=== PATIENT | male | born 1940 | race African-American/Black ===

== ENCOUNTER 2017-12-10 16:49 | Emergency (ER) | payer OTHER ==
--- NOTE | 2017-12-10 17:03 | RAD REPORT ---
EXAM DESCRIPTION: CT - Ct Stroke Brain Wo Cont - 12/10/2017 4:57 pm CLINICAL HISTORY: Left-sided weakness CLINICAL HISTORY: None. TECHNIQUE: Axial 5 millimeter thick images of the head were obtained without IV contrast. All CT scans are performed using dose optimization technique as appropriate and may include automated exposure control or mA/KV adjustment according to patient size. FINDINGS: No intracranial hemorrhage, mass, or cerebral edema. No acute infarction identifiable. No cortical edema or sulcal effacement. Mild to moderate atrophy and chronic ischemic changes are presen t. Ventricles are in proportion. Physiologic and arterial calcifications are present. Head matter-whi te matter differentiation is preserved. Visualized portions of the mastoid air cells, paranasal sinuses, and orbits are unremarkable. Patient has some minimal patchy opacification in the ethmoid air cells. Findings telephoned to doctor Krause 4:59 p.m.. IMPRESSION: No CT evidence of acute intracranial process. Mild to moderate atrophy and chronic ischemic changes are present. Chronic ischemic changes can mask nonhemorrhagic acute infarction. MR brain followup can be obtained if there is ongoing concern for acute ischemia.
--- NOTE | 2017-12-10 17:15 | RAD REPORT ---
EXAM DESCRIPTION: RAD - Chest Single View - 12/10/2017 5:07 pm CLINICAL HISTORY: Left-sided weakness, dizziness COMPARISON: Chest exam March 2017 TECHNIQUE: AP portable chest image was obtained 1703 hours . FINDINGS: Lung volumes are normal. No peripheral consolidation. No significant failure or volume ove rload. There is a vague 8 millimeter density in the lower left chest near the heart border not clearl y evident on the prior study. This is very likely a summation artifact. Development of a small nodule cannot be excluded. A repeat two-view chest examination could be utilized to further evaluate this f inding. Heart and vasculature are normal. No measurable pleural effusion and no pneumothorax. No gross bony abnormality seen. No acute aortic findings suspected. IMPRESSION: No failure, infiltrate or acute cardiopulmonary finding. Approximately 8 mm nodular density lower left lung field warranting repeat examination with PA and la teral projections when tolerable by the patient.
[2017-12-10 17:16] LABS: Absolute Lymphocytes (CBC) 1.8 K/uL (0.7-4.9); Absolute Monocytes 0.9 K/uL (0.1-1.3); Basophils % 0.5 % (0-1.3); Eosinophils % 5.2 % (0-4.4); Hematocrit 41.1 % (39.6-49.0); Lymphocytes % 19.7 % (15.3-44.8); MCV 83.2 fL (80-100); MPV 7.1 fL (7.6-11.3); Monocytes % 10.1 % (3.3-12.3); RBC Red Blood Cell Count 4.94 M/uL (4.33-5.43)
[2017-12-10] MEDS ORDERED: NA CHLORIDE 0.9% 1,000 ML ONE (17:19)
[2017-12-10] MEDS ORDERED: PANTOPRAZOLE 40 MG INJ ONE (17:19)
[2017-12-10] MEDS ORDERED: THIAMINE 200 MG/2 ML INJ ONE (17:19)
[2017-12-10] MEDS ORDERED: NA CHLORIDE 0.9% 250 ML ONE (17:19)
[2017-12-10] MEDS ORDERED: ALTEPLASE 100 ML IV ONE (17:20)
[2017-12-10] MEDS ORDERED: FOLIC ACID 5 MG/ML VIAL ONE (17:20)
[2017-12-10 17:30] LABS: Potassium 3.6 mmol/L (3.5-5.1)
--- NOTE | 2017-12-10 18:06 | EDPHYS ---
Physician Documentation [facility] Name: Regino Galindo Jr Age: 77 yrs Sex: Male : 1940 Arrival Date: 12/10/2017 Time: 16:51 Bed 7 Private MD: ED Physician Mikie Krause HPI: 12/10 17:16 This 77 yrs old Black Male presents to ER via EMS with complaints of S/S of Possible shelly Stroke. 17:16 The patient's problem is reported as weakness, in the left upper extremity, in the left shelly lower extremity. Onset: The symptoms/episode began/occurred just prior to arrival, 2pm. Duration: The episode is continuous. Context: the episode(s) was witnessed, by no one, symptoms became apparent at 14:00. occurred at home, occurred while the patient was sitting. The symptoms are alleviated by nothing. The symptoms are aggravated by nothing. Associated signs and symptoms: The patient has no apparent associated signs or symptoms. Severity of symptoms: At their worst the symptoms were mild in the emergency department the symptoms are unchanged. Patient's baseline: Neuro: alert and fully oriented. The patient has not experienced similar symptoms in the past, hx cvx. Historical: - Allergies: 17:09 No Known Allergies; hb - Home Meds: 17:09 amlodipine 5 mg tab 1 tab once daily [Active]; aspirin 81 mg Oral chew 1 tab once daily hb [Active]; atorvastatin 20 mg Oral tab 1 tab once daily [Active]; clopidogrel 75 mg Oral tab 1 tab once daily [Active]; Fish Oil 1,000 mg Oral cap [Active]; gluconate, once daily [Active]; Multiple Vitamins Oral tab [Active]; metoprolol tartrate 50 mg Oral tab 1 tab 2 times per day [Active]; pentoxifylline 400 mg Oral TbER 1 tab 2 times per day [Active]; pravastatin 40 mg Oral tab 1 tab once daily [Active]; ramipril 10 mg Oral cap 1 cap once daily [Active]; - PMHx: 17:09 Hypertension; CVA; hb - PSHx: 17:09 cyst removed of leg; hb - Immunization history:: Adult Immunizations up to date. - Social history:: Smoking status: Patient/guardian denies using tobacco. - Ebola Screening: : No symptoms or risks identified at this time. - Family history:: not pertinent. ROS: 17:16 Constitutional: Negative for fever, chills, and weight loss, Eyes: Negative for injury, shelly pain, redness, and discharge, ENT: Negative for injury, pain, and discharge, Neck: Negative for injury, pain, and swelling, Cardiovascular: Negative for chest pain, palpitations, and edema, Respiratory: Negative for shortness of breath, cough, wheezing, and pleuritic chest pain, Abdomen/GI: Negative for abdominal pain, nausea, vomiting, diarrhea, and constipation, Back: Negative for injury and pain, : Negative for injury, bleeding, discharge, and swelling, MS/Extremity: Negative for injury and deformity, Skin: Negative for injury, rash, and discoloration, Psych: Negative for depression, anxiety, suicide ideation, homicidal ideation, and hallucinations, Allergy/Immunology: Negative for hives, rash, and allergies, Endocrine: Negative for neck swelling, polydipsia, polyuria, polyphagia, and marked weight changes, Hematologic/Lymphatic: Negative for swollen nodes, abnormal bleeding, and unusual bruising. 17:16 Neuro: Positive for gait disturbance, weakness, of the left arm and left leg. Exam: 17:16 Radiologist reports: nad, old changes shelly 17:16 Constitutional: This is a well developed, well nourished patient who is awake, alert, and in no acute distress. Head/Face: Normocephalic, atraumatic. Eyes: Pupils equal round and reactive to light, extra-ocular motions intact. Lids and lashes normal. Conjunctiva and sclera are non-icteric and not injected. Cornea within normal limits. Periorbital areas with no swelling, redness, or edema. ENT: Nares patent. No nasal discharge, no septal abnormalities noted. Tympanic membranes are normal and external auditory canals are clear. Oropharynx with no redness, swelling, or masses, exudates, or evidence of obstruction, uvula midline. Mucous membranes moist. Neck: Trachea midline, no thyromegaly or masses palpated, and no cervical lymphadenopathy. Supple, full range of motion without nuchal rigidity, or vertebral point tenderness. No Meningismus. Chest/axilla: Normal chest wall appearance and motion. Nontender with no deformity. No lesions are appreciated. Cardiovascular: Regular rate and rhythm with a normal S1 and S2. No gallops, murmurs, or rubs. Normal PMI, no JVD. No pulse deficits. Respiratory: Lungs have equal breath sounds bilaterally, clear to auscultation and percussion. No rales, rhonchi or wheezes noted. No increased work of breathing, no retractions or nasal flaring. Abdomen/GI: Soft, non-tender, with normal bowel sounds. No distension or tympany. No guarding or rebound. No evidence of tenderness throughout. Back: No spinal tenderness. No costovertebral tenderness. Full range of motion. Skin: Warm, dry with normal turgor. Normal color with no rashes, no lesions, and no evidence of cellulitis. MS/ Extremity: Pulses equal, no cyanosis. Neurovascular intact. Full, normal range of motion. Psych: Awake, alert, with orientation to person, place and time. Behavior, mood, and affect are within normal limits. 17:16 Neuro: Orientation: is normal, appropriate for stated age, no acute changes, Mentation: is normal, appropriate for stated age, no acute changes, Memory: is normal, appropriate for stated age, no acute changes, Cranial nerves: grossly normal, is grossly normal based on the patient's age, no acute changes, Cerebellar function: dysmetria is noted on the left, the patient is unable to track right heel to left valles, Motor: moves all fours, strength is 4/5 in the left arm and left leg, Sensation: is normal, no obvious gross deficits, appropriate Gait: not tested. Deep tendon reflexes are 2+ (normal) in the bilateral brachioradialis, bicep, tricep and patellar and Achilles tendons, seizure activity, is not displayed by the patient. 17:30 Neuro: dw with dr moya, yes tpa candidate, within 4.5 hour window. shelly Vital Signs: 17:01 BP 180 / 76; Pulse 82; Resp 16; Temp 98; Pulse Ox 100% on R/A; Pain 0/10; hb 17:05 Weight 78.93 kg; hb 17:20 BP 157 / 88; Pulse 77; Resp 16; Pulse Ox 100% on R/A; Pain 0/10; hb 18:16 BP 173 / 88; Pulse 79; Resp 18; Pulse Ox 100% on R/A; tw2 NIH Stroke Scale Scores: 17:16 NIHSS Score: 5 shelly MDM: 16:58 Patient medically screened. shelly 17:31 Data reviewed: vital signs, nurses notes, lab test result(s), EKG, radiologic studies, [facility] scan, plain films. 12/10 16:53 Order name: Basic Metabolic Panel 12/10 16:53 Order name: CBC with Diff; Complete Time: 17:31 12/10 16:53 Order name: Protime (+inr); Complete Time: 17:31 12/10 16:53 Order name: Ptt, Activated; Complete Time: 17:31 12/10 16:59 Order name: Sed Rate [facility] 12/10 16:59 Order name: CRP [facility] 12/10 16:53 Order name: CT Stroke Brain w/o Contrast; Complete Time: 17:31 12/10 16:53 Order name: Stroke CXR 1 View; Complete Time: 17:31 12/10 16:59 Order name: Urine Culture [facility] 12/10 17:05 Order name: Glucose, Ancillary Testing; Complete Time: 17:31 EDMS 12/10 16:53 Order name: EKG; Complete Time: 16:54 12/10 16:53 Order name: Accucheck; Complete Time: 17:10 12/10 16:53 Order name: Cardiac monitoring; Complete Time: 17:10 12/10 16:53 Order name: EKG - Nurse/Tech; Complete Time: 17:10 12/10 16:53 Order name: IV Saline Lock; Complete Time: 17:10 12/10 16:53 Order name: Labs collected and sent; Complete Time: 17:11 12/10 16:53 Order name: NPO; Complete Time: 17:11 12/10 16:53 Order name: O2 Per Protocol; Complete Time: 17:11 12/10 16:53 Order name: O2 Sat Monitoring; Complete Time: 17:11 12/10 16:53 Order name: Stroke Swallow Screen; Complete Time: 17:38 12/10 16:59 Order name: Urine Dipstick-Ancillary (obtain specimen); Complete Time: 18:16 [facility] Administered Medications: 17:20 Drug: NS 0.9% 1000 ml Route: IV; Rate: 1 bolus; Site: right antecubital; hb 18:15 Follow up: Response: No adverse reaction; IV Status: Completed infusion 17:20 Drug: foLIC Acid 1 mg Route: IVPB; Site: right antecubital; hb 18:00 Follow up: Response: No adverse reaction hb 17:20 Drug: ProTONIX 40 mg Route: IVP; Site: right antecubital; hb 18:16 Follow up: Response: No adverse reaction tw2 17:20 Drug: Thiamine 100 mg Route: IV; Rate: bolus; Site: right antecubital; hb 18:00 Follow up: Response: No adverse reaction hb 17:20 Drug: ACTIvase 78 mg {Co-Signature: tw2 (Gloria Duffy RN).} Route: IV; Rate: calculated hb rate; Infused Over: 60 mins; Site: right antecubital; 18:15 Follow up: Response: No adverse reaction; IV Status: Infusion continued upon transfer hb Disposition: 12/10/17 18:06 Transfer ordered to [facility]. Diagnosis are Weakness, Cerebral infarction - left arm and left leg weakness. - Reason for transfer: Higher level of care. - Accepting physician is to stroke team, [facility], via [facility]. - Condition is Fair. - Problem is new. - Symptoms are unchanged. NIH Stroke Scale - NIH Stroke Score Date: 12/10/2017 Time: 17:16 Total Score = 5 1a. Level of Consciousness (LOC) - 0(Alert) 1b. Level of Consciousness (LOC) (Year \T\ Age) - 0(Both) 1c. LOC Commands (Open \T\ Closes Eyes/Senior Billing Consultant) - 0(Both) 2. Best Gaze (Lateral Gaze Paresis) - 0(Normal) 3. Visual Field Loss - 0(No visual loss) 4. Facial Palsy - 0(Normal) 5a. Left Arm: Motor (10-second hold) - 1(Drift) 5b. Right Arm: Motor (10-second hold) - 0(No drift) 6a. Left Leg: Motor (5-second hold - always test supine) - 2(Drift, some effort against gravity) 6b. Right Leg: Motor (5-second hold - always test supine) - 0(No drift) 7. Limb Ataxia (finger/nose \T\ heel/valles - test with eyes open) - 2(Present in two limbs) 8. Sensory Loss (pinprick arms/legs/face) - 0(Normal) 9. Best Language: Aphasia (description/naming/reading) - 0(No aphasia) 10. Dysarthria (speech clarity - read or repeat words) - 0(Normal) 11. Extinction and Inattention (visual/tactile/auditory/spatial/personal) - 0(No abnormality) Initials: shelly Signatures: Dispatcher [employer] Mikie Campos MD MD cha Baxter, Heather, RN RN Gloria Duffy RN RN tw2 Gloria Duffy RN tw2 Corrections: (The following items were deleted from the chart) 18:24 18:06 12/10/2017 18:06 Transfer ordered to [facility]. tw2 Diagnosis is Weakness; Cerebral infarction - left arm and left leg weakness. Reason for transfer: Higher level of care. Accepting physician is to stroke team, [facility], via [facility]. Condition is Fair. Problem is new. Symptoms are unchanged. shelly
--- NOTE | 2017-12-10 18:06 | ER ---
Nurse's Notes [facility] Name: Regino Galindo Jr Age: 77 yrs Sex: Male : 1940 Arrival Date: 12/10/2017 Time: 16:51 Bed 7 Private MD: Diagnosis: Weakness;Cerebral infarction-left arm and left leg weakness Presentation: 12/10 16:52 Presenting complaint: EMS states: Left sided weakness and dizziness that started at 2pm hb today. Hx CVA, HTN. Transition of care: patient was not received from another setting of care. Onset of symptoms was December 10, 2017 at 14:00. 16:52 Method Of Arrival: EMS: [facility] hb 16:52 Acuity: DEANGELO 2 hb 17:00 Risk Assessment: Do you want to hurt yourself or someone else? Patient reports no hb desire to harm self or others. Initial Sepsis Screen: Does the patient meet any 2 criteria? No. Patient's initial sepsis screen is negative. Does the patient have a suspected source of infection? No. Patient's initial sepsis screen is negative. Care prior to arrival: IV initiated. 18 GA, in the right antecubital area. Historical: - Allergies: 17:09 No Known Allergies; hb - Home Meds: 17:09 amlodipine 5 mg tab 1 tab once daily [Active]; aspirin 81 mg Oral chew 1 tab once daily hb [Active]; atorvastatin 20 mg Oral tab 1 tab once daily [Active]; clopidogrel 75 mg Oral tab 1 tab once daily [Active]; Fish Oil 1,000 mg Oral cap [Active]; gluconate, once daily [Active]; Multiple Vitamins Oral tab [Active]; metoprolol tartrate 50 mg Oral tab 1 tab 2 times per day [Active]; pentoxifylline 400 mg Oral TbER 1 tab 2 times per day [Active]; pravastatin 40 mg Oral tab 1 tab once daily [Active]; ramipril 10 mg Oral cap 1 cap once daily [Active]; - PMHx: 17:09 Hypertension; CVA; hb - PSHx: 17:09 cyst removed of leg; hb - Immunization history:: Adult Immunizations up to date. - Social history:: Smoking status: Patient/guardian denies using tobacco. - Ebola Screening: : No symptoms or risks identified at this time. - Family history:: not pertinent. Screenin:07 Abuse screen: Denies threats or abuse. Denies injuries from another. Nutritional hb screening: No deficits noted. Tuberculosis screening: No symptoms or risk factors identified. Fall Risk Total Paez Fall Scale indicates High Risk Score (45 or more points). Fall prevention measures have been instituted. Side Rails Up X 2 Frequent Obs/Assessments Occuring Family Present and informed to notify staff if the need to leave the bedside As available patient and family educated on Fall Prevention Program and Strategies. 17:45 Patient has been NPO before screening. The patient is alert, able to follow commands. hb The patient does not exhibit slurred or garbled speech The patient is not exhibiting difficulty speaking. The patient does not exhibit difficulty understanding words. The patient is able to swallow own secretions with no drooling or need for suction. Patient tolerated one teaspoon of water. No drooling, immediate coughing, gurgling, or clearing of the throat was noted. The patient tolerated 90mL of water. No drooling, immediate coughing, gurgling, or clearing of the throat was noted. The patient passed the bedside swallow screening. Oral medications may be given as ordered. Contact Physician for further diet orders. Assessment: 16:52 Reassessment: Code Stroke called, pt to CT. hb 17:00 Reassessment: Pt returned from CT. hb 17:01 Reassessment: BGL 91. hb 17:02 Reassessment: blood sent to lab with purple sticker, outside lab called by Denise. hb 17:03 Reassessment: PCXR done. hb 17:04 Reassessment: Dr. Krause at bedside. hb 17:05 Reassessment: EKG at bedside. hb 17:10 General: Appears in no apparent distress. Behavior is calm, cooperative. Pain: Denies hb pain. Neuro: Level of Consciousness is awake, alert, obeys commands, Oriented to person, place, time, situation, Infection Control Coordinator are equal bilaterally Weakness in left Gait is unsteady, Speech is normal, Facial symmetry appears normal, Pupils are PERRLA, Intact. Cardiovascular: Heart tones S1 S2 present Capillary refill < 3 seconds Patient's skin is warm and dry. Respiratory: Airway is patent Trachea midline Respiratory effort is even, unlabored, Respiratory pattern is regular, symmetrical. GI: No signs and/or symptoms were reported involving the gastrointestinal system. : No signs and/or symptoms were reported regarding the genitourinary system. EENT: No signs and/or symptoms were reported regarding the EENT system. Derm: No signs and/or symptoms reported regarding the dermatologic system. Skin is pink, warm \T\ dry. Musculoskeletal: Reports weakness in left arm and left leg. 17:20 Reassessment: TPA started. hb 17:36 Reassessment: Report give to [facility], ETA=30 min. iw Vital Signs: 17:01 BP 180 / 76; Pulse 82; Resp 16; Temp 98; Pulse Ox 100% on R/A; Pain 0/10; hb 17:05 Weight 78.93 kg; hb 17:20 BP 157 / 88; Pulse 77; Resp 16; Pulse Ox 100% on R/A; Pain 0/10; hb 18:16 BP 173 / 88; Pulse 79; Resp 18; Pulse Ox 100% on R/A; tw2 NIH Stroke Scale Scores: 17:16 NIHSS Score: 5 shelly ED Course: 16:51 Patient arrived in ED. hb 16:51 Bed in low position. Side rails up X2. freezer person on. Pulse ox on. NIBP on. tw2 16:58 CT Stroke Brain w/o Contrast In Process Unspecified. EDMS 16:58 Mikie Krause MD is Attending Physician. [facility] 16:58 Loren Wilkerson, RN is Primary Nurse. hb 16:59 Triage completed. hb 17:03 Arm band placed on right wrist. hb 17:05 X-ray completed. Portable x-ray completed in exam room. Patient tolerated procedure ml well. 17:06 Stroke CXR 1 View In Process Unspecified. EDMS 17:25 Missed attempt(s): 22 gauge in right antecubital area. Bleeding controlled, band aid tw2 applied, catheter tip intact. Missed attempt(s): 22 gauge in right forearm. Bleeding controlled, band aid applied, catheter tip intact. 17:26 EKG done, by distribution tech. reviewed by Mikie Krause MD. 3 18:17 No provider procedures requiring assistance completed. Patient transferred, IV remains tw2 in place. Administered Medications: 17:20 Drug: NS 0.9% 1000 ml Route: IV; Rate: 1 bolus; Site: right antecubital; hb 18:15 Follow up: Response: No adverse reaction; IV Status: Completed infusion hb 17:20 Drug: foLIC Acid 1 mg Route: IVPB; Site: right antecubital; hb 18:00 Follow up: Response: No adverse reaction hb 17:20 Drug: ProTONIX 40 mg Route: IVP; Site: right antecubital; hb 18:16 Follow up: Response: No adverse reaction tw2 17:20 Drug: Thiamine 100 mg Route: IV; Rate: bolus; Site: right antecubital; hb 18:00 Follow up: Response: No adverse reaction hb 17:20 Drug: ACTIvase 78 mg {Co-Signature: tw2 (Gloria Duffy RN).} Route: IV; Rate: calculated hb rate; Infused Over: 60 mins; Site: right antecubital; 18:15 Follow up: Response: No adverse reaction; IV Status: Infusion continued upon transfer hb Outcome: 18:06 ER care complete, transfer ordered by . shelly 18:24 Patient left the ED. tw2 18:25 Transferred by helicopter to [facility]. hb 18:25 Condition: stable 18:25 Instructed on the need for transfer, Demonstrated understanding of instructions. NIH Stroke Scale - NIH Stroke Score Date: 12/10/2017 Time: 17:16 Total Score = 5 1a. Level of Consciousness (LOC) - 0(Alert) 1b. Level of Consciousness (LOC) (Year \T\ Age) - 0(Both) 1c. LOC Commands (Open \T\ Closes Eyes/Natural Gas Plant Supervisor) - 0(Both) 2. Best Gaze (Lateral Gaze Paresis) - 0(Normal) 3. Visual Field Loss - 0(No visual loss) 4. Facial Palsy - 0(Normal) 5a. Left Arm: Motor (10-second hold) - 1(Drift) 5b. Right Arm: Motor (10-second hold) - 0(No drift) 6a. Left Leg: Motor (5-second hold - always test supine) - 2(Drift, some effort against gravity) 6b. Right Leg: Motor (5-second hold - always test supine) - 0(No drift) 7. Limb Ataxia (finger/nose \T\ heel/valles - test with eyes open) - 2(Present in two limbs) 8. Sensory Loss (pinprick arms/legs/face) - 0(Normal) 9. Best Language: Aphasia (description/naming/reading) - 0(No aphasia) 10. Dysarthria (speech clarity - read or repeat words) - 0(Normal) 11. Extinction and Inattention (visual/tactile/auditory/spatial/personal) - 0(No abnormality) Initials: shelly Signatures: Dispatcher [employer] Mikie Campos MD MD cha Williams, Irene, RN RN iw Arnel, Loren Hemphill RN RN Gloria Duffy RN RN tw2 Gail Mariscal [facility] Gloria Duffy RN tw2
[2017-12-10 19:14] VITALS: TEMP 98; O2SAT 100
[2017-12-10 19:16] VITALS: BP 173/88
--- NOTE | 2017-12-11 09:26 | EKG ---
Test Date: 2017-12-10 Test Time: 17:07:23 [employer] Technology: [employer] MEASUREMENT RESULTS: Intervals: Rate: 75 CT: 168 QRSD: 84 QT: 366 QTc: 408 [place]: P: 70 CT: 168 QRS: 27 T: 45 INTERPRETIVE STATEMENTS: Normal sinus rhythm Septal infarct, age undetermined Abnormal ECG Compared to ECG 08/02/2016 10:15:19 Myocardial infarct finding now present Electronically Signed On 12-11-17 09:24:15 CDT by Teo Crawley
== END 2017-12-10 18:24 | disposition short-term general hospital (02) ==
LOC: ER 16:49
DX: I63.9 Cerebral infarction, unspecified (principal); I10 Essential (primary) hypertension; R29.705 NIHSS score 5; Z79.82 Long term (current) use of aspirin
CPT/HCPCS: 36415; 70450; 71045; 80048; 82962; 85025; 85610; 85652; 85730; 86140; 87086; 87088; 92977; 93005; 96365; 96374; 96375; 99291; C9113; J2997; J3411; J7030

== ENCOUNTER 2019-02-21 19:11 | Observation (INO) | payer OTHER ==
--- OUTSIDE RECORDS SUMMARY | 2019-02-21 19:13 | XMS REPORT ---
:1940 [facility] [address] [place] [address] Dr. Littlejohn. [address] [place] [id number] Care Team Providers Name Role Phone FLACO LUNA Unavailable Unavailable Problems This patient has no known problems. Allergies, Adverse Reactions, Alerts This patient has no known allergies or adverse reactions. Medications This patient has no known medications. Results Test Description Test Time Test Comments Text Results Atomic Results Result Comments MR, MRA, BRAIN, 2017-12-14 Reason for FINAL REPORT PATIENT ID: WITHOUT CONTRAST 13:15:00 exam:->Ischemic Stroke [id number] MRA brain and EvaluationReason for neck without contrast exam:->discharge 12/14/2017 1:14 PM CLINICAL pending HISTORY: Ischemic Stroke Evaluationdischarge pendingstroke COMPARISON: None available TECHNIQUE: Two- and three-dimensional [id number] MRA images of the intra- and extracranial arterial vasculature was performed, from which maximal intensity projection 3-D reconstructions were created. FINDINGS: MRA neck: There is no vessel occlusion or flow-limiting stenosis. There is no NASCET-quantifiable cervical internal carotid artery stenosis. Flow is antegrade in both vertebral arteries. MRA [place]: There is no vessel occlusion, flow-limiting stenosis, or aneurysm. IMPRESSION: Unremarkable intra- and extracranial MRAs. Signed: Shayne Petty Verified Date/Time: 12/14/2017 13:15:40 Reading Location: [facility] Radiology Reading Room , MRA, NECK, 2017-12-14 Reason for FINAL REPORT PATIENT ID: WITHOUT IV 13:15:00 exam:->Ischemic Stroke [id number] MRA brain and CONTRAST EvaluationReason for neck without contrast exam:->discharge 12/14/2017 1:14 PM CLINICAL pending HISTORY: Ischemic Stroke Evaluationdischarge pendingstroke COMPARISON: None available TECHNIQUE: Two- and three-dimensional [id number] MRA images of the intra- and extracranial arterial vasculature was performed, from which maximal intensity projection 3-D reconstructions were created. FINDINGS: MRA neck: There is no vessel occlusion or flow-limiting stenosis. There is no NASCET-quantifiable cervical internal carotid artery stenosis. Flow is antegrade in both vertebral arteries. MRA [place]: There is no vessel occlusion, flow-limiting stenosis, or aneurysm. IMPRESSION: Unremarkable intra- and extracranial MRAs. Signed: Shayne Petty Verified Date/Time: 12/14/2017 13:15:40 Reading Location: [facility] Reading Room , BRAIN, 2017-12-14 Discharge pendingReason FINAL REPORT PATIENT ID: WITHOUT CONTRAST 13:13:00 for exam:->Ischemic [id number] MRI brain without Stroke Evaluation contrast 12/14/2017 1:11 PM CLINICAL INDICATION: Ischemic Stroke Evaluationstroke TECHNIQUE: Multiplanar, multisequence MR imaging of the brain was performed utilizing the following imaging sequences: Axial T1, T2, FLAIR, GRE, and DWI; sagittal and coronal T1-weighted images. COMPARISON: None available FINDINGS: There is no acute infarct, hematoma, mass, extra-axial collection, or hydrocephalus. There is a small chronic infarct in the posterior right middle frontal and adjacent precentral gyri. There is a small chronic infarct in the inferior left cerebellum. There are rare chronic microvascular changes in the supratentorial white matter and vivian. There is generalized parenchymal volume loss. Normal appearing flow-voids are present in the major intracranial vascular structures. The sellar and pineal regions are normal. The craniovertebral junction is intact. There is multifocal sinusitis. There are bilateral phacoemulsifications. The skull base is unremarkable. IMPRESSION: Chronic ischemic changes. No acute intracranial abnormality. Sinusitis. Signed: Shayne Petty Verified Date/Time: 12/14/2017 13:13:48 Reading Location: [facility] Rad[facility] Reading Room [facility] 2017-12-12 07:42:00 Test Item Value Reference Range Comments MAGNESIUM (BEAKER) (test svxo=920) 2.2 mg/dL 1.6-2.6 Add-onCOMPREHENSIVE METABOLIC [id number] 04:37:00 Test Item Value Reference Range Comments TOTAL PROTEIN (BEAKER) 6.1 gm/dL 6.0-8.3 (test kymy=624) ALBUMIN (BEAKER) (test 3.4 g/dL 3.5-5.0 gkvu=7674) ALKALINE PHOSPHATASE 29 U/L 40-150 (BEAKER) (test hknr=084) BILIRUBIN TOTAL (BEAKER) 0.5 mg/dL 0.2-1.2 (test jrhy=630) SODIUM (BEAKER) (test 140 meq/L 136-145 aweg=922) POTASSIUM (BEAKER) (test 4.0 meq/L 3.5-5.1 mjju=282) CHLORIDE (BEAKER) (test 108 meq/L 98-107 hwqn=042) CO2 (BEAKER) (test 25 meq/L 22-29 wpze=765) BLOOD UREA NITROGEN 10 mg/dL 7-21 (BEAKER) (test zsms=495) CREATININE (BEAKER) (test 0.93 mg/dL 0.57-1.25 xhls=954) GLUCOSE RANDOM (BEAKER) 100 mg/dL 70-105 (test zdkx=368) CALCIUM (BEAKER) (test 8.6 mg/dL 8.4-10.2 rsab=284) AST (SGOT) (BEAKER) (test 21 U/L 5-34 tfqj=760) ALT (SGPT) (BEAKER) (test 21 U/L 6-55 dxob=798) EGFR (BEAKER) (test 95 mL/min/1.73 sq m ESTIMATED GFR IS NOT jkob=5432) ACCURATE CREATININE CLEARANCE IN PREDICTING GLOMERULAR FILTRATION RATE. ESTIMATED GFR IS NOT APPLICABLE FOR DIALYSIS PATIENTS. CBC (HEMOGRAM ONLY)2017-12-12 04:20:00 Test Item Value Reference Range Comments WHITE BLOOD CELL COUNT (BEAKER) (test qsho=199) 6.6 K/ L 3.5-10.5 RED BLOOD CELL COUNT (BEAKER) (test qrcp=492) 4.66 M/ L 4.63-6.08 HEMOGLOBIN (BEAKER) (test ondi=474) 12.8 GM/DL 13.7-17.5 HEMATOCRIT (BEAKER) (test echr=360) 39.6 % 40.1-51.0 MEAN CORPUSCULAR VOLUME (BEAKER) (test cxej=275) 85.0 fL 79.0-92.2 MEAN CORPUSCULAR HEMOGLOBIN (BEAKER) (test 27.5 pg 25.7-32.2 merr=551) MEAN CORPUSCULAR HEMOGLOBIN CONC (BEAKER) (test 32.3 GM/DL 32.3-36.5 zkkq=782) RED CELL DISTRIBUTION WIDTH (BEAKER) (test 15.3 % 11.6-14.4 erbq=060) PLATELET COUNT (BEAKER) (test tnuw=950) 220 K/CU MM 150-450 MEAN PLATELET VOLUME (BEAKER) (test ehwy=120) 9.1 fL 9.4-12.4 NUCLEATED RED BLOOD CELLS (BEAKER) (test 0 /100 WBC 0-0 nbgv=201) [id number] 06:03:00 Test Item Value Reference Range Comments PHOSPHORUS (BEAKER) (test yvca=161) 3.9 mg/dL 2.3-4.7 [id number] 06:03:00 Test Item Value Reference Range Comments MAGNESIUM (BEAKER) (test geot=189) 2.1 mg/dL 1.6-2.6 FastingBASIC METABOLIC [id number] 06:03:00 Test Item Value Reference Range Comments SODIUM (BEAKER) (test 143 meq/L 136-145 fyfu=695) POTASSIUM (BEAKER) (test 3.8 meq/L 3.5-5.1 wnwt=197) CHLORIDE (BEAKER) (test 109 meq/L 98-107 jhxf=625) CO2 (BEAKER) (test 26 meq/L 22-29 ivjx=566) BLOOD UREA NITROGEN 12 mg/dL 7-21 (BEAKER) (test zygo=006) CREATININE (BEAKER) (test 0.89 mg/dL 0.57-1.25 lllb=872) GLUCOSE RANDOM (BEAKER) 88 mg/dL 70-105 (test zxra=632) CALCIUM (BEAKER) (test 8.9 mg/dL 8.4-10.2 brjf=018) EGFR (BEAKER) (test 100 mL/min/1.73 sq m ESTIMATED GFR IS NOT dbzc=5203) ACCURATE CREATININE CLEARANCE IN PREDICTING GLOMERULAR FILTRATION RATE. ESTIMATED GFR IS NOT APPLICABLE FOR DIALYSIS PATIENTS. FastingLIPID [id number] 06:03:00 Test Item Value Reference Range Comments TRIGLYCERIDES (BEAKER) (test lkam=863) 68 mg/dL CHOLESTEROL (BEAKER) (test qkwp=032) 198 mg/dL HDL CHOLESTEROL (BEAKER) (test bgve=759) 83 mg/dL LDL CHOLESTEROL CALCULATED (BEAKER) (test 101 mg/dL adsr=218) Triglyceride Reference Range: Low Risk <150 Borderline 150- 199 High Risk 200-499 Very High Risk >=500Cholesterol Reference Range: Low Risk <200 Borderline 200-239 High Risk > 240HDL Cholesterol Reference Range: Low Risk >=60 High Risk <40LDL Cholesterol Reference Range: Optimal <100 Near Optimal 100-129 Borderline 130-159 High 160-189 Very High >=190 FastingCT BRAIN WITHOUT IV CONTRAST - [id number] 05:38: 00Reason for exam:->post-tPAFINAL REPORT CT BRAIN WITHOUT IV CONTRAST - PORTABLE INDICATION: post-tPA TECHNIQUE: Noncontrast portable axial CT imaging was obtained from the vertex to the skull base. Axial images were reconstructed using a bone algorithm. DOSE REDUCTION: Dose modulation, iterative reconstruction, and/or weight-based adjustment of the mA/ kV was utilized to reduce the radiation dose to as low as reasonably achievable. COMPARISON: None. FINDINGS: Advanced volume loss is present with frontal predominance. No abnormal extra-axial fluid. No discernible infarct or parenchymal hemorrhage. Midline is normally positioned. There is no hydrocephalus. Calvarium is intact. Trace paranasal sinus disease is present. Globes are proptotic. IMPRESSION: Advanced involutional changes without acute intracranial abnormality. If there is persistent clinical concern for intracranial pathology, MR examinationis recommended for further characterization. Signed: JR Figueroa Robert MDReport Verified Date/Time: 12/11/2017 05:38:21 Reading Location: [address] Reading Room VITAMIN [id number] 05:27:00 Test Item Value Reference Range Comments VITAMIN B12 (BEAKER) (test kjcq=966) 843 pg/mL 213-816 TSH/FREE T4 IF [id number] 05:27:00 Test Item Value Reference Range Comments THYROID STIMULATING HORMONE (BEAKER) (test 1.84 uIU/mL 0.35-4.94 xgmv=738) CBC W/PLT COUNT & AUTO [id number] 04:48:00 Test Item Value Reference Range Comments WHITE BLOOD CELL COUNT (BEAKER) (test wcvm=653) 7.0 K/ L 3.5-10.5 RED BLOOD CELL COUNT (BEAKER) (test iqsj=941) 4.89 M/ L 4.63-6.08 HEMOGLOBIN (BEAKER) (test qsym=160) 13.2 GM/DL 13.7-17.5 HEMATOCRIT (BEAKER) (test nbgb=921) 41.0 % 40.1-51.0 MEAN CORPUSCULAR VOLUME (BEAKER) (test dnyt=570) 83.8 fL 79.0-92.2 MEAN CORPUSCULAR HEMOGLOBIN (BEAKER) (test 27.0 pg 25.7-32.2 pipg=267) MEAN CORPUSCULAR HEMOGLOBIN CONC (BEAKER) (test 32.2 GM/DL 32.3-36.5 orqi=853) RED CELL DISTRIBUTION WIDTH (BEAKER) (test 15.5 % 11.6-14.4 nwjq=548) PLATELET COUNT (BEAKER) (test drcp=608) 251 K/CU MM 150-450 MEAN PLATELET VOLUME (BEAKER) (test gbei=296) 9.1 fL 9.4-12.4 NUCLEATED RED BLOOD CELLS (BEAKER) (test 0 /100 WBC 0-0 vrqn=508) NEUTROPHILS RELATIVE PERCENT (BEAKER) (test 48 % qqqz=759) LYMPHOCYTES RELATIVE PERCENT (BEAKER) (test 32 % tasi=951) MONOCYTES RELATIVE PERCENT (BEAKER) (test 10 % pzth=914) EOSINOPHILS RELATIVE PERCENT (BEAKER) (test 9 % mave=005) BASOPHILS RELATIVE PERCENT (BEAKER) (test 1 % fqgt=231) NEUTROPHILS ABSOLUTE COUNT (BEAKER) (test 3.40 K/ L 1.78-5.38 rmos=018) LYMPHOCYTES ABSOLUTE COUNT (BEAKER) (test 2.23 K/ L 1.32-3.57 myno=327) MONOCYTES ABSOLUTE COUNT (BEAKER) (test 0.72 K/ L 0.30-0.82 tkzf=200) EOSINOPHILS ABSOLUTE COUNT (BEAKER) (test 0.64 K/ L 0.04-0.54 fnbd=915) BASOPHILS ABSOLUTE COUNT (BEAKER) (test 0.04 K/ L 0.01-0.08 ikmj=198) IMMATURE GRANULOCYTES-RELATIVE PERCENT (BEAKER) 0 % 0-1 (test ufod=7787) [id number] 02:11:00 Test Item Value Reference Range Comments RPR SCREEN (BEAKER) (test racd=586) Nonreactive Nonreactive HEPATIC FUNCTION [id number] 20:49:00 Test Item Value Reference Range Comments TOTAL PROTEIN (BEAKER) (test lmox=198) 6.9 gm/dL 6.0-8.3 ALBUMIN (BEAKER) (test xmjn=2565) 3.8 g/dL 3.5-5.0 BILIRUBIN TOTAL (BEAKER) (test pcyh=573) 0.5 mg/dL 0.2-1.2 BILIRUBIN DIRECT (BEAKER) (test runb=394) 0.2 mg/dL 0.1-0.5 ALKALINE PHOSPHATASE (BEAKER) (test ewle=838) 30 U/L 40-150 AST (SGOT) (BEAKER) (test vzye=819) 21 U/L 5-34 ALT (SGPT) (BEAKER) (test azba=781) 22 U/L 6-55 BASIC METABOLIC [id number] 20:49:00 Test Item Value Reference Range Comments SODIUM (BEAKER) (test 138 meq/L 136-145 arzp=405) POTASSIUM (BEAKER) (test 3.8 meq/L 3.5-5.1 rhcd=817) CHLORIDE (BEAKER) (test 106 meq/L 98-107 kmws=188) CO2 (BEAKER) (test 22 meq/L 22-29 viml=565) BLOOD UREA NITROGEN 15 mg/dL 7-21 (BEAKER) (test uwnt=249) CREATININE (BEAKER) (test 1.05 mg/dL 0.57-1.25 iivh=295) GLUCOSE RANDOM (BEAKER) 94 mg/dL 70-105 (test dcvk=153) CALCIUM (BEAKER) (test 9.0 mg/dL 8.4-10.2 oxvr=384) EGFR (BEAKER) (test 83 mL/min/1.73 sq m ESTIMATED GFR IS NOT qkyv=7170) ACCURATE CREATININE CLEARANCE IN PREDICTING GLOMERULAR FILTRATION RATE. ESTIMATED GFR IS NOT APPLICABLE FOR DIALYSIS PATIENTS. CBC W/PLT COUNT & AUTO [id number] 20:48:00 Test Item Value Reference Range Comments WHITE BLOOD CELL COUNT (BEAKER) (test mxhb=775) 9.3 K/ L 3.5-10.5 RED BLOOD CELL COUNT (BEAKER) (test yito=921) 4.98 M/ L 4.63-6.08 HEMOGLOBIN (BEAKER) (test kwde=790) 13.4 GM/DL 13.7-17.5 HEMATOCRIT (BEAKER) (test ootu=821) 41.2 % 40.1-51.0 MEAN CORPUSCULAR VOLUME (BEAKER) (test eoum=971) 82.7 fL 79.0-92.2 MEAN CORPUSCULAR HEMOGLOBIN (BEAKER) (test 26.9 pg 25.7-32.2 rdyr=460) MEAN CORPUSCULAR HEMOGLOBIN CONC (BEAKER) (test 32.5 GM/DL 32.3-36.5 sbaf=026) RED CELL DISTRIBUTION WIDTH (BEAKER) (test 14.9 % 11.6-14.4 vcqj=727) PLATELET COUNT (BEAKER) (test vxka=722) 240 K/CU MM 150-450 MEAN PLATELET VOLUME (BEAKER) (test ioaw=066) 9.0 fL 9.4-12.4 NUCLEATED RED BLOOD CELLS (BEAKER) (test 0 /100 WBC 0-0 hsxp=291) NEUTROPHILS RELATIVE PERCENT (BEAKER) (test 60 % zurf=160) LYMPHOCYTES RELATIVE PERCENT (BEAKER) (test 24 % ooqe=784) MONOCYTES RELATIVE PERCENT (BEAKER) (test 9 % dajo=067) EOSINOPHILS RELATIVE PERCENT (BEAKER) (test 6 % dnvh=718) BASOPHILS RELATIVE PERCENT (BEAKER) (test 1 % rhkl=867) NEUTROPHILS ABSOLUTE COUNT (BEAKER) (test 5.55 K/ L 1.78-5.38 tboe=833) LYMPHOCYTES ABSOLUTE COUNT (BEAKER) (test 2.17 K/ L 1.32-3.57 umdz=952) MONOCYTES ABSOLUTE COUNT (BEAKER) (test 0.86 K/ L 0.30-0.82 ufzy=132) EOSINOPHILS ABSOLUTE COUNT (BEAKER) (test 0.59 K/ L 0.04-0.54 bvaq=848) BASOPHILS ABSOLUTE COUNT (BEAKER) (test 0.05 K/ L 0.01-0.08 apcb=709) IMMATURE GRANULOCYTES-RELATIVE PERCENT (BEAKER) 0 % 0-1 (test wmnj=3254) HEMOGLOBIN [id number] 20:31:00 Test Item Value Reference Range Comments HEMOGLOBIN A1C (BEAKER) (test ilmo=747) 6.2 % 4.3-6.1 PROTHROMBIN [id number] 20:23:00 Test Item Value Reference Range Comments PROTIME (BEAKER) (test wsou=079) 15.2 seconds 11.7-14.7 INR (BEAKER) (test jrxj=358) 1.2 <=5.9 RECOMMENDED COUMADIN/WARFARIN INR THERAPY RANGESSTANDARD DOSE: 2.0 - 3.0 Includes: PROPHYLAXIS forvenous thrombosis, systemic embolization; TREATMENT for venous thrombosis and/or pulmonary embolus.HIGH RISK: Target INR is 2.5-3.5 for patients with mechanical heart valves.
[2019-02-21 19:32] LABS: Absolute Lymphocytes (CBC) 1.9 K/uL (0.7-4.9); Basophils % 0.6 % (0-1.3); Hematocrit 35.8 % (39.6-49.0); Lymphocytes % 25.6 % (15.3-44.8); MPV 6.7 fL (7.6-11.3)
[2019-02-21 19:35] LABS: Protime INR 1.1
[2019-02-21 19:56] LABS: ALT/SGPT 23 U/L (12-78); AST/SGOT 20 U/L (15-37); Albumin 3.1 g/dL (3.4-5.0); Alkaline Phosphatase 29 U/L (45-117); BUN Blood Urea Nitrogen 13 mg/dL (7-18); Bicarbonate 25 mmol/L (21-32); Bilirubin Direct < 0.1 mg/dL (0-0.2); Bilirubin Total 0.2 mg/dL (0.2-1.0); Glucose Level 121 mg/dL (74-106); Magnesium 2.3 mg/dL (1.8-2.4); NT PRO-BNP 114 pg/mL (<450); Potassium 3.6 mmol/L (3.5-5.1); Protein, Total 6.8 g/dL (6.4-8.2); Sodium Level 141 mmol/L (136-145); Troponin (Emerg Dept Use Only) < 0.02 ng/mL (0.0-0.045)
[2019-02-21 20:31] LABS: Lipase 136 U/L (73-393)
--- NOTE | 2019-02-21 20:33 | EDPHYS ---
Physician Documentation [facility] Name: Regino Galindo Jr Age: 78 yrs Sex: Male : 1940 Arrival Date: 02/21/2019 Time: 19:13 Bed 16 Private MD: ED Physician Mikie Krause HPI: 02/21 20:25 This 78 yrs old Black Male presents to ER via EMS with complaints of Chest Pain. shelly 20:25 The patient or guardian reports chest pain that is located primarily in the substernal shelly area, epigastric area. Onset: just prior to arrival. The pain radiates to back. Associated signs and symptoms: The patient has no apparent associated signs or symptoms. The chest pain is described as causing indigestion, a pressure. Modifying factors: The symptoms are alleviated by nothing. the symptoms are aggravated by nothing. Severity of pain: At its worst the pain was mild in the emergency department the pain is unchanged. The patient has not experienced similar symptoms in the past. Historical: - Allergies: 20:39 Acetaminophen-Codeine; wh 20:39 Codeine; wh - PMHx: 20:40 CVA; Hypertension; wh - PSHx: 20:40 Appendectomy; wh - Immunization history:: Adult Immunizations up to date. - Family history:: not pertinent. - Social history:: Smoking status: Patient/guardian denies using tobacco. - Ebola Screening: : Patient negative for fever greater than or equal to 101.5 degrees Fahrenheit, and additional compatible Ebola Virus Disease symptoms Patient denies exposure to infectious person. ROS: 20:25 Constitutional: Negative for fever, chills, and weight loss, Eyes: Negative for injury, shelly pain, redness, and discharge, ENT: Negative for injury, pain, and discharge, Neck: Negative for injury, pain, and swelling, Respiratory: Negative for shortness of breath, cough, wheezing, and pleuritic chest pain, Abdomen/GI: Negative for abdominal pain, nausea, vomiting, diarrhea, and constipation, : Negative for injury, bleeding, discharge, and swelling, MS/Extremity: Negative for injury and deformity, Skin: Negative for injury, rash, and discoloration, Neuro: Negative for headache, weakness, numbness, tingling, and seizure, Psych: Negative for depression, anxiety, suicide ideation, homicidal ideation, and hallucinations, Allergy/Immunology: Negative for hives, rash, and allergies, Endocrine: Negative for neck swelling, polydipsia, polyuria, polyphagia, and marked weight changes, Hematologic/Lymphatic: Negative for swollen nodes, abnormal bleeding, and unusual bruising. 20:25 Cardiovascular: Positive for chest pain, of the chest. 20:25 Back: Positive for pain with movement. Exam: 20:25 Constitutional: This is a well developed, well nourished patient who is awake, alert, shelly and in no acute distress. Head/Face: Normocephalic, atraumatic. Eyes: Pupils equal round and reactive to light, extra-ocular motions intact. Lids and lashes normal. Conjunctiva and sclera are non-icteric and not injected. Cornea within normal limits. Periorbital areas with no swelling, redness, or edema. ENT: Nares patent. No nasal discharge, no septal abnormalities noted. Tympanic membranes are normal and external auditory canals are clear. Oropharynx with no redness, swelling, or masses, exudates, or evidence of obstruction, uvula midline. Mucous membranes moist. Neck: Trachea midline, no thyromegaly or masses palpated, and no cervical lymphadenopathy. Supple, full range of motion without nuchal rigidity, or vertebral point tenderness. No Meningismus. Chest/axilla: Normal chest wall appearance and motion. Nontender with no deformity. No lesions are appreciated. Cardiovascular: Regular rate and rhythm with a normal S1 and S2. No gallops, murmurs, or rubs. Normal PMI, no JVD. No pulse deficits. Respiratory: Lungs have equal breath sounds bilaterally, clear to auscultation and percussion. No rales, rhonchi or wheezes noted. No increased work of breathing, no retractions or nasal flaring. Abdomen/GI: Soft, non-tender, with normal bowel sounds. No distension or tympany. No guarding or rebound. No evidence of tenderness throughout. Back: No spinal tenderness. No costovertebral tenderness. Full range of motion. Male : Normal genitalia with no discharge or lesions. Skin: Warm, dry with normal turgor. Normal color with no rashes, no lesions, and no evidence of cellulitis. MS/ Extremity: Pulses equal, no cyanosis. Neurovascular intact. Full, normal range of motion. Neuro: Awake and alert, GCS 15, oriented to person, place, time, and situation. Cranial nerves II-XII grossly intact. Motor strength 5/5 in all extremities. Sensory grossly intact. Cerebellar exam normal. Normal gait. Psych: Awake, alert, with orientation to person, place and time. Behavior, mood, and affect are within normal limits. Vital Signs: 19:15 BP 146 / 69; Pulse 61; Resp 18; Temp 98.2; Pulse Ox 99% on R/A; Weight 75.3 kg; Height wh 5 ft. 6 in. (167.64 cm); 20:30 BP 156 / 77; Pulse 67; Resp 18; Pulse Ox 100% on R/A; wh 21:27 BP 151 / 69 RA; Pulse 63; Resp 20; Temp 98.2(O); Pulse Ox 100% ; Pain 3/10; tt1 19:15 Body Mass Index 26.79 (75.30 kg, 167.64 cm) MDM: 19:26 Patient medically screened. [facility] 20:28 Data reviewed: vital signs, nurses notes, lab test result(s), EKG, radiologic studies, [facility] CT scan, plain films. 02/21 19:13 Order name: Basic Metabolic Panel; Complete Time: 21:45 02/21 19:13 Order name: CBC with Diff; Complete Time: 20:21 02/21 19:13 Order name: LFT's; Complete Time: 21:45 02/21 19:13 Order name: Magnesium; Complete Time: 21:45 02/21 19:13 Order name: NT PRO-BNP; Complete Time: 21:45 02/21 19:13 Order name: PT-INR; Complete Time: 20:21 02/21 19:13 Order name: Troponin (emerg Dept Use Only); Complete Time: 21:45 02/21 19:13 Order name: XRAY Chest (1 view); Complete Time: 21:45 02/21 20:24 Order name: CT Aorta for Dissection [facility] 02/21 20:27 Order name: Lipase; Complete Time: 21:45 EDMS 02/21 19:13 Order name: EKG; Complete Time: 19:15 02/21 19:13 Order name: Cardiac monitoring; Complete Time: 19:40 02/21 19:13 Order name: EKG - Nurse/Tech; Complete Time: 19:40 02/21 19:13 Order name: IV Saline Lock; Complete Time: 19:41 02/21 19:13 Order name: Labs collected and sent; Complete Time: 19:41 02/21 19:13 Order name: O2 Per Protocol; Complete Time: 19:41 02/21 19:13 Order name: O2 Sat Monitoring; Complete Time: 19:41 02/21 20:36 Order name: CONS Physician Consult EDMS Administered Medications: 21:16 Drug: morphine 2 mg Route: IVP; Site: right forearm; sr6 21:28 Follow up: Response: No adverse reaction; Pain is decreased; RASS: Alert and Calm (0) 21:16 Drug: Zofran 4 mg Route: IVP; Site: right forearm; sr6 21:28 Follow up: Response: No adverse reaction; Nausea is decreased 21:16 Drug: Pepcid 20 mg Route: IVP; Site: right forearm; sr6 21:29 Follow up: Response: No adverse reaction 21:16 Drug: Brilinta - Ticagrelor 90 mg Route: PO; sr6 21:29 Follow up: Response: No adverse reaction 21:18 Not Given (ems gave aspirin 324mg tab): Aspirin 81 mg PO once sr6 21:56 Not Given (Pt transported to 4th floor, Rosalinda DUPREE notified of pending order): Lovenox 1 mg/kg Sub-Q once Disposition: 02/21/19 20:32 Hospitalization ordered by Keyon Matthew for Observation. Preliminary diagnosis are Other chest pain, Strain of muscle and tendon of back wall of thorax, Fall due to bumping against object. - Bed requested for Telemetry/MedSurg (observation). - Status is Observation. - Condition is Stable. - Problem is new. - Symptoms have improved. UTI on Admission? No Signatures: Dispatcher [employer] EDMS Mikie Krause MD MD cha Ballard, Brenda, RN RN Bella Coronado Jonna Pino sr6 Corrections: (The following items were deleted from the chart) 20:26 20:24 LIPASE+C.LAB.BRZ ordered. EDMS EDMS 20:42 20:32 Hospitalization Ordered by Keyon Matthew MD for Observation. Preliminary diagnosis shelly is Other chest pain; Strain of muscle and tendon of back wall of thorax. Bed requested for Telemetry/MedSurg (observation). Status is Observation. Condition is Stable. Problem is new. Symptoms have improved. UTI on Admission? No. shelly 21:08 20:42 02/21/2019 20:32 Hospitalization Ordered by Keyon Matthew MD for Observation. bb Preliminary diagnosis is Other chest pain; Strain of muscle and tendon of back wall of thorax; Fall due to bumping against object. Bed requested for Telemetry/MedSurg (observation). Status is Observation. Condition is Stable. Problem is new. Symptoms have improved. UTI on Admission? No. shelly 21:58 21:08 02/21/2019 20:32 Hospitalization Ordered by Keyon Matthew MD for Observation. wh Preliminary diagnosis is Other chest pain; Strain of muscle and tendon of back wall of thorax; Fall due to bumping against object. Bed requested for Telemetry/MedSurg (observation). Status is Observation. Condition is Stable. Problem is new. Symptoms have improved. UTI on Admission? No. bb
--- NOTE | 2019-02-21 20:33 | ER ---
Nurse's Notes [facility] Name: Regino Galindo Jr Age: 78 yrs Sex: Male : 1940 Arrival Date: 02/21/2019 Time: 19:13 Bed 16 Private MD: Diagnosis: Other chest pain;Strain of muscle and tendon of back wall of thorax;Fall due to bumping against object Presentation: 02/21 19:05 Presenting complaint:. Presenting complaint: EMS states: PT started having chest pain wh at 16:30 this afternoon, toned EMS as pain is not going away. PT was given aspirin [address] to ER. Pt states pain lessened from 5 to 3 OTW to ER. Transition of care: patient was not received from another setting of care. Onset of symptoms was February 21, 2019. Risk Assessment: Do you want to hurt yourself or someone else? Patient reports no desire to harm self or others. Initial Sepsis Screen: Does the patient meet any 2 criteria? No. Patient's initial sepsis screen is negative. Does the patient have a suspected source of infection? No. Patient's initial sepsis screen is negative. Care prior to arrival: Medication(s) given: ASA, 325 mg, Nitroglycerin, 0.4 mg SL x 1. 19:05 Acuity: DEANGELO 3 19:05 Method Of Arrival: EMS: [facility] Historical: - Allergies: 20:39 Acetaminophen-Codeine; 20:39 Codeine; - PMHx: 20:40 CVA; Hypertension; - PSHx: 20:40 Appendectomy; wh - Immunization history:: Adult Immunizations up to date. - Family history:: not pertinent. - Social history:: Smoking status: Patient/guardian denies using tobacco. - Ebola Screening: : Patient negative for fever greater than or equal to 101.5 degrees Fahrenheit, and additional compatible Ebola Virus Disease symptoms Patient denies exposure to infectious person. Screenin:05 Abuse screen: Denies threats or abuse. Denies injuries from another. Nutritional wh screening: No deficits noted. Tuberculosis screening: No symptoms or risk factors identified. Fall Risk None identified. Assessment: 19:05 General: Appears in no apparent distress. Behavior is calm, cooperative, appropriate wh for age. Pain: Complains of pain in chest Pain radiates to back Pain currently is 3 out of 10 on a pain scale. Quality of pain is described as aching, Pain began 4 hours ago. Neuro: Level of Consciousness is awake, alert, obeys commands, Oriented to person, place, time, situation, Appropriate for age. Cardiovascular: Heart tones S1 S2 Rhythm is regular. Respiratory: Airway is patent Respiratory effort is even, unlabored, Respiratory pattern is regular, symmetrical, Breath sounds are clear bilaterally. GI: Abdomen is flat, non-distended. : No signs and/or symptoms were reported regarding the genitourinary system. EENT: No signs and/or symptoms were reported regarding the EENT system. Derm: Skin is intact, is healthy with good turgor, Skin is pink, warm \T\ dry. normal. Musculoskeletal: Circulation, motion, and sensation intact. 20:35 Reassessment: Patient appears in no apparent distress at this time. No changes from previously documented assessment. Patient and/or family updated on plan of care and expected duration. Pain level reassessed. Patient is alert, oriented x 3, equal unlabored respirations, skin warm/dry/pink. 21:30 Reassessment: Patient appears in no apparent distress at this time. No changes from previously documented assessment. Patient and/or family updated on plan of care and expected duration. Pain level reassessed. Patient is alert, oriented x 3, equal unlabored respirations, skin warm/dry/pink. Patient denies pain at this time. Patient states feeling better. Vital Signs: 19:15 BP 146 / 69; Pulse 61; Resp 18; Temp 98.2; Pulse Ox 99% on R/A; Weight 75.3 kg; Height wh 5 ft. 6 in. (167.64 cm); 20:30 BP 156 / 77; Pulse 67; Resp 18; Pulse Ox 100% on R/A; wh 21:27 BP 151 / 69 RA; Pulse 63; Resp 20; Temp 98.2(O); Pulse Ox 100% ; Pain 3/10; tt1 19:15 Body Mass Index 26.79 (75.30 kg, 167.64 cm) ED Course: 19:05 Patient has correct armband on for positive identification. Placed in gown. Bed in low wh position. Call light in reach. Side rails up X 1. school lunch monitor on. Pulse ox on. NIBP on. 19:05 Arm band placed on. 19:05 Patient maintains SpO2 saturation greater than 95% on room air. 19:05 Maintain EMS IV. Dressing intact. Good blood return noted. Site clean \T\ dry. Gauge \T\ site: 20g RFA. 19:13 Patient arrived in ED. 19:25 Blela Hernandez is Primary Nurse. 19:26 Mikie Krause MD is Attending Physician. [facility] 19:59 XRAY Chest (1 view) In Process Unspecified. EDMS 20:18 Triage completed. 20:31 Keyon Matthew MD is Hospitalizing Provider. [facility] 21:56 No provider procedures requiring assistance completed. Patient admitted, IV remains in place. Administered Medications: 21:16 Drug: morphine 2 mg Route: IVP; Site: right forearm; sr6 21:28 Follow up: Response: No adverse reaction; Pain is decreased; RASS: Alert and Calm (0) 21:16 Drug: Zofran 4 mg Route: IVP; Site: right forearm; sr6 21:28 Follow up: Response: No adverse reaction; Nausea is decreased 21:16 Drug: Pepcid 20 mg Route: IVP; Site: right forearm; sr6 21:29 Follow up: Response: No adverse reaction 21:16 Drug: Brilinta - Ticagrelor 90 mg Route: PO; sr6 21:29 Follow up: Response: No adverse reaction 21:18 Not Given (ems gave aspirin 324mg tab): Aspirin 81 mg PO once sr6 21:56 Not Given (Pt transported to 4th floor, Rosalinda DUPREE notified of pending order): Lovenox 1 mg/kg Sub-Q once Outcome: 20:32 Decision to Hospitalize by Provider. [facility] 21:56 Admitted to Tele accompanied by tech, family with patient, via wheelchair, room 407, with chart, Report called to Rosalinda Benitez RN 21:56 Condition: stable 21:56 Condition: stable 21:56 Instructed on 21:56 Instructed on the need for admit. 21:58 Patient left the ED. Signatures: Dispatcher [employer] EDMS Mikie Krause MD MD cha Thymes, Tracy tt1 Bella Hernandez Jonna Pino sr6 Corrections: (The following items were deleted from the chart) 20:15 Presenting complaint: EMS states: PT started having chest pain at 16:30 this afternoon, toned EMS as pain is not going away. PT was given aspirin [address] to ER. Pt states pain lessened from 5 to 3 OTW to ER 20:15 Transition of care: patient was not received from another setting of care. [facility] 20:15 Onset of symptoms was February 21, 2019 [facility] 20:15 Risk Assessment: Do you want to hurt yourself or someone else? Patient reports no desire to harm self or others. 20:15 Initial Sepsis Screen: Does the patient meet any 2 criteria? No. Patient's initial sepsis screen is negative. Does the patient have a suspected source of infection? No. Patient's initial sepsis screen is negative. 20:15 Care prior to arrival: Medication(s) given: ASA, 325 mg, Nitroglycerin, 0.4 mg SL x 1, 20:15 Presenting complaint: [facility] 20:15 Method Of Arrival: EMS: [facility] 20:15 Acuity: DEANGELO 3 [facility]
[2019-02-21] MEDS ORDERED: ONDANSETRON 4 MG/2 ML VIAL ONE (21:06)
[2019-02-21] MEDS ORDERED: TICAGRELOR 90 MG TABLET PO ONE (21:06)
[2019-02-21] MEDS ORDERED: MORPHINE 2 MG/ML SYR ONE (21:06)
[2019-02-21] MEDS ORDERED: FAMOTIDINE 20 MG/2 ML VIAL IV ONE (21:06)
--- NOTE | 2019-02-21 21:11 | RAD REPORT ---
EXAM DESCRIPTION: RAD - Chest Single View - 02/21/2019 7:57 pm CLINICAL HISTORY: Chest pain, shortness of breath COMPARISON: November 2017 TECHNIQUE: AP portable chest image was obtained 1928 hours . FINDINGS: No focal lung parenchymal process. No new or progressive parenchymal finding. Heart and va sculature are normal. No measurable pleural effusion and no pneumothorax. No acute bony abnormality s een. No acute aortic findings suspected. IMPRESSION: No acute cardiopulmonary process.
[2019-02-21 22:06] VITALS: BMI 26.0
[2019-02-21] MEDS: TICAGRELOR 90 MG TABLET PO SCH (22:08)
[2019-02-21] MEDS ORDERED: MORPHINE 2 MG/ML SYR IV PRN (22:08)
[2019-02-21] MEDS ORDERED: ONDANSETRON 4 MG/2 ML VIAL IV PRN (22:08)
[2019-02-21] MEDS: FAMOTIDINE 20 MG/2 ML VIAL IV SCH (22:08)
[2019-02-21] MEDS ORDERED: ACETAMINOPHEN 325 MG TABLET PO PRN (22:08)
[2019-02-21 23:09] LABS: Urine Appearance CLEAR; Urine Bilirubin NEGATIVE (NEG); Urine Blood NEGATIVE (NEG); Urine Color YELLOW; Urine Glucose NEGATIVE (NEG); Urine Protein NEGATIVE (NEG); Urine Specific Gravity 1.025 (1.005-1.030); Urine Urobilinogen 0.2 mg/dL (0.2-1.0); Urine pH 6.5 (5.0-7.0)
[2019-02-21] MEDS ORDERED: ENOXAPARIN 40 MG/0.4 ML SQ ONE (23:22)
[2019-02-21 23:32] LABS: Urine Bacteria <20 /HPF (NONE SEEN); Urine Culture Reflex Order REFLEXED; Urine RBC <5 /HPF (NONE SEEN)
[2019-02-22 04:31] VITALS: TEMP 97.8
[2019-02-22] MEDS ORDERED: METOPROLOL XL 50 MG TAB PO SCH (06:00)
[2019-02-22 06:06] LABS: Absolute Lymphocytes (CBC) 1.5 K/uL (0.7-4.9); Basophils % 0.5 % (0-1.3); Hematocrit 35.7 % (39.6-49.0); Lymphocytes % 21.9 % (15.3-44.8); MPV 6.8 fL (7.6-11.3); RBC Red Blood Cell Count 4.36 M/uL (4.33-5.43)
[2019-02-22 06:21] LABS: Potassium 3.9 mmol/L (3.5-5.1)
[2019-02-22] MEDS: FAMOTIDINE 20 MG/2 ML VIAL IV SCH (07:41)
[2019-02-22 07:42] VITALS: BP 120/74
[2019-02-22] MEDS ORDERED: AMLODIPINE 10 MG TAB PO SCH (09:00)
[2019-02-22] MEDS ORDERED: ASPIRIN EC 81 MG TAB PO SCH (09:00)
[2019-02-22 09:01] VITALS: O2SAT 95
[2019-02-22] MEDS: TICAGRELOR 90 MG TABLET PO SCH (09:19)
--- NOTE | 2019-02-22 09:38 | P.SSS ---
Patient History Date of Service: 02/22/19 Reason for admission: BLUNT INJURY History of Present Illness: MR. ESPINAL IS 78 YEARS OLD GM WITH DJD, CAD, PVD, HTN. HE WAS TRYING TO FIDDLE IN HIS YARD AND A BARREL OF FEED TRIED TO FALL ON HIM. HE DODGED IT AND IT DID NOT DIRECTLY FELL ON HIM BUT HE FELL ON HIS BACK. HE COMES TO ER. DR. CHEUNG DOES CT DISSECTION PROTOCOL FOR SOME REASON. THAT WAS NEGATIVE FOR ANY ACUTE INJURY. USUAL THEY FIND SOMETHING IF YOU DO CT SCAN ON EVERYONE. HE HAS A SMALL 1 CM THYROID NODULE AND ARTHRITIS IN THE JOINTS EXPECTED. HE IS TOTALLY PAINFREE NOW. HE HAS NO CHEST PAIN. HE IS MEDICALLY STABLE. HE DOES NOT NEED TO SEE A MANAGER ACCESS PER ER ORDER CURRENTLY HE DOES NOT HAVE ANY ACUTE CARDIAC SYMPTOM. SO I WILL CANCEL DR. BLACKWELL CONSULT. I TALKED TO HIM AND HIS DAUGHTER ALSO. Allergies acetaminophen [From Tylenol-Codeine #3] Allergy (Verified 02/21/19 22:12) Anaphylaxis codeine Allergy (Verified 02/21/19 22:12) Anaphylaxis Home Medications: Aspirin Chewable [Aspirin Chewable*] 81 mg PO DAILY 09/03/14 Atorvastatin Calcium 20 mg PO DAILY 09/03/14 Fish Oil/Dha/Epa [Fish Oil 1,200 mg Fish Oil] 1 each PO DAILY 09/03/14 Metoprolol Succinate [Toprol Xl*] 50 mg PO DAILY 09/03/14 Multivitamin [Daily Ary] 1 tab PO DAILY 09/03/14 Potassium Gluconate [Potassium] 99 mg PO DAILY 09/03/14 Amlodipine Besylate [Norvasc] 1 tab PO DAILY 02/21/19 Ascorbic Acid 1 tab PO DAILY 02/21/19 Cyanocobalamin 100 Mcg 1 tab PO Q48H 02/21/19 Pantoprazole [Protonix Tab*] 1 tab PO DAILY 02/21/19 Ticagrelor [Brilinta*] 1 tab PO BID 02/21/19 Ubidecarenone/Vit E Acet [Co Q-10 100 mg Softgel] 1 tab PO DAILY 02/21/19 - Past Medical/Surgical History Has patient received pneumonia vaccine in the past: Yes Diabetic: No -: CVA -: HTN -: PVD -: stents in kaveh legs -: hyperlipidemia -: appendectomy -: cyst removed from R calf - Family History Mother -: Hypertension, Diabetes Brother -: Diabetes - Social History Smoking Status: Former smoker Alcohol use: Yes CD- Drugs: No Caffeine use: Yes Place of Residence: Home Review of Systems 10-point ROS is otherwise unremarkable Physical Examination - Vital Signs Temperature: 97.8 F Blood Pressure: 120/74 Pulse: 59 Respirations: 16 Pulse Ox (%): 92 - Physical Exam General: Alert, In no apparent distress HEENT: Atraumatic, PERRLA, Mucous membr. moist/pink, EOMI, Sclerae nonicteric Neck: Supple, 2+ carotid pulse no bruit, No LAD, Without JVD or thyroid abnormality Respiratory: Clear to auscultation bilaterally, Normal air movement Cardiovascular: Regular rate/rhythm, Normal S1 S2 Gastrointestinal: Normal bowel sounds, No tenderness Musculoskeletal: No tenderness Integumentary: No rashes Neurological: Normal gait, Normal speech, Normal strength at 5/5 x4 extr, Normal tone, Normal affect Lymphatics: No axilla or inguinal lymphadenopathy - Studies Laboratory Data (last 24 hrs) 02/21/19 20:24: Lipase Cancelled 02/21/19 19:20: PT 12.9 H, INR 1.10 02/21/19 19:20: WBC 7.4, Hgb 11.9 L, Hct 35.8 L, Plt Count 458 H 02/21/19 19:20: Sodium 141, Potassium 3.6, BUN 13, Creatinine 1.14, Glucose 121 H, Magnesium 2.3, Total Bilirubin 0.2, AST 20, ALT 23, Alkaline Phosphatase 29 L , Lipase 136 - Diagnosis (Problem(s)) (1) Back injury Current Visit: Yes Status: Acute Plan: HE IS STABLE. HE WILL TAKE TYLENOL PRN AND PUT HEATING PAD IF NEED. HE IS PAINFREE AND WILL GO HOME. Qualifiers: Encounter type: initial encounter Qualified Code(s): S39.92XA - Unspecified injury of lower back, initial encounter - Disposition Disposition: ROUTINE DISCHARGE Condition: FAIR Patient Discharge Instructions: MR. ESPINAL YOU HAD NO CARDIAC SYMPTOMS THIS TIME. YOUR CT SCAN SHOWS NO DAMAGE FROM FALL OF EQUIPMENT ON YOU. YOU ARE PAINFREE AND SO YOU CAN GO HOME.
--- NOTE | 2019-02-22 17:15 | EKG ---
Test Date: 2019-02-22 Test Time: 10:29:24 Medical Record Administrator: RY MEASUREMENT RESULTS: Intervals: Rate: 61 AK: 180 QRSD: 80 QT: 408 QTc: 410 [place]: P: 17 AK: 180 QRS: 65 T: 11 INTERPRETIVE STATEMENTS: Normal sinus rhythm cannot rule out Septal infarct, age undetermined Abnormal ECG Compared to ECG 02/21/2019 19:18:36 Questionable Myocardial infarct finding now present Electronically Signed On 02-22-19 17:15:15 [employer] H[employer]SE FARM MANAGER by Preet Saini
--- NOTE | 2019-02-22 17:18 | EKG ---
Test Date: 2019-02-21 Test Time: 19:18:36 Template Inspector: MEASUREMENT RESULTS: Intervals: Rate: 65 NC: 176 QRSD: 78 QT: 406 QTc: 422 [place]: P: 62 NC: 176 QRS: 35 T: 13 INTERPRETIVE STATEMENTS: Normal sinus rhythm Normal ECG Compared to ECG 02/21/2019 19:17:40 T-wave abnormality no longer present Electronically Signed On 02-22-19 17:18:11 SPRAY MACHINE LOADER by Preet Saini
--- NOTE | 2019-02-22 17:19 | EKG ---
Test Date: 2019-02-21 Test Time: 19:17:40 Plastic And Reconstructive Surgeon: MEASUREMENT RESULTS: Intervals: Rate: 63 [place]: 172 QRSD: 82 QT: 412 QTc: 421 [place]: P: 55 [place]: 172 QRS: 31 T: 11 INTERPRETIVE STATEMENTS: Normal sinus rhythm Nonspecific T wave abnormality Abnormal ECG Compared to ECG 12/10/2017 17:07:23 T-wave abnormality now present Myocardial infarct finding no longer present Electronically Signed On 02-22-19 17:18:15 IRONING WORKER by Preet Saini
--- NOTE | 2019-02-25 14:47 | RAD REPORT ---
EXAM DESCRIPTION: CT - Angio Aorta For Dissection - 02/22/2019 6:18 am CLINICAL HISTORY: Chest pain. Evaluate for dissection. COMPARISON: 08/02/2016 TECHNIQUE: CT angiogram of the chest, abdomen, and pelvis with IV contrast. This exam was performed according to our departmental dose-optimization program, which includes automated exposure control, a djustment of the mA and/or kV according to patient size and/or use of iterative reconstruction techni que. FINDINGS: There is no aortic aneurysm or dissection. There is atherosclerotic disease throughout the aorta and its major branches. No filling defects are seen in the main pulmonary arteries or the segm ental branches. The thyroid gland is unremarkable. No mediastinal or hilar adenopathy. The heart size is normal witho ut pericardial effusion. No consolidation, pleural effusion, or pneumothorax. The liver, spleen, pancreas, gallbladder, adrenal glands, and kidneys are unremarkable. The pelvic or eduardo are unremarkable. No small bowel obstruction. No evidence of appendicitis. No intraperitoneal fr ee fluid or free air. Mild degenerative changes of the spine. No acute fractures seen. IMPRESSION: No aortic aneurysm or dissection. Electronically signed by: Jostin Delaney MD 02/21/2019 9:21 PM NIGHT MONITOR Due to temporary technical issues with the PACS/Fluency reporting system, reports are being signed by the in house radiologist as a courtesy to ensure prompt reporting. The interpreting radiologist is f ully responsible for the content of the report.
== END 2019-02-22 12:05 | disposition home or self-care (01) ==
LOC: ER 19:11 → ERHOLD 20:38 → 4TH 21:45
PROVIDERS: ADMIT Internal Medicine; ATTEND Internal Medicine
DX: S39.92XA Unspecified injury of lower back, initial encounter (principal); W18.00XA Striking against unspecified object with subsequent fall, initial encounter; Y92.007 Garden or yard of unspecified non-institutional (private) residence as the place of occurrence of the external cause; I10 Essential (primary) hypertension; Z86.73 Personal history of transient ischemic attack (TIA), and cerebral infarction without residual deficits; I73.9 Peripheral vascular disease, unspecified
CPT/HCPCS: 93005 ×3; 87088; 85025 ×2; 81001; 87086; 80048 ×2; 36415; 83735; 85610; 80076; 84484 ×3; 83690; 83880; 71275; 74175; 71045; 96375; 96374; 99285; Q9967; J1650; J2270; J2405; G0378 ×3

== ENCOUNTER 2019-08-06 23:15 | Emergency (ER) | payer OTHER ==
--- OUTSIDE RECORDS SUMMARY | 2019-08-06 23:19 | XMS REPORT | Clinical Summary ---
:1940 Author Organization [facility] Address [address] [place] [address] Care Team Providers Name Role Phone Keyon Matthew MD Primary Care Provider Allergies Active Allergy Reactions Severity Noted Date Comments Acetaminophen-Codeine Hallucinations High 01/01/2019 Codeine Anaphylaxis High 10/01/2018 Medications Medication Sig Dispensed Refills Start Date End Date Status atorvastatin Take 20 mg 1 09/10/2018 Activ e (LIPITOR) 20 MG by mouth tablet daily. pantoprazole Take 40 mg 0 12/14/2017 Activ e (PROTONIX) 40 MG EC by mouth tablet daily. ascorbic acid, Take 500 mg 0 Act vel vitamin C, (VITAMIN by mouth C) 500 MG tablet daily. omega Take 1 0 Active 4-dfd-aet-fish oil tablet by (FISH OIL) 1,000 mg mouth daily. (120 mg-180 mg) capsule cyanocobalamin 100 Take 100 mcg 0 Active MCG tablet by mouth every other day. coenzyme Q10 (CO Take 10 mg 0 Ac tive Q-10) 100 mg by mouth capsule daily. multivitamin Take 1 0 Active (THERAGRAN) tablet tablet by mouth daily. amLODIPine Take 10 mg 0 Active (NORVASC) 10 mg by mouth tablet daily. aspirin (ECOTRIN) Take 1 90 tablet 3 02/07/2019 A ctive 81 MG enteric tablet (81 0 coated tablet mg total) by mouth daily for 360 days. ticagrelor Take 1 180 tablet 3 02/06/2019 Active (BRILINTA) 90 mg tablet (90 0 tablet mg total) by mouth 2 (two) times a day for 360 days. gabapentin Take 300 mg 0 05/07/2019 Active (NEURONTIN) 300 mg by mouth 3 capsule (three) times a day. lisinopriL Take 1 30 tablet 0 07/30/2019 Active (PRINIVIL) 5 mg tablet (5 mg 0 tablet total) by mouth daily for 30 days. metoprolol Take 3 90 tablet 0 07/30/2019 Active succinate XL tablets (75 0 (TOPROL-XL) 25 mg mg total) by 24 hr tablet mouth daily for 30 days. metoprolol Take 50 mg 1 09/10/2018 Discont inued succinate XL by mouth 0 (Stop T aking at (TOPROL-XL) 50 mg daily. Aster shrestha) 24 hr tablet clopidogrel Take 75 mg 1 07/16/2018 Discon tinued (PLAVIX) 75 mg by mouth 9 (Reor leslie) tablet daily. amLODIPine Take 10 mg 0 12/15/2017 (NORVASC) 10 mg by mouth. 9 tablet traMADol (ULTRAM) Take 50 mg 0 08/13/2018 Discontinued 50 mg tablet by mouth 9 every 6 (six) hours as needed. for pain POTASSIUM CHLORIDE Take 99 mEq 0 Discontinued ORAL by mouth 9 once. potassium 99 mg Take 1 0 Disc ontinued tablet tablet by 0 (Stop Taki ng at mouth daily. Dischar ge) clopidogrel Take 1 30 tablet 11 01/04/2019 (PLAVIX) 75 mg tablet (75 9 tablet mg total) by mouth daily for 30 days. aspirin (ECOTRIN) Take 1 30 tablet 11 01/04/2019 E xpired 81 MG enteric tablet (81 9 coated tablet mg total) by mouth daily for 30 days. clopidogrel Take 75 mg 0 Discont inued (PLAVIX) 75 mg by mouth 9 (Stop Taking at tablet daily. Discharge) Active Problems Problem Noted Date PVD (peripheral vascular disease) 01/24/2019 Overview: Added automatically from request for deb cruz [id number] PAD (peripheral artery disease) 12/10/2018 Establishing care with new doctor, encounter for 10/01 Stroke 12/10/2017 Resolved Problems Problem Noted Date Resolved Date Claudication 06/10/2019 07/29/2019 Overview: Added automatically from request for deb cruz [id number] Claudication 01/24/2019 02/06/2019 Overview: Added automatically from request for deb cruz [id number] Encounters Date Type Specialty Care Team Description 07/31/2019 Patient Outreach Quality Reema Cortes MA 07/31/2019 Patient Outreach Quality Reema Cortes MA 07/30/2019 Patient Outreach Quality Reema Cortes MA 07/30/2019 Travel 07/28/2019 Surgery Procedural Winter Farah Arteriogram rig ht Cardiology MD Zahida femoral with ru noff [05773 (CPT)] 07/24/2019 Surgery Procedural Winter Farah Aortagram abdom en w Cardiology MD Zahida run off [81216 (CPT)] 07/24/2019 - Hospital Encounter General Internal Winter Farah PAD ( peripheral artery disease) ([facility]); 07/29/2019 Medicine MD Zahida Claudication ([facility]) Aj Beckham MD 07/24/2019 Travel 06/24/2019 Telephone Cardiology Lalo Johnson MA Appointment (r /s) 06/12/2019 Travel 06/10/2019 Orders Only Cardiology Lalo Johnson MA 06/10/2019 Orders Only Cardiology Lalo Johnson MA PAD (periphera l artery disease) ([facility]) (Primary Dx); Claudication (H CC); Pre-operative l aboratory examination 06/10/2019 Telephone Cardiology Lalo Johnson MA Results (Carot id doppler) 06/10/2019 Travel 06/03/2019 Travel 05/20/2019 Office Visit Cardiology Winter Farah PAD (peripheral MD Zahida artery disease) ([facility]) (Primary Dx) 02/07/2019 Telephone Cardiology Danny Holt Pain IV 02/05/2019 Surgery Procedural Winter Farah Arteriograms Cardiology MD Zahida peripheral [757 36 (CPT)] 02/05/2019 - Hospital Encounter Cardiology Winter Farah Claudnancyt ion ([facility]); 02/06/2019 MD Zahida PVD (peripheral vascular disease) ([facility]) 01/24/2019 Office Visit Cardiology Winter Farah PAD (peripheral artery disease) ([facility]) (Primary Dx); MD Zahida Claudication (H CC); PVD (peripheral vascular disease) ([facility]); Pre-operative l aboratory examination 01/03/2019 Surgery Procedural Winter Farah Aortagram abdom en w Cardiology MD Zahida run off [31245 (CPT)] 01/02/2019 - Hospital Encounter General Internal Winter Farah PAD ( peripheral 01/04/2019 Medicine MD Zahida artery disease) ([facility]) 12/31/2018 Hospital Encounter Radiology Cathleen Winter PAD (kendal pheral MD Zahida artery disease) ([facility]) 12/31/2018 Hospital Encounter Procedural Winter Farah PAD (kendal pheral Cardiology MD Zahida artery disease) ([facility]) 12/31/2018 Hospital Encounter Procedural Cathleen Winter PAD (kendal pheral Cardiology RMD Loren artery disease) ([facility]) 12/24/2018 Orders Only Cardiology Lalo Johnson MA PAD (periphera l artery disease) ([facility]) (Primary Dx) 12/24/2018 Orders Only Cardiology Elizabeth LaloNERIS PAD (periphera l artery disease) ([facility]) (Primary Dx); Pre-operative l aboratory examination 12/10/2018 Office Visit Cardiology Winter Farah PAD (peripheral MD Zahida artery disease) ([facility]) (Primary Dx) 10/01/2018 Office Visit Cardiology Winter Farah PAD (peripheral MD Zahida artery disease) ([facility]) (Primary Dx) after 08/05/2018 Family History Relation Name Status Comments Father Mother Social History Tobacco Use Types Packs/Day Years Used Date Former Smoker Cigarettes, Cigars 21 Quit: 19 96 Smokeless Tobacco: Never Used Alcohol Use Drinks/Week oz/Week Comments Yes 42 Cans of beer 42.0 every other day Beer Sex Assigned at Date Recorded Not on file Job Start Date Occupation Industry Not on file Not on file Not on file Travel History Travel Start Travel End No recent travel history available. COVID-19 Exposure Response Date Recorded In the last month, have you been in contact with No / Unsure 07/30/2019 3:03 PM CDT someone who was confirmed or suspected to have Coronavirus / COVID-19? Last Filed Vital Signs Vital Sign Reading Time Taken Comments Blood Pressure 126/70 07/29/2019 4:39 PM CDT Pulse 72 07/29/2019 4:39 PM CDT Temperature 36.6 C (97.8 F) 07/29/2019 4:39 PM CDT Respiratory Rate 20 07/29/2019 4:39 PM CDT Oxygen Saturation 99% 07/29/2019 4:39 PM CDT Inhaled Oxygen Concentration - - Weight 74.7 kg (164 lb 9.6 oz) 07/26/2019 5:18 AM CDT Height 172.7 cm (5' 8") 07/24/2019 10:46 AM CDT Body Mass Index 25.03 07/24/2019 10:46 AM CDT Plan of Treatment Date Type Specialty Care Team Description 09/09/2019 Office Visit Cardiology Winter Farah MD [address] [place], [place] [address] [phone] 11/25/2019 Office Visit Cardiology Winter Farah MD [address] [place], [place] [address] [phone] Health Maintenance Due Date Last Done Comments SHINGLES VACCINES (#1) 1988 65+ PNEUMOCOCCAL VACCINE (1 of 2 - PCV13) 08/05/2003 INFLUENZA VACCINE 10/18/2019 Implants Implanted Type Area Environmental Services Associate Device Shelf Model / Identifier Expiration Serial / Date Lot Stent Bili Protege Everflex Slf-Xpndbl 120cm [id number] - [id number] Coronary N/A: [employer] [facility] - 10/03/2021 [id number] 06 150 120 / Implanted: 02/05/2019 at [facility] (Quantity not on file) Eron nts N/A VASCULAR / [id number] Stent Bili Protege Everflex Slf-Xpndbl 120cm 6x40mm - [id number] Coronary N/A: [employer] [facility] - 09/22/2021 [id number] 06 040 120 / Implanted: 02/05/2019 at [facility] (Quantity not on file) Eron nts N/A VASCULAR / [id number] Stent [facility] Everflex Slf-Xpndbl [id number] W/ Cath 120cm - [id number] Peripheral or N/A: [employer] 2021 [id number] 06 120 12 0 / Implanted: 02/05/2019 at [facility] (Quantity not on file) Biliary N/A / Stents [id number] Stent Bili Protege Everflex Slf-Xpndbl [id number] W/ Cath 120cm - [id number] Peripheral or N/A: 08/17/2019 [id number] 05 100 1 20 / Implanted: 02/05/2019 at [facility] (Quantity not on file) Biliary N/A / Stents [id number] Stent [place]ika 6mm X 120mm X 130cm [employer]El[employer] Vascular - Log [id number] Surgical N/A: [facility][NOTE 3] [id number] / Implanted: 01/03/2019 at [facility] (Quantity not on file) Eron nts N/A INTERVENTION / VASCULAR DEB Stent Malika 6mm X 120mm X 130cm [employer] - Log [id number] Surgical N/A: [facility][NOTE 3] [id number] / Implanted: 01/03/2019 at [facility] (Quantity not on file) Eron nts N/A INTERVENTION / VASCULAR DEB Stent Bili Prtge Everflex Slf-Xpndbl [id number] W/ Cath 1 20cm - [id number] Surgical N/A: [employer] [facility] - 07/03/2021 [id number] 05 120 120 / Implanted: 02/05/2019 at [facility] (Quantity not on file) Eron nts N/A VASCULAR / [id number] Stent Malika 6mm X 120mm X 130cm [employer] - Log [id number] Surgical N/A: [facility][NOTE 3] 02/09/2020 [id number] / Implanted: 07/24/2019 at [facility] (Quantity not on file) Eron nts N/A INTERVENTION / VASCULAR DEB [id number] Procedures Procedure Name Priority Date/Time Associated Comments Diagnosis FREE AND TOTAL PROTEIN S Routine 07/29/2019 3:37 Results for this PM CDT procedure are i n the results section. HEXAGONAL PHOSPHOLIPID Routine 07/29/2019 3:37 R esults for this PM CDT procedure are i n the results section. FACTOR VIII ASSAY Routine 07/29/2019 3:37 Result s for this PM CDT procedure are i n the results section. ANTITHROMBIN III LEVEL Routine 07/29/2019 3:37 R esults for this PM CDT procedure are i n the results section. FUNCTIONAL PROTEIN C Routine 07/29/2019 3:37 Res ults for this PM CDT procedure are i n the results section. FUNCTIONAL PROTEIN S Routine 07/29/2019 3:37 Res ults for this PM CDT procedure are i n the results section. LUPUS ANTICOAGULANT PANEL Routine 07/29/2019 3:37 Results for this PM CDT procedure are i n the results section. HC COMPLETE BLD COUNT Routine 07/29/2019 4:40 Re sults for this W/AUTO DIFF AM CDT procedure are i n the results section. ESTIMATED GFR Routine 07/29/2019 4:00 Results fo r this AM CDT procedure are i n the results section. MAGNESIUM LEVEL Routine 07/29/2019 4:00 Results for this AM CDT procedure are i n the results section. BASIC METABOLIC PANEL Routine 07/29/2019 4:00 Re sults for this AM CDT procedure are i n the results section. LIPID PANEL Routine 07/29/2019 4:00 Results for this AM CDT procedure are i n the results section. TTE COMPLETE, WO Routine 07/28/2019 6:00 Results for this CONTRAST, W DOPPLER PM CDT procedur e are in ([id number]) the results section. POC GLUCOSE Routine 07/28/2019 12:55 Results for this PM CDT procedure are i n the results section. CV ARTERIOGRAM FEMORAL Routine 07/28/2019 12:05 R esults for this SINGLE PM CDT procedure are i n the results section. ESTIMATED GFR Routine 07/28/2019 4:00 Results fo r this AM CDT procedure are i n the results section. MAGNESIUM LEVEL Routine 07/28/2019 4:00 Results for this AM CDT procedure are i n the results section. BASIC METABOLIC PANEL Routine 07/28/2019 4:00 Re sults for this AM CDT procedure are i n the results section. ANTI XA, UNFRACTIONATED Routine 07/28/2019 3:40 Results for this AM CDT procedure are i n the results section. HC COMPLETE BLD COUNT Routine 07/28/2019 3:40 Re sults for this W/AUTO DIFF AM CDT procedure are i n the results section. US DUPLEX ARTERIAL LOWER Routine 07/27/2019 10:30 Results for this EXTREMITY RIGHT AM CDT procedure ar e in the results section. ANTI XA, UNFRACTIONATED Timed 07/27/2019 10:30 Results for this AM CDT procedure are i n the results section. ANTI XA, UNFRACTIONATED Timed 07/27/2019 4:15 Results for this AM CDT procedure are i n the results section. HC COMPLETE BLD COUNT Routine 07/27/2019 4:15 Re sults for this W/AUTO DIFF AM CDT procedure are i n the results section. ESTIMATED GFR Routine 07/27/2019 4:00 Results fo r this AM CDT procedure are i n the results section. MAGNESIUM LEVEL Routine 07/27/2019 4:00 Results for this AM CDT procedure are i n the results section. BASIC METABOLIC PANEL Routine 07/27/2019 4:00 Re sults for this AM CDT procedure are i n the results section. ANTI XA, UNFRACTIONATED Routine 07/26/2019 9:15 Results for this PM CDT procedure are i n the results section. ANTI XA, UNFRACTIONATED Routine 07/26/2019 11:30 Results for this AM CDT procedure are i n the results section. ANTI XA, UNFRACTIONATED STAT 07/26/2019 4:10 Results for this AM CDT procedure are i n the results section. ESTIMATED GFR Routine 07/26/2019 4:10 Results fo r this AM CDT procedure are i n the results section. MAGNESIUM LEVEL Routine 07/26/2019 4:10 Results for this AM CDT procedure are i n the results section. BASIC METABOLIC PANEL Routine 07/26/2019 4:10 Re sults for this AM CDT procedure are i n the results section. HC COMPLETE BLD COUNT Routine 07/26/2019 4:10 Re sults for this W/AUTO DIFF AM CDT procedure are i n the results section. ANTI XA, UNFRACTIONATED Timed 07/25/2019 10:30 Results for this PM CDT procedure are i n the results section. ANTI XA, UNFRACTIONATED Timed 07/25/2019 2:26 Results for this PM CDT procedure are i n the results section. DRVVC, DRVVT/DRVVC Routine 07/25/2019 9:17 Resul ts for this AM CDT procedure are i n the results section. HEMOGLOBIN A1C Routine 07/25/2019 9:17 Results f or this AM CDT procedure are i n the results section. THYROID STIMULATING Routine 07/25/2019 9:17 Resu lts for this HORMONE AM CDT procedure are i n the results section. TOTAL IRON BINDING Routine 07/25/2019 9:17 Resul ts for this CAPACITY AM CDT procedure are i n the results section. BETA-2 GLYCOPROTEIN 1 Routine 07/25/2019 9:17 Re sults for this ANTIBODY, IGG AND IGM AM CDT proced ure are in the results section. CARDIOLIPIN ANTIBODIES Routine 07/25/2019 9:17 R esults for this AM CDT procedure are i n the results section. LUPUS ANTICOAGULANT PANEL Routine 07/25/2019 9:17 Results for this AM CDT procedure are i n the results section. FUNCTIONAL PROTEIN S Routine 07/25/2019 9:17 Res ults for this AM CDT procedure are i n the results section. FUNCTIONAL PROTEIN C Routine 07/25/2019 9:17 Res ults for this AM CDT procedure are i n the results section. ANTITHROMBIN III LEVEL Routine 07/25/2019 9:17 R esults for this AM CDT procedure are i n the results section. C-REACTIVE PROTEIN Routine 07/25/2019 9:17 Resul ts for this AM CDT procedure are i n the results section. FACTOR VIII ASSAY Routine 07/25/2019 9:17 Result s for this AM CDT procedure are i n the results section. ANTI XA, UNFRACTIONATED Routine 07/25/2019 9:17 Results for this AM CDT procedure are i n the results section. ECG PRE/POST OP Routine 07/25/2019 8:50 Results for this AM CDT procedure are i n the results section. MANUAL DIFFERENTIAL Routine 07/25/2019 5:07 Resu lts for this AM CDT procedure are i n the results section. ESTIMATED GFR Routine 07/25/2019 5:07 Results fo r this AM CDT procedure are i n the results section. PARTIAL THROMBOPLASTIN Routine 07/25/2019 5:07 R esults for this TIME (PTT) AM CDT procedure are i n the results section. BASIC METABOLIC PANEL Routine 07/25/2019 5:07 Re sults for this AM CDT procedure are i n the results section. CBC WITH PLATELET AND Routine 07/25/2019 5:07 Re sults for this DIFFERENTIAL AM CDT procedure are i n the results section. ANTI XA, UNFRACTIONATED Routine 07/25/2019 12:15 Results for this AM CDT procedure are i n the results section. ANTI XA, UNFRACTIONATED STAT 07/24/2019 3:50 Results for this PM CDT procedure are i n the results section. PROTHROMBIN TIME WITH INR Routine 07/24/2019 3:50 Results for this PM CDT procedure are i n the results section. CBC HEMOGRAM Routine 07/24/2019 3:50 Results for this PM CDT procedure are i n the results section. CV ARTERIOGRAM FEMORAL Routine 07/24/2019 2:00 PAD (periphera l Results for this SINGLE PM CDT artery disease) procedure ar e in ([facility]) the results Claudication ([facility]) section. CV AORTAGRAM ABDOMEN W Routine 07/24/2019 2:00 PAD (periphera l Results for this RUNOFF PM CDT artery disease) procedure ar e in ([facility]) the results Claudication ([facility]) section. CV PCI PERCUTANEOUS Routine 07/24/2019 2:00 PAD (peripheral R esults for this CARDIAC ANGIOPLASTY PM CDT artery disease) proce dure are in ([facility]) the results Claudication ([facility]) section. CV UNLISTED TRAFFIC PERSONNEL SUPERVISOR Routine 07/24/2019 2:00 PAD (peripheral Results for this PROCEDURE PM CDT artery disease) procedure ar e in ([facility]) the results Claudication ([facility]) section. ACTIVATED CLOTTING TIME Routine 07/24/2019 1:41 Results for this PM CDT procedure are i n the results section. ACTIVATED CLOTTING TIME Routine 07/24/2019 12:17 Results for this PM CDT procedure are i n the results section. PROTHROMBIN TIME WITH INR Routine 07/23/2019 1:46 PAD (periph eral Results for this PM CDT artery disease) procedure ar e in ([facility]) the results Claudication ([facility]) section. Pre-operative laboratory examination COMPREHENSIVE METABOLIC Routine 07/23/2019 1:46 PAD (peripher al Results for this PANEL PM CDT artery disease) procedure ar e in ([facility]) the results Claudication ([facility]) section. Pre-operative laboratory examination CBC WITH PLATELET AND Routine 07/23/2019 1:46 PAD (peripheral Results for this DIFFERENTIAL PM CDT artery disease) procedure ar e in ([facility]) the results Claudication ([facility]) section. Pre-operative laboratory examination US DUPLEX ARTERIAL LOWER Routine 06/03/2019 3:21 PAD (periphe ral Results for this EXTREMITY BILATERAL PM CDT artery disease) proce dure are in ([facility]) the results section. ESTIMATED GFR Routine 02/06/2019 12:49 Results fo r this AM ADVERTISEMENT DISTRIBUTOR procedure are i n the results section. CREATINE KINASE, TOTAL Routine 02/06/2019 12:49 R esults for this (CPK) AM ADVERTISEMENT DISTRIBUTOR procedure are i n the results section. HC COMPLETE BLD COUNT Routine 02/06/2019 12:49 Re sults for this W/AUTO DIFF AM ADVERTISEMENT DISTRIBUTOR procedure are i n the results section. BASIC METABOLIC PANEL Routine 02/06/2019 12:49 Re sults for this AM ADVERTISEMENT DISTRIBUTOR procedure are i n the results section. CV ARTERIOGRAMS Routine 02/05/2019 3:12 Claudication ([facility]) Results for this PERIPHERAL PM ADVERTISEMENT DISTRIBUTOR PVD (peripheral procedure ar e in vascular disease) the result s (HCC) section. ACTIVATED CLOTTING TIME Routine 02/05/2019 1:07 Results for this PM ADVERTISEMENT DISTRIBUTOR procedure are i n the results section. ECG 12-LEAD STAT 02/05/2019 10:29 Results for this AM ADVERTISEMENT DISTRIBUTOR procedure are i n the results section. PT AND PTT Routine 01/31/2019 9:47 PAD (peripheral Results for this AM ADVERTISEMENT DISTRIBUTOR artery disease) procedure ar e in ([facility]) the results Claudication ([facility]) section. PVD (peripheral vascular disease) ([facility]) Pre-operative laboratory examination COMPREHENSIVE METABOLIC Routine 01/31/2019 9:47 PAD (peripher al Results for this PANEL AM ADVERTISEMENT DISTRIBUTOR artery disease) procedure ar e in ([facility]) the results Claudication ([facility]) section. PVD (peripheral vascular disease) ([facility]) Pre-operative laboratory examination CBC WITH PLATELET AND Routine 01/31/2019 9:47 PAD (peripheral Results for this DIFFERENTIAL AM ADVERTISEMENT DISTRIBUTOR artery disease) procedure ar e in ([facility]) the results Claudication ([facility] C) section. PVD (peripheral vascular disease) ([facility]) Pre-operative laboratory examination HC COMPLETE BLD COUNT Routine 01/04/2019 5:15 Re sults for this W/AUTO DIFF AM CDT procedure are i n the results section. ESTIMATED GFR Routine 01/04/2019 4:00 Results fo r this AM CDT procedure are i n the results section. BASIC METABOLIC PANEL Routine 01/04/2019 4:00 Re sults for this AM CDT procedure are i n the results section. CV REVASCULARIZATION Routine 01/03/2019 2:35 Res ults for this FEMORAL POPLITEAL W PM CDT procedur e are in ATHERECTOMY UNILATERAL the r esults section. CV AORTAGRAM ABDOMEN W Routine 01/03/2019 2:35 R esults for this RUNOFF PM CDT procedure are i n the results section. ACTIVATED CLOTTING TIME Routine 01/03/2019 1:49 Results for this PM CDT procedure are i n the results section. ESTIMATED GFR Routine 01/03/2019 6:51 Results fo r this AM CDT procedure are i n the results section. BASIC METABOLIC PANEL Routine 01/03/2019 6:51 Re sults for this AM CDT procedure are i n the results section. HC COMPLETE BLD COUNT Routine 01/03/2019 5:40 Re sults for this W/AUTO DIFF AM CDT procedure are i n the results section. POC PANEL Routine 01/02/2019 10:15 Results for this AM CDT procedure are i n the results section. ESTIMATED GFR Routine 01/02/2019 10:15 Results fo r this AM CDT procedure are i n the results section. PROTHROMBIN TIME WITH INR STAT 01/02/2019 10:12 Results for this AM CDT procedure are i n the results section. HC COMPLETE BLD COUNT STAT 01/02/2019 10:12 Re sults for this W/AUTO DIFF AM CDT procedure are i n the results section. US ANKLE BRACHIAL INDEX Routine 12/31/2018 3:50 PAD (peripher al Results for this PM CDT artery disease) procedure ar e in ([facility]) the results section. CT ANGIOGRAM ABDOMINAL Routine 12/31/2018 12:51 PAD (periphera l Results for this AORTA AND BILATERAL PM CDT artery disease) proce dure are in ILIOFEMORAL RUNOFF W WO ([facility]) the results CONTRAST section. ESTIMATED GFR Routine 12/31/2018 11:21 Results fo r this AM CDT procedure are i n the results section. POC CREATININE Routine 12/31/2018 11:21 Results f or this AM CDT procedure are i n the results section. US DUPLEX ARTERIAL LOWER Routine 12/31/2018 10:30 PAD (periphe ral Results for this EXTREMITY BILATERAL AM CDT artery disease) proce dure are in ([facility]) the results section. ECG 12-LEAD Routine 10/01/2018 10:03 PAD (peripheral Results for this AM CDT artery disease) procedure ar e in ([facility]) the results section. after 08/05/2018 Results Hexagonal phospholipid (07/29/2019 3:37 PM CDT) Hexagonal phospholipid SEE COMMENT sec EXETER tube #1 Comment: [facility] Footnote--------- HOSPITAL Unable to perform testing, specimen is F ROZEN SAMPLE CLOTTED. Credit issued. Hexagonal phospholipid SEE sec EXETER tube #2 COMMENTComment: [facility] Footnote-------- HOSPITAL - Tube 1 - 2 SEE 0.0 - 11.0 EXETER COMMENTComment: sec CAODAISM Footnote-------- HOSPITAL - [place] interpretation SEE EXETER COMMENTComment: CAODAISM Footnote-------- HOSPITAL - Specimen Blood Performing Organization Address City/[facility] Facility[facility] Phone Number [facility] DEPARTMENT OF PATHOLOGY AND [address] [place] [address] [phone] [address] Free and total protein S (07/29/2019 3:37 PM CDT) Pathologist Sig nature Protein S Ag, free 95 62 - 160 % [facility] Protein S Ag, total 168 (H) 71 - 150 % [facility] Specimen Blood Performing Organization Address [facility] Phone Number [facility] DEPARTMENT OF PATHOLOGY AND [address] [place] [address] [address] Functional protein S (07/29/2019 3:37 PM CDT)Only the most recent of2 results within the time period is included. Functional protein 59 (L) 74 - 160 % [facility] Comment: HOSPITAL Functional Protein S performed. If result is decreas ed Total and Free Protein S Antigen will be performed. Functional protein S was low at 59% with normal free a nd normal total protein S of 95% and 168%, respectively. When factor 8 is high, functional protein S level is d ecreased. This patient was found to have a high factor 8 of 326% . Since factor 8 is an acute phase reactant, suggest rep eating protein S assay when the patient is stable and off war farin for 2 weeks, if clinically indicated. Specimen Blood Performing Organization Address [facility] Facilitycoar Phone Number [facility] DEPARTMENT OF PATHOLOGY AND [address] [place] [address] [phone] [address] Functional protein C (07/29/2019 3:37 PM CDT)Only the most recent of2 results within the time period is included. Pathologist Sig nature Functional protein C 99 70 - 165 % [facility] Specimen Blood Performing Organization Address [facility] Phone Number [facility] DEPARTMENT OF PATHOLOGY AND [address] [place] [address] 0 [facility] [address] [place] [address] Lupus anticoagulant panel (07/29/2019 3:37 PM CDT)Only the most recent of2 resultswithin the time period is included. Prothrombin time 13.9 11.5 - 14.5 [facility] INR 1.1 EXETER Comment: CAODAISM The International Normalized Ratio (INR) is a therapeu tic HOSPITAL monitoring tool for patients who are stable on oral anticoagulant therapy. An INR of 2.0-3.0 is suggested for deep vein thrombosis/pulmonary embolism. PTT 35.7 23.0 - 36.0 EXETER Comment: [facility] PTT therapeutic range for unfractionated heparin is HOSPITAL 61.0-112.0 seconds which corresponds to Anti-Xa 0.3-0.7 U/ml. PTT lupus 38.8 (H) 27.0 - 38.0 EXETER anticoagulant Comment: [facility] Lupus anticoagulant (LA) panel consists of PT, PTT, PT T-LA, HOSPITAL and DRVVT. If the PTT-LA is above the normal range, th e hexagonal phospholipid will be performed. If the DRVVT is above the normal range, the DRVVC confirmatory test will be performed. A normal result for both the DRVVT and the PTT-LA mean s the patient is negative for lupus anticoagulant. The patie nt is considered positive for lupus anticoagulant if either the Ratio SCR/CONF or the hexagonal phospholipid is high (positi ve) on two occassions at least six weeks apart. Clinical confirmation is also required for diagnosis. DRVVT 36.5 29.0 - 46.0 EXETER Comment: [facility] This test has been modified from the [facility] HOSPITAL instructions. The performance characteristics were determined by [facility] in a manner consistent with CLIA requirements. This test has not been cleared or approved by the U.S. Food and Drug Administration. Specimen Blood Performing Organization Address City/State/Zipcode Phone Number [facility] DEPARTMENT OF PATHOLOGY AND [address] [place], [place] [address] [facility] [address] [place] [address] Antithrombin III level (07/29/2019 3:37 PM CDT)Only the most recent of2 results within the time period is included. Pathologist Sig nature Antithrombin III 105 80 - 130 % [facility] Specimen Blood Performing Organization Address City/[facility]/Zipcode Phone Number [facility] DEPARTMENT OF PATHOLOGY AND [address] [place], [place] [address] [address] Factor VIII assay (07/29/2019 3:37 PM CDT)Only the most recent of2 results within the time period is included. Pathologist [facility] Factor VIII 326 (H) 60 - 150 % EXETER activity Comment: CAODAISM This test has been modified from the [facility] HOSPITAL instructions. The performance characteristics were determined by [facility] in a manner consistent with CLIA requirements. This test has not been cleared or approved by the U.S. Food and Drug Administration. Specimen Blood Performing Organization Address City/[facility] Facility[facility] Phone Number [facility] DEPARTMENT OF PATHOLOGY AND [address] [place] [address] [phone] [address] CBC with platelet and differential (07/29/2019 4:40 AM CDT)Only the most recent of11 resultswithin the time period is included. [facility] WBC 11.52 (H) 4.50 - 11.00 [facility] k/uL [facility] RBC 3.77 (L) 4.40 - 6.00 [facility] m/[facility] HGB 9.8 (L) 14.0 - 18.0 [facility]/dL [facility] HCT 31.0 (L) 41.0 - 51.0 % [facility] MCV 82.2 82.0 - 100.0 [facility] MCH 26.0 (L) 27.0 - 34.0 pg [facility] MCHC 31.6 31.0 - 37.0 [facility] RDW - SD 48.0 37.0 - 55.0 fL [facility] MPV 9.4 8.8 - 13.2 fL [facility] Platelet count 277 150 - 400 k/uL [facility] Nucleated RBC 0.00 /100 WBC [facility] Neutrophils 59.6 39.0 - 69.0 % [facility] Lymphocytes 20.2 (L) 25.0 - 45.0 % [facility] Monocytes 12.2 (H) 0.0 - 10.0 % [facility] Eosinophils 5.1 (H) 0.0 - 5.0 % [facility] Basophils 0.4 0.0 - 1.0 % [facility] Immature granulocytes 2.5 0.0 - 1.0 % [facility] (H)Comment: HOSPITAL "Immature granulocytes" (promyelocytes , myelocytes, metamyelocytes ) Specimen Blood Performing Organization Address City/[facility]/Zipcode Phone Number [facility] DEPARTMENT OF PATHOLOGY AND [address] [place] [address] [place] [address] Estimated GFR (07/29/2019 4:00 AM CDT)Only the most recent of10 resultswithin the time period is included. Pathologist [facility] Estimated GFR 77 mL/min/1.73 [facility] Comment: HOSPITAL Catergory Units Interpretation G1 >=90 Normal or high G2 60-89 Mildly decreased G3a 45-59 Mildly to moderately decreas ed G3b 30-44 Moderately to severely decre ased G4 15-29 Severely decreased G5 <15 Kidney failure The eGFR was calculated using the Chronic Kidney Disea se Epidemiology Collaboration (CKD-EPI) equation. Interpretation is based on recommendations of the National Kidney Foundation-Kidney Disease Outcomes [place] lity Initiative (NKF-KDOQI) published in 2014. Specimen Performing Organization Address [facility] Facility[facility] Phone Number [facility] DEPARTMENT OF PATHOLOGY AND [address] [place] [phone] [place] [phone] Magnesium level (07/29/2019 4:00 AM CDT)Only the most recent of4 resultswithin the time period is included. Pathologist [facility] [place] nature Magnesium 2.3 1.6 - 2.4 mg/dL [facility] Specimen Blood Performing Organization Address City/[facility]/Zipcode Phone Number [facility] DEPARTMENT OF PATHOLOGY AND [address] [place] [address] [place] [address] Lipid panel (07/29/2019 4:00 AM CDT) Cholesterol 151 <200 mg/dL [facility] Triglycerides 97 <150 mg/dL [facility] HDL cholesterol 61 >40 mg/dL [facility] LDL cholesterol 70Comment: Result <100 mg/dL EXETER obtained by direct CAODAISM LDL measurement [facility] Lipid panel [facility] interpretation Comment: CAODAISM Total Cholesterol (mg/dL) HOSPIT AL <200 Desirable 200-239 Borderline-high >=240 High Triglycerides (mg/dL) <150 Normal 150-199 Borderline-high 200-499 High >=500 Very high HDL Cholesterol (mg/dL) <40 Low (male) <40 Low (female) LDL Cholesterol (mg/dL) <100 Optimal 100-129 Near or above optimal 130-159 Borderline-high 160-189 High >=190 Very high Risk Catergories that modify LDL goals. Risk Catergories LDL goal (mg/d L) CHD and CHD risk equivalent <100 (10-year risk >20%) Multiple (2+) risk factors <130 (10-year risk =<20%) 0-1 risk factors <160 (<10-year risk) Defining levels of lipids in metabolic syndrome Triglycerides >=150 mg/dL HDL Cholesterol Men <40 mg /dL Women <40 mg/ dL Non-HDL cholesterol is a second target for therapy in persons with high triglycerides (>=200 mg/dL) Specimen Blood Performing Organization Address City/State/Zipcode Phone Number [facility] DEPARTMENT OF PATHOLOGY AND [address] [place] [phone] GENOMIC MEDICINE [address] [address] Basic metabolic panel (07/29/2019 4:00 AM CDT)Only the most recent of8 results within the time period is included. Pathologist Sig nature Sodium 140 135 - 148 mEq/L [facility] L Potassium 4.5 3.5 - 5.0 mEq/L [facility] Chloride 104 98 - 112 mEq/L [facility] CO2 25 24 - 31 mEq/L [facility] Anion gap 11@ANIO 7 - 15 mEq/L [facility] BUN 14 8 - 23 mg/dL [facility] Creatinine 1.05 0.70 - 1.20 mg/dL [facility] Glucose 97 65 - 99 mg/dL [facility] Calcium 9.0 8.8 - 10.2 mg/dL [facility] AL Specimen Blood Performing Organization Address City/State/Zipcode Phone Number [facility] DEPARTMENT OF PATHOLOGY AND [address] [place] [address] 0 GENOMIC MEDICINE [facility] [address] [place] [address] Transthoracic Echocardiogram Complete, (w Contrast, Strain and 3D if needed) (07/28/2019 6:00 PM CDT) Specimen Narrative Performed At [facility] Echo cardiography Report [address] [facility] [address], [place] [address] Pat.Name: ROGER ESPINAL Pat.ID: [id number] .Date: 07/28/2019 Refer.MD: AJ BECKHAM MD Exam Time: 5:31:00 PM Study Type:R outine Echo Height: 68in Weight: 164lb BSA: 1.88 m2 Ag e: 1940,78Y Sex: MALE BP: 131/68 HR: 72 bpm Sonogr phr: BRIAN Cisneros Pat. Stat.:Inpatient Room: [address] Study Status:Final Echo Event ID:[id number] Order ID: [id number] Reason for Study:CAD Procedures: 2D Echo, Colorflow Doppler, Portable Race: -Mexican SUMMARY: Normal LV and RV size and function. No hemodynamically significant valvular abnormalities. Normal filling pressure. FINDINGS: LV: LV size is normal. LV EF is hyperdynamic. Overall wall motion is hyperdynamic. Estimated EF is >70%. RV: RV size is normal. RV systo lic function is normal. LA: LA size is normal. RA: RA size is normal. AO: Aortic root diameter is nor mal. KENDAL: No pericardial effusion. AV: Mild thickening and calcifi cation of AV leaflets. MV: Mild thickening and calcifi cation of mitral leaflets. PV: No structural PV abnormalit ies noted. TV: No structural TV abnormalit ies noted. Fernandez: Hepatic vein pressure is nor mal, RA pressure < 5mmHg. Normal diastolic function adju sted for age; normal LV filling pressures. Other: Insufficient TR jet to estim ate PA systolic pressure. MEASUREMENTS: 2D Parasternal Long Wingate Ao An 2.3 cm LVPWd 0.94 cm Ao Rtd 3.3 cm Index 1.8 cm/m2 LA Ds 3 cm IVSd 0.85 cm RWT 0.42 LVIDd 4.5 cm Index 2.4 cm/m2 LV Mass 132 g (122-1 74) LVIDs 2.2 cm LVM In dex 70 g/m LV%fs 51 % LVOT 2 cm LA Sng Plane LA Area 17 cm (8.8-23.4) LA Vol 37 ml Index 20 ml/m2 LA LngAx 6.6 cm LVOT LVOT Area 3.3 cm DOPPLER LVOT Stroke Vol LVOT TVI 23 cm HR 67 bpm LVOT LVOT SV 75 ml LVOT CO 5 l/min SVi 40 ml/m LVOT C I 2.7 l/m/m Signed 07/29/2019 11:05 AM Matilda Felipe MD Procedure Note Interface, Radiology Results In - 2019 11:05 AM CDT Echocardiography Report [address] [place] [address] Pat.Name: ROGER ESPINAL Pat.I D: [id number] .Date: 07/28/2019 Refer .MD: AJ BECKHAM MD Exam Time: 5:31:00 PM Study Type:Routine Echo Height: 68in Weigh t: 164lb BSA: 1.88 m2 Age: 3 1940,78Y Sex: MALE BP: 131/68 HR: 72 bpm Sonog rphr: BRIAN Cisneros Pat. Stat.:Inpatient Room: AV2901-I Study Status:Final Echo Event ID:[id number] Order ID: [id number] Reason for Study:CAD Procedures: 2D Echo, Colorflow Doppler, Portable Race: -Mexican SUMMARY: Normal LV and RV size and function. No hemodynamically significant valvular abnormalities. Normal filling pressure. FINDINGS: LV: LV size is normal. LV EF is hy perdynamic. Overall wall motion is hyperdynamic. Estim ated EF is >70%. RV: RV size is normal. RV systolic function is normal. LA: LA size is normal. RA: RA size is normal. AO: Aortic root diameter is normal . KENDAL: No pericardial effusion. AV: Mild thickening and calcificat ion of AV leaflets. MV: Mild thickening and calcificat ion of mitral leaflets. PV: No structural PV abnormalities noted. TV: No structural TV abnormalities noted. Fernandez: Hepatic vein pressure is sy l, RA pressure < 5mmHg. Normal diastolic function adjusted f or age; normal LV filling pressures. Other: Insufficient TR jet to estimat e PA systolic pressure. MEASUREMENTS: 2D Parasternal Long [place] Ao An 2.3 cm LVPW d 0.94 cm Ao Rtd 3.3 cm Inde x 1.8 cm/m2 LA Ds 3 cm IVSd 0.85 cm RWT 0.42 LVIDd 4.5 cm Inde x 2.4 cm/m2 LV Mass 132 g (122-174) LVIDs 2.2 cm LVM Index 70 g/m LV%fs 51 % LVOT 2 cm LA Sng Plane LA Area 17 cm (8.8-23.4) L A Vol 37 ml Index 20 ml/m2 LA LngAx 6.6 cm LVOT LVOT Area 3.3 cm DOPPLER LVOT Stroke Vol LVOT TVI 23 cm HR 67 bpm LVOT LVOT SV 75 ml LVOT CO 5 l/min SVi 40 ml/m LVO T CI 2.7 l/m/m Signed 07/29/2019 11:05 AM Matilda Felipe MD Performing Organization Address City/[facility]/Zipcode Phone Number [facility] [address] [place] [address] POC glucose (07/28/2019 12:55 PM CDT) Pathologist Sig nature POC glucose 100 (H) 65 - 99 mg/dL [facility] Comment: HOSPITAL Sommelier Name: Esperanza Romero Device ID: [id number] Chartable: CRITICAL ACCESS HOSPITAL Notified RN Specimen Blood Performing Organization Address [facility] Phone Number [facility] DEPARTMENT OF PATHOLOGY AND [address] [place], [place] [address] GENOMIC MEDICINE [facility] [address] [place] [address] Cv invasive peripheral vascular procedure (07/28/2019 12:05 PM CDT)Only the most recent of4 resultswithin the time period is included. Specimen Narrative Performed At This result has an attachment that is no t available. Peripheral CATHETERIZATION PROCEDURE NOTE SYNGO PREOPERATIVE DIAGNOSIS 1. Critical Limb Ischemia 2. Peripheral Arterial Disease POSTOPERATIVE DIAGNOSIS 1. Peripheral Arterial Disease PROCEDURES PERFORMED 1. Contralateral R Iliac Angiography 2. Contralateral R Femoral Angiography HAND CELL TUBER Dr. Winter Farah, Traffic Administrator ASSISTANT SCIENTIST Manuel Holcomb ANESTHESIA USED Local 2% lidocaine, Conscious Sedation DESCRIPTION OF PROCEDURE The procedure was described to the patient including b enefits, risks, and alternatives to the procedure. The patient confirmed understanding and signed the informed consent. The patient was brought to public works laborer, room [facility] of [facility]. Patient was prepped a nd draped in sterile fashion. Conscious sedation provided to patient throug hout procedure with appropriate monitoring. The left common femoral artery (HELIOTHERAPIST) was palpated and the region above the artery was anesthetized with 2% local lidocaine. Usi ng Micropuncture needle and fluoroscopic guidance, arterial access was obtained in the left HELIOTHERAPIST and a 4F sheath was placed without difficulty. A 4F diagnostic Contra catheter was advanced over a Wh oley wire to the infrarenal aorta. The wire was removed, the catheter aspirated to ensure no air was in the system and flushed in the usual [facility] ion. The Wholey wire was then advanced using Contra catheter to the contralateral right iliac artery. We then performed a diagnostic contralat eral right iliac artery angiogram with runoffs. We noticed brisk flow in the SFA all the way to the co mmon tibio-peroneal artery. The proximal portion of the SFA where a second layer of stent was recently deployed did not demonstrate any significant stenosis. The mid and distal SFA continue to have 30-40% layered thrombu s which has significantly resolved since the previous study and de monstrate brisk flow to the distal vasculature. 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 The arterial sheath was aspirated and flushed. The she ath will be pulled manually. The patient was sent to the holding area in stable condition. The patient was hemodynamically stable throughout the entirety of the procedure. DISPOSITION: Return patient to nursing unit and monito r for groin complications. EBL: <30 mL CONDITION: Stable COMPLICATIONS: None Manuel Holcomb 07/28/2019 12:17 PM Performing Organization Address City/[facility]/Zipcode Phone Number [facility] [address] [place] [address], Anti Xa, unfractionated (07/28/2019 3:40 AM CDT)Only the most recent of11 resultswithin the time period is included. Anti Xa, 0.19 (L)Comment: 0.30 - 0.70 EXETER unfractionated Therapeutic Range: U/mL CAODAISM 0.30 - 0.70 U/mL HOSPITAL Specimen Blood Performing Organization Address City/[facility]/Zipcode Phone Number [facility] DEPARTMENT OF PATHOLOGY AND [address] [place], [place] [address] GENOMIC MEDICINE [address] [address] duplex arterial lower extremity (07/27/2019 10:30 AM CDT)Only the most recent of3 resultswithin the time period is included. Specimen Narrative Performed At [facility] U ltrasound Laboratory Lower Extremity Arterial Duplex Report [address] [facility], [place] [address], [place] [address] Pat.Name: ROGER ESPINAL.ID: [id number]Date: 07/27/2019 Refer.MD: AJ BECKHAM MD Exam Time: 9:57:00 AM Study Type:L E Arterial Height: 68in Weight: 164lb BSA: 1.88 m2 Ag e: 1940,78Y Sex: MALE Sonogr phr: Suzette William, RVT Pat. Stat.:Inpatient Room: [id number] Tape Vol: , CPT - 4: 37553 Echo Event ID:[id number] Order ID: [id number] Reason for Study:Post cath-possible pseu doaneurysm. Procedures: Colorflow, Grayscale/2D, Pul sed wave Doppler Race: B SUMMARY: DUPLEX SCAN OBSERVATIONS: RIGHT: Common femoral, profunda and prox imal superficial femoral arteries are patent with biphasic Dopple r signals. There is patent stent noted inside of common femoral and superficial femoral artery. Elevated velocities noted in the proxima l profunda femoris artery with ratio: 3.4. Common femoral, profunda fem raymon, and femoral veins are compressible with phasic Doppler signals . There is no suspected vascularized structure noted in the groi n area. DOPPLER FINDINGS: ARTERY/VEIN LOCATION PSV (cm/sec) RIGHT Common Femoral Proximal-third 63 cm/sec Profunda Femoris Distal-third 212 cm/sec ( ratio:3.4) Superficial Femoral Proximal-third 69 cm/sec Common femoral Vein Porixmal-third No rmal Profunda femoris Vein Proximal-third Normal Femoral Vein Proximal-third Normal PRELIMINARY FINDINGS: 1. No evidence of pseudoaneurysm, hemato ma and traumatic fistula in the right groin. 2. Patency of the stent of the right com mon femoral and superficial femoral arery. 3. 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 PHYSICIAN INTERPRETATION: 1. No evidence of pseudoaneurysm, hemato ma and traumatic fistula in the right groin. 2. Patency of the stent of the right com mon femoral and superficial femoral arery. 3. 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 FINDINGS: Signed 07/27/2019 05:25 PM Margarito De Luna MD, RPVI Procedure Note Interface, Radiology Results In - 2019 5:25 PM CDT Vascular Ultrasound Laboratory Lower Extremity Arterial Duplex Report [address] [place] [address] Pat.Name: ROGER ESPINAL Pat.I D: [id number] St.Date: 07/27/2019 Refer .MD: AJ BECKHAM MD Exam Time: 9:57:00 AM Study Type:LE Arterial Height: 68in Weigh t: 164lb BSA: 1.88 m2 Age: 3 1940,78Y Sex: MALE Sonog rphr: Suzette Thomas RVT Pat. Stat.:Inpatient Room: [id number] Tape Vol: YM, CPT - 4: 31320 Echo Event ID:[id number] Order ID: [id number] Reason for Study:Post cath-possible pseu doaneurysm. Procedures: Colorflow, Grayscale/2D, Pul sed wave Doppler Race: B SUMMARY: DUPLEX SCAN OBSERVATIONS: RIGHT: Common femoral, profunda and prox imal superficial femoral arteries are patent with biphasic Dopple r signals. There is patent stent noted inside of common femoral and superficial femoral artery. Elevated velocities noted in the proxima l profunda femoris artery with ratio: 3.4. Common femoral, profunda fem raymon, and femoral veins are compressible with phasic Doppler signals . There is no suspected vascularized structure noted in the groi n area. DOPPLER FINDINGS: ARTERY/VEIN LOCATION PSV (cm/sec) RIGHT Common Femoral Proximal-third 63 cm/sec Profunda Femoris Distal-third 212 cm /sec ( ratio:3.4) Superficial Femoral Proximal-third 6 9 cm/sec Common femoral Vein Porixmal-third Nor mal Profunda femoris Vein Proximal-third N ormal Femoral Vein Proximal-third Normal PRELIMINARY FINDINGS: 1. No evidence of pseudoaneurysm, hemato ma and traumatic fistula in the right groin. 2. Patency of the stent of the right com mon femoral and superficial femoral arery. 3. 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 PHYSICIAN INTERPRETATION: 1. No evidence of pseudoaneurysm, hemato ma and traumatic fistula in the right groin. 2. Patency of the stent of the right com mon femoral and superficial femoral arery. 3. 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 FINDINGS: Signed 07/27/2019 05:25 PM Margarito De Luna MD, RPVI Performing Organization Address City/State/Zipcode Phone Number [facility] [address] [place] [address] Total iron binding capacity (07/25/2019 9:17 AM CDT) [facility] Iron level 19 (L) 59 - 158 ug/dL [facility] Iron binding capacity 221 200 - 400 ug/dL [facility] % Saturation 8.6 (L) 20.0 - 40.0 % [facility] Specimen Blood Performing Organization Address City/State/Zipcode Phone Number [facility] DEPARTMENT OF PATHOLOGY AND [address] [place], [place] [address] [address] DRVVC, DRVVT/DRVVC (07/25/2019 9:17 AM CDT) DRVVT SEE COMMENT 29.0 - 46.0 EXETER Comment: sec CAODAISM This test has been modified from the [facility] instructions. The performance characteristics were determined by [facility] in a manner consistent with CLIA requirements. This test has not been cleared or approved by the U.S. Food and Drug Administration. Footnote--------- Unable to perform testing, specimen is QUESTIONABLE IN TEGRITY. Recollect requested for FAC8, AT3, FUNPC, FUNPS, LUPUS (tests). LEDA TATAINA/[id number] (name/location) notified by BP (tech ID) at 07/29/2019 13:30 (date/time). Credit issued. Corrected result; previously reported as 60.8 on 07/28 at 09:31 by BP1 DRVVC SEE COMMENT sec EXETER Comment: CAODAISM This test has been modified from the [facility] instructions. The performance characteristics were determined by [facility] in a manner consistent with CLIA requirements. This test has not been cleared or approved by the U.S. Food and Drug Administration. Footnote--------- Corrected result; previously reported as 68.3 on 07/28 at 09:31 by BP1 DRVVT/DRVVC ratio SEE COMMENT 0.00 - 1.22 EXETER Comment: augusto MAIER Footnote--------- HOSPITAL Corrected result; previously reported as 0.89 on 07/28 at 09:31 by [email or web address] Specimen Blood Performing Organization Address City/State/Zipcode Phone Number [facility] DEPARTMENT OF PATHOLOGY AND [address] [place], [place] [address] [place] [id number] [place] [address] Beta-2 glycoprotein 1 antibody, IgG and IgM (07/25/2019 9:17 AM CDT) Beta-2 glycoprotein 1 <9.4 0.0 - 20.0 [facility] antibody, IgG Comment: HOSPITAL Negative =<20.0 [facility] Positive >20.0 [facility] Beta-2 glycoprotein 1 <9.4 0.0 - 20.0 [facility] antibody, IgM Comment: HOSPITAL Negative =<20.0 [facility] Positive >20.0 [facility] Specimen Blood Performing Organization Address [facility] Phone Number [facility] DEPARTMENT OF PATHOLOGY AND [address] [place] [phone] Cardiolipin antibodies (07/25/2019 9:17 AM CDT) Cardiolipin IgG 6 0 - 14 GPL [facility] Comment: HOSPITAL Negative <15 GPL Indeterminate 15-20 GPL Positive >20 GPL Cardiolipin IgM 3 0 - 12 MPL [facility] Comment: HOSPITAL Negative <13 MPL Indeterminate 13-20 MPL Positive >20 MPL Specimen Blood Performing Organization Address [facility] Phone Number [facility] DEPARTMENT OF PATHOLOGY AND [address] [place] [phone] C-reactive protein (07/25/2019 9:17 AM CDT) Pathologist Sig nature CRP 5.95 (H) 0.00 - 0.50 mg/dL [facility] NANDINI Specimen Blood Performing Organization Address [facility] Phone Number [facility] DEPARTMENT OF PATHOLOGY AND [address] [place] [phone] Thyroid stimulating hormone (07/25/2019 9:17 AM CDT) Pathologist Sig nature TSH 1.77 0.27 - 4.20 uIU/mL [facility] Specimen Blood Performing Organization Address [facility] Phone Number [facility] DEPARTMENT OF PATHOLOGY AND [address] [place] [phone] Hemoglobin A1c (07/25/2019 9:17 AM CDT) Hemoglobin A1C 6.2 (H) 4.0 - 5.6 % [facility] Comment: HOSPITAL HbA1c cutoffs for diagnosing diabetes: 4.0% - 5.6% = normal 5.7% - 6.4% = increased risk for diabetes (prediabetes )9 >=6.5% = diabetes9 Goals for glycemic control (ADA 2016) < 7.0% Target for non adults with diabetes. More or less stringent targets may be appropriate for individual patients. <7.5% Target for Children and adolescents with type 1 diabetes. Specimen Blood Performing Organization Address [facility] Phone Number [facility] DEPARTMENT OF PATHOLOGY AND [address] [place] [phone] GENOMIC MEDICINE [place] [phone] [place] [address] ECG Pre/Post Op (in AM) (07/25/2019 8:50 AM CDT) Pathologist Sig nature Ventricular rate 68 [facility]USE Atrial rate 68 [facility] M[facility] UT interval 180 [facility] QRSD interval 82 [facility] QT interval 398 [facility] QTC interval 423 [facility] P axis 1 -6 [facility] QRS axis 1 16 [facility] M[facility] T wave axis 34 [facility] EKG impression Normal sinus [facility] MUSE rhythm-Septal 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 Performing Organization Address [facility] Phone Number [facility] MUSE [address] [place] [address] Manual differential (07/25/2019 5:07 AM CDT) Manual differential PERFORMED [facility] Neutrophils 58.0 39.0 - 69.0 % [facility] Lymphocytes 33.0 25.0 - 45.0 % [facility] Monocytes 9.0 0.0 - 10.0 % [facility] Eosinophils 0.0 0.0 - 5.0 % [facility] Basophils 0.0 0.0 - 1.0 % [facility] Metamyelocytes 0 % [facility] Promyelocytes 0 % [facility] Platelet slide review Gee adequate [facility] Enlarged platelets Moderate (A) [facility] Specimen Performing Organization Address City/State/Zipcode Phone Number [facility] DEPARTMENT OF PATHOLOGY AND [address] [place] [address] [phone] [address] Partial thromboplastin time, activated (07/25/2019 5:07 AM CDT) [facility] PTT 69.3 (H) 23.0 - 36.0 [facility] Comment: [facility] PTT therapeutic range for unfractionated heparin is 61.0-112.0 seconds which corresponds to Anti-Xa 0.3-0.7 U/ml. Specimen Blood Performing Organization Address City/[facility]/Zipcode Phone Number [facility] DEPARTMENT OF PATHOLOGY AND [address] [place] [address] [phone] [address] Prothrombin time with INR (07/24/2019 3:50 PM CDT)Only the most recent of3 resultswithin the time period is included. [facility] Prothrombin time 17.4 (H) 11.5 - 14.5 [facility] INR 1.4 EXETER Comment: CAODAISM [facility] International Normalized Ratio (INR) is a therapeu [facility] monitoring tool for patients who are stable on oral anticoagulant therapy. An INR of 2.0-3.0 is suggested for deep vein thrombosis/pulmonary embolism. Specimen Blood Performing Organization Address City/[facility]/Zipcode Phone Number [facility] DEPARTMENT OF PATHOLOGY AND [address] [place] [address] [phone] [address] CBC hemogram (07/24/2019 3:50 PM CDT) Pathologist Sig nature WBC 5.29 4.50 - 11.00 k/uL [facility] RBC 4.89 4.40 - 6.00 m/uL [facility] HGB 12.7 (L) 14.0 - 18.0 g/dL [facility] HCT 39.0 (L) 41.0 - 51.0 % [facility] MCV 79.8 (L) 82.0 - 100.0 fL [facility] MCH 26.0 (L) 27.0 - 34.0 pg [facility] MCHC 32.6 31.0 - 37.0 g/dL [facility] RDW - SD 45.9 37.0 - 55.0 fL [facility] MPV 8.6 (L) 8.8 - 13.2 fL [facility] Platelet count 232 150 - 400 k/uL [facility] Nucleated RBC 0.00 /100 WBC [facility] Specimen Blood Performing Organization Address City/State/Zipcode Phone Number [facility] DEPARTMENT OF PATHOLOGY AND [address] [place], [place] [phone] GENOMIC MEDICINE [facility] [address] [place] [address] high density press laborer procedure (07/24/2019 2:00 PM CDT) Specimen Narrative Performed At This result has an attachment that is no t available. Peripheral CATHETERIZATION PROCEDURE NOTE SYNGO PREOPERATIVE DIAGNOSIS 1. Critical Limb Ischemia 2. Peripheral Arterial Disease POSTOPERATIVE DIAGNOSIS 1. Critical Limb Ischemia 2. Peripheral Arterial Disease PROCEDURES PERFORMED 1. Contralateral R Femoral Angiography 2. Percutaneous Angioplasty of R SFA 3. R SFA Stenting with Malika KAVITA 4. Ipsilateral L Femoral Angiography 5. Contralateral R Lower extremity Angiography HAND CELL TUBER Dr. Winter Farah, Traffic Administrator ASSISTANT SCIENTIST Manuel Holcomb ANESTHESIA USED Local 2% lidocaine, Conscious Sedation DESCRIPTION OF PROCEDURE The procedure was described to the patient including b enefits, risks, and alternatives to the procedure. The patient confirmed understanding and signed the informed consent. The patient was brought to public works laborer, room 5 of [facility]. Patient was prepped a nd draped in sterile fashion. Conscious sedation provided to patient throug hout procedure with appropriate monitoring. The left common femoral artery (HELIOTHERAPIST) was palpated and the region above the artery was anesthetized with 2% local lidocaine. Usi ng Micropuncture needle and fluoroscopic guidance, arterial access was obtained in the left HELIOTHERAPIST and a 4F sheath was placed without difficulty. A 4F diagnostic Contra catheter was advanced over a Wh oley wire to the infrarenal aorta. The Wholey wire was then advanced using Contra catheter to the contralateral right iliac artery. We t hen performed a diagnostic contralateral right iliac artery angiogram with runoffs. Complete occlusion was noted in the R SFA which has be en completely previously stented.. The short sheath was then switche d to a 6F 45 cm [place] destination sheath over the Wholey wire. We then advanced an angled Glidewire through a quickcr oss catheter into the distal SFA. The angles glidewire could not pass ac ross the stent in the popliteal artery and was swapped for a stiff strai ght-tipped Glidewire which was able to be advanced into the distal TP trunk . We then exchanged the Glidewire for a Wholey wire and attempted to pass a 4.0 Callaway balloon into the distal SFA but were unable to deliver the bal loon distally. The Wholey wire was exchanged for a 0.14 Hi-Torque Floppy XS wire and we then dilated the entire length of the previously stented SF A with multiple inflations of a 4.0 x 150mm Nanocross balloon. Angiogr aphic image at this point demonstrated jain of flow in the SFA up t o the TP trunk which was also severely diseased. We swapped the 0.14 wire f or a Wholey wire which was parked in the TP trunk and then decided to t reat the length of the R SFA with drug-coated balloons 6.0 x 150mm, 6.0 x 250mm and 5.0 x 120mm from proximal to distal each inflated at 10 emily for 3 mins. At this point our angiographic images demonstrated no reflow in the R SFA. We performed short inflations through the length of th e vessel with a 6.0 x 250mm balloon inflated to 4 emily. Some flow at this p oint was observed in the very proximal stented portion of the R SFA and we decided to deploy a 6.0 x 120mm Malika KAVITA within the previously stented p roximal R SFA. The stent was post-dilated with a 6.0 x 150mm balloon at 1 2 emily for 30 sec. Further angiographic images continued to demonstrate n oreflow phenomenon most likely from heavy thrombus burden after prolonged inflations of the drug-coated balloons. At this point we decided to star t the patient on Integrelin and Heparin infusions to continue overnight and to bring him back to the public works laborer the subsequent day. The arterial sheath was aspirated and flushed. Angio graphy of the HELIOTHERAPIST was performed without evidence of dissection, thrombus or perforation. However the L HELIOTHERAPIST was severely diseased and the access site wa s not appropriate for a closure device. The patient was sent [facility] area in stable condition. The patient was hemodynamically stable th roughout the entirety of the procedure. DISPOSITION: Return patient to nursing unit and monito r for groin complications. EBL: <30 mL CONDITION: Stable COMPLICATIONS: No reflow in the R SFA. Plan to adminis ter anti-thrombotic and anticoagulant therapy overnight and bring the clarence ent back to the lab the next day Manuel Holcomb 07/24/2019 2:24 PM Performing Organization Address City/State/Zipcode Phone Number [facility] [address] [place] [address], Activated clotting time (07/24/2019 1:41 PM CDT)Only the most recent of4 resultswithin the time period is included. [facility] Activated clotting 294 (H) 96 - 152 sec [facility] Comment: HOSPITAL Sommelier Name: Nikhil Bautista Device ID: [id number] Specimen Performing Organization Address City/[facility]/Zipcode Phone Number [facility] DEPARTMENT OF PATHOLOGY AND [address] [place], [place] [address] [address] [address] Comprehensive metabolic panel (07/23/2019 1:46 PM CDT)Only the most recent of2 resultswithin the time period is included. [facility] Glucose 107 (H) 65 - 99 [facility] Comment: mg/dL EXETER Fasting reference interval For someone without known diabetes, a glucose value between 100 and 125 mg/dL is consistent with prediabetes and should be confirmed with a follow-up test. BUN 18 7 - 25 mg/dL [facility] EXETER Creatinine 1.23 (H) 0.70 - 1.11 [facility] Comment: mg/dL EXETER For patients >49 years of age, the reference limit for Creatinine is approximately 13% higher for people identified as -Mexican. EGFR Non-Afr. 55 (L) > OR = 60 [facility] Mexican mL/min/1.73m EXETER 2 EGFR 64 > OR = 60 [facility] Mexican mL/min/1.73m EXETER 2 BUN/creatinine 15 6 - 22 [facility] ratio (calc) EXETER Sodium 138 135 - 146 [facility] mmol/L EXETER Potassium 4.0 3.5 - 5.3 [facility] mmol/L EXETER Chloride 103 98 - 110 [facility] mmol/L EXETER CO2 26 20 - 32 [facility] mmol/L EXETER Calcium 9.2 8.6 - 10.3 [facility] mg/dL EXETER Protein 6.7 6.1 - 8.1 [facility] g/dL EXETER Albumin, S 3.9 3.6 - 5.1 [facility] g/dL EXETER Globulin, total 2.8 1.9 - 3.7 [facility] g/dL (calc) EXETER Albumin/globulin 1.4 1.0 - 2.5 [facility] ratio (calc) EXETER Total bilirubin 0.3 0.2 - 1.2 [facility] mg/dL EXETER Alkaline 26 (L) 35 - 144 U/L [facility] phosphatase EXETER AST 22 10 - 35 U/L [facility] EXETER ALT 23 9 - 46 U/L [facility] EXETER Specimen Blood Resulting Agency Comment Performing Organization Information: Site ID: [id number] Name: [facility] Silvia farah Address: [address] [place] [id number] Director: Isaiah Garcia Performing Organization Address City/[facility] Phone Number [facility] [address] [address] Creatine kinase, total (CPK) (02/06/2019 12:49 AM ADVERTISEMENT DISTRIBUTOR) Pathologist [facility] Creatine kinase 88 39 - 308 U/L [facility] L Specimen Plasma specimen Performing Organization Address City/[facility] Phone Number [facility] DEPARTMENT OF PATHOLOGY AND [address] [place], [place] [address] GENOMIC MEDICINE [facility] [address] [place] [address] ECG 12 lead (02/05/2019 10:29 AM ADVERTISEMENT DISTRIBUTOR)Only the most recent of2 resultswithin the time period is included. Pathologist Sig nature Ventricular rate 64 [facility]USE Atrial rate 64 [facility] M[facility] UT interval 178 [facility] QRSD interval 94 [facility] QT interval 408 [facility] QTC interval 420 [facility] P axis 1 0 [facility] M[facility] QRS axis 1 18 [facility] M[facility] T wave axis 26 [facility] EKG impression Normal sinus rhythm-Septal i nfarct , age undetermined-Abnormal ECG-In automated comparison with ECG of 01-OCT-2018 10:03,-Septal infarct is now present-Nonspecific T wave abnormality no longer evident i H MH MUSE n Anterolateral leads- Specimen Narrative Performed At This result has an attachment that is no t available. Performing Organization Address [facility] Phone Number [facility] [address] [place] [address] PT and PTT (01/31/2019 9:47 AM ADVERTISEMENT DISTRIBUTOR) [facility] PTT 32 22 - 34 sec [facility] Comment: EXETER This test has not been validated for monitoring unfractionated heparin therapy. For testing that is validated for this type of therapy, please refer to the Heparin Anti-Xa assay (test code 11345). For additional information, please refer to http://education.Nelbee/faq/KJP740 (This link is being provided for informational/educational purposes only.) INR 1.0 [facility] Comment: EXETER Reference Range 0.9-1.1 Moderate-intensity Warfarin Therapy 2.0-3.0 Higher-intensity Warfarin Therapy 3.0-4.0 Prothrombin time 10.3 9.0 - 11.5 [facility] sec EXETER Specimen Blood Narrative Performed At FASTING:NO [facility] FASTING: NO Resulting Agency Comment Performing Organization Information: Site ID: [id number] Name: [facility] Address: [address] [place] [id number] Director: Isaiah Garcia Performing Organization Address City/State/Zipcode Phone Number [facility] [place] [phone] POC panel (01/02/2019 10:15 AM CDT) [facility] POC sodium 140 135 - 148 [facility] mmol/L [facility] POC potassium 3.9 3.5 - 5.0 [facility] mmol/L [facility] POC chloride 102 99 - 109 mmol/L [facility] POC CO2 28 24 - 31 mmol/L [facility] POC glucose 92 65 - 99 mg/dL [facility] POC BUN 10 8 - 24 mg/dL [facility] POC creatinine 1.0 0.7 - 1.2 mg/dl [facility] POC hematocrit 51 41 - 51 % [facility] POC anion gap 15 8 - 20 mmol/L [facility] Comment: HOSPITAL Meter ID: [id number] Sommelier: Dwight Pederson Specimen Performing Organization Address City/State/Zipcode Phone Number [facility] DEPARTMENT OF PATHOLOGY AND [address] [place] [phone] GEN[address] [address] Us ankle brachial index (12/31/2018 3:50 PM CDT) Specimen Narrative Performed At [facility] Physiologi c Arterial Leg Report [id number] [facility], [place] [address], [place] [address] Pat.Name: ROGER ESPINAL.ID: [id number] .Date: 12/31/2018 Refer.MD: WINTER FARAH MD Exam Time: 9:32:00 AM Study Type:P hysiologic Leg Age: 5 1940,78Y Sex: MALE Sonogrphr: Natalia Pruitt RVT Pat. Stat.:Outpati ent Room: [facility] 16 Tape Vol: RF, CPT - 4: 15909 Echo Cher nt ID:[id number] Order ID: [id number] Reason for Study:Absent bilateral pedal pulses from physician exam. History of PAD s/p right SFA stent. Procedures: Ankle/brachial pressures, Di git pressures Race: B SUMMARY: ANKLE/BRACHIAL INDEX: RIGHT LEFT Brachial Artery Pressure 124 mmHg 1 27 mmHg DP >255 mmHg 0 mmHg PT 0 mmHg 0 mmHg CECELIA DP Non-compressible 0 CECELIA PT 0 0 TOE/BRACHIAL INDEX: Great Toe 28 mmHg 20 mmHg TBI 0.22 0.16 PRELIMINARY FINDINGS: 1. Unable to calculate the right posteri or tibial ankle/brachial index due to absent Doppler signals. Unable t o calculate the right dorsalis pedis ankle/brachial index due to non-co mpressible arteries. 2. Unable to calculate the left ankle/br achial index due to absent Doppler signals. 3. The right toe/brachial index falls in to the moderate-severe category and the left falls into the sev ere category. PHYSICIAN INTERPRETATION: 1. Unable to calculate the right posteri or tibial ankle/brachial index due to absent Doppler signals. Unable t o calculate the right dorsalis pedis ankle/brachial index due to non-co mpressible arteries. 2. Unable to calculate the left ankle/br achial index due to absent Doppler signals. 3. The right toe/brachial index falls in to the moderate-severe category and the left falls into the sev ere category. FINDINGS: Signed 01/01/2019 12:03 AM Margarito De Luna MD, RPVI Procedure Note Interface, Radiology Results In - 2018 12:03 AM CDT [facility] Physiologic Arterial Leg Report [id number] [place] [address] Pat.Name: ROGER ESPINAL Pat.I D: [id number] .Date: 12/31/2018 Refer .MD: WINTER FARAH MD Exam Time: 9:32:00 AM Study Type:Physiologic Leg Age: 5 1940,78Y Sex: MALE Sonogrphr: Natalia Pruitt RVT Pat. Stat.:Outpatient Room: [facility] 16 Tape Vol: RF, CPT - 4: 81426 Echo Event ID:[id number] Order ID: [id number] Reason for Study:Absent bilateral pedal pulses from physician exam. History of PAD s/p right SFA stent. Procedures: Ankle/brachial pressures, Di git pressures Race: B SUMMARY: ANKLE/BRACHIAL INDEX: RIGHT LEFT Brachial Artery Pressure 124 mmHg 127 mmHg DP >255 mmHg 0 mmHg PT 0 mmHg 0 mmHg CECELIA DP Non-compressible 0 CECELIA PT 0 0 TOE/BRACHIAL INDEX: Great Toe 28 mmHg 20 mmHg TBI 0.22 0.16 PRELIMINARY FINDINGS: 1. Unable to calculate the right posteri or tibial ankle/brachial index due to absent Doppler signals. Unable t o calculate the right dorsalis pedis ankle/brachial index due to non-co mpressible arteries. 2. Unable to calculate the left ankle/br achial index due to absent Doppler signals. 3. The right toe/brachial index falls in to the moderate-severe category and the left falls into the sev ere category. PHYSICIAN INTERPRETATION: 1. Unable to calculate the right posteri or tibial ankle/brachial index due to absent Doppler signals. Unable t o calculate the right dorsalis pedis ankle/brachial index due to non-co mpressible arteries. 2. Unable to calculate the left ankle/br achial index due to absent Doppler signals. 3. The right toe/brachial index falls in to the moderate-severe category and the left falls into the sev ere category. FINDINGS: Signed 01/01/2019 12:03 AM Margarito De Luna MD, RPVI Performing Organization Address City/State/Zipcode Phone Number [facility] [address] [place] [address] CTA Abdominal Aorta And Bilateral Iliofemoral Runoff W Wo Contrast (12/31/2018 12:51 PM CDT) Specimen Narrative Performed At EXAM: RADIANT CT ANGIOGRAM ABDOMINAL AORTA AND BILATERAL ILIOFEMORAL RUNOFF W WO CONTRAST INDICATION: I73.9 Peripheral vascular disease unsp ecified, PAD COMPARISON: None. TECHNIQUE: After administration of iodinated contrast intravenous ly, axial CT images of the abdomen, pelvis, bilateral lower extremi ties with runoff were obtained. Coronal and sagittal maximal intensity projection images were obtained. 3-D volume metric [facility] portal system was obtained. Iterative reconstruction and/or automated exposure control techniques were employe d to reduce radiation dose. FINDINGS: Limited chest: Distal esophagus is patulous and fluid-filled, suggest ing gastroesophageal reflux. Heart size is normal. Minimal calcination aortic valve. Visualized pericardium is normal. No jaiden nopathy visualized portions of the chest. Moderate subpleural linear reticular opacities and joseluis undglass opacities bilateral lower lobes, likely a mixture dependent atel ectasis nonspecific scar/fibrosis. 5 mm diameter calcified gra nuloma posterior aspect left lower lobe (series 3 and 1, slice 14). 1.6 cm diameter bulla lateral aspect left lower l obe (series 3 and 1, slice 14). Abdomen: Subcentimeter hypodensity upper left lobe liver, segme nt 2 (series 3 and 1, slice 24), too small to definitively characterize a nd incompletely evaluated on this single early arterial phase examinat ion but statistically likely simple cyst or freya ngioma. Otherwise, liver is normal. Gallbladder is normal. No intrahepatic biliary dilatation. Comm on bile duct is unremarkable. Pancreas is normal. Spleen is normal. Bilateral adrenals are normal. Moderate nonspecific perinephric fat str anding bilaterally. Stomach is normal. Duodenum is normal. Appendix not de finitely identified and may be surgically absent. Diverticulosi s of the descending colon without evidence of acu te diverticulitis. Pelvis: Bladder is minimally distended with urin e. Bladder wall is normal. Prostate is normal size. Coarse dystrophic calcificati ons centrally, fluid was pelvis. Rectum is normal. Bilateral inguinal canals are patulous and fat filled. Bilateral ischial rectal fossa are normal. Axial musculoskeletal: Deformity lateral aspects multiple inferior right-side d ribs, compatible with healed old fractures. Moderate degenerative changes thoracal l umbar spine. Moderate arthrosis bilateral sacral iliac joints. Part ial atelectasis left sacral iliac joint. Moderate arthrosis pubic symphysis. Prominent enthesophytes bilateral iliac wings, ischial tuberosities, greater trochanters, likely degenerative . Right lower extremity musculoskeletal: Moderate arthrosis right hip. Small bone island lateral femoral condyl e. Otherwise, femurs normal. Moderate tricompartmental arthrosis right knee. Promin ent enthesophytes superior and inferior patella. Injury. Additional roun ded ossicle along the lateral margin of the patella, possibly sequela of old trauma. This ossicle has a pseudoarthrosis with the patella where there is at least moderate arthrosis wi th subchondral degeneration. Linear ossific radiodensity along the fe moral medial gutter, possibly periarticular osseous body. No effusi on. No Dupont's cyst. Tibia and fibula are normal. Moderate arthrosis of the ankle. Prominent enthesophytes posterior and inferior calcane us. Moderate arthrosis tarsotarsal joints. Minimal arthrosis hallux metatarsophalangeal joint. Remainder of osseous struct ures of the foot are normal. Soft tissue structures., Catheter, and t high are normal. Left lower extremity musculoskeletal: Moderate arthrosis left hip. Os acetabul um, an anatomic variant. Femur is normal. Marked tricompartmental arthrosis left knee. Prominent enthesophytes superior and inferior patella. Additional rounded ossi rikki along the superior lateral margin of the patella with pseudoarth rosis. This may be sequela of old trauma. Large suprapatell ar effusion. Periarticular osseous material within the po sterior aspect of the lateral gutter. No Dupont's cyst. Tibia and fibula are normal. Mild arthrosis of the ankle. Moderate arthrosis talonavicular joint with subchondra l degenerative cyst within the anterior aspect of talus. Prominent en thesophytes posterior and inferior calcaneus. Minimal arthrosis medel llux metatarsophalangeal joint. Remainder of osseous structures of the foot are normal. Soft tissues the calf and thigh are norm al. Vascular: Descending thoracic aorta: Minimal tortuosity. Minimal multifocal calcified plaque. Normal caliber. Abdominal aorta: Mild multifocal calcified plaque grea test within the infrarenal abdominal aorta. Normal in co urse and caliber. Celiac axis: Conventional anatomy. Mild multifocal daljit cified plaque within the splenic artery. Normal calibe r. Superior mesenteric artery: Mild ostial calcified plaq ue. Mild additional calcified plaque within its midportion. Nor mal course and caliber. Right renal artery: Solitary. Moderate ostial calcifie d plaque with mild luminal narrowing. Moderate multifocal calcified plaqu e at its hilum with adjacent commensurate luminal narro wing. Left renal artery: Solitary. Mild ostial calcified madhu que with mild associated luminal narrowing. Inferior mesenteric artery: Mild wall calcification pr oximally with mild associated luminal narrowing. Right: Common iliac: Moderate calcified plaque proximally. Ad ditional mild multifocal calcified plaque. Mild multif ocal luminal narrowing. Internal iliac: Marked calcified plaque midportion wit h marked associated luminal narrowing. Additional marked multif ocal calcified plaque within the peripheral aspect of t he posterior division. External iliac: Moderate mixed plaque distally with mo derate luminal narrowing. Common femoral: Anatomic variant high bifurcation. Ove rlying metallic clip, likely from prior access. Mild mixed plaque with mild luminal narrowing. Profunda femoris: Moderate wall calcification proximal ly with mild luminal narrowing. Predominant supply to the lower ext remity intramuscular collaterals which reperfuses the occlude d superficial femoral noted below. Superficial femoral: Occluded from its origin through its midportion. Reperfused just proximal to its distal portion of benigno th series 3 and 1, slice 24 7). Prominent anterior intramuscular collater als. Stent extending from its distal aspect into th e popliteal artery, which is widely patent . Popliteal: Moderate multifocal mixed plaque throughout its entirety with moderate multifocal luminal narrowing. Probable additi onal marked luminal narrowing just above its divisio n. Tibialis anterior: Moderate calcified plaque proximall y with moderate luminal narrowing. Occlusion by its midportion) series 3 and 1, slice 3058). Tibioperoneal trunk: Mixed plaque with m arked luminal narrowing. Posterior tibial: Occluded throughout it s course. Peroneal: Moderate concentric calcified plaque proxima lly with at least moderate associated luminal narrowing. Additional mild multifocal calcified plaque throughout its course but patent to t he level the ankle where it provides local hazmat driver supply to the foot via hypertrophic superior calcaneal branches. Left: Common iliac: Mild multifocal mixed plaque with modera te narrowing proximally and mild narrowing scattered throughout. Internal iliac: Near occlusive thrombosis takeoff exte nding to its bifurcation with reperfusion distally possibly via crop and soil scientist ss mesenteric and ipsilateral deep femoral collaterals. External iliac: Mild multifocal calcified plaque with moderate multifocal luminal narrowing. Moderate soft plaque dis tally with moderate luminal narrowing. Common femoral: Mild mixed plaque with m ild luminal narrowing. Profundus femoris: Mild mixed plaque proximally with m ild luminal narrowing. Mild multifocal calcified plaque within its mid aspect. Probable occlusion of the main branch by the level the mid femur (series 3 and 1, slice 29). Superficial femoral: Marked soft plaque proximally wit h marked (proximal to 70%) luminal narrowing. Marked mixed plaque proxima lly with marked luminal narrowing (series 3 and 1, slice 189). Marked soft plaque within its midportion with near occlusion of breath series 3 and 1, slice 212). Marked mixed plaque distally with marked associated luminal narrowing with resultant keri r complete occlusion at the transition to the popli teal. Popliteal: Marked mixed plaque proximally with marked luminal narrowing. Additional moderate multifocal mixed plaque with moder ate multifocal luminal narrowing. Marked mixed plaque distally with s ubsequent occlusion. All 3 calf vessels and tibioperoneal trunk are occlude d proximally. Reperfusion of the peroneal artery bypass midportion v ia a prominent intramuscular collateral. Additional perfusion of the distal tibialis anterior through the dorsalis pedis. Pos terior tibial is occluded throughout its course . Full evaluation of systemic and portal venous structur es limited by contrast bolus timing. Splenic vein, superior mesenter ic vein, portal vein, and intrahepatic portal venous bra nches are normal. No abdominal, pelvic, or inguinal adenop athy. IMPRESSION: 1. Severe peripheral arterial disease bilaterally grea test, with findings of note as follows: Complete occlusion of the proximal through mid right s uperficial femoral artery perfused distally via intramuscular collateral. Stent within its distal aspect extending into the popliteal artery, whi ch is patent. Marked narrowing of the right popliteal artery and complete occlusion of the rig ht posterior tibial artery. Near complete to complete occlusion of the proximal an d mid left internal iliac artery. Multifocal near complete to complete occlusion of the left superficial femoral artery and popliteal artery with occlusion of the popliteal artery just above its bifurcation extending to the tib ioperoneal trunk. The peroneal artery is reperfused at its midportion via prominent intramuscular collateral. The distal tibialis anterior is reperfused as well. 2. Diverticulosis of the descending colon without evid ence of acute diverticular less. [id number] Procedure Note Hm Interface, Radiology Results Incoming - 12/31/2018 3:28 PM CDT EXAM: CT ANGIOGRAM ABDOMINAL AORTA AND BILATER AL ILIOFEMORAL RUNOFF W WO CONTRAST INDICATION: I73.9 Peripheral vascular disease unspe cified, PAD COMPARISON: None. TECHNIQUE: After administration of iodinated contra st intravenously, axial CT images of the abdomen, pelvis, bilateral lower extremities with runoff were obtained. Coronal and sagittal maximal intensity projection images were obtained. 3-D volume metric obstruction portal system was obtained. Iterative r econstruction and/or automated exposure control techniques were employed to reduce radiation dose. FINDINGS: Limited chest: Distal esophagus is patulous and fluid-f illed, suggesting gastroesophageal reflux. Heart size is normal. Minimal calcination aortic valve. Visualized pericardium is normal. No adenopathy visualized portions of the chest. Moderate subpleural linear reticular opa cities and groundglass opacities bilateral lower lobes, likely a mixture dependent atelectasis nonspecific scar/fibrosis. 5 mm diameter calcified granuloma posterior aspect left lower lobe (series 3 and 1, slice 14). 1.6 cm diameter bulla lateral aspec t left lower lobe (series 3 and 1, slice 14). Abdomen: Subcentimeter hypodensity upper left lob e liver, segment 2 (series 3 and 1, slice 24), too small to definitively characterize and incompletely evaluated on this single early arterial phase examination but statistically likely simple cyst or freya ngioma. Otherwise, liver is normal. Gallbladder is normal. No intrahepatic biliary dilatation. Comm on bile duct is unremarkable. Pancreas is normal. Spleen is normal. Bilateral adrenals are normal. Moderate nonspecific perinephric fat str anding bilaterally. Stomach is normal. Duodenum is normal. A ppendix not definitely identified and may be surgically absent. Diverticulosis of the descending colon without evidence of acute diverticulitis. Pelvis: Bladder is minimally distended with urin e. Bladder wall is normal. Prostate is normal size. Coarse dystroph ic calcifications centrally, fluid was pelvis. Rectum is normal. Bilateral inguinal canals are patulous a nd fat filled. Bilateral ischial rectal fossa are normal. Axial musculoskeletal: Deformity lateral aspects multiple infer ior right-sided ribs, compatible with healed old fractures. Moderate degenerative changes thoracal l umbar spine. Moderate arthrosis bilateral sacral christopher c joints. Partial atelectasis left sacral iliac joint. Moderate arthrosis pubic symphysis. Prominent enthesophytes bilateral iliac wings, ischial tuberosities, greater trochanters, likely degenerative. Right lower extremity musculoskeletal: Moderate arthrosis right hip. Small bone island lateral femoral condyl e. Otherwise, femurs normal. Moderate tricompartmental arthrosis righ t knee. Prominent enthesophytes superior and inferior patella. Injury. Additional rounded ossicle along the lateral margin of the patella, possibly sequela of old trauma. This ossicle has a pseudoarthrosis with the patella where there is at least moderat e arthrosis with subchondral degeneration. Linear ossific radiodensity along the femoral medial gutter, possibly periarticular osseous body. No effusion. No Dupont's cyst. Tibia and fibula are normal. Moderate arthrosis of the ankle. Prominent enthesophytes posterior and in ferior calcaneus. Moderate arthrosis tarsotarsal joints. Minimal arthrosis hallux metatarsophalangeal joint. Remainder of osseous structures of the foot are normal. Soft tissue structures., Catheter, and t high are normal. Left lower extremity musculoskeletal: Moderate arthrosis left hip. Os acetabul um, an anatomic variant. Femur is normal. Marked tricompartmental arthrosis left k nee. Prominent enthesophytes superior and inferior patella. Additional rounded ossicle along the superior lateral margin of the patella with pseudoarthrosis. This may be sequela of old trauma. Large suprapatell ar effusion. Periarticular osseous material within the posterior aspect of the lateral gutter. No Dupont's cyst. Tibia and fibula are normal. Mild arthrosis of the ankle. Moderate arthrosis talonavicular joint w ith subchondral degenerative cyst within the anterior aspect of talus. Prominent enthesophytes posterior and inferior calcaneus. Minimal arthrosis hallux metatarsophalangeal joint. Remainder of osseous structures of the foot are normal. Soft tissues the calf and thigh are norm al. Vascular: Descending thoracic aorta: Minimal tortu osity. Minimal multifocal calcified plaque. Normal caliber. Abdominal aorta: Mild multifocal calcifi ed plaque greatest within the infrarenal abdominal aorta. Normal in course and caliber. Celiac axis: Conventional anatomy. Mild multifocal calcified plaque within the splenic artery. Normal caliber. Superior mesenteric artery: Mild ostial calcified plaque. Mild additional calcified plaque within its midportion. Normal course and caliber. Right renal artery: Solitary. Moderate o stial calcified plaque with mild luminal narrowing. Moderate multifocal calcified plaque at its hilum with adjacent commensurate luminal narrowing. Left renal artery: Solitary. Mild ostial calcified plaque with mild associated luminal narrowing. Inferior mesenteric artery: Mild wall ca lcification proximally with mild associated luminal narrowing. Right: Common iliac: Moderate calcified plaque proximally. Additional mild multifocal calcified plaque. Mild multifocal luminal narrowing. Internal iliac: Marked calcified plaque midportion with marked associated luminal narrowing. Additional marked multifocal calcified plaque within the peripheral aspect of the posterior division. External iliac: Moderate mixed plaque di stally with moderate luminal narrowing. Common femoral: Anatomic variant high bi furcation. Overlying metallic clip, likely from prior access. Mild mixed plaque with mild luminal narrowing. Profunda femoris: Moderate wall calcific ation proximally with mild luminal narrowing. Predominant supply to the lower extremity intramuscular collaterals which reperfuses the occluded superficial femoral noted below. Superficial femoral: Occluded from its o rigin through its midportion. Reperfused just proximal to its distal portion of breath series 3 and 1, slice 24 7). Prominent anterior intramuscular collaterals. Stent extending from its distal aspect into the popliteal artery, which is widely patent . Popliteal: Moderate multifocal mixed madhu que throughout its entirety with moderate multifocal luminal narrowing. Probable additional marked luminal narrowing just above its division. Tibialis anterior: Moderate calcified pl aque proximally with moderate luminal narrowing. Occlusion by its midportion) series 3 and 1, slice 3058). Tibioperoneal trunk: Mixed plaque with m arked luminal narrowing. Posterior tibial: Occluded throughout it s course. Peroneal: Moderate concentric calcified plaque proximally with at least moderate associated luminal narrowing. 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 Left: Common iliac: Mild multifocal mixed plaq ue with moderate narrowing proximally and mild narrowing scattered throughout. Internal iliac: Near occlusive thrombosi s takeoff extending to its bifurcation with reperfusion distally possibly via cross mesenteric and ipsilateral deep femoral collaterals. External iliac: Mild multifocal calcifie d plaque with moderate multifocal luminal narrowing. Moderate soft plaque distally with moderate luminal narrowing. Common femoral: Mild mixed plaque with m ild luminal narrowing. Profundus femoris: Mild mixed plaque pro ximally with mild luminal narrowing. Mild multifocal calcified plaque within its mid aspect. Probable occlusion of the main branch by the level the mid femur (series 3 and 1, slice 29). Superficial femoral: Marked soft plaque proximally with marked (proximal to 70%) luminal narrowing. Marked mixed plaque proximally with marked luminal narrowing (series 3 and 1, slice 189). Marked soft plaque within its midportion with near occlusion of breath series 3 and 1, slice 212). Marke d mixed plaque distally with marked associated luminal narrowing with resultant near complete occlusion at the transition to the popliteal. Popliteal: Marked mixed plaque proximall y with marked luminal narrowing. Additional moderate multifocal mixed plaque with moderate multifocal luminal narrowing. Marked mixed plaque distally with subsequent occlusion. All 3 calf vessels and tibioperoneal dianne nk are occluded proximally. Reperfusion of the peroneal artery bypass midportion via a prominent intramuscular collateral. Additional perfusion of the distal tibialis anterior through the dorsalis pedis. Pos terior tibial is occluded throughout its course . Full evaluation of systemic and portal v enous structures limited by contrast bolus timing. Splenic vein, superior mesenteric vein, portal vein, and intrahepatic portal venous branches are normal. No abdominal, pelvic, or inguinal adenop athy. IMPRESSION: 1. Severe peripheral arterial disease bi laterally greatest, with findings of note as follows: Complete occlusion of the proximal throu gh mid right superficial femoral artery perfused distally via intramuscular collateral. Stent within its distal aspect extending into the popliteal artery, which is patent. Marked narrowing of the right popliteal artery and complete occlusion of the rig ht posterior tibial artery. Near complete to complete occlusion of t he proximal and mid left internal iliac artery. Multifocal near complete to complete occ lusion of the left superficial femoral artery and popliteal artery with occlusion of the popliteal artery just above its bifurcation extending to the tibioperoneal trunk. The peroneal artery is reperfused at its midportion via prominent intramuscular c ollateral. The distal tibialis anterior is reperfused as well. 2. Diverticulosis of the descending colo n without evidence of acute diverticular less. [id number] Performing Organization Address City/[facility] Phone Number [facility] [address] [place] [address] POC creatinine (12/31/2018 11:21 AM CDT) POC creatinine 1.1 0.7 - 1.2 mg/dl [facility] Comment: HOSPITAL Meter ID: [id number] Sommelier: Gilles Robertson Specimen Blood Performing Organization Address City/State/Zipcode Phone Number [facility] DEPARTMENT OF PATHOLOGY AND [address] [place] [address] [phone] GENOMIC MEDICINE [address] [address] after 08/05/2018 . 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
--- OUTSIDE RECORDS SUMMARY | 2019-08-06 23:19 | XMS REPORT | Clinical Summary ---
:1940 Author Organization [facility] Address [address] [place] [address] Care Team Providers Name Role Phone Unavailable Primary Care Provider Unavailable Allergies No Known Allergies Medications Medication Sig Dispensed Refills Start Date End Date Status pantoprazole (PROTONIX) Take 1 tablet 30 tablet 0 12/14/2017 Active 40 MG tablet (40 mg total) by mouth daily. pentoxifylline Take 1 tablet 30 tablet 0 12/14/2017 12/14/2018 (TRENTAL) 400 mg CR (400 mg total) tablet by mouth daily. amLODIPine (NORVASC) 10 Take 1 tablet 30 tablet 0 12/15/2017 0 12/15/2018 MG tablet (10 mg total) by mouth daily. aspirin 81 MG EC tablet Take 1 tablet 30 tablet 0 12/15/2017 0 12/15/2018 (81 mg total) by mouth daily. atorvastatin (LIPITOR) Take 1 tablet 30 tablet 0 12/14/2017 80 MG tablet (80 mg total) by mouth nightly. clopidogrel (PLAVIX) 75 Take 1 tablet 30 tablet 0 12/14/2017 0 12/14/2018 mg tablet (75 mg total) by mouth daily. metoprolol (LOPRESSOR) Take 1 tablet 60 tablet 0 12/14/2017 50 MG tablet (50 mg total) by mouth 2 (two) times daily. thiamine (VITAMIN B-1) Take 1 tablet 30 tablet 0 12/15/2017 50 MG tablet (50 mg total) by mouth daily. Active Problems Problem Noted Date Stroke 12/10/2017 Social History Tobacco Use Types Packs/Day Years Used Date Former Smoker Sex Assigned at Date Recorded Not on file Job Start Date Occupation Industry Not on file Not on file Not on file Travel History Travel Start Travel End No recent travel history available. Last Filed Vital Signs Not on file Plan of Treatment Not on file Results Not on fileafter 08/05/2018 Insurance Payer Benefit Plan / Group Subscriber ID Type Phone A ddress CARE IMPROVEMENT MEDICARE MGD CARE IMPROVEMENT PLUS xxxxxxxxx CARE
--- OUTSIDE RECORDS SUMMARY | 2019-08-06 23:21 | XMS REPORT ---
:1940 Author Organization [facility] t Address [address] [place]. [address] [place] [address] Care Team Providers Name Role Phone Keyon Matthew MD Primary Care Physician Reema Cortes MA Attending Clinician Unavailable Alexis Farah MD Attending Clinician George Beckham MD Attending Clinician Elizabeth CORDON Attending Clinician Unavailable Waits Attending Clinician RAHUL LUNA Attending Clinician Unavailable GAGAN Admitting Clinician Unavailable RAHUL LUNA Admitting Clinician Unavailable Payers Payer Name Policy Type Policy Number Effective Date Expiration Date Bartolo byrd AETNA xxxxxxxxxxxx 2019 [place] MEDICAREAETNA 00:00:00 [place] MEDICARE HMO/PPO [facility] BILOXIxxxxxxxxxxxx04/19-PresentHMO Problems Condition Condition Condition Status Onset Resolution Last Treating Co mments Source Name Details Category Date Date Treatment Clinician Date PVD PVD Disease Active 2018-03 Overview: Naseem n (periphera (periphera 1-08 Added Me [facility] l vascular l vascular 00:00: automatic st disease) disease) 00 ally from request for surgery [id number] PAD PAD Disease Active [place] (periphera (periphera 9- Me thodi l artery l artery 00:00: st disease) disease) 00 Establishi Establishi Disease Active H [facility] 7-16 Methodi with new with new 00:00: st doctor, doctor, 00 encounter encounter for for Stroke Stroke Disease Active [place] 12-10 Methodi 00:00: st 00 Claudicati Claudicati Disease Resolve 2019-07-29 2019-07-29 [place] on on d 24 00:00:00 16:51:41 Method i 00:00: st 00 Allergies, Adverse Reactions, Alerts Allergy Allergy Status Severity Reaction(s) Onset Inactive Treating Comm ents Source Name Type Date Date Clinician Acetamin Propensi Active Hallucinatio 2018-03 [place] ophen-Co ty to ns 0-16 Methodi deine adverse 00:00: st reaction 00 s to drug Codeine Propensi Active Anaphylaxis [place] ty to 7-16 Methodi adverse 00:00: st reaction 00 s to drug Social History Social Habit Start Date Stop Date Quantity Comments Source History of Current smoker [facility] thodist tobacco use Sex Assigned At [facility] ethodist Exposure to Not sure [place] Metho dist SARS-CoV-2 (event) Alcohol intake 2019-07-29 2019-07-29 Current drinker [place] [facility] 00:00:00 00:00:00 of alcohol (finding) Alcohol Comment 2019-07-24 2019-07-24 every other day [place] [facility] 00:00:00 00:00:00 Beer Smoking Status Start Date Stop Date Source Former smoker 2019-07-29 00:00:00 2019-07-29 00:00:00 [place] [facility] Medications Ordered Filled Start Stop Current Ordering Indication Dosage Frequency Signature Comments Components Source Medication Medication Date Date Medication? Clinician (SIG) Name Name lisinopriL 2020- Yes 5mg QD Take 1 [place] (PRINIVIL) 07-29 tablet (5 Met hodi 5 mg tablet 00:00: 23:59 mg total) st 00 :00 by mouth daily for 30 days. metoprolol 2019- Yes 75mg QD Take 3 [place] succinate 07-29- tablets Method i XL 00:00: 23:59 ([address] (TOPROL-XL) 00 :00 total) by 25 mg 24 hr mouth tablet daily for 30 days. potassium 2019- 2020- No 1{tbl} QD Take 1 [place] ston 99 mg 07-28 tablet by Methodi tablet 17:55: 00:[address] 40 :00 daily. ascorbic 2019- Yes 500mg QD Take 500 [place] acid, 5-12 mg by Methodi vitamin C, 17:55: mouth st (VITAMIN C) 36 daily. 500 MG tablet omega 2020-0 Yes 1{tbl} QD Take 1 [facility] 3-dha-epa-f 5-12 tablet by Met hodi maria guadalupe oil 17:55: mouth st (FISH OIL) 36 daily. 1,000 mg (120 mg-180 mg) capsule cyanocobala 2020-0 Yes 100ug Q2D Take 100 [place] min 100 MCG 5-12 mcg by Method i tablet 17:55: mouth st 36 every other day. coenzyme 2020-0 Yes 10mg QD Take 10 mg [place] ston Q10 (CO 5-12 by mouth Methodi Q-10) 100 17:55: daily. st mg capsule 36 multivitami 2020-0 Yes 1{tbl} QD Take 1 [place] n 5-12 tablet by Methodi (THERAGRAN) 17:55: mouth st tablet 36 daily. amLODIPine 2020-0 Yes 10mg QD Take 10 mg [place] (NORVASC) 5-12 by mouth Method i 10 mg 17:55: daily. st tablet 36 gabapentin 2020-0 Yes 300mg Q.[id number] Take 300 [facility] (NEURONTIN) 2-19 [id number] mg by M ethodi 300 mg 00:00: 3D mouth 3 st capsule 00 (three) times a day. aspirin 2018-03- No 81mg QD Take 1 [facility] (ECOTRIN) 04-09-16 tablet (81 Met hodi 81 MG 00:00: 23:59 mg total) st enteric 00 :00 by mouth coated daily for tablet 360 days. clopidogrel 2018-03- No 75mg QD Take 75 mg [place] (PLAVIX) 75 -06 02-21 by mouth Met hodi mg tablet 10:15: 00:[address] 26 :00 ticagrelor 2018-03- No 90mg Q.5D Take 1 [place] (BRILINTA) 04-08-15 tablet (90 Me thodi 90 mg 00:00: 23:59 mg total) st tablet 00 :00 by mouth 2 (two) times a day for 360 days. clopidogrel 2018-03- No 75mg QD Take 1 [place] st[place] (PLAVIX) 75 0-19 11-18 tablet (75 M ethodi mg tablet 00:00: 23:59 mg total) st 00 :00 by mouth daily for 30 days. aspirin 2018-03 No 81mg QD Take 1 [facility] (ECOTRIN) 0-19 11-18 tablet (81 Met hodi 81 MG 00:00: 23:59 mg total) st enteric 00 :00 by mouth coated daily for tablet 30 days. POTASSIUM 2018-03 99meq Take 99 [place] ston CHLORIDE 0-16 10-16 mEq by Methodi ORAL 10:33: 00:[address] 19 :00 once. atorvastati Yes 20mg QD Take 20 mg [facility] n (LIPITOR) 6-25 by mouth Meth shanita 20 MG 00:00: daily. st tablet 00 metoprolol No 50mg QD Take 50 mg [facility] succinate 6- 05-12 by mouth Metho di XL 00:00: 00:[address] (TOPROL-XL) 00 :00 50 mg 24 hr tablet traMADol 50mg Q6H Take 50 mg [place] (ULTRAM) 50 5-28 10-16 by mouth Met hodi mg tablet 00:00: 00:[address] 00 :00 (six) hours as needed. for pain clopidogrel 75mg QD Take 75 mg [place] (PLAVIX) 75 4-30 10-19 by mouth Met hodi mg tablet 00:00: 00:[address] 00 :00 amLODIPine No 10mg Take 10 mg [facility] (NORVASC) - 09-29 by mouth. Meth shanita 10 mg 00:00: 23:59 st tablet 00 :00 pantoprazol Yes 40mg QD Take 40 mg [facility] e 9-28 by mouth Methodi (PROTONIX) 00:00: daily. st 40 MG EC 00 tablet Vital Signs Vital Name Observation Time Observation Value Comments Source Systolic blood 2019-07-29 16:39:26 126 mm[Hg] Naseem n Mandaeism pressure Diastolic blood 2019-07-29 16:39:26 70 mm[Hg] [place] on Mandaeism pressure Heart rate 2019-07-29 16:39:26 72 /min Foster [facility] Body temperature 2019-07-29 16:39:26 36.56 [place] [facility] Respiratory rate 2019-07-29 16:39:26 20 /min [place] Oxygen saturation in 2019-07-29 16:39:26 99 /min Foster Castillo Arterial blood by Pulse oximetry Body weight 2019-07-26 05:18:53 74.662 kg Foster Castillo BMI 2019-07-26 05:18:53 25.03 kg/m2 [place] [facility] Body height 2019-07-24 10:46:00 172.7 cm Foster Castillo Procedures Procedure Date / Time Performing Clinician Source Performed LUPUS ANTICOAGULANT PANEL 2019-07-29 15:37:00 Aj Beckham FUNCTIONAL PROTEIN C 2019-07-29 15:37:00 Aj Beckham n Mandaeism ANTITHROMBIN III LEVEL 2019-07-29 15:37:00 Aj Beckham FACTOR VIII ASSAY 2019-07-29 15:37:00 Aj Beckham M ethodist HEXAGONAL PHOSPHOLIPID 2019-07-29 15:37:00 Aj Beckham FREE AND TOTAL PROTEIN S 2019-07-29 15:37:00 Aj Beckham usosvaldo Mandaeism HC COMPLETE BLD COUNT W/AUTO 2019-07-29 04:40:00 Aj Beckham DIFF LIPID PANEL 2019-07-29 04:00:00 Alex Ware Meth odist BASIC METABOLIC PANEL 2019-07-29 04:00:00 Aj Beckham on Mandaeism MAGNESIUM LEVEL 2019-07-29 04:00:00 Aj Beckham Met hodist ESTIMATED GFR 2019-07-29 04:00:00 Aj Beckham Met hodist TTE COMPLETE, WO CONTRAST, W 2019-07-28 18:00:00 Alex Ware Mandaeism DOPPLER ([id number]) POC GLUCOSE 2019-07-28 12:55:00 Aj Beckham Met hodist CV ARTERIOGRAM FEMORAL 2019-07-28 12:05:36 Alexis Farah on Mandaeism SINGLE BASIC METABOLIC PANEL 2019-07-28 04:00:00 Aj Beckham on Mandaeism MAGNESIUM LEVEL 2019-07-28 04:00:00 Aj Beckham Met hodist ESTIMATED GFR 2019-07-28 04:00:00 Aj Beckham Met hodist HC COMPLETE BLD COUNT W/AUTO 2019-07-28 03:40:00 Aj Beckham Mandaeism DIFF ANTI XA, UNFRACTIONATED 2019-07-28 03:40:00 Aj Beckham Mandaeism ANTI XA, UNFRACTIONATED 2019-07-27 10:30:00 Aj Beckham Mandaeism US DUPLEX ARTERIAL LOWER 2019-07-27 10:30:00 Conchis Etienne Mandaeism EXTREMITY RIGHT HC COMPLETE BLD COUNT W/AUTO 2019-07-27 04:15:00 Aj Beckhamist DIFF ANTI XA, UNFRACTIONATED 2019-07-27 04:15:00 Aj Beckham Mandaeism BASIC METABOLIC PANEL 2019-07-27 04:00:00 Aj Beckham on Mandaeism MAGNESIUM LEVEL 2019-07-27 04:00:00 Aj Beckham Met hodist ESTIMATED GFR 2019-07-27 04:00:00 Aj Beckham Met hodist ANTI XA, UNFRACTIONATED 2019-07-26 21:15:00 Aj Beckham Mandaeism ANTI XA, UNFRACTIONATED 2019-07-26 11:30:00 Aj Beckham Mandaeism HC COMPLETE BLD COUNT W/AUTO 2019-07-26 04:10:00 Aj Beckham Mandaeism DIFF BASIC METABOLIC PANEL 2019-07-26 04:10:00 Aj Beckham on Mandaeism MAGNESIUM LEVEL 2019-07-26 04:10:00 Aj Beckham Met hodist ESTIMATED GFR 2019-07-26 04:10:00 Aj Beckham Met hodist ANTI XA, UNFRACTIONATED 2019-07-26 04:10:00 Alexis Farah Mandaeism ANTI XA, UNFRACTIONATED 2019-07-25 22:30:00 Alexis Farah Mandaeism ANTI XA, UNFRACTIONATED 2019-07-25 14:26:00 Aj Beckham Mandaeism ANTI XA, UNFRACTIONATED 2019-07-25 09:17:00 Aj Beckham Mandaeism FACTOR VIII ASSAY 2019-07-25 09:17:00 Aj Beckham ethodist C-REACTIVE PROTEIN 2019-07-25 09:17:00 Aj Beckham ANTITHROMBIN III LEVEL 2019-07-25 09:17:00 Aj Beckham Mandaeism FUNCTIONAL PROTEIN C 2019-07-25 09:17:00 Aj Beckham FUNCTIONAL PROTEIN S 2019-07-25 09:17:00 Aj Beckham LUPUS ANTICOAGULANT PANEL 2019-07-25 09:17:00 Aj Beckhamston Mandaeism CARDIOLIPIN ANTIBODIES 2019-07-25 09:17:00 Aj Beckham BETA-2 GLYCOPROTEIN 1 2019-07-25 09:17:00 Aj Beckham Mandaeism ANTIBODY, IGG AND IGM TOTAL IRON BINDING CAPACITY 2019-07-25 09:17:00 Aj Beckham THYROID STIMULATING HORMONE 2019-07-25 09:17:00 Aj Beckham HEMOGLOBIN A1C 2019-07-25 09:17:00 Aj Beckham Met hodist DRVVC, DRVVT/DRVVC 2019-07-25 09:17:00 Aj Beckham ECG PRE/POST OP 2019-07-25 08:50:43 Manuel Holcomb odmaite CBC WITH PLATELET AND 2019-07-25 05:07:00 Manuel Holcomb Mandaeism DIFFERENTIAL BASIC METABOLIC PANEL 2019-07-25 05:07:00 Manuel Holcomb Mandaeism PARTIAL THROMBOPLASTIN TIME 2019-07-25 05:07:00 Alexis Farah (PTT) ESTIMATED GFR 2019-07-25 05:07:00 Alexis Farah Meth odist MANUAL DIFFERENTIAL 2019-07-25 05:07:00 Alexis Farah ANTI XA, UNFRACTIONATED 2019-07-25 00:15:00 Aj Beckham ston Mandaeism CBC HEMOGRAM 2019-07-24 15:50:00 Alexis Farah Meth odmaite PROTHROMBIN TIME WITH INR 2019-07-24 15:50:00 Alexis Farah ANTI XA, UNFRACTIONATED 2019-07-24 15:50:00 Alexis Farah Mandaeism CV PCI PERCUTANEOUS CARDIAC 2019-07-24 14:00:11 Alexis Farah ANGIOPLASTY CV ARTERIOGRAM FEMORAL 2019-07-24 14:00:11 Alexis Farah on Mandaeism SINGLE ACTIVATED CLOTTING TIME 2019-07-24 13:41:00 Alexis Farah Mandaeism ACTIVATED CLOTTING TIME 2019-07-24 12:17:00 Alexis Farah Mandaeism CBC WITH PLATELET AND 2019-07-23 13:46:00 Alexis Farah Mandaeism DIFFERENTIAL COMPREHENSIVE METABOLIC 2019-07-23 13:46:00 Alexis Farah Mandaeism PANEL PROTHROMBIN TIME WITH INR 2019-07-23 13:46:00 Alexis Farah Mandaeism US DUPLEX ARTERIAL LOWER 2019-06-03 15:21:23 Alexis Farah ston Mandaeism EXTREMITY BILATERAL BASIC METABOLIC PANEL 2019-02-06 00:49:00 Manuel Holcomb Mandaeism HC COMPLETE BLD COUNT W/AUTO 2019-02-06 00:49:00 Manuel Holcomb DIFF CREATINE KINASE, TOTAL (CPK) 2019-02-06 00:49:00 Fawad Garcia ESTIMATED GFR 2019-02-06 00:49:00 Alexis Farah odmaite CV ARTERIOGRAMS PERIPHERAL 2019-02-05 15:12:24 Manuel Holcomb ACTIVATED CLOTTING TIME 2019-02-05 13:07:00 Alexis Farah Mandaeism ECG 12-LEAD 2019-02-05 10:29:07 Alexis Farah odmaite CBC WITH PLATELET AND 2019-01-31 09:47:00 Alexis Farah Mandaeism DIFFERENTIAL COMPREHENSIVE METABOLIC 2019-01-31 09:47:00 Alexis Farah Mandaeism PANEL PT AND PTT 2019-01-31 09:47:00 Alexis Farah Meth odmaite HC COMPLETE BLD COUNT W/AUTO 2019-01-04 05:15:00 [place] DIFF BASIC METABOLIC PANEL 2019-01-04 04:00:00 [place] ESTIMATED GFR 2019-01-04 04:00:00 Alexis Farah CV REVASCULARIZATION FEMORAL 2019-01-03 14:35:08 Alexis Farah POPLITEAL W ATHERECTOMY UNILATERAL ACTIVATED CLOTTING TIME 2019-01-03 13:49:00 Alexis Farah BASIC METABOLIC PANEL 2019-01-03 06:51:00 Alexis Farah ESTIMATED GFR 2019-01-03 06:51:00 Alexis Farah HC COMPLETE BLD COUNT W/AUTO 2019-01-03 05:40:00 Alexis Farah DIFF ESTIMATED GFR 2019-01-02 10:15:00 Alexis Farah POC PANEL 2019-01-02 10:15:00 Alexis Farah HC COMPLETE BLD COUNT W/AUTO 2019-01-02 10:12:00 Alexis Farah DIFF PROTHROMBIN TIME WITH INR 2019-01-02 10:12:00 Alexis Farah US ANKLE BRACHIAL INDEX 2018-12-31 15:50:[address] ANGIOGRAM ABDOMINAL AORTA 2018-12-31 12:51:30 Alexis Farah AND BILATERAL ILIOFEMORAL RUNOFF W WO CONTRAST POC CREATININE 2018-12-31 11:21:00 Alexis Farah ESTIMATED GFR 2018-12-31 11:21:00 Alexis Farah US DUPLEX ARTERIAL LOWER 2018-12-31 10:30:00 Alexis Farah EXTREMITY BILATERAL ECG 12-LEAD 2018-10-01 10:03:05 Alexis Farah Plan of Care Planned Activity Planned Date Details Comments Source Future Scheduled 2019-10-18 INFLUENZA VACCINE Naseem Castillo Test 00:00:00 [code = INFLUENZA VACCINE] Future Scheduled 2003-08-05 65+ PNEUMOCOCCAL Foster Castillo Test 00:00:00 VACCINE (1 of 2 - PCV13) [code = 65+ PNEUMOCOCCAL VACCINE (1 of 2 - PCV13)] Future Scheduled 1988 SHINGLES VACCINES (#1) H arthur Mandaeism Test 00:00:00 [code = SHINGLES VACCINES (#1)] Encounters Start End Encounter Admission Attending Care Care Encounter Source Date/Time Date/Time Type Type Clinicians Facility Department ID 2019-07-24 2019-07-29 Inpatient [facility], [facility] [id number] 49 [place] 00:00:00 00:00:00 AJ [address] 2019-06-03 2019-06-03 Outpatient [facility] [id number] [place] 00:00:00 00:00:[address] 2019-05-20 2019-05-20 [id number] 575 [place] 00:00:00 00:00:00 ALEXIS [address] 2019-02-05 2019-02-06 [facility] [id number] 213 [place] 00:00:00 00:00:00 ALEXIS [address] 2019-01-02 2019-01-04 [facility] [id number] [place] 00:00:00 00:00:00 ALEXIS [address] 2018-12-31 2018-12-31 [facility] [id number] [place] 00:00:00 00:00:00 ALEXIS [address] 2018-12-31 2018-12-31 [facility] [id number] 595 [place] 00:00:00 00:00:00 ALEXIS [address] 2018-12-31 2018-12-31 [facility] [id number] 595 [place] 00:00:00 00:00:00 ALEXIS [address] Results Test Description Test Time Test Comments Results Result Comments Source Hexagonal phospholipid 2019-08-05 15:30:50 Test Item Value Reference Range Interpretation Comme nts Tube 1 - 2 (test code = 43295-2) SEE COMMENT 0.0- 11.0 sec Footnote--------- LA interpretation (test code = 64286-2) SEE COMMENT Footnote--------- Foster CastilloFactor VIII [id number] 13:32:06 Test Item Value Reference Range Interpretation Comments Factor VIII activity 326 % 60-[address] has been (test code = 3208-6) modifie d from the manufacturers instructions. The performance characteristics were determined by Frank Ames joe in a manner consiste nt with JUWAN samayoa. This test has n ot been cleared or appr vj by the U.S. Food a nd Drug Administration. Lab Interpretation Abnormal (test code = 23818-6) Foster MethodistFunctional protein [id number] 13:32:06 Test Item Value Reference Range Interpretation Comments Functional protein S 59 % 74-160 L Functio nal Protein S (test code = 63113-4) perfor med. If result is decre ased Total and Free Protein S Antig en will be performed.Funct ional protein S was l ow at 59% with normal free and normal tota l protein S of 95 % and 168%, respectiv josehp. When factor 8 i s high, functiona l protein S level is decreased. This patient was fou nd to have a high fac tor 8 of 326%. Since factor 8 is an acute phase reactant, suggest repeati ng protein S assay when the patient is stable and off warfarin for 2 weeks, if clini alexander indicated. Lab Interpretation (test Abnormal code = 59832-8) Foster MarinistFree and total protein [id number] 13:32:06 Test Item Value Reference Range Interpretation Comments Protein S Ag, free (test code = 95 % 62-160 32061-9) Protein S Ag, total (test code = 168 % 71-150 H 57465-1) Lab Interpretation (test code = Abnormal 91874-4) Foster MarinistAntithrombin III [id number] 12:32:25 Test Item Value Reference Range Interpretation Comments Antithrombin III (test code = 3174-0) 105 % 80-130 Foster CastilloLupus anticoagulant [id number] 12:32:25 Test Item Value Reference Range Interpretation Comments Prothrombin time (test 13.9 11.5- 14.5 sec code = 5902-2) INR (test code = 1.1 The Interna tional 15560-4) Normalized Rati o (INR) is a therapeuti c monitoring tool for patients who ar e stable on oral anticoa gulant therapy. An INR of 2.0-3.0 is sugg ested for deep vein thrombosis/pulm onary embolism. PTT (test code = 35.7 23.0- 36.0 sec PTT thera peutic range 50647-0) for unfractiona ada heparin is61.0- 112.0 seconds which corresponds to Anti-Xa0.3-0.7 U/ml. PTT lupus 38.8 27.0- 38.0 sec H Lupus anticoa gulant anticoagulant (test (LA) feli ley consists of code = 38543-1) PT, PTT, PTT -LA, and DRVVT. If the P TT-LA is above the sy l range, the hexagonal phospholipid wi ll be performed. If t he DRVVT is abovethe nor mal range, the DRVV C confirmatory te st will be performed.A normal result for both the DRVVT and the P TT-LA means the patie nt is negative for abisai pus anticoagulant. The patient is cons idered positive for abisai pus anticoagulant i f either the RatioSCR/CO NF or the hexagonal phospholipid is high (positive) on t wo occassions at [facility] six weeks apart. Cl inical confirmation is also required for di agnosis. DRVVT (test code = 36.5 29.0- 46.[address] has been 6303-2) modified from [employer] manufacturers instructions. The performance characteristics were determined by Frank diaz in a manner consiste nt with CLIA requiremen ts. This test has n ot been cleared or appr vj by the U.S. Food a nd Drug Administration. Lab Interpretation Abnormal (test code = 32817-9) Foster CastilloFunctional protein [id number] 12:32:25 Test Item Value Reference Range Interpretation Comments Functional protein C (test code = 99 % 70-165 12237-0) Foster CastilloDRVVC, DRVVT/[id number] 13:32:22 Test Item Value Reference Range Interpretation Comments DRVVT (test code SEE COMMENT 29.0- 46.0 sec This test has been = 6303-2) modified from [employer] manufacturers instructions. The performance characteristics were determined by Frank diaz in a manner consiste nt with CLIA requiremen ts. This test has not be en cleared or approved by the U.S. Food and Drug Administration. Footnote--- ------Unable to perform testing, specim en is QUESTIONABLE IN TEGRITY. Recollect reque sted for FAC8, AT3, FUNP C, FUNPS, LUPUS (tests). LEDA SIMPSON/[id number] (name/location) notified by BP (tech ID) at 07/29/2019 13: 30 (date/time). C redit issued.Correcte d result; previously repo rted as 60.8 on 020 at 09:31 by [facility] DRVVC (test code SEE COMMENT sec This test h as been = 19267-5) modified from [employer] manufacturers instructions. The performance characteristics were determined by Frank diaz in a manner consiste nt with JUWAN samayoa. This test has not be en cleared or approved by the U.S. Food and Drug Administration. Footnote--- ------Corrected result; previously repo rted as 68.3 on 020 at 09:31 by [facility] DRVVT/DRVVC SEE COMMENT 0.00- 1.22 sec Footnote----- ----Corrected ratio (test code result; pre viously = 57928-0) reported as 0.8 9 on 07/29/2019 at 0 9:[address] [facility] Complete, (w Contrast, Strain and 3D if needed)2019-07-29 11:05:00Interface, Radiology Results In - 07/29/2019 11:05 AM CDT Echocardiography Report [address] [place] [address] Pat.Name: ROGER ESPINAL Pat.ID: [id number].Date: 07/28/2019 Refer.MD: AJ BECKHAM MD Exam Time: 5:31:00 PM Study Type:Routine Echo Height: 68in Weight: 164lb BSA: 1.88 m2 Age: 5 1940,78Y Sex: MALE BP: 131/68 HR: 72 bpm Sonogrphr: BRIAN Cisneros Pat. Stat.:Inpatient Room: [address] Study Status:Final Echo Event ID:[id number] Order ID: [id number] Reason forStudy:CAD Procedures: 2D Echo, Colorflow Doppler, PortableRace: -Nigerian SUMMARY: Normal LV and RV size and function.No hemodynamically significant valvular abnormalities.Normal filling pressure.--- FINDINGS: LV : LV size is normal. LV EF is hyperdynamic. Overall wall motion is hyperdynamic. Estimated EF is >70%.RV: RV size is normal. RV systolic function is normal.LA: LA size is normal.RA: RA size is normal.AO: Aortic root diameter is normal.MARTY: No pericardial effusion.AV: Mild thickening and calcification of AV leaflets.MV: Mild thickening and calcification of mitralleaflets.PV: No structural PV abnormalities noted.TV: No structural TV abnormalities noted.Fernandez: Hepatic vein pressure is normal, RA pressure < 5mmHg. Normal diastolic function adjusted for age; normal LV filling pressures. Other: Insufficient TR jet to estimate PA systolic pressure. MEASUREMENTS: 2DParasternal Long [employer] Ao An 2.3 cm LVPWd 0.94 cm Ao Rtd 3.3 cm Index 1.8 cm/m2 LA Ds 3 cm IVSd 0.85 cm RWT 0.42 LVIDd 4.5cm Index 2.4 cm/m2 LV Mass 132 g (122-174) LVIDs 2.2 cm LVM Index 70 g/m2 LV%fs 51 % LVOT 2cm LA Sng Plane LA Area 17 cm2 (8.8-23.4) LA Vol 37 ml Index 20 ml/m2 LA LngAx 6.6 cm LVOT LVOT Area 3.3 cm2 DOPPLERLVOT Stroke Vol LVOT TVI 23 cm HR 67 bpm LVOT LVOT SV 75 ml LVOT CO 5 l/min SVi 40 ml/m2 LVOT CI 2.7 l/m/m2 Signed 07/29/2019 11:05 Ely Nieto MethodistBasic metabolic [id number] 06:23:48 Test Item Value Reference Range Interpretation Comments Sodium (test code = 2951-2) 140 135- 148 mEq/L Potassium (test code = 2823-3) 4.5 3.5- 5.0 mEq/L Chloride (test code = 2075-0) 104 98- 112 mEq/L CO2 (test code = 2027-9) 25 24- 31 mEq/L Anion gap (test code = 14474-4) 11@ANIO 7- 15 mEq/L BUN (test code = 3094-0) 14 mg/dL 8-23 Creatinine (test code = 2160-0) 1.05 mg/dL 0.7-1.2 Glucose (test code = 2345-7) 97 mg/dL 65-99 Calcium (test code = 32689-6) 9.0 mg/dL 8.8-10.2 [place] MethodistLipid [id number] 06:23:48 Test Item Value Reference Interpretation Comments Range Cholesterol (test 151 mg/dL <200 code = 2093-3) Triglycerides (test 97 mg/dL <150 code = 2571-8) HDL cholesterol 61 mg/dL >40 (test code = 2085-9) LDL cholesterol 70 mg/dL <100 Result obtai ryan by direct (test code = 2089-1) LDL derick surement Lipid panel SeeBelow Total Cholester ol (mg/dL) interpretation (test < 200 code = 38564-3) Desirable 200-239 Borderline -high >=240 Hi gh Triglyceri gabi (mg/dL) <150 No rmal 150-199 Borderline-high 200-499 High >=500 Very high HDL Choles terol (mg/dL) <40 Low (male) < 40 Low (female) L DL Cholesterol (mg /dL) <100 Optimal 1 00-129 Near or above o ptimal 130-159 Borderline-high 160-189 High >=190 Very high Risk Cat ergories that modify LDL goals.Risk Catergories LDL goal (mg/dL )CHD and CHD risk equiva lent <100 (10-year risk >20%)Multiple ( 2+) risk factors < 130 (10-year risk = <20%)0-1 risk factors <160 (<10-ye ar risk) Defining levels of lipids in metabolic syndromeTriglyc erides > =150 mg/dLHDL Choles terol Men <40 mg/dL Women <40 mg/dL Non-HDL cholest mushtaq is a second target f or therapy in personswith high triglycerides ( >=200 mg/dL) Foster MethodistMagnesium [id number] 06:23:48 Test Item Value Reference Range Interpretation Comments Magnesium (test code = 98267-5) 2.3 mg/dL 1.6-2.4 [facility] MethodistEstimated [id number] 06:23:48 Test Item Value Reference Range Interpretation Comments Estimated GFR (test 77 mL/min/1.73 m2 Caterg ory Units code = 5488) InterpretationG 1 >=90 Normal or highG2 60-89 Mildly feepoqitbR6c 45-59 Mildly to mode rately rtcbtwrcuO9u 30-44 Moderately to severely decreasedG4 15-29 Severely decre asedG5 <15 Kidn ey failureThe eGFR was calculated courtney galvez the Chronic Kidney Disease Epidemiology Co llaboration (CKD-EPI) equat ion. Interpretation is based on recommendations of the National Kidney Foundation-Kidn ey Disease Outcomes Qualit y Initiative (NKF-KDOQI) pub lished in 2014. [facility] MethodistCBC with platelet and [id number] 05:57:09 Test Item Value Reference Range Interpretation Comments WBC (test code = 89897-3) 11.52 4.50- 11.00 k/uL H RBC (test code = 06665-0) 3.77 m/uL 4.4-6 L HGB (test code = 718-7) 9.8 g/dL 14-18 L HCT (test code = 4544-3) 31.0 % 41-51 L MCV (test code = 787-2) 82.2 fL 82-100 MCH (test code = 785-6) 26.0 pg 27-34 L MCHC (test code = 786-4) 31.6 g/dL 31-37 RDW - SD (test code = 48.0 fL 37-55 50975-4) MPV (test code = 12810-6) 9.4 fL 8.8-13.2 Platelet count (test code 277 150- 400 k/uL = 38686-4) Nucleated RBC (test code 0.00 /100 WBC = 10001-1) Neutrophils (test code = 59.6 % 39-69 10706-8) Lymphocytes (test code = 20.2 % 25-45 L 15515-2) Monocytes (test code = 12.2 % 0-10 H 85145-6) Eosinophils (test code = 5.1 % 0-5 H 47541-2) Basophils (test code = 0.4 % 0-1 16569-9) Immature granulocytes 2.5 % 0-1 H "Immat ure (test code = 89834-8) granul ocytes" (promyelocytes, myelocytes, metamyelocytes) Lab Interpretation (test Abnormal code = 36384-5) Foster CastilloBeta-2 glycoprotein 1 antibody, IgG and [id number] 19:01:21 Test Item Value Reference Range Interpretation Comments Beta-2 glycoprotein 1 <9.4 0.0-20.0 Negati ve =<20.0 antibody, IgG (test code SGU Positive >20.0 SGU = 83972-7) Beta-2 glycoprotein 1 <9.4 0.0-20.0 Negati ve =<20.0 antibody, IgM (test code SMU Positive >20.0 SMU = 91738-2) Foster CastilloCardiolipin faohbuhtdx2084-20-60 19:01:20 Test Item Value Reference Range Interpretation Comments Cardiolipin IgG (test 6 0- 14 GPL Negati ve <15 GPL code = 3181-5) Indeterminate 15-20 GPL Positive >20 GP L Cardiolipin IgM (test 3 0- 12 MPL Negati ve <13 MPL code = 3182-3) Indeterminate 13-20 MPL Positive >20 MP L Foster CastilloCv invasive peripheral vascular yqxzdgqdt7517-89-07 13:16:47 Peripheral CATHETERIZATION PROCEDURE NOTE PREOPERATIVE DIAGNOSIS1. Critical Limb Ischemia2. Peripheral Arterial Disease POSTOPERATIVE DIAGNOSIS1. Peripheral Arterial Disease PROCEDURES PERFORMED 1. Contralateral R Iliac Angiography2. Contralateral R Femoral Angiography PRIMARY OPERATORDr. Alexis Farah Wheelchair Van Driver FIRST ASSISTANTManuel Holcomb ANESTHESIA USEDLocal 2% lidocaine, Conscious Sedation DESCRIPTION OF PROCEDUREThe procedure was described to the patient including benefits,risks, and alternatives to the procedure. The patient confirmed understanding and signed the informed consent. The patient was brought to asset availability leader, room 5 of [facility]. Patient was prepped and draped in sterile fashion. Conscious sedation provided to patient throughout procedure with appropriate monitoring. The left common femoral artery (HUMANITIES PROFESSOR) was palpated and the region above the artery was anesthetized with 2% local lidocaine. Using Micropuncture needle and fluoroscopic guidance, arterial access was obtained in the left HUMANITIES PROFESSOR and a 4F sheath was placed without difficulty. A 4Fdiagnostic Contra catheter was advanced over a Wholey wire to the infrarenal aorta. The wire was removed, the catheter aspirated to ensure no air was in the system and flushed in the usual fashion. The Wholey wire was then advanced using Contra catheter to the contralateral right iliac artery. We then performed a diagnostic contralateral right iliac artery angiogram with runoffs. We noticed briskflow in the SFA all the way to the common tibio-peroneal artery. The proximal portion of the SFA where a second layer of stent was recently deployed did not demonstrate any significant stenosis. The mid and distal SFA continue to have 30-40% layered thrombus which has significantly resolved since the previous study and demonstrate brisk flow to the distal vasculature. We continue to observe 100% occlusion in the anterior tibial and peroneal arteries with the posterior tibial artery providing collateral flow to the distal anterior tibial. The arterial sheath was aspirated and flushed. The sheath will be pulled manually. The patient was sent to the holding area in stable condition. The patient was h emodynamically stable throughout the entirety of the procedure. DISPOSITION: Return patient to nursing unit and monitor for groin complications. EBL: <30 mL CONDITION: Stable COMPLICATIONS: None Manuel Holcomb07/28/201912:17 [facility] lizlyrf1478-35-73 12:56:20 Test Item Value Reference Range Interpretation Comments POC glucose (test code 100 mg/dL 65-99 H Opera tor Name: = 17030-8) Esperanza Christianson I D: [id number] able: [facility] Notified pro shop attendant Interpretation Abnormal (test code = 13630-1) [place] MethodistAnti Xa, joymewwjxfnenc6295-98-06 05:02:20 Test Item Value Reference Range Interpretation Comments Anti Xa, unfractionated 0.19 U/mL 0.3-0.7 L Ther apeutic Range: (test code = 3274-8) 0.30 - 0.70 U/mL Lab Interpretation (test Abnormal code = 02460-1) [place] MethodistUs duplex arterial lower [id number] 17:25:00Interface, Radiology Results In - 07/27/2019 5:25 PM CDT Vascular Ultrasound Laboratory Lower Extremity Arterial Duplex Report [address] [place] [address] [id number].Name: ROGER ESPINAL.ID: [id number] .Date: 07/27/2019 Refer.MD: AJ BECKHAM MD Exam Time: 9:57:00 AM Study Type:LE Arterial Height: 68in Weight: 164lb BSA: 1.88 m2 Age: 5 1940,78Y Sex: MALE Sonogrphr: TRE Fuentes. Stat.:Inpatient Room: IP93-2785D Tape Vol: YM, CPT - 4: 09093 Echo Event ID:[id number] Order ID: [id number] Reason for Study:Post cath-possible pseudoaneurysm. Procedures: Colorflow, Grayscale/2D, Pulsed wave DopplerRace: B SUMMARY: DUPLEX SCAN OBSERVATIONS:RIGHT: Common femoral, profunda and proximal superficial femoralarteries are patent with biphasic Doppler signals. There is patentstent noted inside of common femoral and superficial femoral artery.Elevated velocities noted in the proximal profunda femoris artery withratio: 3.4. Common femoral, profunda femoris, and femoral veins arecompressible with phasic Doppler signals. There is no suspectedvascularized structure noted in the groin area.DOPPLER FINDINGS: ARTERY/VEIN LOCATION PSV (cm/sec)RIGHT Common Femoral Proximal-third 63 cm/sec Profunda Femoris Distal-tqiac727 cm/sec ( ratio:3.4) Superficial Femoral Proximal-third 69 cm/sec Common femoral Vein Porixmal-third Normal Profunda femoris Vein Proximal-third Normal Femoral Vein Proximal-third Normal PRELIMINARY FINDINGS:1. No evidence of pseudoaneurysm, hematoma and traumatic fistula inthe right groin.2. Patency of the stent of the right common femoral and superficialfemoral arery.3. 50-75% stenosis of the right proximal profunda femoris artery withratio: 3.4.PHYSICIAN INTERPRETATION:1. No evidence of pseudoaneurysm, hematoma and traumatic fistula inthe right groin.2. Patency of the stent of the right common femoral and superficialfemoral arery.3. 50-75% stenosis of the right proximal profundafemoris artery withratio: 3.4. FINDINGS: Signed 07/27/2019 05:25 Maura De Luna MD, [facility] lab [id number] 13:01:10Peripheral CATHETERIZATION PROCEDURE NOTE PREOPERATIVE DIAGNOSIS1. Critical Limb Ischemia2. Peripheral Arterial Disease POSTOPERATIVE DIAGNOSIS1. Critical Limb Ischemia2. Peripheral Arterial Disease PROCEDURES PERFORMED 1. Contralateral R Femoral Angiography2. Percutaneous Angioplasty of R SFA3. R SFA Stenting with Malika DES4. Ipsilateral L Femoral Angiography5. Contralateral R Lower extremity Angiography PRIMARY OPERATORDr. Alexis Farah, Wheelchair Van Driver FIRST ASSISTANTManuel Holcomb ANESTHESIA USEDLocal 2% lidocaine, Conscious Sedation DESCRIPTION OF PROCEDUREThe procedure was described to the patient including benefits, risks, and alternatives to the procedure. The patient confirmed understanding and signed the informed consent. The patient was brought to asset availability leader, room 5 of [facility]. Patient was prepped and draped in sterile fashion. Conscious sedation provided to patient throughout procedure with appropriate monitoring. The left common femoral artery(HUMANITIES PROFESSOR) was palpated and the region above the artery was anesthetized with 2% local lidocaine. Using Micropuncture needle and fluoroscopic guidance, arterial access was obtained in the left HUMANITIES PROFESSOR and a 4F sheath was placed without difficulty. A 4F diagnostic Contra catheter was advanced over a Wholey wire to the infrarenal aorta. The Wholey wire was then advanced using Contra catheter to the contralateral right iliac artery. We then performed a diagnostic contralateral right iliac artery angiogram with runoffs. Complete occlusion was noted in the R SFA which has been completely previously stented.. The short sheath was then switched to a 6F 45 cm Zumbrota destination sheath over the Wholey wire. We then advanced an angled Glidewire through a quickcross catheter into the distal SFA. The angles glidewire could not pass across the stent in the popliteal artery and was swapped for a stiff straight-t ipped Glidewire which was able to be advanced into the distal TP trunk. We then exchanged the Glidewire for a Wholey wire and attempted to pass a 4.0 Leland balloon into the distal SFA but were unable to deliver the balloon distally. The Wholey wire was exchanged for a 0.14 Hi-Torque Floppy XS wire and we then dilated the entire length of the previously stented SFA with multiple inflations of a 4.0 x150mm Nanocross balloon. Angiographic image at this point demonstrated jain of flow in the SFA up to the TP trunk which was also severely diseased. We swapped the 0.14 wire for a Wholey wire which was parked in the TP trunk and then decided to treat the length of the R SFA with drug-coated ballo ons 6.0 x 150mm, 6.0 x 250mm and 5.0 x 120mm from proximal to distal each inflated at 10 emily for 3 mins. At this point our angiographic images demonstrated no reflow in the R SFA. We performed short inflations through the length of the vessel with a 6.0 x 250mm balloon inflated to 4 emily. Some flow at this point was observed in the very proximal stented portion of the R SFA and we decided to deploy a 6.0 x 120mm Malika GABI within the previously stented proximal R SFA. The stent was post-dilated with a 6.0 x 150mm balloon at 12 emily for 30 sec. Further angiographic images continued to demonstrate noreflow phenomenon most likely from heavy thrombus burden after prolonged inflations of the drug-coated balloons. At this point we decided to start the patient on Integrelin and Heparin infusions to continue overnight and to bring him back to the asset availability leader the subsequent day. The arterial sheath was aspirated and flushed. Angiography of the HUMANITIES PROFESSOR was performed without evidence of dissection, thrombus or perforation. However the L HUMANITIES PROFESSOR was severely diseased and the access site was not appropriate for a closure device. The patient was sent to the holding area in stable condition. The patient was hemodynamically stable throughout the entirety of the procedure. DISPOSITION: Return patient to nursing unit and monitor for groin complications. EBL: <30 mL CONDITION: Stable COMPLICATIONS: No reflow in the R SFA. Plan to administer anti-thrombotic and anticoagulant therapy overnight and bring the patient [facility] to the lab the next [facility]20192[facility] PM[place] MethodistHemoglobin [id number] 10:54:34 Test Item Value Reference Range Interpretation Comments Hemoglobin A1C (test 6.2 % 4-5.6 H HbA1c c utoffs for code = 76476-4) diagnosing diabetes:4.0% - 5.6% = normal5.7% - 6.4% = increased risk for diabetes (prediabetes)9> =6.5% = eckgnjoz8Hoqc s for glycemic contro l (ADA 2016)< 7.0% Ta rget for non adults with rosa maria betes. More or less stringent targe ts may be appropriate for individual clarence ents. <7.5% Target for Children and adolescents wit h type 1 diabetes. Lab Interpretation (test Abnormal code = 22659-6) Foster MarinistThyroid stimulating [id number] 10:20:51 Test Item Value Reference Range Interpretation Comments TSH (test code = 3016-3) 1.77 0.27- 4.20 uIU/mL Foster MarinistC-reactive pxyyfmf3684-45-57 10:14:35 Test Item Value Reference Range Interpretation Comments CRP (test code = 1988-) 5.95 mg/dL 0-0.5 H Lab Interpretation (test code = Abnormal 63136-5) [place] MethodistTotal iron binding qyllgckh1652-87-01 10:14:35 Test Item Value Reference Range Interpretation Comments Iron level (test code = 2498-4) 19 ug/dL 59-158 L Iron binding capacity (test code = 221 ug/dL 274-488 7816-7) % Saturation (test code = 2502-3) 8.6 % 20-40 L Lab Interpretation (test code = Abnormal 44500-9) [facility] MethodistECG Pre/Post Op (in AM)2019-07-25 09:33:54 Test Item Value Reference Range Interpretation Comments Ventricular rate (test 68 code = 253) Atrial rate (test code 68 = 255) NH interval (test code 180 = 266) QRSD interval (test 82 code = 260) QT interval (test code 398 = 264) QTC interval (test code 423 = 265) P axis 1 (test code = -6 267) QRS axis 1 (test code = 16 268) T wave axis (test code 34 = 270) EKG impression (test Normal sinus code = 273) rhythm-Septal infarct (cited on or before 05-FEB-2019)-Abnormal ECG-In automated comparison with ECG of 05-FEB-2019 10:29,-No significant change was found- Foster MethodistManual cmwtimkjlgam1042-28-68 08:12:33 Test Item Value Reference Range Interpretation Comments Manual differential (test code = PERFORMED 42318-9) Neutrophils (test code = 58.0 % 39-69 92148-7) Lymphocytes (test code = 33.0 % 25-45 39506-7) Monocytes (test code = 34741-1) 9.0 % 0-10 Eosinophils (test code = 0.0 % 0-5 51949-3) Basophils (test code = 82610-7) 0.0 % 0-1 Metamyelocytes (test code = 0 % 740-1) Promyelocytes (test code = 0 % 783-1) Platelet slide review (test code Gee adequate = 82028-6) Enlarged platelets (test code = Moderate A 15127-0) Lab Interpretation (test code = Abnormal 31012-0) [facility] MethodistPartial thromboplastin time, gzoaaxvkk5998-13-12 06:14:00 Test Item Value Reference Range Interpretation Comments PTT (test code = 69.3 23.0- 36.0 sec H PTT thera peutic range 61123-6) for unfractiona ada heparin is61.0- 112.0 seconds which corresponds to Anti-Xa0.3-0.7 U/ml. Lab Interpretation Abnormal (test code = 90296-0) [place] MethodistProthrombin time with [id number] 16:32:43 Test Item Value Reference Range Interpretation Comments Prothrombin time (test 17.4 11.5- 14.5 sec H code = 5902-2) INR (test code = 1.4 The Interna tional 06934-5) Normalized Rati o (INR) is a therapeuti c monitoring tool for patients who ar e stable on oral anticoagulant t herapy. An INR of 2.0-3 .0 is suggested for d eep vein thrombosis/pulm onary embolism. Lab Interpretation Abnormal (test code = 66341-0) [place] MethodistCBC pkaattgh1852-83-41 16:08:44 Test Item Value Reference Range Interpretation Comments WBC (test code = 19793-2) 5.29 4.50- 11.00 k/uL RBC (test code = 19821-3) 4.89 m/uL 4.4-6 HGB (test code = 718-7) 12.7 g/dL 14-18 L HCT (test code = 4544-3) 39.0 % 41-51 L MCV (test code = 787-2) 79.8 fL 82-100 L MCH (test code = 785-6) 26.0 pg 27-34 L MCHC (test code = 786-4) 32.6 g/dL 31-37 RDW - SD (test code = 95343-6) 45.9 fL 37-55 MPV (test code = 04378-8) 8.6 fL 8.8-13.2 L Platelet count (test code = 232 150- 400 k/uL 72489-7) Nucleated RBC (test code = 0.00 /100 WBC 96500-5) Lab Interpretation (test code = Abnormal 02120-1) [place] MethodistActivated clotting [id number] 13:51:16 Test Item Value Reference Range Interpretation Comments Activated clotting time 294 96- 152 sec H Oper ator Name: Nikhil (test code = 5298) Vero ice ID: [id number] Lab Interpretation (test Abnormal code = 30493-7) [place] MethodistComprehensive metabolic upohr3084-54-02 05:01:00 Test Item Value Reference Interpretation Comments Range Glucose (test code 107 mg/dL 65-99 H Fasting = 2345-7) reference inter john For someone wit hout known diabetes, a glucose valuebe tween 100 and 125 mg/ dL is consistent withprediabetes and should be confi rmed with afollow-up test. BUN (test code = 18 mg/dL 10-10 3094-0) Creatinine (test 1.23 mg/dL 0.7-1.11 H For patient s >49 code = 2160-0) years of age, the reference limit for Creatinine is approximately 1 3% higher for peopleidentifie d as -Nidia n. EGFR Non-Afr. 55 > OR = 60 L Nigerian (test code mL/min/1.73m2 = 2775) EGFR 64 > OR = 60 Nigerian (test code mL/min/1.73m2 = 73104-8) BUN/creatinine 15 6- 22 (calc) ratio (test code = 3097-3) Sodium (test code = 138 mmol/L 823-020 3719-2) Potassium (test 4.0 mmol/L 3.5-5.3 code = 2823-3) Chloride (test code 103 mmol/L 98-110 = 2075-0) CO2 (test code = 26 mmol/L 20-32 2027-9) Calcium (test code 9.2 mg/dL 8.6-10.3 = 07259-9) Protein (test code 6.7 g/dL 6.1-8.1 = 2885-2) Albumin, S (test 3.9 g/dL 3.6-5.1 code = 1751-7) Globulin, total 2.8 1.9- 3.7 g/dL (test code = (calc) 98271-5) Albumin/globulin 1.4 1.0- 2.5 ratio (test code = (calc) 1759-0) Total bilirubin 0.3 mg/dL 0.2-1.2 (test code = 1975-2) Alkaline 26 U/L 35-144 L phosphatase (test code = 6768-6) AST (test code = 22 U/L 10-35 1920-8) ALT (test code = 23 U/L 9-46 1742-6) RAC (test code = Performing RAC) Organization Information: Site ID: [id number] Name: [facility] Address: [address] [place] [address] Director: Benjamin Garcia Lab Interpretation Abnormal (test code = 31602-1) [place] MethodistCreatine kinase, total (CPK)2019-02-06 02:16:22 Test Item Value Reference Range Interpretation Comments Creatine kinase (test code = 2157-6) 88 U/L 39-308 [place] MethodistECG 12 [id number] 19:41:49 Test Item Value Reference Range Interpretation Comments Ventricular rate (test 64 code = 253) Atrial rate (test code 64 = 255) NH interval (test code 178 = 266) QRSD interval (test 94 code = 260) QT interval (test code 408 = 264) QTC interval (test 420 code = 265) P axis 1 (test code = 0 267) QRS axis 1 (test code 18 = 268) T wave axis (test code 26 = 270) EKG impression (test Normal sinus code = 273) rhythm-Septal infarct , age undetermined-Abnormal ECG-In automated comparison with ECG of 01-OCT-2018 10:03,-Septal infarct is now present-Nonspecific T wave abnormality no longer evident in Anterolateral leads- [place] MethodistPT and [id number] 04:44:00 Test Item Value Reference Interpretation Comments Range PTT (test code 32 22- 34 sec This test medel s not been = 53400-3) validated for monitoringunfra ctionated heparin therapy . For testing thatis validated for this type o f therapy, please referto the Heparin Anti-Xa assay ( test code 62680). For add itional information, pl ease refer tohttp://educat ion.RetailTower/fa q/GUH953(Thi s link is being provided for informational/e ducational purposes only.) INR (test code 1.0 Reference Ran ge = 6301-6) 0.9-1.1Moderate -intensity Warfarin Therap y 2.0-3.0Higher-i ntensity Warfarin Therap y 3.0-4.0 Prothrombin 10.3 9.0- 11.5 time (test code sec = 5902-2) YOLETTE (test code FASTING:NOFASTIN = YOLETTE) G: NO RAC (test code Performing = RAC) Organization Information: Site ID: [id number] Name: [facility] Address: [address] [place] [id number] Director: Benjamin Garcia [place] [facility] [id number] 10:26:33 Test Item Value Reference Range Interpretation Comments POC sodium (test code = 140 mmol/L 017-194 4896-0) POC potassium (test 3.9 mmol/L 3.5-5 code = 6298-4) POC chloride (test code 102 mmol/L 99-109 = 2069-3) POC CO2 (test code = 28 mmol/L 24-31 82790-4) POC glucose (test code 92 mg/dL 65-99 = 2339-0) POC BUN (test code = 10 mg/dL 8-24 6299-2) POC creatinine (test 1.0 mg/dl 0.7-1.2 code = 11787-5) POC hematocrit (test 51 % 41-51 code = 4544-3) POC anion gap (test 15 mmol/L 8-20 Meter ID : code = [id number]) [id number] or: Dwight Krueger Dacia [facility] ankle brachial lebea9738-02-48 00:03:00Interface, Radiology Results In - 01/01/2019 12:03 AM CDT Vascular Diagnostic Laboratory Physiologic Arterial Leg Report [address] [place] [address] Pat.Name: ROGER ESPINAL Pat.ID: [id number] St.Date: 12/31/2018 Refer.MD: ALEXIS FARAH MD Exam Time: 9:32:00 AM Study Type:Physiologic Leg Age: 5 1940,78Y Sex: MALE Sonogrphr: Natalia Pruitt RVT Pat. Stat.:Outpatient Room: [facility] 16 Tape Vol: RF,CPT - 4: 35555 Echo Event ID:[id number] Order ID: [id number] Reason for Study:Absent bilateral pedal pulses from physician exam.History of PAD s/p right SFAstent. Procedures: Ankle/brachial pressures, Digit pressuresRace: B ------ SUMMARY: ANKLE/ BRACHIAL INDEX: RIGHT LEFT Brachial Artery Pressure 124 mmHg 127 mmHg DP >255 mmHg 0 mmHg PT 0 mmHg 0 mmHg CECELIA DP Non-compressible 0 CECELIA PT 0 0 TOE/BRACHIAL INDEX: Great Toe 28 mmHg 20 mmHg TBI 0.22 0.16 PRELIMINARY FINDINGS:1. Unable to calculate the right posterior tibial ankle/brachial index due to absent Doppler signals. Unable to calculate the right dorsalispedis ankle/brachialindex due to non-compressible arteries. 2. Unable to calculate the left ankle/brachial index due to absentDoppler signals. 3. The right toe/brachial index falls into the moderate-severecategory and the left falls into the severe category. PHYSICIAN INTERPRETATION:1. Unable to calculate the right posterior tibial ankle/brachial index due to absent Doppler signals. Unable to calculate the right dorsalispedis ankle/brachial index due to non-compressible arteries. 2. Unable to calculate the left ankle/brachial index due to absentDoppler signals. 3. The right toe/brachial index falls into the moderate-severecategory and the left falls into the severe category. FINDIN GS: Signed 01/01/2019 12:03 Ava De Luna MD, [facility] MethodistCTA Abdominal Aorta And Bilateral Iliofemoral Runoff W Wo Kjzxafok0867-89-28 15:25:27Hm Interface, Radiology Results 12/31/2018 3:28 PM CDTEXAM:CT ANGIOGRAM ABDOMINAL AORTA AND BILATERAL ILIOFEMORAL RUNOFF W WO CONTRASTINDICATION:I73.9 Peripheral vascular disease unspecified, PADCOMPARISON:None.TECHNIQUE:After administration of iodinated contrast intravenously, axial CT images of the abdomen, pelvis, bilateral lower extremities with runoff were obtained. Coronal and sagittal maximal intensity projection images were obtained. 3-D volume metric obstruction portal system was obtained. Iterative reconstruction and/or automated exposure control techniques were employed to reduce radiation dose.FINDINGS:Limited chest:Distal esophagus is patulous and fluid-filled, suggestinggastroesophageal reflux. Heart size is normal. Minimal calcination aortic valve. Visualized pericardium is normal. No adenopathy visualized portions of the chest.Moderate subpleural linear reticular opacities and groundglass opacities bilateral lower lobes, likely a mixture dependent atelectasis nonspecific scar/fibrosis. 5 mm diameter calcified granuloma posterior aspect left lower lobe (series 3 and 1, slice 14). 1.6 cm diameter bulla lateral aspect left lower lobe (series 3 and 1, slice 14).Abdome n:Subcentimeter hypodensity upper left lobe liver, segment 2 (series 3 and 1, slice 24), too small to definitively characterize and incompletely evaluated on this single early arterial phase examination but statistically likely simple cyst or hemangioma. Otherwise, liver is normal.Gallbladder is normal.No intrahepatic biliary dilatation. Common bile duct is unremarkable.Pancreas is normal.Spleen is normal.Bilateral adrenals are normal.Moderate nonspecific perinephric fat stranding bilaterally.Stomach is normal. Duodenum is normal. Appendix not definitely identified and may be surgically absent. Diverticulosis of the descending colon without evidence of acute diverticulitis.Pelvis: Bladder is minimally distended with urine. Bladder wall is normal.Prostate is normal size. Coarse dystrophic calcifications centrally, fluid was pelvis.Rectum is normal.Bilateral inguinal canals are patulous and fat filled. Bilateral ischial rectal fossa are normal.Axial musculoskeletal:Deformity lateral aspects multiple inferior right-sided ribs, compatible with healed old fractures.Moderate degenerative changes thoracal lumbar spine.Moderate arthrosis bilateral sacral iliac joints. Partial atelectasis left sacral iliac joint.Moderate arthrosis pubic symphysis.Prominent enthesophytes bilateral iliac wings, ischial tuberosities, greater trochanters, likely degenerative.Right lower extremity musculoskeletal:Moderate arthrosis right hip.Small bone island lateral femoral condyle. Otherwise, femurs normal.Moderate tricompartmental arthrosis right knee. Prominent enthesophytes superior and inferior patella. Injury. Additional rounded ossicle along the lateral margin of the patella, possibly sequela of old trauma. This ossicle has a pseudoarthrosis with the patella where there is at least moderate arthrosis with subchondral degeneration. Linear ossific radiodensity along the femoral medial gutter, possibly periarticular osseous body. No effusion. No Dupont's cyst.Tibia and fibula are normal.Moderate arthrosis of the ankle.Prominent enthesophytes posterior and inferior calcaneus. Moderate arthrosis tarsotarsal joints. Minimal arthrosis hallux metatarsophalangeal joint. Remainder of osseous structures of the foot are normal.Soft tissue structures., Catheter, and thigh are normal.Left lower extremity musculoskeletal:Moderate arthrosis left hip. Os acetabulum, an anatomic variant.Femur is normal.Marked tricompartmental arthrosis left knee. Prominent enthesophytes superior and inferior patella. Additional rounded os sicle along the superior lateral margin of the patella with pseudoarthrosis. This may be sequela of old trauma. Large suprapatellar effusion. Periarticular osseous material within the posterior aspect of the lateral gutter. No Dupont's cyst.Tibia and fibula are normal.Mild arthrosis of the ankle.Moderate arthrosis talonavicular joint with subchondral degenerative cyst within the anterior aspect of talus. Prominent enthesophytes posterior and inferior calcaneus. Minimal arthrosis hallux metatarsophalangeal joint. Remainder of osseous structures of the foot are normal.Soft tissues the calf and thigh are normal. Vascular:Descending thoracic aorta: Minimal tortuosity. Minimal multifocal calcified plaque. Normal caliber.Abdominal aorta: Mild multifocal calcified plaque greatest within the infrarenal abdominal aorta. Normal in course and caliber.Celiac axis: Conventional anatomy. Mild multifocal calcified plaque within the splenic artery. Normal caliber.Superior mesenteric artery: Mild ostial calcified plaque. Mild additional calcified plaque within its midportion. Normal course and caliber.Right renal artery: Solitary. Moderate ostial calcified plaque with mild luminal narrowing. Moderate multifocal calcified plaque at its hilum with adjacent commensurate luminal narrowing.Left renal artery: Solitary. Mild ostial calcified plaque with mild associated luminal narrowing.Inferior mesenteric artery: Mild wall calcification proximally with mild associated luminal narrowing.Right:Common iliac: Moderate calcified plaque proximally. Additional mild multifocal calcified plaque. Mild multifocal luminal narrowing.Internal iliac: Marked calcified plaque midportion with marked associated luminal narrowing.Additional marked multifocal calcified plaque within the peripheral aspect of the posterior division.External iliac: Moderate mixed plaque distally with moderate luminal narrowing.Common femoral: Anatomic variant high bifurcation. Overlying metallic clip, likely from prior access. Mild mixed plaque with mild luminal narrowing.Profunda femoris: Moderate wall calcification proximally with mild luminal narrowing. Predominant supply to the lower extremity intramuscular collaterals which reperfuses the occluded superficial femoral noted below.Superficial femoral: Occluded from its origin through its midportion. Reperfused just proximal to its distal portion of breath series 3 and 1, slice 24 7). Prominent anterior intramuscular collaterals. Stent extending from its distal aspect into the popliteal artery, which is widely patent.Popliteal: Moderate multifocal mixed plaque throughout its entirety with moderate multifocal luminal narrowing. Probable additional marked luminal narrowing just above its division.Tibialis anterior: Moderate calcified plaque proximally with moderate luminal narrowing. Occlusion by its midportion) series 3 and 1, slice 3058).Tibioperoneal trunk: Mixed plaque with marked luminal narrowing.Posterior tibial: Occluded throughout its course.Peroneal: Moderate concentric calcified plaque proximally with at least moderate associated luminal narrowing. Additional mild multifocal calcified plaque throughout its course but patent to the level the ankle where it provides public relations specialist supply to the foot via hypertrophic superior calcaneal branches.Left:Common iliac: Mild multifocal mixe d plaque with moderate narrowing proximally and mild narrowing scattered throughout.Internal iliac: Near occlusive thrombosis takeoff extending to its bifurcation with reperfusion distally possibly viacross mesenteric and ipsilateral deep femoral collaterals.External iliac: Mild multifocal calcified p laque with moderate multifocal luminal narrowing. Moderate soft plaque distally with moderate luminal narrowing.Common femoral: Mild mixed plaque with mild luminal narrowing.Profundus femoris: Mild mixed plaque proximally with mild luminal narrowing. Mild multifocal calcified plaque within its mid aspect. Probable occlusion of the main branch by the level the mid femur (series 3 and 1, slice 29).Superficial femoral: Marked soft plaque proximally with marked (proximal to 70%) luminal narrowing. Marked mixed plaque proximally with marked luminal narrowing (series 3 and 1, slice 189). Marked soft plaque within its midportion with near occlusion of breath series 3 and 1, slice 212). Marked mixed plaque distally with marked associated luminal narrowing with resultant near complete occlusion at the transition to the popliteal.Popliteal: Marked mixed plaque proximally with marked luminal narrowing. Additional moderate multifocal mixed plaque with moderate multifocal luminal narrowing. Marked mixed plaque distally with subsequent occlusion.All 3 calf vessels and tibioperoneal trunk are occluded proximally. Reperfusion of the peroneal artery bypass midportion via a prominent intramuscular collateral. Additional perfusion of the distal tibialis anterior through the dorsalis pedis. Posterior tibial is o ccluded throughout its course.Full evaluation of systemic and portal venous structures limited by contrast bolus timing. Splenic vein, superior mesenteric vein, portal vein, and intrahepatic portal venous branches are normal.No abdominal, pelvic, or inguinal adenopathy.IMPRESSION:1. Severe peripheral a rterial disease bilaterally greatest, with findings of note as follows:Complete occlusion of the proximal through mid right superficial femoral artery perfused distally via intramuscular collateral. Stent within its distal aspect extending into the popliteal artery, which is patent. Marked narrowing of the right popliteal artery and complete occlusion of the right posterior tibial artery.Near complete to complete occlusion of the proximal and mid left internal iliac artery.Multifocal near complete to complete occlusion of the left superficial femoral artery and popliteal artery with occlusion of the popliteal artery just above its bifurcation extending to the tibioperoneal trunk. The peroneal artery is reperfused at its midportion via prominent intramuscular collateral. The distal tibialis anterior is reperfused as well.2. Diverticulosis of the descending colon without evidence of acute diverticular less.[facility]-[id number] [facility] [id number] 11:26:32 Test Item Value Reference Range Interpretation Comments POC creatinine (test 1.1 mg/dl 0.7-1.2 Meter I D: code = 32594-9) [id number] or: Willieenrique Calderóntita [facility], MRA, BRAIN, WITHOUT [id number] 13:15:00Reason for exam:->Ischemic Stroke EvaluationReason for exam:->discharge pendingFINAL REPORT MRA brain and neck without contrast 12/14/2017 1:14 PM CLINICAL HISTORY: Ischemic Stroke Evaluationdischarge pendingstroke COMPARISON: None available TECHNIQUE: Two- and three-dimensional [id number] MRA images of the intra- and extracranial arterial vasculature was performed, from which maximal intensity projection 3-D reconstructions were created. FINDINGS: MRAneck: There is no vessel occlusion or flow-limiting stenosis. There is no NASCET-quantifiable cervical internal carotid artery stenosis. Flow is antegrade in both vertebral arteries. MRA [place]: There is no vessel occlusion, flow-limiting stenosis, or aneurysm. IMPRESSION: Unremarkable intra- and extracranial MRAs. Signed: Selam Montano Verified Date/Time: 12/14/2017 13:15:40 Reading Location: [facility] Reading Room MR, MRA, NECK, WITHOUT IV [id number] 13:15:00Reason for exam:->Ischemic Stroke EvaluationReason for exam:->discharge pendingFINAL REPORT MRA brain and neck without contrast 12/14/2017 1:14 PM CLINICAL HISTORY: Ischemic Stroke Evaluationdischarge pendingstroke COMPARISON: None available TECHNIQUE: Two- and three-dimensional [id number] MRA images of the intra- and extracranial arterial vasculature was performed, from which maximal intensity projection 3-D reconstructions were created. FINDINGS: MRAneck: There is no vessel occlusion or flow-limiting stenosis. There is no NASCET- quantifiable cervical internal carotid artery stenosis. Flow is antegrade in both vertebral arteries. MRA [place]: There is no vessel occlusion, flow-limiting stenosis, or aneurysm. IMPRESSION: Unremarkable intra- and extracranial MRAs. Signed: Selam Montano Verified Date/Time: 12/14/2017 13:15:40 Reading Location: [facility] Reading Room MR, BRAIN, WITHOUT [id number] 13:13:00Discharge pendingReason for exam:- >Ischemic Stroke EvaluationFINAL REPORT MRI brain without contrast 12/14/2017 1:11 PM CLINICAL INDICATION: Ischemic Stroke Evaluationstroke TECHNIQUE: Multiplanar, multisequence MR imaging of the brain was performed utilizing the following imaging sequences: Axial T1, T2, FLAIR, GRE, and DWI; sagittal and coronal T1-weighted images. COMPARISON: None available FINDINGS: There is no acute infarct, hematoma,mass, extra-axial collection, or hydrocephalus. There is a [...] multifocal sinusitis. There are bilateral phacoemulsifications. The skullbase is unremarkable. IMPRESSION: Chronic ischemic changes. No acute intracranial abnormality. Sinusitis. Signed: Selam Montano Verified Date/Time: 12/14/2017 13:13:48 Reading Location: [facility] Reading Room [id number] 07:42:00 Test Item Value Reference Range Interpretation Comments MAGNESIUM (BEAKER) (test code = 2.2 mg/dL 1.6-2.6 627) Add-onCOMPREHENSIVE METABOLIC [id number] 04:37:00 Test Item Value Reference Range Interpretation Comments TOTAL PROTEIN 6.1 gm/dL 6.0-8.3 (BEAKER) (test code = 770) ALBUMIN (BEAKER) 3.4 g/dL 3.5-5.0 L (test code = 1145) ALKALINE PHOSPHATASE 29 U/L 40-150 L (BEAKER) (test code = 346) BILIRUBIN TOTAL 0.5 mg/dL 0.2-1.2 (BEAKER) (test code = 377) SODIUM (BEAKER) (test 140 meq/L 136-145 code = 381) POTASSIUM (BEAKER) 4.0 meq/L 3.5-5.1 (test code = 379) CHLORIDE (BEAKER) 108 meq/L 98-107 H (test code = 382) CO2 (BEAKER) (test 25 meq/L 22-29 code = 355) BLOOD UREA NITROGEN 10 mg/dL 7-21 (BEAKER) (test code = 354) CREATININE (BEAKER) 0.93 mg/dL 0.57-1.25 (test code = 358) GLUCOSE RANDOM 100 mg/dL 70-105 (BEAKER) (test code = 652) CALCIUM (BEAKER) 8.6 mg/dL 8.4-10.2 (test code = 697) AST (SGOT) (BEAKER) 21 U/L 5-34 (test code = 353) ALT (SGPT) (BEAKER) 21 U/L 6-55 (test code = 347) EGFR (BEAKER) (test 95 mL/min/1.73 ESTIMA ADA GFR IS code = 1092) sq m NOT ACCURATE CREATININE CLEARANCE IN PREDICTING GLOMERULAR FILTRATION RATE . ESTIMATED GFR I S NOT APPLICABLE FOR DIALYSIS PATIEN TS. CBC (HEMOGRAM ONLY)2017-12-12 04:20:00 Test Item Value Reference Range Interpretation Comments WHITE BLOOD CELL COUNT (BEAKER) 6.6 K/ L 3.5-10.5 (test code = 775) RED BLOOD CELL COUNT (BEAKER) 4.66 M/ L 4.63-6.08 (test code = 761) HEMOGLOBIN (BEAKER) (test code = 12.8 GM/DL 13.7-17.5 L 410) HEMATOCRIT (BEAKER) (test code = 39.6 % 40.1-51.0 L 411) MEAN CORPUSCULAR VOLUME (BEAKER) 85.0 fL 79.0-92.2 (test code = 753) MEAN CORPUSCULAR HEMOGLOBIN 27.5 pg 25.7-32.2 (BEAKER) (test code = 751) MEAN CORPUSCULAR HEMOGLOBIN CONC 32.3 GM/DL 32.3-36.5 (BEAKER) (test code = 752) RED CELL DISTRIBUTION WIDTH 15.3 % 11.6-14.4 H (BEAKER) (test code = 412) PLATELET COUNT (BEAKER) (test 220 K/CU MM 150-450 code = 756) MEAN PLATELET VOLUME (BEAKER) 9.1 fL 9.4-12.4 L (test code = 754) NUCLEATED RED BLOOD CELLS 0 /100 WBC 0-0 (BEAKER) (test code = 413) [id number] 06:03:00 Test Item Value Reference Range Interpretation Comments PHOSPHORUS (BEAKER) (test code = 3.9 mg/dL 2.3-4.7 604) [id number] 06:03:00 Test Item Value Reference Range Interpretation Comments MAGNESIUM (BEAKER) (test code = 2.1 mg/dL 1.6-2.6 627) FastingBASIC METABOLIC [id number] 06:03:00 Test Item Value Reference Range Interpretation Comments SODIUM (BEAKER) 143 meq/L 136-145 (test code = 381) POTASSIUM (BEAKER) 3.8 meq/L 3.5-5.1 (test code = 379) CHLORIDE (BEAKER) 109 meq/L 98-107 H (test code = 382) CO2 (BEAKER) (test 26 meq/L 22-29 code = 355) BLOOD UREA NITROGEN 12 mg/dL 7-21 (BEAKER) (test code = 354) CREATININE (BEAKER) 0.89 mg/dL 0.57-1.25 (test code = 358) GLUCOSE RANDOM 88 mg/dL 70-105 (BEAKER) (test code = 652) CALCIUM (BEAKER) 8.9 mg/dL 8.4-10.2 (test code = 697) EGFR (BEAKER) (test 100 mL/min/1.73 ESTIM ATED GFR IS code = 1092) sq m NOT ACCURATE CREATININE CLEARANCE IN PREDICTING GLOMERULAR FILTRATION RATE . ESTIMATED GFR I S NOT APPLICABLE FOR DIALYSIS PATIEN TS. FastingLIPID [id number] 06:03:00 Test Item Value Reference Range Interpretation Comments TRIGLYCERIDES (BEAKER) (test code = 68 mg/dL 540) CHOLESTEROL (BEAKER) (test code = 198 mg/dL 631) HDL CHOLESTEROL (BEAKER) (test code 83 mg/dL = 976) LDL CHOLESTEROL CALCULATED (BEAKER) 101 mg/dL (test code = 633) Triglyceride Reference Range: Low Risk <150 Borderline 150-199 High Risk 200-499 Very High Risk >=500Cholesterol Reference Range: Low Risk <200 Borderline 200-239 High Risk >240HDL Cholesterol Reference Range: Low Risk >=60 High Risk <40LDL Cholesterol Reference Range: Optimal <100 Near Optimal 100-129 Borderline 130-159 High 160-189 Very High >=190 FastingCT BRAIN WITHOUT IV CONTRAST - [id number] 05:38:00 Reason for exam:->post-tPAFINAL REPORT CT BRAIN WITHOUT IV CONTRAST - PORTABLE INDICATION: post-tPA TECHNIQUE: Noncontrast portable axial CT imaging was obtained from the vertex to the skull base. Axial images were reconstructed using a bone algorithm. DOSE REDUCTION: Dose modulation, iterative reconstruction, and/or weight-based adjustment of the mA/kV was utilized to reduce the radiation dose [...] MDReport Verified Date/Time: 12/11/2017 05:38:21 Reading Location: [address] Reading Room VITAMIN [id number] 05:27:00 Test Item Value Reference Range Interpretation Comments VITAMIN B12 (BEAKER) (test code = 843 pg/mL 213-816 H 774) TSH/FREE T4 IF [id number] 05:27:00 Test Item Value Reference Range Interpretation Comments THYROID STIMULATING HORMONE 1.84 uIU/mL 0.35-4.94 (BEAKER) (test code = 772) CBC W/PLT COUNT & AUTO [id number] 04:48:00 Test Item Value Reference Range Interpretation Comments WHITE BLOOD CELL COUNT (BEAKER) 7.0 K/ L 3.5-10.5 (test code = 775) RED BLOOD CELL COUNT (BEAKER) 4.89 M/ L 4.63-6.08 (test code = 761) HEMOGLOBIN (BEAKER) (test code = 13.2 GM/DL 13.7-17.5 L 410) HEMATOCRIT (BEAKER) (test code = 41.0 % 40.1-51.0 411) MEAN CORPUSCULAR VOLUME (BEAKER) 83.8 fL 79.0-92.2 (test code = 753) MEAN CORPUSCULAR HEMOGLOBIN 27.0 pg 25.7-32.2 (BEAKER) (test code = 751) MEAN CORPUSCULAR HEMOGLOBIN CONC 32.2 GM/DL 32.3-36.5 L (BEAKER) (test code = 752) RED CELL DISTRIBUTION WIDTH 15.5 % 11.6-14.4 H (BEAKER) (test code = 412) PLATELET COUNT (BEAKER) (test 251 K/CU MM 150-450 code = 756) MEAN PLATELET VOLUME (BEAKER) 9.1 fL 9.4-12.4 L (test code = 754) NUCLEATED RED BLOOD CELLS 0 /100 WBC 0-0 (BEAKER) (test code = 413) NEUTROPHILS RELATIVE PERCENT 48 % (BEAKER) (test code = 429) LYMPHOCYTES RELATIVE PERCENT 32 % (BEAKER) (test code = 430) MONOCYTES RELATIVE PERCENT 10 % (BEAKER) (test code = 431) EOSINOPHILS RELATIVE PERCENT 9 % (BEAKER) (test code = 432) BASOPHILS RELATIVE PERCENT 1 % (BEAKER) (test code = 437) NEUTROPHILS ABSOLUTE COUNT 3.40 K/ L 1.78-5.38 (BEAKER) (test code = 670) LYMPHOCYTES ABSOLUTE COUNT 2.23 K/ L 1.32-3.57 (BEAKER) (test code = 414) MONOCYTES ABSOLUTE COUNT (BEAKER) 0.72 K/ L 0.30-0.82 (test code = 415) EOSINOPHILS ABSOLUTE COUNT 0.64 K/ L 0.04-0.54 H (BEAKER) (test code = 416) BASOPHILS ABSOLUTE COUNT (BEAKER) 0.04 K/ L 0.01-0.08 (test code = 417) IMMATURE GRANULOCYTES-RELATIVE 0 % 0-1 PERCENT (BEAKER) (test code = 2801) [id number] 02:11:00 Test Item Value Reference Range Interpretation Comments RPR SCREEN (BEAKER) (test code = Nonreactive Nonreactive 420) HEPATIC FUNCTION [id number] 20:49:00 Test Item Value Reference Range Interpretation Comments TOTAL PROTEIN (BEAKER) (test code = 6.9 gm/dL 6.0-8.3 770) ALBUMIN (BEAKER) (test code = 1145) 3.8 g/dL 3.5-5.0 BILIRUBIN TOTAL (BEAKER) (test code 0.5 mg/dL 0.2-1.2 = 377) BILIRUBIN DIRECT (BEAKER) (test 0.2 mg/dL 0.1-0.5 code = 706) ALKALINE PHOSPHATASE (BEAKER) (test 30 U/L 40-150 L code = 346) AST (SGOT) (BEAKER) (test code = 21 U/L 5-34 353) ALT (SGPT) (BEAKER) (test code = 22 U/L 6-55 347) BASIC METABOLIC [id number] 20:49:00 Test Item Value Reference Range Interpretation Comments SODIUM (BEAKER) 138 meq/L 136-145 (test code = 381) POTASSIUM (BEAKER) 3.8 meq/L 3.5-5.1 (test code = 379) CHLORIDE (BEAKER) 106 meq/L 98-107 (test code = 382) CO2 (BEAKER) (test 22 meq/L 22-29 code = 355) BLOOD UREA NITROGEN 15 mg/dL 7-21 (BEAKER) (test code = 354) CREATININE (BEAKER) 1.05 mg/dL 0.57-1.25 (test code = 358) GLUCOSE RANDOM 94 mg/dL 70-105 (BEAKER) (test code = 652) CALCIUM (BEAKER) 9.0 mg/dL 8.4-10.2 (test code = 697) EGFR (BEAKER) (test 83 mL/min/1.73 ESTIMA ADA GFR IS code = 1092) sq m NOT ACCURATE CREATININE CLEARANCE IN PREDICTING GLOMERULAR FILTRATION RATE . ESTIMATED GFR I S NOT APPLICABLE FOR DIALYSIS PATIEN TS. CBC W/PLT COUNT & AUTO [id number] 20:48:00 Test Item Value Reference Range Interpretation Comments WHITE BLOOD CELL COUNT (BEAKER) 9.3 K/ L 3.5-10.5 (test code = 775) RED BLOOD CELL COUNT (BEAKER) 4.98 M/ L 4.63-6.08 (test code = 761) HEMOGLOBIN (BEAKER) (test code = 13.4 GM/DL 13.7-17.5 L 410) HEMATOCRIT (BEAKER) (test code = 41.2 % 40.1-51.0 411) MEAN CORPUSCULAR VOLUME (BEAKER) 82.7 fL 79.0-92.2 (test code = 753) MEAN CORPUSCULAR HEMOGLOBIN 26.9 pg 25.7-32.2 (BEAKER) (test code = 751) MEAN CORPUSCULAR HEMOGLOBIN CONC 32.5 GM/DL 32.3-36.5 (BEAKER) (test code = 752) RED CELL DISTRIBUTION WIDTH 14.9 % 11.6-14.4 H (BEAKER) (test code = 412) PLATELET COUNT (BEAKER) (test 240 K/CU MM 150-450 code = 756) MEAN PLATELET VOLUME (BEAKER) 9.0 fL 9.4-12.4 L (test code = 754) NUCLEATED RED BLOOD CELLS 0 /100 WBC 0-0 (BEAKER) (test code = 413) NEUTROPHILS RELATIVE PERCENT 60 % (BEAKER) (test code = 429) LYMPHOCYTES RELATIVE PERCENT 24 % (BEAKER) (test code = 430) MONOCYTES RELATIVE PERCENT 9 % (BEAKER) (test code = 431) EOSINOPHILS RELATIVE PERCENT 6 % (BEAKER) (test code = 432) BASOPHILS RELATIVE PERCENT 1 % (BEAKER) (test code = 437) NEUTROPHILS ABSOLUTE COUNT 5.55 K/ L 1.78-5.38 H (BEAKER) (test code = 670) LYMPHOCYTES ABSOLUTE COUNT 2.17 K/ L 1.32-3.57 (BEAKER) (test code = 414) MONOCYTES ABSOLUTE COUNT (BEAKER) 0.86 K/ L 0.30-0.82 H (test code = 415) EOSINOPHILS ABSOLUTE COUNT 0.59 K/ L 0.04-0.54 H (BEAKER) (test code = 416) BASOPHILS ABSOLUTE COUNT (BEAKER) 0.05 K/ L 0.01-0.08 (test code = 417) IMMATURE GRANULOCYTES-RELATIVE 0 % 0-1 PERCENT (BEAKER) (test code = 2801) HEMOGLOBIN [id number] 20:31:00 Test Item Value Reference Range Interpretation Comments HEMOGLOBIN A1C (BEAKER) (test code = 6.2 % 4.3-6.1 H 368) PROTHROMBIN [id number] 20:23:00 Test Item Value Reference Range Interpretation Comments PROTIME (BEAKER) (test code = 15.2 seconds 11.7-14.7 H 759) INR (BEAKER) (test code = 370) 1.2 <=5.9 RECOMMENDED COUMADIN/WARFARIN INR THERAPY RANGESSTANDARD DOSE: 2.0 - 3.0 Includes: PROPHYLAXIS forvenous thrombosis, systemic embolization; TREATMENT for venous thrombosis and/or pulmonary embolus.HIGH RISK: Target INR is 2.5-3.5 for patients with mechanical heart valves.
--- NOTE | 2019-08-07 02:09 | EDPHYS ---
Physician Documentation [facility] Name: Regino Galindo Jr Age: 79 yrs Sex: Male : 1940 Arrival Date: 08/06/2019 Time: 23:19 Bed 7 Private MD: ED Physician David Lopez HPI: 08/06 04:36 This 79 yrs old Black Male presents to ER via Ambulatory with complaints of Groin Pain, tw4 Leg Pain. 04:36 The patient presents with pain, that is acute. The complaints affect the left upper tw4 thigh. Context: The problem was sustained at home. Onset: The symptoms/episode began/occurred today. Modifying factors: The symptoms are alleviated by nothing. the symptoms are aggravated by nothing. Severity of symptoms: At their worst the symptoms were moderate, in the emergency department the symptoms are unchanged. The patient has not experienced similar symptoms in the past. Historical: - Allergies: 08/05 23:37 Acetaminophen-Codeine; mg2 23:37 Codeine; mg2 - PMHx: 23:37 CVA; Hypertension; Hyperlipidemia; mg2 - Immunization history:: Flu vaccine is up to date. - Social history:: Smoking status: Patient denies any tobacco usage or history of. Patient/guardian denies using alcohol, street drugs, IV drugs. ROS: 08/06 04:36 Constitutional: Negative for fever, chills, and weight loss, Cardiovascular: Negative tw4 for chest pain, palpitations, and edema, Respiratory: Negative for shortness of breath, cough, wheezing, and pleuritic chest pain, Abdomen/GI: Negative for abdominal pain, nausea, vomiting, diarrhea, and constipation, Back: Negative for injury and pain, Neuro: Negative for headache, weakness, numbness, tingling, and seizure. MS/extremity: Positive for swelling, tenderness. Exam: 04:36 Constitutional: This is a well developed, well nourished patient who is awake, alert, tw4 and in no acute distress. Head/Face: Normocephalic, atraumatic. Chest/axilla: Normal chest wall appearance and motion. Nontender with no deformity. No lesions are appreciated. Cardiovascular: Regular rate and rhythm with a normal S1 and S2. No gallops, murmurs, or rubs. Normal PMI, no JVD. No pulse deficits. Respiratory: Lungs have equal breath sounds bilaterally, clear to auscultation and percussion. No rales, rhonchi or wheezes noted. No increased work of breathing, no retractions or nasal flaring. Abdomen/GI: Soft, non-tender, with normal bowel sounds. No distension or tympany. No guarding or rebound. No evidence of tenderness throughout. Back: No spinal tenderness. No costovertebral tenderness. Full range of motion. Neuro: Awake and alert, GCS 15, oriented to person, place, time, and situation. Cranial nerves II-XII grossly intact. Motor strength 5/5 in all extremities. Sensory grossly intact. Cerebellar exam normal. Normal gait. 04:36 Musculoskeletal/extremity: Extremities: noted in the left upper thigh: Vital Signs: 08/05 23:34 BP 159 / 75; Pulse 80; Resp 18; Temp 98.9; Pulse Ox 98% on R/A; Weight 73.94 kg; Height mg2 5 ft. 8 in. (172.72 cm); 08/06 01:41 BP 125 / 64; Pulse 77; Resp 17 S; Pulse Ox 96% on R/A; jd3 08/05 23:34 Body Mass Index 24.78 (73.94 kg, 172.72 cm) mg2 MDM: 08/05 23:32 Patient medically screened. tw4 08/06 04:38 Data reviewed: vital signs, nurses notes. Data interpreted: Pulse oximetry: tw4 Interpretation: normal. Counseling: I had a detailed discussion with the patient and/or guardian regarding: the historical points, exam findings, and any diagnostic results supporting the discharge/admit diagnosis. 08/05 23:30 Order name: Extremity Venous Uni Ltd tw4 Administered Medications: No medications were administered Disposition: 08/07/19 02:08 Discharged to Home. Impression: Pain in left leg. - Condition is Stable. - Discharge Instructions: Musculoskeletal Pain, Pain Without a Known Cause. - Medication Reconciliation Form, Thank You Letter, Antibiotic Education, Prescription Opioid Use form. - Follow up: Private Physician; When: Upon discharge from the Emergency Department; Reason: Recheck today's complaints, Continuance of care, Re-evaluation by your physician. - Problem is new. - Symptoms have improved. Signatures: Dispatcher [employer] Chloe Ayala RN RN David Stephenson MD MD tw4 Jimmy Mejía RN RN mg2 Corrections: (The following items were deleted from the chart) 02:12 02:08 08/07/2019 02:08 Discharged to Home. Impression: Pain in left leg. Condition is ea Stable. Forms are Medication Reconciliation Form, Thank You Letter, Antibiotic Education, Prescription Opioid Use. Follow up: Private Physician; When: Upon discharge from the Emergency Department; Reason: Recheck today's complaints, Continuance of care, Re-evaluation by your physician. Problem is new. Symptoms have improved. tw4
--- NOTE | 2019-08-07 02:09 | ER ---
Nurse's Notes [facility] Name: Regino Galindo Jr Age: 79 yrs Sex: Male : 1940 Arrival Date: 08/06/2019 Time: 23:19 Bed 7 Private MD: Diagnosis: Pain in left leg Presentation: 08/05 23:34 Chief complaint: Patient states: last Sunday I was at [facility] and they put a stent on mg2 my right leg thru my left groin. today my left thigh hurts and it has bruises. Coronavirus screen: Proceed with normal triage. Patient denies a cough. Patient denies shortness of breath or difficulty breathing. Patient denies measured and/or subjective temperature greater than 100.4F prior to today's visit. Patient denies travel on a cruise ship or to a country [facility] currently lists as an affected area. Patient denies contact with known and/or suspected case of COVID-19. Ebola Screen: No symptoms or risks identified at this time. Initial Sepsis Screen: Does the patient meet any 2 criteria? No. Patient's initial sepsis screen is negative. Does the patient have a suspected source of infection? No. Patient's initial sepsis screen is negative. Risk Assessment: Do you want to hurt yourself or someone else? Patient reports no desire to harm self or others. Onset of symptoms was August 06, 2019. 23:34 Method Of Arrival: Ambulatory mg2 23:34 Acuity: DEANGELO 4 mg2 Triage Assessment: 23:37 General: Appears in no apparent distress. comfortable, Behavior is calm, cooperative. mg2 Pain: Complains of pain in left leg. Historical: - Allergies: 23:37 Acetaminophen-Codeine; mg2 23:37 Codeine; mg2 - PMHx: 23:37 CVA; Hypertension; Hyperlipidemia; mg2 - Immunization history:: Flu vaccine is up to date. - Social history:: Smoking status: Patient denies any tobacco usage or history of. Patient/guardian denies using alcohol, street drugs, IV drugs. Screenin:52 Abuse screen: Denies threats or abuse. Nutritional screening: No deficits noted. ea Tuberculosis screening: No symptoms or risk factors identified. Fall Risk None identified. Assessment: 23:55 General: Appears in no apparent distress. Behavior is calm, cooperative, appropriate ea for age. Pain: Complains of pain in left leg. Neuro: Level of Consciousness is awake, alert, obeys commands, Oriented to person, place, time, situation. Respiratory: Airway is patent Respiratory effort is even, unlabored, Respiratory pattern is regular, symmetrical. Derm: Skin is pink, warm \T\ dry. 08/06 00:37 Reassessment: Patient and/or family updated on plan of care and expected duration. Pain ea level reassessed. Patient is alert, oriented x 3, equal unlabored respirations, skin warm/dry/pink. Awaiting on ultrasound. 01:20 Reassessment: hyperbaric technologist reports a negative exam, notified, no new sg orders received at this time. 01:39 Reassessment: Patient and/or family updated on plan of care and expected duration. Pain ea level reassessed. Patient is alert, oriented x 3, equal unlabored respirations, skin warm/dry/pink. 02:11 Reassessment: Patient and/or family updated on plan of care and expected duration. Pain ea level reassessed. Patient is alert, oriented x 3, equal unlabored respirations, skin warm/dry/pink. Discharge instruction given to patient, verbalized the understanding of instruction. Pt left ED ambulatory tolerating well. Vital Signs: 08/05 23:34 BP 159 / 75; Pulse 80; Resp 18; Temp 98.9; Pulse Ox 98% on R/A; Weight 73.94 kg; Height mg2 5 ft. 8 in. (172.72 cm); 08/06 01:41 BP 125 / 64; Pulse 77; Resp 17 S; Pulse Ox 96% on R/A; jd3 08/05 23:34 Body Mass Index 24.78 (73.94 kg, 172.72 cm) mg2 ED Course: 08/05 23:19 Patient arrived in ED. ds1 23:25 David Lopez MD is Attending Physician. tw4 23:36 Triage completed. mg2 23:37 Arm band placed on. mg2 23:37 Patient has correct armband on for positive identification. Placed in gown. Bed in low mg2 position. 23:51 Chloe Dawkins, JOON is Primary Nurse. ea 08/06 00:51 Extremity Venous Uni Ltd US In Process Unspecified. EDMS 02:11 No provider procedures requiring assistance completed. Patient did not have IV access ea during this emergency room visit. Administered Medications: No medications were administered Outcome: 02:08 Discharge ordered by . tw4 02:11 Discharged to home ambulatory, with family. ea 02:11 Condition: stable 02:11 Discharge instructions given to patient, Instructed on discharge instructions, follow up and referral plans. Demonstrated understanding of instructions, follow-up care. 02:12 Patient left the ED. ea Signatures: Dispatcher [employer] EDMS Edward Harding RN Corrie Manning ds1 Chloe Dawkins RN RN ea Davies, Jonathon, RN RN jd3 David Lopez MD MD tw4 Jimmy Mejía RN RN mg2 Corrections: (The following items were deleted from the chart) 02:12 02:11 Reassessment: Patient and/or family updated on plan of care and expected ea duration. Pain level reassessed. Patient is alert, oriented x 3, equal unlabored respirations, skin warm/dry/pink. Discharge instruction given to patient, verbalized the understanding of instruction ea
[2019-08-07 02:19] VITALS: TEMP 98.9
[2019-08-07 02:20] VITALS: BP 125/64; O2SAT 96
--- NOTE | 2019-08-07 07:32 | RAD REPORT ---
EXAM DESCRIPTION: US - Extremity Venous Uni Ltd - 08/07/2019 12:52 am CLINICAL HISTORY: Pain;Swellingleft leg pain Preliminary findings provided at the time of the study. COMPARISON: None. TECHNIQUE: Real-time sonographic evaluation of the left lower extremity deep venous system was perfo rmed. FINDINGS: Normal compressibility, flow augmentation, phasic flow and spontaneous flow are identified in the left lower extremity common femoral, superficial femoral, popliteal and posterior tibial vein s. No intraluminal filling defects seen. IMPRESSION: No DVT in the left lower extremity.
== END 2019-08-07 02:12 | disposition home or self-care (01) ==
LOC: ER 23:15
DX: M79.605 Pain in left leg (principal); Z88.6 Allergy status to analgesic agent
CPT/HCPCS: 93971; 99283

== ENCOUNTER 2019-08-08 12:59 | Emergency (ER) | payer OTHER ==
--- OUTSIDE RECORDS SUMMARY | 2019-08-08 13:04 | XMS REPORT | Clinical Summary ---
:1940 Author Organization [facility] Address [address] [place] [address] Care Team Providers Name Role Phone Unavailable [...] Not on file Results Not on fileafter 08/07/2018 Insurance Payer Benefit Plan / Group Subscriber ID Type Phone A ddress CARE IMPROVEMENT MEDICARE MGD CARE IMPROVEMENT PLUS xxxxxxxxx CARE
--- OUTSIDE RECORDS SUMMARY | 2019-08-08 13:04 | XMS REPORT | Clinical Summary ---
:1940 Author Organization [facility] Address [address] [place] [address] Care Team Providers Name Role Phone Keyon [...] tablet daily. omega Take 1 0 Active 6-shj-gab-fish oil tablet by (FISH OIL) 1,000 mg [...] Added automatically from request for deb cruz [id number] PAD (peripheral artery disease) 12/10/2018 Establishing care with new doctor, encounter for 10/01 Stroke 12/10/2017 Resolved Problems Problem Noted Date Resolved Date Claudication 06/10/2019 07/29/2019 Overview: Added automatically from request for deb cruz [id number] Claudication 01/24/2019 02/06/2019 Overview: Added automatically from request for deb cruz [id number] Encounters Date Type Specialty Care Team Description 07/31/2019 Patient Outreach Quality Reema Cortes MA 07/31/2019 Patient Outreach Quality Reema Cortes MA 07/30/2019 Patient Outreach Quality Reema Cortes MA 07/30/2019 Travel 07/28/2019 Surgery Procedural Winter Farah Arteriogram rig ht Cardiology MD Zahida femoral with ru noff [87461 (CPT)] 07/24/2019 Surgery Procedural Winter Farah Aortagram abdom en w Cardiology MD Zahida run off [56783 (CPT)] 07/24/2019 - Hospital Encounter General Internal Winter Farah PAD ( peripheral artery disease) ([facility]); 07/29/2019 Medicine MD Zahida Claudication ([facility]) Aj Beckham MD 07/24/2019 Travel 06/24/2019 Telephone Cardiology Lalo Johnson MA Appointment (r /s) 06/12/2019 Travel 06/10/2019 Orders Only Cardiology Lalo Johnson MA 06/10/2019 Orders Only Cardiology Lalo Johnson MA PAD (periphera l artery disease) ([facility]) (Primary Dx); Claudication (H CC); Pre-operative l aboratory examination 06/10/2019 Telephone Cardiology Lalo Johnson MA Results (Carot id doppler) 06/10/2019 Travel 06/03/2019 Travel 05/20/2019 Office Visit Cardiology Winter Farah PAD (peripheral MD Zahida artery disease) ([facility]) (Primary Dx) 02/07/2019 Telephone Cardiology Danny Holt Pain IV 02/05/2019 Surgery Procedural Winter Farah Arteriograms Cardiology MD Zahida peripheral [757 36 (CPT)] 02/05/2019 - Hospital Encounter Cardiology Winter Farah Claudnancyt ion ([facility]); 02/06/2019 MD Zahida PVD (peripheral vascular disease) ([facility]) 01/24/2019 Office Visit Cardiology Winter Farah PAD (peripheral artery disease) ([facility]) (Primary Dx); MD Zahida Claudication (H CC); PVD (peripheral vascular disease) ([facility]); Pre-operative l aboratory examination 01/03/2019 Surgery Procedural Winter Farah Aortagram abdom en w Cardiology MD Zahida run off [39202 (CPT)] 01/02/2019 - Hospital Encounter General Internal Winter Farah PAD ( peripheral 01/04/2019 Medicine MD Zahida artery disease) ([facility]) 12/31/2018 Hospital Encounter Radiology Cathleen Winter PAD (kendal pheral MD Zahida artery disease) ([facility]) 12/31/2018 Hospital Encounter Procedural Winter Farah PAD (kendal pheral Cardiology MD Zahida artery disease) ([facility]) 12/31/2018 Hospital Encounter Procedural Cathleen Winter PAD (kendal pheral Cardiology RMD Loren artery disease) ([facility]) 12/24/2018 Orders Only Cardiology Lalo Johnson MA PAD (periphera l artery disease) ([facility]) (Primary Dx) 12/24/2018 Orders Only Cardiology Elizabeth LaloNERIS PAD (periphera l artery disease) ([facility]) (Primary Dx); Pre-operative l aboratory examination 12/10/2018 Office Visit Cardiology Winter Farah PAD (peripheral MD Zahida artery disease) ([facility]) (Primary Dx) 10/01/2018 Office Visit Cardiology Winter Farah PAD (peripheral MD Zahida artery disease) ([facility]) (Primary Dx) after 08/07/2018 Family History Relation Name Status Comments Father [...] MD [address] [place], [place] [address] [phone] 11/25/2019 Office Visit Cardiology Winter Farah MD [address] [place], [place] [address] [phone] Health Maintenance Due Date Last Done Comments SHINGLES VACCINES (#1) 1988 65+ PNEUMOCOCCAL VACCINE (1 of 2 - PCV13) 08/05/2003 INFLUENZA VACCINE 10/18/2019 Implants Implanted Type Area Private Branch Exchange Operator Device Shelf Model / Identifier Expiration Serial / Date Lot Stent Bili Protege Everflex Slf-Xpndbl 120cm [id number] - [id number] Coronary N/A: [facility]03/2021 [id number] 06 150 120 / Implanted: 02/05/2019 at [facility] (Quantity not on file) Eron nts N/A VASCULAR / [id number] Stent Bili Protege Everflex Slf-Xpndbl 120cm 6x40mm - [id number] Coronary N/A: [facility] 09/22/2021 [id number] 06 040 120 / Implanted: 02/05/2019 at [facility] (Quantity not on file) Eron nts N/A VASCULAR / [id number] Stent [facility] Everflex Slf-Xpndbl [id number] W/ Cath 120cm - [id number] Peripheral or N/A: COVIDIEN 2021 [id number] 06 120 12 0 / Implanted: 02/05/2019 at [facility] (Quantity not on file) Biliary N/A / Stents [id number] Stent Bili Protege Everflex Slf-Xpndbl [id number] W/ Cath 120cm - [id number] Peripheral or N/A: 08/17/2019 [id number] 05 100 1 20 / Implanted: 02/05/2019 at [facility] (Quantity not on file) Biliary N/A / Stents [id number] Stent Malika 6mm X 120mm X 130cm Drug-Eluting Vascular - Log [id number] Surgical N/A: [facility] [id number] / Implanted: 01/03/2019 at [facility] (Quantity not on file) Eron nts N/A INTERVENTION / VASCULAR DEB Stent Malika 6mm X 120mm X 130cm Drug[employer] V[employer] - Log [id number] Surgical N/A: [facility] [id number] / Implanted: 01/03/2019 at [facility] (Quantity not on file) Eron nts N/A INTERVENTION / VASCULAR DEB Stent Bili Prtge Everflex Slf-Xpndbl [id number] W/ Cath 1 20cm - [id number] Surgical N/A: [facility] [facility] - 07/03/2021 [id number] 05 120 120 / Implanted: 02/05/2019 at [facility] (Quantity not on file) Eron nts N/A VASCULAR / [id number] Stent Malika 6mm X 120mm X 130cm Drug[employer] V[employer] - Log [id number] Surgical N/A: [facility] 02/09/2020 [id number] / Implanted: 07/24/2019 at [facility] (Quantity not on file) Eron nts N/A INTERVENTION / VASCULAR DEB [id number] Procedures Procedure Name Priority Date/Time Associated [...] DOPPLER PM CDT procedur e are in (62585) the results section. POC GLUCOSE Routine 07/28/2019 [...] CDT artery disease) procedure ar e in ([facility]) the results Claudication ([facility]) section. CV AORTAGRAM ABDOMEN W Routine 07/24/2019 2:00 PAD (periphera l Results for this RUNOFF PM CDT artery disease) procedure ar e in ([facility]) the results Claudication ([facility]) section. CV PCI PERCUTANEOUS Routine 07/24/2019 2:00 PAD (peripheral R esults for this CARDIAC ANGIOPLASTY PM CDT artery disease) proce dure are in ([facility]) the results Claudication ([facility]) section. CV UNLISTED BUGGYMAN Routine 07/24/2019 2:00 PAD (peripheral Results for this PROCEDURE PM CDT artery disease) procedure ar e in ([facility]) the results Claudication ([facility]) section. ACTIVATED CLOTTING TIME Routine 07/24/2019 1:41 Results for this PM CDT procedure are i n the results section. ACTIVATED CLOTTING TIME Routine 07/24/2019 12:17 Results for this PM CDT procedure are i n the results section. PROTHROMBIN TIME WITH INR Routine 07/23/2019 1:46 PAD (periph eral Results for this PM CDT artery disease) procedure ar e in ([facility]) the results Claudication (HC C) section. Pre-operative laboratory examination COMPREHENSIVE METABOLIC Routine 07/23/2019 1:46 PAD (peripher al Results for this PANEL PM CDT artery disease) procedure ar e in ([facility]) the results Claudication (HC C) section. Pre-operative laboratory examination CBC WITH PLATELET AND Routine 07/23/2019 1:46 PAD (peripheral Results for this DIFFERENTIAL PM CDT artery disease) procedure ar e in ([facility]) the results Claudication (HC C) section. Pre-operative laboratory examination US DUPLEX ARTERIAL LOWER Routine 06/03/2019 3:21 PAD (periphe ral Results for this EXTREMITY BILATERAL PM CDT artery disease) proce dure are in ([facility]) the results section. ESTIMATED GFR Routine 02/06/2019 12:49 Results fo r this AM CLINICAL EDUCATION MANAGER procedure are i n the results section. CREATINE KINASE, TOTAL Routine 02/06/2019 12:49 R esults for this (CPK) AM CLINICAL EDUCATION MANAGER procedure are i n the results section. HC COMPLETE BLD COUNT Routine 02/06/2019 12:49 Re sults for this W/AUTO DIFF AM CLINICAL EDUCATION MANAGER procedure are i n the results section. BASIC METABOLIC PANEL Routine 02/06/2019 12:49 Re sults for this AM CLINICAL EDUCATION MANAGER procedure are i n the results section. CV ARTERIOGRAMS Routine 02/05/2019 3:12 Claudication (H CC) Results for this PERIPHERAL PM CLINICAL EDUCATION MANAGER PVD (peripheral procedure ar e in vascular disease) the result s (HCC) section. ACTIVATED CLOTTING TIME Routine 02/05/2019 1:07 Results for this PM CLINICAL EDUCATION MANAGER procedure are i n the results section. ECG 12-LEAD STAT 02/05/2019 10:29 Results for this AM CLINICAL EDUCATION MANAGER procedure are i n the results section. PT AND PTT Routine 01/31/2019 9:47 PAD (peripheral Results for this AM CLINICAL EDUCATION MANAGER artery disease) procedure ar e in ([facility]) the results Claudication (HC C) section. PVD (peripheral vascular disease) ([facility]) Pre-operative laboratory examination COMPREHENSIVE METABOLIC Routine 01/31/2019 9:47 PAD (peripher al Results for this PANEL AM CLINICAL EDUCATION MANAGER artery disease) procedure ar e in ([facility]) the results Claudication (HC C) section. PVD (peripheral vascular disease) ([facility]) Pre-operative laboratory examination CBC WITH PLATELET AND Routine 01/31/2019 9:47 PAD (peripheral Results for this DIFFERENTIAL AM CLINICAL EDUCATION MANAGER artery disease) procedure ar e in ([facility]) the results Claudication (HC C) section. PVD (peripheral vascular disease) ([facility]) Pre-operative laboratory examination HC COMPLETE [...] CDT artery disease) procedure ar e in ([facility]) the results section. CT ANGIOGRAM ABDOMINAL Routine 12/31/2018 12:51 PAD (periphera l Results for this AORTA AND BILATERAL PM CDT artery disease) proce dure are in ILIOFEMORAL RUNOFF W WO ([facility]) the results CONTRAST section. ESTIMATED [...] CDT artery disease) proce dure are in ([facility]) the results section. ECG 12-LEAD Routine 10/01/2018 10:03 PAD (peripheral Results for this AM CDT artery disease) procedure ar e in ([facility]) the results section. after 08/07/2018 Results Hexagonal phospholipid (07/29/2019 3:37 PM CDT) Hexagonal phospholipid SEE COMMENT sec [place] tube #1 Comment: [facility] Footnote--------- HOSPITAL Unable to perform testing, specimen is F ROZEN SAMPLE CLOTTED. Credit issued. Hexagonal phospholipid SEE sec [place] tube #2 COMMENTComment: [facility] Footnote-------- HOSPITAL - Tube 1 - 2 SEE 0.0 - 11.0 [place] COMMENTComment: sec [facility] Footnote-------- HOSPITAL - [place] interpretation SEE [place] COMMENTComment: [facility] Footnote-------- HOSPITAL - Specimen Blood Performing Organization Address City/[facility] [[email or web address] Phone Number [facility] DEPARTMENT OF PATHOLOGY AND [address] [place] [address] [phone] [address] Free and total protein S (07/29/2019 3:37 PM CDT) Pathologist Sig nature Protein S Ag, free 95 62 - 160 % [facility] Protein S Ag, total 168 (H) 71 - 150 % [facility] Specimen Blood Performing Organization Address [facility] Phone Number [facility] DEPARTMENT OF PATHOLOGY AND [address] [place] [address] [address] Functional protein S (07/29/2019 3:37 PM CDT)Only the most recent of2 results within the time period is included. Functional protein 59 (L) 74 - 160 % [facility] Comment: HOSPITAL Functional Protein S performed. If [...] clinically indicated. Specimen Blood Performing Organization Address [facility] [[email or web address] Phone Number [facility] DEPARTMENT OF PATHOLOGY AND [address] [place] [address] [phone] [address] Functional protein C (07/29/2019 3:37 PM CDT)Only the most recent of2 results within the time period is included. Pathologist Sig nature Functional protein C 99 70 - 165 % [facility] Specimen Blood Performing Organization Address [facility] Phone Number [facility] DEPARTMENT OF PATHOLOGY AND [address] [place] [address] 0 [facility] [address] [place] [address] Lupus anticoagulant panel (07/29/2019 3:37 PM CDT)Only the most recent of2 resultswithin the time period is included. Prothrombin time 13.9 11.5 - 14.5 [facility] INR 1.1 [place] Comment: [facility] The International Normalized Ratio (INR) is a therapeu tic HOSPITAL monitoring tool for patients who are stable on oral anticoagulant therapy. An INR of 2.0-3.0 is suggested for deep vein thrombosis/pulmonary embolism. PTT 35.7 23.0 - 36.0 [place] Comment: [facility] PTT therapeutic range for unfractionated heparin is HOSPITAL 61.0-112.0 seconds which corresponds to Anti-Xa 0.3-0.7 U/ml. PTT lupus 38.8 (H) 27.0 - 38.0 [place] anticoagulant Comment: [facility] Lupus anticoagulant ([place]) panel consists of PT, [...] for diagnosis. DRVVT 36.5 29.0 - 46.0 [place] Comment: [facility] This test has been modified from the [facility] instructions. The performance characteristics were determined by [facility] in a manner consistent with CLIA requirements. This test has not been cleared or approved by the U.S. Food and Drug Administration. Specimen Blood Performing Organization Address City/State/Zipcode Phone Number [facility] DEPARTMENT OF PATHOLOGY AND [address] [place], [place] [address] [facility] [address] [place] [address] Antithrombin III level (07/29/2019 3:37 PM CDT)Only the most recent of2 results within the time period is included. Pathologist Sig nature Antithrombin III 105 80 - 130 % [facility] Specimen Blood Performing Organization Address City/[facility]/Zipcode Phone Number [facility] DEPARTMENT OF PATHOLOGY AND [address] [place], [place] [address] [address] Factor VIII assay (07/29/2019 3:37 PM CDT)Only the most recent of2 results within the time period is included. Pathologist [facility] Factor VIII 326 (H) 60 - 150 % [place] activity Comment: [facility] This test has been modified from the [facility] instructions. The performance characteristics were determined by [facility] in a manner consistent with CLIA requirements. This test has not been cleared or approved by the U.S. Food and Drug Administration. Specimen Blood Performing Organization Address City/[facility] [[email or web address] Phone Number [facility] DEPARTMENT OF PATHOLOGY AND [address] [place] [address] [phone] [address] CBC with platelet and differential (07/29/2019 4:40 AM CDT)Only the most recent of11 resultswithin the time period is included. [facility] WBC 11.52 (H) 4.50 - 11.00 [facility] k/uL [facility] RBC 3.77 (L) 4.40 - 6.00 [facility] m/[facility] HGB 9.8 (L) 14.0 - 18.0 [facility]/dL [facility] HCT 31.0 (L) 41.0 - 51.0 % [facility] MCV 82.2 82.0 - 100.0 [facility] MCH 26.0 (L) 27.0 - 34.0 pg [facility] MCHC 31.6 31.0 - 37.0 [facility] RDW - SD 48.0 37.0 - 55.0 fL [facility] MPV 9.4 8.8 - 13.2 fL [facility] Platelet count 277 150 - 400 k/uL [facility] Nucleated RBC 0.00 /100 WBC [facility] Neutrophils 59.6 39.0 - 69.0 % [facility] Lymphocytes 20.2 (L) 25.0 - 45.0 % [facility] Monocytes 12.2 (H) 0.0 - 10.0 % [facility] Eosinophils 5.1 (H) 0.0 - 5.0 % [facility] Basophils 0.4 0.0 - 1.0 % [facility] Immature granulocytes 2.5 0.0 - 1.0 % [facility] (H)Comment: HOSPITAL "Immature granulocytes" (promyelocytes , myelocytes, metamyelocytes ) Specimen Blood Performing Organization Address City/[facility]/Zipcode Phone Number [facility] DEPARTMENT OF PATHOLOGY AND [address] [place] [address] [place] [phone] Estimated GFR (07/29/2019 4:00 AM CDT)Only the most recent of10 resultswithin the time period is included. Pathologist [facility] Estimated GFR 77 mL/min/1.73 [facility] Comment: HOSPITAL Catergory Units Interpretation G1 >=90 [...] 2014. Specimen Performing Organization Address [facility] [[email or web address] Phone Number [facility] DEPARTMENT OF PATHOLOGY AND [address] [place] [phone] [place] [phone] Magnesium level (07/29/2019 4:00 AM CDT)Only the most recent of4 resultswithin the time period is included. Pathologist [facility] nature Magnesium 2.3 1.6 - 2.4 mg/dL [facility] Specimen Blood Performing Organization Address City/[facility]/Zipcode Phone Number [facility] DEPARTMENT OF PATHOLOGY AND [address] [place] [address] [place] [phone] Lipid panel (07/29/2019 4:00 AM CDT) Cholesterol 151 <200 mg/dL [facility] Triglycerides 97 <150 mg/dL [facility] HDL cholesterol 61 >40 mg/dL [facility] LDL cholesterol 70Comment: Result <100 mg/dL [place] obtained by direct [facility] LDL measurement [facility] Lipid panel [facility] interpretation Comment: [facility] Total Cholesterol (mg/dL) HOSPIT AL <200 Desirable [...] Blood Performing Organization Address City/State/Zipcode Phone Number [facility] DEPARTMENT OF PATHOLOGY AND [address] [place] [phone] GENOMIC MEDICINE [address] [address] Basic metabolic panel (07/29/2019 4:00 AM CDT)Only the most recent of8 results within the time period is included. Pathologist Sig nature Sodium 140 135 - 148 mEq/L [facility] L Potassium 4.5 3.5 - 5.0 mEq/L [facility] Chloride 104 98 - 112 mEq/L [facility] CO2 25 24 - 31 mEq/L [facility] Anion gap 11@ANIO 7 - 15 mEq/L [facility] BUN 14 8 - 23 mg/dL [facility] Creatinine 1.05 0.70 - 1.20 mg/dL [facility] Glucose 97 65 - 99 mg/dL [facility] Calcium 9.0 8.8 - 10.2 mg/dL [facility] AL Specimen Blood Performing Organization Address City/State/Zipcode Phone Number [facility] DEPARTMENT OF PATHOLOGY AND [address] [address] GENOMIC MEDICINE [facility] [address] [place] [address] Transthoracic Echocardiogram Complete, (w Contrast, Strain and 3D if needed) (07/28/2019 6:00 PM CDT) Specimen Narrative Performed At [facility] Echo cardiography Report [address] [facility], [facility] [address], [place] [address] Pat.Name: ROGER ESPINAL Pat.ID: [id number] .Date: 07/28/2019 Refer.MD: AJ BECKHAM MD Exam Time: 5:31:00 PM Study Type:R outine Echo Height: 68in Weight: 164lb BSA: 1.88 m2 Ag e: 1940,78Y Sex: MALE BP: 131/68 HR: 72 bpm Sonogr phr: BRIAN Cisneros Pat. Stat.:Inpatient Room: [address] Study Status:Final Echo Event ID:[id number] Order ID: [id number] Reason for Study:CAD Procedures: 2D Echo, Colorflow Doppler, Portable Race: -Turkish SUMMARY: Normal LV and RV size and [...] PA systolic pressure. MEASUREMENTS: 2D Parasternal Long Skillman Ao An 2.3 cm LVPWd 0.94 cm [...] - 2019 11:05 AM CDT Echocardiography Report [address] [place] [address] Pat.Name: ROGER ESPINAL Pat.I D: [id number] .Date: 07/28/2019 Refer .MD: AJ BECKHAM MD Exam Time: 5:31:00 PM Study Type:Routine Echo Height: 68in Weigh t: 164lb BSA: 1.88 m2 Age: 3 1940,78Y Sex: MALE BP: 131/68 HR: 72 bpm Sonog rphr: BRIAN Cisneros Pat. Stat.:Inpatient Room: NF7231-T Study Status:Final Echo Event ID:[id number] Order ID: [id number] Reason for Study:CAD Procedures: 2D Echo, Colorflow Doppler, Portable Race: -Turkish SUMMARY: Normal LV and RV size and [...] PA systolic pressure. MEASUREMENTS: 2D Parasternal Long Skillman Ao An 2.3 cm LVPW d 0.94 [...] AM Matilda Felipe MD Performing Organization Address City/[facility]/Zipcode Phone Number [facility] [address] [place] [address] POC glucose (07/28/2019 12:55 PM CDT) Pathologist Sig nature POC glucose 100 (H) 65 - 99 mg/dL [facility] Comment: HOSPITAL Restaurant Expeditor Name: Esperanza Romero Device ID: [id number] Chartable: [facility] Notified RN Specimen Blood Performing Organization Address [facility] [[email or web address] Phone Number [facility] DEPARTMENT OF PATHOLOGY AND [address] [place], [place] [address] GENOMIC MEDICINE [facility] [address] [place] [address] Cv invasive peripheral vascular procedure (07/28/2019 12:05 [...] Iliac Angiography 2. Contralateral R Femoral Angiography MANAGER SHIP Dr. Winter Farah, Padded Box Sewer AQUATIC CENTRE MANAGER Manuel Holcomb ANESTHESIA USED Local 2% lidocaine, Conscious Sedation DESCRIPTION OF PROCEDURE The procedure was described to the patient including b enefits, risks, and alternatives to the procedure. The patient confirmed understanding and signed the informed consent. The patient was brought to chemistry laboratory technician, room [address] [facility]. Patient was prepped a nd draped in sterile fashion. Conscious sedation provided to patient throug hout procedure with appropriate monitoring. The left common femoral artery (CREW DIRECTOR) was palpated and the region above the artery was anesthetized with 2% local lidocaine. Usi ng Micropuncture needle and fluoroscopic guidance, arterial access was obtained in the left CREW DIRECTOR and a 4F sheath was placed without difficulty. A 4F diagnostic Contra catheter was advanced over a Wh oley wire to the infrarenal aorta. The wire was removed, the catheter aspirated to ensure no air was in the system and flushed in the usual [facility] ion. The Wholey wire was then advanced [...] Holcomb 07/28/2019 12:17 PM Performing Organization Address City/[facility]/Zipcode Phone Number [facility] [address] [place] [address], Anti Xa, unfractionated (07/28/2019 3:40 AM CDT)Only the most recent of11 resultswithin the time period is included. Anti Xa, 0.19 (L)Comment: 0.30 - 0.70 [place] unfractionated Therapeutic Range: U/mL [facility] 0.30 - 0.70 U/mL HOSPITAL Specimen Blood Performing Organization Address City/[facility]/Zipcode Phone Number [facility] DEPARTMENT OF PATHOLOGY AND [address] [place], [place] [address] GEN[address] [address] duplex arterial lower extremity (07/27/2019 10:30 AM CDT)Only the most recent of3 resultswithin the time period is included. Specimen Narrative Performed At [facility] U ltrasound Laboratory Lower Extremity Arterial Duplex Report [address] [facility], [place] [address], [place] [address] Pat.Name: ROGER ESPINAL.ID: [id number]Date: 07/27/2019 Refer.MD: AJ BECKHAM MD Exam Time: 9:57:00 AM Study Type:L E Arterial Height: 68in Weight: 164lb BSA: 1.88 m2 Ag e: 1940,78Y Sex: MALE Sonogr phr: Suzette William, RVT Pat. Stat.:Inpatient Room: NU94-0649R Tape Vol: , CPT - 4: 43364 Echo Event ID:[id number] Order ID: [id number] Reason for Study:Post cath-possible pseu doaneurysm. Procedures: [...] Ultrasound Laboratory Lower Extremity Arterial Duplex Report [address] [place] [address] Pat.Name: ROGER ESPINAL Pat.I D: [id number] St.Date: 07/27/2019 Refer .MD: AJ BECKHAM MD Exam Time: 9:57:00 AM Study Type:LE Arterial Height: 68in Weigh t: 164lb BSA: 1.88 m2 Age: 3 1940,78Y Sex: MALE Sonog rphr: Suzette Thomas RVT Pat. Stat.:Inpatient Room: [id number] Tape Vol: YM, CPT - 4: 04878 Echo Event ID:[id number] Order ID: [id number] Reason for Study:Post cath-possible pseu doaneurysm. Procedures: [...] Organization Address City/State/Zipcode Phone Number [facility] [address] [place] [address] Total iron binding capacity (07/25/2019 9:17 AM CDT) [facility] Iron level 19 (L) 59 - 158 ug/dL [facility] Iron binding capacity 221 200 - 400 ug/dL [facility] % Saturation 8.6 (L) 20.0 - 40.0 % [facility] Specimen Blood Performing Organization Address City/State/Zipcode Phone Number [facility] DEPARTMENT OF PATHOLOGY AND [address] [place], [place] [address] [address] DRVVC, DRVVT/DRVVC (07/25/2019 9:17 AM CDT) DRVVT SEE COMMENT 29.0 - 46.0 [place] Comment: sec [facility] This test has been modified from the [facility] instructions. The performance characteristics were determined by [facility] in a manner consistent with CLIA requirements. This test has not been cleared or approved by the U.S. Food and Drug Administration. Footnote--------- Unable to perform testing, specimen is QUESTIONABLE IN TEGRITY. Recollect requested for FAC8, AT3, FUNPC, FUNPS, LUPUS (tests). LEDA TATIANA/MMWT19 (name/location) notified by BP (tech ID) at 07/29/2019 13:30 (date/time). Credit issued. Corrected result; previously reported as 60.8 on 07/28 at 09:31 by BP1 DRVVC SEE COMMENT sec [place] Comment: [facility] This test has been modified from the [facility] instructions. The performance characteristics were determined by [facility] in a manner consistent with CLIA requirements. This test has not been cleared or approved by the U.S. Food and Drug Administration. Footnote--------- Corrected result; previously reported as 68.3 on 07/28 at 09:31 by BP1 DRVVT/DRVVC ratio SEE COMMENT 0.00 - 1.22 [place] Comment: augusto MAIER Footnote--------- HOSPITAL Corrected result; previously reported as 0.89 on 07/28 at 09:31 by BP1 Specimen Blood Performing Organization Address City/State/Zipcode Phone Number [facility] DEPARTMENT OF PATHOLOGY AND [address] [place], [place] [address] [place] [id number] [place] [address] Beta-2 glycoprotein 1 antibody, IgG and IgM (07/25/2019 9:17 AM CDT) Beta-2 glycoprotein 1 <9.4 0.0 - 20.0 [facility] antibody, IgG Comment: HOSPITAL Negative =<20.0 [facility] Positive >20.0 [facility] Beta-2 glycoprotein 1 <9.4 0.0 - 20.0 [facility] antibody, IgM Comment: HOSPITAL Negative =<20.0 [facility] Positive >20.0 [facility] Specimen Blood Performing Organization Address [facility] Phone Number [facility] DEPARTMENT OF PATHOLOGY AND [address] [place] [phone] Cardiolipin antibodies (07/25/2019 9:17 AM CDT) Cardiolipin IgG 6 0 - 14 GPL [facility] Comment: HOSPITAL Negative <15 GPL Indeterminate 15-20 GPL Positive >20 GPL Cardiolipin IgM 3 0 - 12 MPL [facility] Comment: HOSPITAL Negative <13 MPL Indeterminate 13-20 MPL Positive >20 MPL Specimen Blood Performing Organization Address [facility] Phone Number [facility] DEPARTMENT OF PATHOLOGY AND [address] [place] [phone] C-reactive protein (07/25/2019 9:17 AM CDT) Pathologist Sig nature CRP 5.95 (H) 0.00 - 0.50 mg/dL [facility] NNADINI Specimen Blood Performing Organization Address [facility] Phone Number [facility] DEPARTMENT OF PATHOLOGY AND [address] [place] [address] Thyroid stimulating hormone (07/25/2019 9:17 AM CDT) Pathologist Sig nature TSH 1.77 0.27 - 4.20 uIU/mL [facility] ITAL Specimen Blood Performing Organization Address [facility] Phone Number [facility] DEPARTMENT OF PATHOLOGY AND [address] [place] [phone] Hemoglobin A1c (07/25/2019 9:17 AM CDT) Hemoglobin A1C 6.2 (H) 4.0 - 5.6 % [facility] Comment: HOSPITAL HbA1c cutoffs for diagnosing diabetes: [...] Specimen Blood Performing Organization Address [facility] Phone Number [facility] DEPARTMENT OF PATHOLOGY AND [address] [place] [phone] GENOMIC MEDICINE [place] [phone] [place] [address] ECG Pre/Post Op (in AM) (07/25/2019 8:50 AM CDT) Pathologist Sig nature Ventricular rate 68 [facility] Atrial rate 68 [facility] ME interval 180 [facility] QRSD interval 82 [facility] QT interval 398 [facility] QTC interval 423 [facility] P axis 1 -6 [facility] QRS axis 1 16 [facility] T wave axis 34 [facility] EKG impression Normal sinus [facility] MUSE rhythm-Septal 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 Performing Organization Address [facility] Phone Number [facility] MUSE [address] [place] [address] Manual differential (07/25/2019 5:07 AM CDT) Manual differential PERFORMED [facility] Neutrophils 58.0 39.0 - 69.0 % [facility] Lymphocytes 33.0 25.0 - 45.0 % [facility] Monocytes 9.0 0.0 - 10.0 % [facility] Eosinophils 0.0 0.0 - 5.0 % [facility] Basophils 0.0 0.0 - 1.0 % [facility] Metamyelocytes 0 % [facility] Promyelocytes 0 % [facility] Platelet slide review Gee adequate [facility] Enlarged platelets Moderate (A) [facility] Specimen Performing Organization Address City/State/Zipcode Phone Number [facility] DEPARTMENT OF PATHOLOGY AND [address] [place] [address] [phone] [address] Partial thromboplastin time, activated (07/25/2019 5:07 AM CDT) [facility] PTT 69.3 (H) 23.0 - 36.0 [facility] Comment: [facility] PTT therapeutic range for unfractionated heparin is 61.0-112.0 seconds which corresponds to Anti-Xa 0.3-0.7 U/ml. Specimen Blood Performing Organization Address City/[facility]/Zipcode Phone Number [facility] DEPARTMENT OF PATHOLOGY AND [address] [place] [address] [phone] [address] Prothrombin time with INR (07/24/2019 3:50 PM CDT)Only the most recent of3 resultswithin the time period is included. [facility] Prothrombin time 17.4 (H) 11.5 - 14.5 [facility] INR 1.4 [place] Comment: [facility] International Normalized Ratio (INR) is a therapeu [facility] monitoring tool for patients who are stable on oral anticoagulant therapy. An INR of 2.0-3.0 is suggested for deep vein thrombosis/pulmonary embolism. Specimen Blood Performing Organization Address City/[facility]/Zipcode Phone Number [facility] DEPARTMENT OF PATHOLOGY AND [address] [place] [address] [phone] [address] CBC hemogram (07/24/2019 3:50 PM CDT) Pathologist Sig nature WBC 5.29 4.50 - 11.00 k/uL [facility] RBC 4.89 4.40 - 6.00 m/uL [facility] HGB 12.7 (L) 14.0 - 18.0 g/dL [facility] HCT 39.0 (L) 41.0 - 51.0 % [facility] MCV 79.8 (L) 82.0 - 100.0 fL [facility] MCH 26.0 (L) 27.0 - 34.0 pg [facility] MCHC 32.6 31.0 - 37.0 g/dL [facility] RDW - SD 45.9 37.0 - 55.0 fL [facility] MPV 8.6 (L) 8.8 - 13.2 fL [facility] Platelet count 232 150 - 400 k/uL [facility] Nucleated RBC 0.00 /100 WBC [facility] Specimen Blood Performing Organization Address City/State/Zipcode Phone Number [facility] DEPARTMENT OF PATHOLOGY AND [address] [place], [place] [address] GENOMIC MEDICINE [facility] [address] [place] [address] supervisor laboratory procedure (07/24/2019 2:00 PM CDT) Specimen Narrative [...] Angiography 5. Contralateral R Lower extremity Angiography MANAGER SHIP Dr. Winter Farah, Padded Box Sewer AQUATIC CENTRE MANAGER Manuel Holcomb ANESTHESIA USED Local 2% lidocaine, Conscious Sedation DESCRIPTION OF PROCEDURE The procedure was described to the patient including b enefits, risks, and alternatives to the procedure. The patient confirmed understanding and signed the informed consent. The patient was brought to chemistry laboratory technician, room [address] [facility]. Patient was prepped a nd draped in sterile fashion. Conscious sedation provided to patient throug hout procedure with appropriate monitoring. The left common femoral artery (CREW DIRECTOR) was palpated and the region above the artery was anesthetized with 2% local lidocaine. Usi ng Micropuncture needle and fluoroscopic guidance, arterial access was obtained in the left CREW DIRECTOR and a 4F sheath was placed without [...] switche d to a 6F 45 cm [place] destination sheath over the Wholey wire. We [...] wire and attempted to pass a 4.0 [place] balloon into the distal SFA but were unable to deliver the bal loon distally. The Wholey wire was exchanged for a 0.14 Hi-Torque Floppy XS wire and we then dilated the entire length of the previously stented SF A with multiple inflations of a 4.0 x 150mm Nanocross balloon. Angiogr aphic image at this point demonstrated jainism of flow in the SFA up t [...] and to bring him back to the chemistry laboratory technician the subsequent day. The arterial sheath was aspirated and flushed. Angio graphy of the CREW DIRECTOR was performed without evidence of dissection, thrombus or perforation. However the L CREW DIRECTOR was severely diseased and the access site wa s not appropriate for a closure device. [facility] condition. The patient was [...] PM Performing Organization Address City/State/Zipcode Phone Number [facility] [address] [place] [address], Activated clotting time (07/24/2019 1:41 PM CDT)Only the most recent of4 resultswithin the time period is included. [facility] Activated clotting 294 (H) 96 - 152 sec [facility] Comment: HOSPITAL Restaurant Expeditor Name: Nikhil Bautista Device ID: [id number] Specimen Performing Organization Address City/[facility]/Zipcode Phone Number [facility] DEPARTMENT OF PATHOLOGY AND [address] [place], [place] [address] [address] [address] Comprehensive metabolic panel (07/23/2019 1:46 PM CDT)Only the most recent of2 resultswithin the time period is included. [facility] Glucose 107 (H) 65 - 99 [facility] Comment: mg/dL [place] Fasting reference interval For someone without known diabetes, a glucose value between 100 and 125 mg/dL is consistent with prediabetes and should be confirmed with a follow-up test. BUN 18 7 - 25 mg/dL [facility] [place] Creatinine 1.23 (H) 0.70 - 1.11 [facility] Comment: mg/dL [place] For patients >49 years of age, the reference limit for Creatinine is approximately 13% higher for people identified as -Turkish. EGFR Non-Afr. 55 (L) > OR = 60 [facility] Turkish mL/min/1.73m [place] 2 EGFR 64 > OR = 60 [facility] Turkish mL/min/1.73m [place] 2 BUN/creatinine 15 6 - 22 [facility] ratio (calc) [place] Sodium 138 135 - 146 [facility] mmol/L [place] Potassium 4.0 3.5 - 5.3 [facility] mmol/L [place] Chloride 103 98 - 110 [facility] mmol/L [place] CO2 26 20 - 32 [facility] mmol/L [place] Calcium 9.2 8.6 - 10.3 [facility] mg/dL [place] Protein 6.7 6.1 - 8.1 [facility] g/dL [place] Albumin, S 3.9 3.6 - 5.1 [facility] g/dL [place] Globulin, total 2.8 1.9 - 3.7 [facility] g/dL (calc) [place] Albumin/globulin 1.4 1.0 - 2.5 [facility] ratio (calc) [place] Total bilirubin 0.3 0.2 - 1.2 [facility] mg/dL [place] Alkaline 26 (L) 35 - 144 U/L [facility] phosphatase [place] AST 22 10 - 35 U/L [facility] [place] ALT 23 9 - 46 U/L [facility] [place] Specimen Blood Resulting Agency Comment Performing Organization Information: Site ID: [id number]: [facility] Sil[facility] farah Address: [address] [place] [id number] Director: Isaiah Garcia Performing Organization Address City/[facility] [email or web address] Phone Number [facility] [address] [address] Creatine kinase, total (CPK) (02/06/2019 12:49 AM CLINICAL EDUCATION MANAGER) Pathologist [facility] Creatine kinase 88 39 - 308 U/L [facility] L Specimen Plasma specimen Performing Organization Address City/[facility] [email or web address] Phone Number [facility] DEPARTMENT OF PATHOLOGY AND [address] [place], [place] [address] GENOMIC MEDICINE [facility] [address] [place] [address] ECG 12 lead (02/05/2019 10:29 AM CLINICAL EDUCATION MANAGER)Only the most recent of2 resultswithin the time period is included. Pathologist Sig nature Ventricular rate 64 [facility] Atrial rate 64 [facility] ME interval 178 [facility] QRSD interval 94 [...] t available. Performing Organization Address [facility] [email or web address] Phone Number [facility] [address] [place] [address] PT and PTT (01/31/2019 9:47 AM CLINICAL EDUCATION MANAGER) [facility] PTT 32 22 - 34 sec [facility] Comment: [place] This test has not been validated for monitoring unfractionated heparin therapy. For testing that is validated for this type of therapy, please refer to the Heparin Anti-Xa assay (test code 45060). For additional information, please refer to http://education.Kincast/faq/HLG567 (This link is being provided for informational/educational purposes only.) INR 1.0 [facility] Comment: [place] Reference Range 0.9-1.1 Moderate-intensity Warfarin Therapy 2.0-3.0 Higher-intensity Warfarin Therapy 3.0-4.0 Prothrombin time 10.3 9.0 - 11.5 [facility] sec [place] Specimen Blood Narrative Performed At FASTING:NO [facility] FASTING: NO Resulting Agency Comment Performing Organization Information: Site ID: [id number] Name: [facility] Address: [address] [place] [phone] Director: Isaiah Garcia Performing Organization Address City/State/Zipcode Phone Number [facility] [place] [phone] POC panel (01/02/2019 10:15 AM CDT) [facility] POC sodium 140 135 - 148 [facility] mmol/L [facility] POC potassium 3.9 3.5 - 5.0 [facility] mmol/L [facility] POC chloride 102 99 - 109 mmol/L [facility] POC CO2 28 24 - 31 mmol/L [facility] POC glucose 92 65 - 99 mg/dL [facility] POC BUN 10 8 - 24 mg/dL [facility] POC creatinine 1.0 0.7 - 1.2 mg/dl [facility] POC hematocrit 51 41 - 51 % [facility] POC anion gap 15 8 - 20 mmol/L [facility] Comment: HOSPITAL Meter ID: [id number] Restaurant Expeditor: Dwight Pederson Specimen Performing Organization Address City/State/Zipcode Phone Number [facility] DEPARTMENT OF PATHOLOGY AND [address] [place] [phone] GENOMIC MED[address] [address] Us ankle brachial index (12/31/2018 3:50 PM CDT) Specimen Narrative Performed At [facility] Physiologi c Arterial Leg Report [address] [facility], [place] [address], [place] [address] Pat.Name: ROGER ESPINAL.ID: [id number] .Date: 12/31/2018 Refer.MD: WINTER FARAH MD Exam Time: 9:32:00 AM Study Type:P hysiologic Leg Age: 3 1940,78Y Sex: MALE Sonogrphr: Natalia Pruitt RVT Pat. Stat.:Outpati ent Room: [facility] 16 Tape Vol: RF, CPT - 4: 20585 Echo Cher nt ID:[id number] Order ID: [id number] Reason for Study:Absent bilateral pedal pulses from [...] Diagnostic Laboratory Physiologic Arterial Leg Report [address] [place] [address] Pat.Name: ROGER ESPINAL Pat.I D: [id number] .Date: 12/31/2018 Refer .MD: WINTER FARAH MD Exam Time: 9:32:00 AM Study Type:Physiologic Leg Age: 3 1940,78Y Sex: MALE Sonogrphr: Natalia Pruitt RVT Pat. Stat.:Outpatient Room: [facility] 16 Tape Vol: RF, CPT - 4: 57179 Echo Event ID:[id number] Order ID: [id number] Reason for Study:Absent bilateral pedal pulses from [...] Organization Address City/State/Zipcode Phone Number [facility] [address] [place] [address] CTA Abdominal Aorta And Bilateral Iliofemoral Runoff [...] projection images were obtained. 3-D volume metric [facility] portal system was obtained. Iterative reconstruction and/or [...] he level the ankle where it provides weaving supervisor supply to the foot via hypertrophic superior calcaneal branches. Left: Common iliac: Mild multifocal mixed plaque with modera te narrowing proximally and mild narrowing scattered throughout. 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 [...] without evid ence of acute diverticular less. [facility]-[id number] Procedure Note Hm Interface, Radiology Results Incoming [...] the level the ankle where it provides weaving supervisor supply to the foot via hypertrophic superior [...] occlusion. All 3 calf vessels and tibioperoneal dianen nk are occluded proximally. Reperfusion of the [...] n without evidence of acute diverticular less. [facility]-[id number] Performing Organization Address City/[facility] [email or web address] Phone Number [facility] [address] [place] [address] POC creatinine (12/31/2018 11:21 AM CDT) POC creatinine 1.1 0.7 - 1.2 mg/dl [facility] Comment: HOSPITAL Meter ID: [id number] Restaurant Expeditor: Gilles Robertson Specimen Blood Performing Organization Address City/State/Zipcode Phone Number [facility] DEPARTMENT OF PATHOLOGY AND [address] [place] [phone] GENOMIC MEDIC[address] [address] after 08/07/2018 . 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
--- OUTSIDE RECORDS SUMMARY | 2019-08-08 13:07 | XMS REPORT ---
:1940 Author Organization [facility] t Address [address] [place] [address] Care Team Providers Name Role Phone Keyon Matthew MD Primary Care Physician Reema Cortes MA Attending Clinician Unavailable Gagan MARY, Alexis Teague Attending Clinician George Beckham MD Attending Clinician Elizabeth CORDON Attending Clinician Unavailable Waits Attending Clinician RAHUL LUNA Attending Clinician Unavailable GAGAN Admitting Clinician Unavailable RAHUL ULNA Admitting Clinician Unavailable Payers Payer Name Policy Type Policy Number Effective Date Expiration Date Bartolo byrd AETNA xxxxxxxxxxxx 2019 [place] MEDICAREAETNA 00:00:00 [facility] MEDICARE HMO/PPO [facility]xxxx04/19-PresentHMO Problems Condition Condition Condition Status Onset Resolution Last Treating Co mments Source Name Details Category Date Date Treatment Clinician Date PVD PVD Disease Active 2018-03 Overview: Naseem n (periphera (periphera 1-08 Added Me thodi l vascular l vascular 00:00: automatic st disease) disease) 00 ally from request for surgery [id number] PAD PAD Disease Active [place] (periphera (periphera 9- Me thodi l artery l artery 00:00: st disease) disease) 00 Establishi Establishi Disease Active H [facility] 7-16 Methodi with new with new 00:00: st doctor, doctor, 00 encounter encounter for for Stroke Stroke Disease Active [place] 9 Methodi 00:00: st 00 Claudicati Claudicati Disease Resolve 2019-07-29 2019-07-29 [place] on on d 3-24 00:00:00 16:51:41 Method i 00:00: st 00 Allergies, Adverse Reactions, Alerts Allergy Allergy Status Severity Reaction(s) Onset Inactive Treating Comm ents Source Name Type Date Date Clinician Acetamin Propensi Active Hallucinatio 2018-03 [place] ophen-Co ty to ns 0-16 Methodi deine adverse 00:00: st reaction 00 s to drug Codeine Propensi Active Anaphylaxis [place] ty to 7-16 Methodi adverse 00:00: st reaction 00 s to drug Social History Social Habit Start Date Stop Date Quantity Comments Source History of Current smoker [facility] thodist tobacco use Sex Assigned [facility] ethodist Exposure to Not sure [place] Metho dist SARS-CoV-2 (event) Alcohol intake 2019-07-29 2019-07-29 Current drinker [place] [facility] 00:00:00 00:00:00 of alcohol (finding) Alcohol Comment 2019-07-24 2019-07-24 every other day [place] [facility] 00:00:00 00:00:00 Beer Smoking Status Start Date Stop Date Source Former smoker 2019-07-29 00:00:00 2019-07-29 00:00:00 [place] [facility] Medications Ordered Filled Start Stop Current Ordering Indication Dosage Frequency Signature Comments Components Source Medication Medication Date Date Medication? Clinician (SIG) Name Name lisinopriL 2020- Yes 5mg QD Take 1 [place] (PRINIVIL) 07-29- tablet (5 Met hodi 5 mg tablet 00:00: 23:59 mg total) st 00 :00 by mouth daily for 30 days. metoprolol 2019- Yes 75mg QD Take 3 [place] succinate 07-29-12 tablets Method i XL 00:00: 23:59 ([address] (TOPROL-XL) 00 :00 total) by 25 mg 24 hr mouth tablet daily for 30 days. potassium 2019- 2020- No 1{tbl} QD Take 1 [place] ston 99 mg 07-28-12 tablet by Methodi tablet 17:55: 00:[address] 40 :00 daily. ascorbic 2019- Yes 500mg QD Take 500 [place] acid, 5-12 mg by Methodi vitamin C, 17:55: mouth st (VITAMIN C) 36 daily. 500 MG tablet omega 2020-0 Yes 1{tbl} QD Take 1 [facility] 3-dha-epa-f 5-12 tablet by Met michaeli maria guadalupe oil 17:55: mouth st (FISH [...] st tablet 36 gabapentin 2020-0 Yes 300mg [id number] Take 300 [facility] (NEURONTIN) 2-19 [id number] mg by M ethodi 300 mg 00:00: 3D mouth 3 st capsule 00 (three) times a day. aspirin 2018-03- No 81mg QD Take 1 [facility] (ECOTRIN) 04-09 11-16 tablet (81 Met hodi 81 MG 00:00: 23:59 mg total) st enteric 00 :00 by mouth coated daily for tablet 360 days. clopidogrel 2018-03- No 75mg QD Take 75 mg [place] (PLAVIX) 75 -06 02-21 by mouth Met hodi mg tablet 10:15: 00:[address] 26 :00 ticagrelor 2018-03- No 90mg Q.5D Take 1 [place] (BRILINTA) - 11-15 tablet (90 Me thodi 90 mg 00:00: [...] :00 50 mg 24 hr tablet traMADol No 50mg Q6H Take 50 mg [place] (ULTRAM) 50 5-28 10-16 by mouth Met hodi mg tablet 00:00: 00:[address] 00 :00 (six) hours as needed. for pain clopidogrel No 75mg QD Take 75 mg [facility] (PLAVIX) 75 4-30 10-19 by mouth Met hodi mg tablet 00:00: 00:[address] 00 :00 amLODIPine No 10mg Take 10 mg [facility] (NORVASC) 9-29 09-29 by mouth. Meth shanita 10 mg 00:00: 23:59 st tablet 00 :00 pantoprazol Yes 40mg QD Take 40 mg [facility] e 9- by mouth Methodi (PROTONIX) 00:00: daily. st 40 MG EC 00 tablet Vital Signs Vital Name Observation Time Observation Value Comments Source Systolic blood 2019-07-29 16:39:26 126 mm[Hg] Shakirto n Voodoo pressure Diastolic blood 2019-07-29 16:39:26 70 mm[Hg] Xu on Voodoo pressure Heart rate 2019-07-29 16:39:26 72 /min Foster [facility] Body temperature 2019-07-29 16:39:26 36.56 [place]ala Sh[place]ir ton [facility] Respiratory rate 2019-07-29 16:39:26 20 /min Shakir riley Vood[facility] Oxygen saturation in 2019-07-29 16:39:26 99 /min Foster Castillo Arterial blood by Pulse oximetry Body weight 2019-07-26 05:18:53 74.662 kg Foster Castillo BMI 2019-07-26 05:18:53 25.03 kg/m2 Foster Castillo Body height 2019-07-24 10:46:00 172.7 cm Foster Castillo Procedures Procedure Date / Time Performing Clinician Source Performed LUPUS ANTICOAGULANT PANEL 2019-07-29 15:37:00 Aj Beckham [facility] FUNCTIONAL PROTEIN C 2019-07-29 15:37:00 Aj Beckham n [facility] ANTITHROMBIN III LEVEL 2019-07-29 15:37:00 Aj Beckham [facility] FACTOR VIII ASSAY 2019-07-29 15:37:00 Aj Beckham M ethodist HEXAGONAL PHOSPHOLIPID 2019-07-29 15:37:00 Aj Beckham [facility] FREE AND TOTAL PROTEIN S 2019-07-29 15:37:00 Aj Beckham [facility] HC COMPLETE BLD COUNT W/AUTO 2019-07-29 04:40:00 Aj Beckhamist DIFF LIPID PANEL 2019-07-29 04:00:00 Alex Ware Meth odist BASIC METABOLIC PANEL 2019-07-29 04:00:00 Aj Beckham on [facility]oo MAGNESIUM LEVEL 2019-07-29 04:00:00 Aj Beckham Met hodist ESTIMATED GFR 2019-07-29 04:00:00 Aj Beckham Met hodist TTE COMPLETE, WO CONTRAST, W 2019-07-28 18:00:00 Alex Ware [facility] DOPPLER ([id number]) POC GLUCOSE 2019-07-28 12:55:00 Aj Beckham Met hodist CV ARTERIOGRAM FEMORAL 2019-07-28 12:05:36 Alexis Farah on Voodoo SINGLE BASIC METABOLIC PANEL 2019-07-28 04:00:00 Aj Beckham on [facility]oo MAGNESIUM LEVEL 2019-07-28 04:00:00 Aj Beckham Met hodist ESTIMATED GFR 2019-07-28 04:00:00 Aj Beckham Met hodist HC COMPLETE BLD COUNT W/AUTO 2019-07-28 03:40:00 Aj Beckham [facility] DIFF ANTI XA, UNFRACTIONATED 2019-07-28 03:40:00 Aj Beckham [facility] ANTI XA, UNFRACTIONATED 2019-07-27 10:30:00 Aj Beckham [facility] US DUPLEX ARTERIAL LOWER 2019-07-27 10:30:00 Conchis Etienne [facility]ood[facility] EXTREMITY RIGHT HC COMPLETE BLD COUNT W/AUTO 2019-07-27 04:15:00 Aj Beckham DIFF ANTI XA, UNFRACTIONATED 2019-07-27 04:15:00 Aj Beckham [facility] BASIC METABOLIC PANEL 2019-07-27 04:00:00 Aj Beckham on Voodoo MAGNESIUM LEVEL 2019-07-27 04:00:00 Aj Beckham Met hodist ESTIMATED GFR 2019-07-27 04:00:00 Aj Beckham Met hodist ANTI XA, UNFRACTIONATED 2019-07-26 21:15:00 Aj Beckham V[facility]oo ANTI XA, UNFRACTIONATED 2019-07-26 11:30:00 Aj Beckham [facility] HC COMPLETE BLD COUNT W/AUTO 2019-07-26 04:10:00 Aj Beckham DIFF BASIC METABOLIC PANEL 2019-07-26 04:10:00 Aj Beckham on Voodoo MAGNESIUM LEVEL 2019-07-26 04:10:00 Aj Beckham Met hodist ESTIMATED GFR 2019-07-26 04:10:00 Aj Beckham Met hodist ANTI XA, UNFRACTIONATED 2019-07-26 04:10:00 Alexis Farah V[facility] ANTI XA, UNFRACTIONATED 2019-07-25 22:30:00 Alexis Farah V[facility] ANTI XA, UNFRACTIONATED 2019-07-25 14:26:00 Aj Beckham [facility] ANTI XA, UNFRACTIONATED 2019-07-25 09:17:00 Aj Beckham [facility] FACTOR VIII ASSAY 2019-07-25 09:17:00 Aj Beckham ethodist C-REACTIVE PROTEIN 2019-07-25 09:17:00 Aj Beckham ANTITHROMBIN III LEVEL 2019-07-25 09:17:00 Aj Beckham [facility] FUNCTIONAL PROTEIN C 2019-07-25 09:17:00 Aj Beckham [facility] FUNCTIONAL PROTEIN S 2019-07-25 09:17:00 Aj Beckham Vood[facility] LUPUS ANTICOAGULANT PANEL 2019-07-25 09:17:00 Aj Beckham [facility] CARDIOLIPIN ANTIBODIES 2019-07-25 09:17:00 Aj Beckham [facility] BETA-2 GLYCOPROTEIN 1 2019-07-25 09:17:00 Aj Beckham on [facility]oodoo ANTIBODY, IGG AND IGM TOTAL IRON BINDING CAPACITY 2019-07-25 09:17:00 Aj Beckham THYROID STIMULATING HORMONE 2019-07-25 09:17:00 Aj Beckham HEMOGLOBIN A1C 2019-07-25 09:17:00 Aj Beckham Met hodist DRVVC, DRVVT/DRVVC 2019-07-25 09:17:00 Aj Beckham ECG PRE/POST OP 2019-07-25 08:50:43 Manuel Holcomb odmaite CBC WITH PLATELET AND 2019-07-25 05:07:00 Manuel Holcomb Vood[facility] DIFFERENTIAL BASIC METABOLIC PANEL 2019-07-25 05:07:00 Manuel Holcomb [facility] PARTIAL THROMBOPLASTIN TIME 2019-07-25 05:07:00 Alexis Farah (PTT) ESTIMATED GFR 2019-07-25 05:07:00 Alexis Farah MANUAL DIFFERENTIAL 2019-07-25 05:07:00 Alexis Farah ANTI XA, UNFRACTIONATED 2019-07-25 00:15:00 Aj Beckham [facility] CBC HEMOGRAM 2019-07-24 15:50:00 Alexis Farah PROTHROMBIN TIME WITH INR 2019-07-24 15:50:00 Alexis Farah Voodoo ANTI XA, UNFRACTIONATED 2019-07-24 15:50:00 Alexis Farah Voodoo CV PCI PERCUTANEOUS CARDIAC 2019-07-24 14:00:11 Alexis Farah ANGIOPLASTY CV ARTERIOGRAM FEMORAL 2019-07-24 14:00:11 Alexis Farah on Voodoo SINGLE ACTIVATED CLOTTING TIME 2019-07-24 13:41:00 Alexis Farah Voodoo ACTIVATED CLOTTING TIME 2019-07-24 12:17:00 Alexis Farah Voodoo CBC WITH PLATELET AND 2019-07-23 13:46:00 Alexis Farah Voodoo DIFFERENTIAL COMPREHENSIVE METABOLIC 2019-07-23 13:46:00 Alexis Farah Voodoo PANEL PROTHROMBIN TIME WITH INR 2019-07-23 13:46:00 Alexis Farah Voodoo US DUPLEX ARTERIAL LOWER 2019-06-03 15:21:23 Alexis Farah ston Voodoo EXTREMITY BILATERAL BASIC METABOLIC PANEL 2019-02-06 00:49:00 Manuel Holcomb Voodoo HC COMPLETE BLD COUNT W/AUTO 2019-02-06 00:49:00 Manuel Holcomb DIFF CREATINE KINASE, TOTAL (CPK) 2019-02-06 00:49:00 Fawad Garcia ESTIMATED GFR 2019-02-06 00:49:00 Alexis Farah Meth odist CV ARTERIOGRAMS PERIPHERAL 2019-02-05 15:12:24 Manuel Holcomb ACTIVATED CLOTTING TIME 2019-02-05 13:07:00 Alexis Farah Voodoo ECG 12-LEAD 2019-02-05 10:29:07 Alexis Farah Meth odmaite CBC WITH PLATELET AND 2019-01-31 09:47:00 Alexis Farah [facility] DIFFERENTIAL COMPREHENSIVE METABOLIC 2019-01-31 09:47:00 Alexis Farah [facility]oo PANEL PT AND PTT 2019-01-31 09:47:00 Alexis [...] Source Future Scheduled 2019-10-18 INFLUENZA VACCINE Naseem moore [facility] Test 00:00:00 [code = INFLUENZA VACCINE] Future Scheduled 2003-08-05 65+ PNEUMOCOCCAL Foster [facility] Test 00:00:00 VACCINE (1 of 2 - PCV13) [code = 65+ PNEUMOCOCCAL VACCINE (1 of 2 - PCV13)] Future Scheduled 1988 SHINGLES VACCINES (#1) H arthur Voodoo Test 00:00:00 [code = SHINGLES VACCINES (#1)] Encounters Start End Encounter Admission Attending Care Care Encounter Source Date/Time Date/Time Type Type Clinicians Facility Department ID 2019-07-24 2019-07-29 Inpatient [facility] 027 [id number] [place] 00:00:00 00:00:00 AJ [address] 2019-06-03 2019-06-03 Outpatient [facility] [id number] [place] 00:00:00 00:00:[address] 2019-05-20 2019-05-20 [facility] [id number] [place] 00:00:00 00:00:00 ALEXIS [address] 2019-02-05 2019-02-06 [facility] [id number] [place] 00:00:00 00:00:00 ALEXIS [address] 2019-01-02 2019-01-04 [facility] [id number] [place] 00:00:00 00:00:00 ALEXIS [address] 2018-12-31 2018-12-31 [facility] [id number] [place] 00:00:00 00:00:00 ALEXIS [address] 2018-12-31 2018-12-31 [facility] [id number] [place] 00:00:00 00:00:00 ALEXIS [address] 2018-12-31 2018-12-31 [facility] [id number] [place] 00:00:00 00:00:00 ALEXIS [address] Results Test Description Test Time Test Comments Results Result Comments Source Hexagonal phospholipid 2019-08-05 15:30:50 Test Item Value Reference Range Interpretation Comme nts Tube 1 - 2 (test code = 61098-0) SEE COMMENT 0.0- 11.0 sec Footnote--------- LA interpretation (test code = 16942-1) SEE COMMENT Footnote--------- Foster MethodistFactor VIII [id number] 13:32:06 Test Item Value Reference Range Interpretation Comments Factor VIII activity 326 % 60-[address] has been (test code = 3208-6) modifie d from the manufacturers instructions. The performance characteristics were determined by Frank Saavedrai joe in a manner consiste nt with JUWAN samayoa. This test has n ot been cleared or appr vj by the U.S. Food a nd Drug Administration. Lab Interpretation Abnormal (test code = 71407-9) Foster MethodistFunctional protein [id number] 13:32:06 Test Item Value Reference Range Interpretation Comments Functional protein S 59 % 74-160 L Functio nal Protein S (test code = 72548-1) perfor med. If result is decre ased Total and Free Protein S Antig en will be performed.Funct ional protein S was l ow at 59% with normal free and normal tota l protein S of 95 % and 168%, respectiv joseph. When factor 8 i s high, functiona l protein S level is decreased. This patient was fou nd to have a high fac tor 8 of 326%. Since factor 8 is an acute phase reactant, suggest repeati ng protein S assay when the patient is stable and off warfarin for 2 weeks, if clini alexander indicated. Lab Interpretation (test Abnormal code = 69840-7) Foster MethodistFree and total protein [id number] 13:32:06 Test Item Value Reference Range Interpretation Comments Protein S Ag, free (test code = 95 % 62-160 74300-0) Protein S Ag, total (test code = 168 % 71-150 H 67952-3) Lab Interpretation (test code = Abnormal 33287-7) Foster MarinistAntithrombin III [id number] 12:32:25 Test Item Value Reference Range Interpretation Comments Antithrombin III (test code = 3174-0) 105 % 80-130 Foster CastilloLupus anticoagulant [id number] 12:32:25 Test Item Value Reference Range Interpretation Comments Prothrombin time (test 13.9 11.5- 14.5 sec code = 5902-2) INR (test code = 1.1 The Interna tional 04561-3) Normalized Rati o (INR) is a therapeuti c monitoring tool for patients who ar e stable on oral anticoa gulant therapy. An INR of 2.0-3.0 is sugg ested for deep vein thrombosis/pulm onary embolism. PTT (test code = 35.7 23.0- 36.0 sec PTT thera peutic range 52904-1) for unfractiona ada heparin is61.0- 112.0 seconds which corresponds to Anti-Xa0.3-0.7 U/ml. PTT lupus 38.8 27.0- 38.0 sec H Lupus anticoa gulant anticoagulant (test (LA) edmond el consists of code = 10859-6) PT, PTT, PTT -LA, and DRVVT. If [...] high (positive) on t wo occassions at [facility] six weeks apart. Cl inical confirmation is also required for di agnosis. DRVVT (test code = 36.5 29.0- 46.[address] has been 6303-2) modified from Nvigen manufacturers instructions. The performance characteristics were determined by Frank diaz in a manner consiste nt with CLIA requiremen ts. This test has n ot been cleared or appr vj by the U.S. Food a nd Drug Administration. Lab Interpretation Abnormal (test code = 72137-4) Foster CastilloFunctional protein [id number] 12:32:25 Test Item Value Reference Range Interpretation Comments Functional protein C (test code = 99 % 70-165 39259-4) Foster CastilloDRVVC, DRVVT/[id number] 13:32:22 Test Item Value Reference Range Interpretation Comments DRVVT (test code SEE COMMENT 29.0- 46.0 sec This test has been = 6303-2) modified from Nvigen manufacturers instructions. The performance characteristics were determined [...] as 60.8 on 020 at 09:31 by [facility] DRVVC (test code SEE COMMENT sec This test h as been = 86127-5) modified from alexx aguilar manufacturers instructions. The performance characteristics were determined by Frank Ames [facility] in a manner consiste nt with JUWAN samayoa. This test has not be en cleared or approved by the U.S. Food and Drug Administration. Footnote--- ------Corrected result; previously repo rted as 68.3 on 020 at 09:31 by [facility] DRVVT/DRVVC SEE COMMENT 0.00- 1.22 sec Footnote----- ----Corrected ratio (test code result; pre viously = 43275-1) reported as 0.8 9 on 07/29/2019 at 0 9:31 [address]Tran[address]horacic Echocardiogram Complete, (w Contrast, Strain and 3D if needed)2019-07-29 11:05:00Interface, Radiology Results In - 07/29/2019 11:05 AM CDT Echocardiography Report [address]Name: ROGER ESPINAL Pat.ID: [id number].Date: 07/28/2019 Refer.MD: AJ BECKHAM MD Exam Time: 5:31:00 PM Study Type:Routine Echo Height: 68in Weight: 164lb BSA: 1.88 m2 Age: 5 1940,78Y Sex: MALE BP: 131/68 HR: 72 bpm Sonogrphr: BRIAN Cisneros Pat. Stat.:Inpatient Room: [address] Study Status:Final Echo Event ID:[id number] Order ID: [id number] Reason forStudy:CAD Procedures: 2D Echo, Colorflow Doppler, PortableRace: -Surinamese SUMMARY: Normal LV and RV size and [...] estimate PA systolic pressure. MEASUREMENTS: 2DParasternal Long Sonoita Ao An 2.3 cm LVPWd 0.94 cm [...] Signed 07/29/2019 11:05 Ely Nieto MethodistBasic metabolic [id number] 06:23:48 Test Item Value Reference Range Interpretation Comments Sodium (test code = 2951-2) 140 135- 148 mEq/L Potassium (test code = 2823-3) 4.5 3.5- 5.0 mEq/L Chloride (test code = 5-0) 104 98- 112 mEq/L CO2 (test code = 2027-9) 25 24- 31 mEq/L Anion gap (test code = 54796-1) 11@ANIO 7- 15 mEq/L BUN (test code = 3094-0) 14 mg/dL 8-23 Creatinine (test code = 2160-0) 1.05 mg/dL 0.7-1.2 Glucose (test code = 2345-7) 97 mg/dL 65-99 Calcium (test code = 27994-1) 9.0 mg/dL 8.8-10.2 [place] MethodistLipid [id number] 06:23:48 Test Item Value Reference Interpretation Comments Range Cholesterol (test 151 mg/dL <200 code = 2093-3) Triglycerides (test 97 mg/dL <150 code = 2571-8) HDL cholesterol 61 mg/dL >40 (test code = 2085-9) LDL cholesterol 70 mg/dL <100 Result obtai ryan by direct (test code = 2089-1) LDL derick surement Lipid panel SeeBelow Total Cholester ol (mg/dL) interpretation (test < 200 code = 83947-6) Desirable 200-239 Borderline -high >=240 Hi gh [...] high triglycerides ( >=200 mg/dL) Foster MethodistMagnesium [id number] 06:23:48 Test Item Value Reference Range Interpretation Comments Magnesium (test code = 28147-7) 2.3 mg/dL 1.6-2.4 [facility] MethodistEstimated [id number] 06:23:48 Test Item Value Reference Range Interpretation Comments Estimated GFR (test 77 mL/min/1.73 m2 Caterg ory Units code = 5488) InterpretationG 1 >=90 Normal or highG2 60-89 Mildly ugskvpoasD9n 45-59 Mildly to mode rately kxumdrtfhV9f 30-44 Moderately to severely decreasedG4 15-29 Severely decre asedG5 <15 Kidn ey failureThe eGFR was calculated courtney g the Chronic Kidney Disease Epidemiology Co llaboration (CKD-EPI) equat ion. Interpretation is based on recommendations of the National Kidney Foundation-Kidn ey Disease Outcomes Qualit y Initiative (NKF-KDOQI) pub lished in 2014. [facility] MethodistCBC with platelet and [id number] 05:57:09 Test Item Value Reference Range Interpretation Comments WBC (test code = 19250-4) 11.52 4.50- 11.00 k/uL H RBC (test code = 36715-5) 3.77 m/uL 4.4-6 L HGB (test code = 718-7) 9.8 g/dL 14-18 L HCT (test code = 4544-3) 31.0 % 41-51 L MCV (test code = 787-2) 82.2 fL 82-100 MCH (test code = 785-6) 26.0 pg 27-34 L MCHC (test code = 786-4) 31.6 g/dL 31-37 RDW - SD (test code = 48.0 fL 37-55 88391-6) MPV (test code = 55289-7) 9.4 fL 8.8-13.2 Platelet count (test code 277 150- 400 k/uL = 29262-7) Nucleated RBC (test code 0.00 /100 WBC = 88789-3) Neutrophils (test code = 59.6 % 39-69 52072-1) Lymphocytes (test code = 20.2 % 25-45 L 81118-2) Monocytes (test code = 12.2 % 0-10 H 62643-2) Eosinophils (test code = 5.1 % 0-5 H 00134-0) Basophils (test code = 0.4 % 0-1 67200-9) Immature granulocytes 2.5 % 0-1 H "Immat ure (test code = 26305-7) granul ocytes" (promyelocytes, myelocytes, metamyelocytes) Lab Interpretation (test Abnormal code = 60066-6) Foster CastilloBeta-2 glycoprotein 1 antibody, IgG and [id number] 19:01:21 Test Item Value Reference Range Interpretation Comments Beta-2 glycoprotein 1 <9.4 0.0-20.0 Negati ve =<20.0 antibody, IgG (test code SGU Positive >20.0 SGU = 23184-1) Beta-2 glycoprotein 1 <9.4 0.0-20.0 Negati ve =<20.0 antibody, IgM (test code SMU Positive >20.0 SMU = 63119-2) Foster CastilloCardiolipin [id number] 19:01:20 Test Item Value Reference Range Interpretation Comments Cardiolipin IgG (test 6 0- 14 GPL Negati ve <15 GPL code = 3181-5) Indeterminate 15-20 GPL Positive >20 GP L Cardiolipin IgM (test 3 0- 12 MPL Negati ve <13 MPL code = 3182-3) Indeterminate 13-20 MPL Positive >20 MP L Foster CastilloCv invasive peripheral vascular [id number] 13:16:47 Peripheral CATHETERIZATION PROCEDURE NOTE PREOPERATIVE DIAGNOSIS1. Critical Limb Ischemia2. Peripheral Arterial Disease POSTOPERATIVE DIAGNOSIS1. Peripheral Arterial Disease PROCEDURES PERFORMED 1. Contralateral R Iliac Angiography2. Contralateral R Femoral Angiography PRIMARY OPERATORDrLoren Farah, Lead Infrastructure Architect FIRST ASSISTANTManuel Holcomb ANESTHESIA USEDLocal 2% lidocaine, Conscious Sedation DESCRIPTION OF PROCEDUREThe procedure was described to the patient including benefits,risks, and alternatives to the procedure. The patient confirmed understanding and signed the informed consent. The patient was brought to tree tapping laborer, room 5 of [facility]. Patient was prepped and draped in sterile fashion. Conscious sedation provided to patient throughout procedure with appropriate monitoring. The left common femoral artery (REWINDER OPERATOR HELPER) was palpated and the region above the artery was anesthetized with 2% local lidocaine. Using Micropuncture needle and fluoroscopic guidance, arterial access was obtained in the left REWINDER OPERATOR HELPER and a 4F sheath was placed without [...] mL CONDITION: Stable COMPLICATIONS: None Manuel Holcomb07/28/201912:17 [facility] [id number] 12:56:20 Test Item Value Reference Range Interpretation Comments POC glucose (test code 100 mg/dL 65-99 H Opera tor Name: = 64159-4) Esperanza Christianson I D: [id number] able: [facility] Notified superintendent system operation Interpretation Abnormal (test code = 12676-9) [place] MethodistAnti Xa, [id number] 05:02:20 Test Item Value Reference Range Interpretation Comments Anti Xa, unfractionated 0.19 U/mL 0.3-0.7 L Ther apeutic Range: (test code = 3274-8) 0.30 - 0.70 U/mL Lab Interpretation (test Abnormal code = 36626-9) [place] MethodistUs duplex arterial lower [id number] 17:25:00Interface, Radiology Results In - 07/27/2019 5:25 PM CDT Vascular Ultrasound Laboratory Lower Extremity Arterial Duplex Report [address] [place] [address].Name: ROGER ESPINAL Crystal.ID: [id number] .Date: 07/27/2019 Refer.MD: AJ BECKHAM MD Exam Time: 9:57:00 AM Study Type:LE Arterial Height: 68in Weight: 164lb BSA: 1.88 m2 Age: 5 1940,78Y Sex: MALE Sonogrphr: Suzette Thomas RVT Pat. 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 Procedures: Colorflow, [...] Common Femoral Proximal-third 63 cm/sec Profunda Femoris Distal-yaqpc195 cm/sec ( ratio:3.4) Superficial Femoral Proximal-third 69 [...] Signed 07/27/2019 05:25 Maura De Luna MD, [facility] lab [id number] 13:01:10Peripheral CATHETERIZATION PROCEDURE NOTE PREOPERATIVE DIAGNOSIS1. Critical Limb Ischemia2. Peripheral Arterial Disease POSTOPERATIVE DIAGNOSIS1. Critical Limb Ischemia2. Peripheral Arterial Disease PROCEDURES PERFORMED 1. Contralateral R Femoral Angiography2. Percutaneous Angioplasty of R SFA3. R SFA Stenting with Malika DES4. Ipsilateral L Femoral Angiography5. Contralateral R Lower extremity Angiography PRIMARY OPERATORDrLoren Farah, Lead Infrastructure Architect FIRST ASSISTANTManuel Holcomb ANESTHESIA USEDLocal 2% lidocaine, Conscious Sedation DESCRIPTION OF PROCEDUREThe procedure was described to the patient including benefits, risks, and alternatives to the procedure. The patient confirmed understanding and signed the informed consent. The patient was brought to tree tapping laborer, room 5 of [facility]. Patient was prepped and draped in sterile fashion. Conscious sedation provided to patient throughout procedure with appropriate monitoring. The left common femoral artery(REWINDER OPERATOR HELPER) was palpated and the region above the artery was anesthetized with 2% local lidocaine. Using Micropuncture needle and fluoroscopic guidance, arterial access was obtained in the left REWINDER OPERATOR HELPER and a 4F sheath was placed without [...] then switched to a 6F 45 cm [place] destination sheath over the Wholey wire. We [...] wire and attempted to pass a 4.0 [place] balloon into the distal SFA but were unable to deliver the balloon distally. The Wholey wire was exchanged for a 0.14 Hi-Torque Floppy XS wire and we then dilated the entire length of the previously stented SFA with multiple inflations of a 4.0 x150mm Nanocross balloon. 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 The arterial sheath was aspirated and flushed. Angiography of the REWINDER OPERATOR HELPER was performed without evidence of dissection, thrombus or perforation. However the L REWINDER OPERATOR HELPER was severely diseased and the access site [...] back to the lab the next day Ahmad Agha07/24/20192:24 PMAlbemarle MethodistHemoglobin [id number] 10:54:34 Test Item Value Reference Range Interpretation Comments Hemoglobin A1C (test 6.2 % 4-5.6 H HbA1c c utoffs for code = 84535-0) diagnosing diabetes:4.0% - 5.6% = normal5.7% - 6.4% = increased risk for diabetes (prediabetes)9> =6.5% = mfqyvnyn6Hggc s for glycemic contro l (ADA 2016)< 7.0% Ta rget for non adults with rosa maria betes. More or less stringent targe ts may be appropriate for individual clarence ents. <7.5% Target for Children and adolescents wit h type 1 diabetes. Lab Interpretation (test Abnormal code = 29340-0) [facility] MethodistThyroid stimulating [id number] 10:20:51 Test Item Value Reference Range Interpretation Comments TSH (test code = 3016-3) 1.77 0.27- 4.20 uIU/mL [facility] MethodistC-reactive [id number] 10:14:35 Test Item Value Reference Range Interpretation Comments CRP (test code = 1988-5) 5.95 mg/dL 0-0.5 H Lab Interpretation (test code = Abnormal 22535-2) [facility] MarinistTotal iron binding [id number] 10:14:35 Test Item Value Reference Range Interpretation Comments Iron level (test code = 2498-4) 19 ug/dL 59-158 L Iron binding capacity (test code = 221 ug/dL 529-439 4467-7) % Saturation (test code = 2502-3) 8.6 % 20-40 L Lab Interpretation (test code = Abnormal 89933-6) [facility] MethodistECG Pre/Post Op (in AM)2019-07-25 09:33:54 Test Item Value Reference Range Interpretation Comments Ventricular rate (test 68 code = 253) Atrial rate (test code 68 = 255) WI interval (test code 180 = 266) QRSD [...] 10:29,-No significant change was found- Foster MethodistManual [id number] 08:12:33 Test Item Value Reference Range Interpretation Comments Manual differential (test code = PERFORMED 48892-8) Neutrophils (test code = 58.0 % 39-69 02324-2) Lymphocytes (test code = 33.0 % 25-45 57606-9) Monocytes (test code = 27898-5) 9.0 % 0-10 Eosinophils (test code = 0.0 % 0-5 80932-6) Basophils (test code = 26397-7) 0.0 % 0-1 Metamyelocytes (test code = 0 % 740-1) Promyelocytes (test code = 0 % 783-1) Platelet slide review (test code Gee adequate = 80806-8) Enlarged platelets (test code = Moderate A 80639-0) Lab Interpretation (test code = Abnormal 93767-2) [facility] MethodistPartial thromboplastin time, [id number] 06:14:00 Test Item Value Reference Range Interpretation Comments PTT (test code = 69.3 23.0- 36.0 sec H PTT thera peutic range 60029-1) for unfractiona ada heparin is61.0- 112.0 seconds which corresponds to Anti-Xa0.3-0.7 U/ml. Lab Interpretation Abnormal (test code = 67808-2) [facility] MethodistProthrombin time with [id number] 16:32:43 Test Item Value Reference Range Interpretation Comments Prothrombin time (test 17.4 11.5- 14.5 sec H code = 5902-2) INR (test code = 1.4 The Interna tional 23743-1) Normalized Rati o (INR) is a therapeuti c monitoring tool for patients who ar e stable on oral anticoagulant t herapy. An INR of 2.0-3 .0 is suggested for d eep vein thrombosis/pulm onary embolism. Lab Interpretation Abnormal (test code = 81870-4) [facility] MethodistCBC [id number] 16:08:44 Test Item Value Reference Range Interpretation Comments WBC (test code = 47309-5) 5.29 4.50- 11.00 k/uL RBC (test code = 29781-9) 4.89 m/uL 4.4-6 HGB (test code = 718-7) 12.7 g/dL 14-18 L HCT (test code = 4544-3) 39.0 % 41-51 L MCV (test code = 787-2) 79.8 fL 82-100 L MCH (test code = 785-6) 26.0 pg 27-34 L MCHC (test code = 786-4) 32.6 g/dL 31-37 RDW - SD (test code = 82741-5) 45.9 fL 37-55 MPV (test code = 74046-7) 8.6 fL 8.8-13.2 L Platelet count (test code = 232 150- 400 k/uL 03917-5) Nucleated RBC (test code = 0.00 /100 WBC 11435-2) Lab Interpretation (test code = Abnormal 67084-9) [facility] MethodistActivated clotting [id number] 13:51:16 Test Item Value Reference Range Interpretation Comments Activated clotting time 294 96- 152 sec H Oper ator Name: Nikhil (test code = 5298) Vero ice ID: [id number] Lab Interpretation (test Abnormal code = 24552-2) [facility] MethodistComprehensive metabolic [id number] 05:01:00 Test Item Value Reference Interpretation Comments [...] Non-Afr. 55 > OR = 60 L [place]amese (test code mL/min/1.73m2 = 2775) EGFR 64 > OR = 60 [place] (test code mL/min/1.73m2 = 47676-8) BUN/creatinine 15 6- 22 (calc) ratio (test code = 3097-3) Sodium (test code = 138 mmol/L 012-145 8334-2) Potassium (test 4.0 mmol/L 3.5-5.3 code = 2823-3) Chloride (test code 103 mmol/L 98-110 = 2075-0) CO2 (test code = 26 mmol/L 20-32 2027-9) Calcium (test code 9.2 mg/dL 8.6-10.3 = 49395-9) Protein (test code 6.7 g/dL 6.1-8.1 = 2885-2) Albumin, S (test 3.9 g/dL 3.6-5.1 code = 1751-7) Globulin, total 2.8 1.9- 3.7 g/dL (test code = (calc) 39582-9) Albumin/globulin 1.4 1.0- 2.5 ratio (test code = (calc) 1759-0) Total bilirubin 0.3 mg/dL 0.2-1.2 (test code = 1975-2) Alkaline 26 U/L 35-144 L phosphatase (test code = 6768-6) AST (test code = 22 U/L 10-35 1920-8) ALT (test code = 23 U/L 9-46 1742-6) RAC (test code = Performing RAC) Organization Information: Site ID: [id number] Name: [facility] Address: [address] [place] [id number] Director: Benjamin Garcia Lab Interpretation Abnormal (test code = 98530-8) [facility] MethodistCreatine kinase, total (CPK)2019-02-06 02:16:22 Test Item Value Reference Range Interpretation Comments Creatine kinase (test code = 2157-6) 88 U/L 39-308 [facility] MethodistECG 12 [id number] 19:41:49 Test Item Value Reference Range Interpretation Comments Ventricular rate (test 64 code = 253) Atrial rate (test code 64 = 255) WI interval (test code 178 = 266) QRSD [...] abnormality no longer evident in Anterolateral leads- [facility] MethodistPT and [id number] 04:44:00 Test Item Value Reference Interpretation Comments Range PTT (test code 32 22- 34 sec This test medel s not been = 24033-6) validated for monitoringunfra ctionated heparin therapy . For testing thatis validated for this type o f therapy, please referto the Heparin Anti-Xa assay ( test code 46091). For add itional information, pl ease refer [email or web address] ion.[place]/fa q/YNL170(Thi s link is being provided for informational/e ducational purposes only.) INR (test code 1.0 Reference Ran ge = 6301-6) 0.9-1.1Moderate -intensity Warfarin Therap y 2.0-3.0Higher-i ntensity Warfarin Therap y 3.0-4.0 Prothrombin 10.3 9.0- 11.5 time (test code sec = 5902-2) YOLETTE (test code FASTING:NOFASTIN = YOLETTE) G: NO RAC (test code Performing = RAC) Organization Information: Site ID: RGA Name: [facility] Address: [address] [place] [phone] Director: Benjamin Garcia [facility] [id number] 10:26:33 Test Item Value Reference Range Interpretation Comments POC sodium (test code = 140 mmol/L 157-307 4920-0) POC potassium (test 3.9 mmol/L 3.5-5 code = 6298-4) POC chloride (test code 102 mmol/L 99-109 = 2069-3) POC CO2 (test code = 28 mmol/L 24-31 97134-4) POC glucose (test code 92 mg/dL 65-99 = 2339-0) POC BUN (test code = 10 mg/dL 8-24 6299-2) POC creatinine (test 1.0 mg/dl 0.7-1.2 code = 88103-3) POC hematocrit (test 51 % 41-51 code = 4544-3) POC anion gap (test 15 mmol/L 8-20 Meter ID : code = [id number]) [id number] or: [facility]ight Ped[facility] ankle brachial [id number] 00:03:00Interface, Radiology Results In - 01/01/2019 12:03 AM CDT Vascular Diagnostic Laboratory Physiologic Arterial Leg Report [address] [place] [address] Pat.Name: ROGER ESPINAL Pat.ID: [id number] St.Date: 12/31/2018 Refer.MD: ALEXIS FARAH MD Exam Time: 9:32:00 AM Study Type:Physiologic Leg Age: 5 1940,78Y Sex: MALE Sonogrphr: Natalia Pruitt RVT Pat. Stat.:Outpatient Room: [facility] 16 Tape Vol: RF,CPT - 4: 47270 Echo Event ID:[id number] Order ID: [id number] Reason for Study:Absent bilateral pedal pulses from [...] Aorta And Bilateral Iliofemoral Runoff W Wo [id number] 15:25:27Hm Interface, Radiology Results 12/31/2018 3:28 PM [...] the level the ankle where it provides report specialist supply to the foot via hypertrophic [...] descending colon without evidence of acute diverticular less.[facility]-[id number] [facility] [id number] 11:26:32 Test Item Value Reference Range Interpretation Comments POC creatinine (test 1.1 mg/dl 0.7-1.2 Meter I D: code = 21305-6) 292190Emrqqy or: [facility], [facility], BRAIN, WITHOUT [id number] 13:15:00Reason for exam:->Ischemic Stroke EvaluationReason for exam:->discharge pendingFINAL REPORT MRA brain and neck without contrast 12/14/2017 1:14 PM CLINICAL HISTORY: Ischemic Stroke Evaluationdischarge pendingstroke COMPARISON: None available TECHNIQUE: Two- and three-dimensional lwmk-qz-zkxbqz MRA images of the intra- and extracranial arterial vasculature was performed, from which maximal intensity projection 3-D reconstructions were created. FINDINGS: MRAneck: There is no vessel occlusion or flow-limiting stenosis. There is no NASCET-quantifiable cervical internal carotid artery stenosis. Flow is antegrade in both vertebral arteries. MRA [place]: There is no vessel occlusion, flow-limiting stenosis, or aneurysm. IMPRESSION: Unremarkable intra- and extracranial MRAs. Signed: Selam Montano Verified Date/Time: 12/14/2017 13:15:40 Reading Location: [facility] Radiology Reading Room MR, MRA, NECK, WITHOUT IV [id number] 13:15:00Reason for exam:->Ischemic Stroke EvaluationReason for exam:->discharge pendingFINAL REPORT MRA brain and neck without contrast 12/14/2017 1:14 PM CLINICAL HISTORY: Ischemic Stroke Evaluationdischarge pendingstroke COMPARISON: None available TECHNIQUE: Two- and three-dimensional bvey-bl-vubtha MRA images of the intra- and extracranial arterial vasculature was performed, from which maximal intensity projection 3-D reconstructions were created. FINDINGS: MRAneck: There is no vessel occlusion or flow-limiting stenosis. There is no NASCET- quantifiable cervical internal carotid artery stenosis. Flow is antegrade in both vertebral arteries. MRA [place]: There is no vessel occlusion, flow-limiting stenosis, or aneurysm. IMPRESSION: Unremarkable intra- and extracranial MRAs. Signed: Selam Montano Verified Date/Time: 12/14/2017 13:15:40 Reading Location: [facility] Radiology Reading Room MR, BRAIN, WITHOUT [id number] 13:13:00Discharge pendingReason for exam:- >Ischemic Stroke EvaluationFINAL [...] Montano Verified Date/Time: 12/14/2017 13:13:48 Reading Location: [facility] Radiology Reading Room [id number] 07:42:00 Test Item Value Reference Range Interpretation Comments MAGNESIUM (BEAKER) (test code = 2.2 mg/dL 1.6-2.6 627) Add-onCOMPREHENSIVE METABOLIC [id number] 04:37:00 Test Item Value Reference Range Interpretation [...] WBC 0-0 (BEAKER) (test code = 413) [id number] 06:03:00 Test Item Value Reference Range Interpretation Comments PHOSPHORUS (BEAKER) (test code = 3.9 mg/dL 2.3-4.7 604) [id number] 06:03:00 Test Item Value Reference Range Interpretation Comments MAGNESIUM (BEAKER) (test code = 2.1 mg/dL 1.6-2.6 627) FastingBASIC METABOLIC [id number] 06:03:00 Test Item Value Reference Range Interpretation [...] NOT APPLICABLE FOR DIALYSIS PATIEN TS. FastingLIPID [id number] 06:03:00 Test Item Value Reference Range Interpretation [...] >=190 FastingCT BRAIN WITHOUT IV CONTRAST - [id number] 05:38:00 Reason for exam:->post-tPAFINAL REPORT CT BRAIN [...] MDReport Verified Date/Time: 12/11/2017 05:38:21 Reading Location: [address] Reading Room VITAMIN [id number] 05:27:00 Test Item Value Reference Range Interpretation Comments VITAMIN B12 (BEAKER) (test code = 843 pg/mL 213-816 H 774) TSH/FREE T4 IF [id number] 05:27:00 Test Item Value Reference Range Interpretation Comments THYROID STIMULATING HORMONE 1.84 uIU/mL 0.35-4.94 (BEAKER) (test code = 772) CBC W/PLT COUNT & AUTO [id number] 04:48:00 Test Item Value Reference Range Interpretation [...] 0-1 PERCENT (BEAKER) (test code = 2801) [id number] 02:11:00 Test Item Value Reference Range Interpretation Comments RPR SCREEN (BEAKER) (test code = Nonreactive Nonreactive 420) HEPATIC FUNCTION [id number] 20:49:00 Test Item Value Reference Range Interpretation [...] = 22 U/L 6-55 347) BASIC METABOLIC [id number] 20:49:00 Test Item Value Reference Range Interpretation [...] PATIEN TS. CBC W/PLT COUNT & AUTO [id number] 20:48:00 Test Item Value Reference Range Interpretation [...] PERCENT (BEAKER) (test code = 2801) HEMOGLOBIN [id number] 20:31:00 Test Item Value Reference Range Interpretation Comments HEMOGLOBIN A1C (BEAKER) (test code = 6.2 % 4.3-6.1 H 368) PROTHROMBIN TIME/[id number] 20:23:00 Test Item Value Reference Range Interpretation [...]
--- NOTE | 2019-08-08 13:40 | ER ---
Nurse's Notes [facility] Name: Regino Galindo Jr Age: 79 yrs Sex: Male : 1940 Arrival Date: 08/08/2019 Time: 13:03 Bed 3 Private MD: Diagnosis: Angioneurotic edema Presentation: 08/07 13:06 Chief complaint: Patient states: lip swelling started last night. Pt reports previous sv allergic reaction to Lisinopril and was taken off it it but he recently got a new MD and they placed him on it and he had forgotten he was allergic to this medication. Benadryl 2 tabs taken at 0800 and 1200 today. Denies SOB, trouble swallowing, or decreased airway. Coronavirus screen: Proceed with normal triage. Patient denies a cough. Patient denies shortness of breath or difficulty breathing. Patient denies measured and/or subjective temperature greater than 100.4F prior to today's visit. Patient denies travel on a cruise ship or to a country the [facility] currently lists as an affected area. Patient denies contact with known and/or suspected case of COVID-19. Ebola Screen: No symptoms or risks identified at this time. Risk Assessment: Do you want to hurt yourself or someone else? Patient reports no desire to harm self or others. Onset of symptoms was August 07, 2019. 13:06 Method Of Arrival: Ambulatory sv 13:06 Acuity: DEANGELO 3 sv 13:08 Initial Sepsis Screen: Does the patient meet any 2 criteria? No. Patient's initial sv sepsis screen is negative. Does the patient have a suspected source of infection? No. Patient's initial sepsis screen is negative. Triage Assessment: 13:06 General: Appears in no apparent distress. comfortable, Behavior is calm, cooperative, sv appropriate for age. Pain: Denies pain. EENT: lip swelling. Neuro: Level of Consciousness is awake, alert, obeys commands, Gait is steady, Speech is normal. Respiratory: Airway is patent Respiratory effort is even, unlabored, Respiratory pattern is regular, symmetrical. Historical: - Allergies: 13:08 Acetaminophen-Codeine; sv 13:08 Codeine; sv 13:08 Lisinopril; sv - PMHx: 13:08 CVA; Hyperlipidemia; Hypertension; sv - Immunization history:: Adult Immunizations up to date. - Social history:: Smoking status: Patient denies any tobacco usage or history of. Screenin:52 Abuse screen: Denies threats or abuse. Nutritional screening: No deficits noted. em Tuberculosis screening: No symptoms or risk factors identified. Fall Risk None identified. Assessment: 13:42 General: Appears in no apparent distress. comfortable, Behavior is calm, cooperative, em appropriate for age. Pain: Denies pain. Neuro: Level of Consciousness is awake, alert, obeys commands, Oriented to person, place, time, situation, Appropriate for age. Cardiovascular: Capillary refill < 3 seconds Patient's skin is warm and dry. Respiratory: Airway is patent Respiratory effort is even, unlabored, Respiratory pattern is regular, symmetrical, Breath sounds are clear bilaterally. Denies shortness of breath labored breathing. EENT: Nares are clear Oral mucosa is moist. bottom lip swelling noted . Derm: Skin is intact, is healthy with good turgor, Skin is pink, warm \T\ dry. Musculoskeletal: Capillary refill < 3 seconds, Range of motion: intact in all extremities. Vital Signs: 13:08 BP 139 / 71; Pulse 69; Resp 16; Temp 99.2; Pulse Ox 100% ; Weight 73.94 kg; Height 5 sv ft. 8 in. (172.72 cm); 13:08 Body Mass Index 24.79 (73.94 kg, 172.72 cm) sv ED Course: 13:03 Patient arrived in ED. mr 13:08 Triage completed. sv 13:08 Arm band placed on. sv 13:17 [facility] 13:17 Rik Lozoya MD is Attending Physician. [facility] 13:44 Tong Dewitt, JOON is Primary Nurse. em 13:52 Patient has correct armband on for positive identification. Bed in low position. Call em light in reach. Adult w/ patient. Pulse ox on. NIBP on. 13:52 No provider procedures requiring assistance completed. Patient did not have IV access em during this emergency room visit. Administered Medications: No medications were administered Outcome: 13:38 Discharge ordered by . [facility] 13:54 Discharged to home ambulatory. em 13:54 Condition: good 13:54 Discharge instructions given to patient, Instructed on discharge instructions, follow up and referral plans. medication usage, Demonstrated understanding of instructions, follow-up care, medications, Prescriptions given X 1. 13:55 Patient left the ED. em Signatures: Mattie Alvarez, RN RN Aidan Ibarra PA PA jmm Rivera, Mary mr DewittTong, RN RN em Corrections: (The following items were deleted from the chart) 13:10 13:08 73.94 kg; Height 5 ft. 8 in.; BMI: 24.7; sv sv 13:11 13:08 Pulse 69bpm; Resp 16bpm; Pulse Ox 100%; Temp 99.2F; 73.94 kg; Height 5 ft. 8 in.; sv BMI: 24.7; sv 13:11 13:08 Pulse 69bpm; Resp 16bpm; Pulse Ox 100%; Temp 99.2F; 73.94 kg; Height 5 ft. 8 in.; sv BMI: 24.7; sv 13:14 13:06 Chief complaint: Patient states: lip swelling started last night. Pt reports sv previous allergic reaction to Lisinopril and was taken off it it but he recently got a new MD and they placed him on it and he had forgotten he was allergic to this medication. Benadryl 2 tabs taken at 0800 and 1200 today sv
--- NOTE | 2019-08-08 13:40 | EDPHYS ---
Physician Documentation [facility] Name: Regino Galindo Jr Age: 79 yrs Sex: Male : 1940 Arrival Date: 08/08/2019 Time: 13:03 Bed 3 Private MD: ED Physician Rik Lozoya HPI: 08/07 13:25 This 79 yrs old Black Male presents to ER via Ambulatory with complaints of Lips jmm Swelling. 13:25 The patient presents with swelling. Onset: The symptoms/episode began/occurred jmm yesterday. Modifying factors: The symptoms are alleviated by over the counter medications, benadryl. Associated signs and symptoms: Pertinent negatives: fever. This is an 79 year old male with a history of CVA, HLP, HTN that presents to the ED with complaints of lower lip swelling beginning last night. Patient states he began taking lisinopril 2 weeks ago. Patient states taking benadryl last night when he noticed his lower lip was swollen. Denies vomiting, shortness of breath. Patient states today his swelling has decreased. . Historical: - Allergies: 13:08 Acetaminophen-Codeine; sv 13:08 Codeine; sv 13:08 Lisinopril; sv - PMHx: 13:08 CVA; Hyperlipidemia; Hypertension; sv - Immunization history:: Adult Immunizations up to date. - Social history:: Smoking status: Patient denies any tobacco usage or history of. ROS: 13:25 Constitutional: Negative for fever, chills, and weight loss, Cardiovascular: Negative jmm for chest pain, palpitations, and edema, Respiratory: Negative for shortness of breath, cough, wheezing, and pleuritic chest pain. 13:25 ENT: Positive for lip swelling. 13:25 All other systems are negative. Exam: 13:25 Constitutional: This is a well developed, well nourished patient who is awake, alert, jmm and in no acute distress. Head/Face: atraumatic. Eyes: EOMI, no conjunctival erythema appreciated 13:25 Neck: Trachea midline, Supple Chest/axilla: Normal chest wall appearance and motion. Cardiovascular: Regular rate and rhythm. No edema appreciated Respiratory: Normal respirations, no respiratory distress appreciated Abdomen/GI: Non distended, soft Back: Normal ROM Skin: General appearance color normal MS/ Extremity: Moves all extremities, no obvious deformities appreciated, no edema noted to the lower extremities Neuro: Awake and alert, normal gait Psych: Behavior is normal, Mood is normal, Patient is cooperative and pleasant 13:25 ENT: lower lip swelling appreciated, no pharyngeal edema is appreciated. Vital Signs: 13:08 BP 139 / 71; Pulse 69; Resp 16; Temp 99.2; Pulse Ox 100% ; Weight 73.94 kg; Height 5 sv ft. 8 in. (172.72 cm); 13:08 Body Mass Index 24.79 (73.94 kg, 172.72 cm) sv MDM: 13:19 [facility] 13:34 Data reviewed: vital signs, nurses notes. Counseling: I had a detailed discussion with bhupendra the patient and/or guardian regarding: the historical points, exam findings, and any diagnostic results supporting the discharge/admit diagnosis, the need for outpatient follow up, to return to the emergency department if symptoms worsen or persist or if there are any questions or concerns that arise at home. ED course: PE consistent with angioedema. Base on HPI course is improving. Patient is advised to discontinue with lisinopril and follow up with cardiology for medication maintenance. Patient is otherwise given strict return precautions. . Administered Medications: No medications were administered Disposition: 19:28 Co-signature as Attending Physician, Rik Lozoya MD I agree with the assessment and [facility] plan of care. Attestation: The patient's history, exam findings, diagnostics, and a summary of any interventions or procedures was reviewed in detail with Rik Lozoya MD. Disposition: 08/08/19 13:38 Discharged to Home. Impression: Angioneurotic edema. - Condition is Stable. - Discharge Instructions: Angioedema. - Prescriptions for Medrol (Kevin) 4 mg Oral Tablets, Dose Pack - take 1 tablet by ORAL route as directed - follow package instructions; 1 packet. - Medication Reconciliation Form, Thank You Letter, Antibiotic Education, Prescription Opioid Use form. - Follow up: Private Physician; When: 2 - 3 days; Reason: Recheck today's complaints, Continuance of care, Re-evaluation by your physician. Signatures: Mattie Alvarez RN RN sv Mickail, Joel, PA PA Tong Jimenez RN RN em Holmes, Maurice, MD MD [facility] Corrections: (The following items were deleted from the chart) 13:55 13:38 08/08/2019 13:38 Discharged to Home. Impression: Angioneurotic edema. Condition em is Stable. Forms are Medication Reconciliation Form, Thank You Letter, Antibiotic Education, Prescription Opioid Use. Follow up: Private Physician; When: 2 - 3 days; Reason: Recheck today's complaints, Continuance of care, Re-evaluation by your physician. rodri
[2019-08-08 14:01] VITALS: BP 139/71; TEMP 99.2; O2SAT 100
== END 2019-08-08 13:55 | disposition home or self-care (01) ==
LOC: ER 12:59
DX: T78.3XXA Angioneurotic edema, initial encounter (principal); I10 Essential (primary) hypertension; E78.5 Hyperlipidemia, unspecified; Z86.73 Personal history of transient ischemic attack (TIA), and cerebral infarction without residual deficits
CPT/HCPCS: 99283

== ENCOUNTER 2019-12-18 10:22 | Emergency (ER) | payer OTHER ==
--- NOTE | 2019-12-18 11:58 | ER ---
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 Pain has been increasing since. No SOB or fever. Coronavirus screen: Client denies travel out of the [place] in the last 14 days. At this time, the client does not indicate any symptoms associated with coronavirus-19. Ebola Screen: Patient denies travel to an Ebola-affected area in the 21 days before illness onset. Initial Sepsis Screen: Does the patient meet any 2 criteria? No. Patient's initial sepsis screen is negative. Risk Assessment: Do you want to hurt yourself or someone else? Patient reports no desire to harm self or others. Onset of symptoms was December 16, 2019. 10:43 Method Of Arrival: Ambulatory ll1 10:43 Acuity: DEANGELO 4 ll1 12:05 Initial Sepsis Screen: Does the patient have a suspected source of infection? No. ll1 Patient's initial sepsis screen is negative. Historical: - Allergies: 10:45 Acetaminophen-Codeine; ll1 10:45 Codeine; ll1 10:45 Lisinopril; ll1 - PMHx: 10:45 CVA; Hyperlipidemia; Hypertension; ll1 - Immunization history:: Flu vaccine is up to date. - Social history:: Smoking status: Patient denies any tobacco usage or history of. Screenin:05 Abuse screen: Denies threats or abuse. Nutritional screening: No deficits noted. ll1 Tuberculosis screening: No symptoms or risk factors identified. Fall Risk None identified. Total Paez Fall Scale indicates No Risk (0-24 pts). Assessment: 12:03 General: Appears uncomfortable, Behavior is calm, cooperative. Pain: Complains of pain ll1 in Right lateral rib cage Pain currently is 5 out of 10 on a pain scale. Quality of pain is described as aching. Respiratory: Airway is patent Trachea midline Respiratory effort is even, unlabored, Respiratory pattern is regular, symmetrical, Breath sounds are clear bilaterally. Denies shortness of breath. Musculoskeletal: Circulation, motion, and sensation intact. Capillary refill < 3 seconds, Tenderness present in R lateral rib cage Reports pain in R lateral rib cage pain. Injury Description: Bruise. Vital Signs: 10:43 BP 170 / 89; Pulse 74; Resp 17; Temp 97.9; Pulse Ox 100% ; Weight 73.94 kg; Height 5 ll1 ft. 8 in. (172.72 cm); Pain 5/10; 10:43 Body Mass Index 24.78 (73.94 kg, 172.72 cm) ll1 ED Course: 10:26 Patient arrived in ED. mr 10:44 Triage completed. ll1 10:45 Arm band placed on. ll1 11:55 Baljinder Mcleod PA is PHCP. jr8 11:55 Mathieu Alvarez MD is Attending Physician. jr8 11:56 CT Chest Wo Con In Process Unspecified. EDUT 12:03 Ale Carrillo RN is Primary Nurse. ll1 12:05 Patient has correct armband on for positive identification. Bed in low position. Call ll1 light in reach. Side rails up X 1. Cardiac monitoring not applicable on this patient. 12:05 No provider procedures requiring assistance completed. Patient did not have IV access ll1 during this emergency room visit. Administered Medications: No medications were administered Outcome: 11:57 Discharge ordered by . jr8 12:05 Discharged to home ambulatory. ll1 12:05 Condition: stable 12:05 Instructed on discharge instructions, follow up and referral plans. medication usage. 12:05 Discharge instructions given to patient, Demonstrated understanding of instructions, follow-up care, medications, Prescriptions given X 1. 12:06 Patient left the ED. ll1 Signatures: Dispatcher [employer] [facility] Ana Milton mr Baljinder Mcleod PA PA jr8 Ale Carrillo, RN RN 1
--- NOTE | 2019-12-18 11:58 | EDPHYS ---
Physician Documentation [facility] Name: Regino Galindo Jr Age: 79 yrs Sex: Male : 1940 Arrival Date: 12/18/2019 Time: 10:26 Bed 12 Private MD: ED Physician Mathieu Alvarez HPI: 12/17 12:07 This 79 yrs old Black Male presents to ER via Ambulatory with complaints of Rib pain. jr8 12:07 The patient or guardian reports chest pain that is located primarily in the anterior jr8 chest wall, right lateral anterior chest. Onset: The symptoms/episode began/occurred acutely, 2 day(s) ago. The pain does not radiate. Associated signs and symptoms: The patient has no apparent associated signs or symptoms. The chest pain is described as sharp. Duration: The patient or guardian reports a single episode. Severity of pain: At its worst the pain was moderate in the emergency department the pain is unchanged. The patient has not experienced similar symptoms in the past. The patient has not recently seen a physician. 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 Pain since then that has worsened . Historical: - Allergies: 10:45 Acetaminophen-Codeine; ll1 10:45 Codeine; ll1 10:45 Lisinopril; ll1 - PMHx: 10:45 CVA; Hyperlipidemia; Hypertension; ll1 - Immunization history:: Flu vaccine is up to date. - Social history:: Smoking status: Patient denies any tobacco usage or history of. ROS: 12:07 Eyes: Negative for injury, pain, redness, and discharge, ENT: Negative for injury, jr8 pain, and discharge, Neck: Negative for injury, pain, and swelling, Respiratory: Negative for shortness of breath, cough, wheezing, and pleuritic chest pain, Abdomen/GI: Negative for abdominal pain, nausea, vomiting, diarrhea, and constipation, Back: Negative for injury and pain, MS/Extremity: Negative for injury and deformity, Skin: Negative for injury, rash, and discoloration, Neuro: Negative for headache, weakness, numbness, tingling, and seizure. 12:07 Cardiovascular: Positive for chest pain, with movement, Negative for edema, orthopnea, palpitations, paroxysmal nocturnal dyspnea. Exam: 12:07 Eyes: Pupils equal round and reactive to light, extra-ocular motions intact. Lids and jr8 lashes normal. Conjunctiva and sclera are non-icteric and not injected. Cornea within normal limits. Periorbital areas with no swelling, redness, or edema. ENT: Nares patent. No nasal discharge, no septal abnormalities noted. Tympanic membranes are normal and external auditory canals are clear. Oropharynx with no redness, swelling, or masses, exudates, or evidence of obstruction, uvula midline. Mucous membranes moist. Neck: Trachea midline, no thyromegaly or masses palpated, and no cervical lymphadenopathy. Supple, full range of motion without nuchal rigidity, or vertebral point tenderness. No Meningismus. Cardiovascular: Regular rate and rhythm with a normal S1 and S2. No gallops, murmurs, or rubs. Normal PMI, no JVD. No pulse deficits. Respiratory: Lungs have equal breath sounds bilaterally, clear to auscultation and percussion. No rales, rhonchi or wheezes noted. No increased work of breathing, no retractions or nasal flaring. Abdomen/GI: Soft, non-tender, with normal bowel sounds. No distension or tympany. No guarding or rebound. No evidence of tenderness throughout. Back: No spinal tenderness. No costovertebral tenderness. Full range of motion. Skin: Warm, dry with normal turgor. Normal color with no rashes, no lesions, and no evidence of cellulitis. MS/ Extremity: Pulses equal, no cyanosis. Neurovascular intact. Full, normal range of motion. Neuro: Awake and alert, GCS 15, oriented to person, place, time, and situation. Cranial nerves II-XII grossly intact. Motor strength 5/5 in all extremities. Sensory grossly intact. Cerebellar exam normal. Normal gait. 12:07 Chest/axilla: Inspection: normal, Palpation: tenderness, that is mild, of the right lateral anterior chest, that totally reproduces the patient's complaints. Vital Signs: 10:43 BP 170 / 89; Pulse 74; Resp 17; Temp 97.9; Pulse Ox 100% ; Weight 73.94 kg; Height 5 ll1 ft. 8 in. (172.72 cm); Pain 5/10; 10:43 Body Mass Index 24.78 (73.94 kg, 172.72 cm) ll1 MDM: 11:26 ED course: Pt to CT via Wheelchair. snw 11:55 Patient medically screened. jr8 11:55 Data reviewed: vital signs, nurses notes, radiologic studies, CT scan, and as a result, jr8 I will discharge patient. Data interpreted: Pulse oximetry: on room air is 100 %. Interpretation: normal. Counseling: I had a detailed discussion with the patient and/or guardian regarding: the historical points, exam findings, and any diagnostic results supporting the discharge/admit diagnosis, radiology results, the need for outpatient follow up, a family practitioner, to return to the emergency department if symptoms worsen or persist or if there are any questions or concerns that arise at home. 11:58 ED course: CT + 10th rib fx, no displacement, probable *8th and 9th" nondisplaced fx, snw no pneumothorax, no pulmonary contusion per Dr. Spring.. 12/17 11:15 Order name: CT Chest Wo Con snw Administered Medications: No medications were administered Disposition: 12/18 09:17 Co-signature as Attending Physician, Mathieu Alvarez MD I agree with the assessment and kdr plan of care. Disposition: 12/18/19 11:57 Discharged to Home. Impression: Multiple fractures of ribs, right side. - Condition is Stable. - Discharge Instructions: Rib Fracture. - Prescriptions for meloxicam 15 mg Oral tablet - take 1 tablet by ORAL route once daily As needed; 20 tablet. - Medication Reconciliation Form, Thank You Letter, Antibiotic Education, Prescription Opioid Use form. - Follow up: Private Physician; When: 5 - 6 days; Reason: Recheck today's complaints, Continuance of care, Re-evaluation by your physician. - Problem is new. - Symptoms have improved. Signatures: Dispatcher [employer] EDMS Mathieu Alvarez MD MD kdr Waters, Shelly, MACHINE TOOL DRESSER-C MACHINE TOOL DRESSER-Csnw Baljinder Mcleod PA PA jr8 Ale Carrillo RN RN ll1 Corrections: (The following items were deleted from the chart) 12/17 12:06 11:57 12/18/2019 11:57 Discharged to Home. Impression: Multiple fractures of ribs, ll1 right side. Condition is Stable. Forms are Medication Reconciliation Form, Thank You Letter, Antibiotic Education, Prescription Opioid Use. Follow up: Private Physician; When: 5 - 6 days; Reason: Recheck today's complaints, Continuance of care, Re-evaluation by your physician. Problem is new. Symptoms have improved. jr8
[2019-12-18 12:10] VITALS: BP 170/89; TEMP 97.9; O2SAT 100
--- NOTE | 2019-12-19 13:21 | RAD REPORT ---
EXAM DESCRIPTION: CT - Thorax Wo Con - 12/18/2019 10:20 pm CLINICAL HISTORY: PAIN, fall with right-sided chest trauma COMPARISON: No comparisons TECHNIQUE: Axial 5 mm thick images of the chest were obtained without IV contrast. All CT scans are performed using dose optimization technique as appropriate and may include automated exposure control or mA/KV adjustment according to patient size. FINDINGS: No mass, infiltrate or pulmonary contusion identified. No pleural thickening or pleural ef fusion. No pneumothorax. No abnormal mediastinal or hilar masses or lymphadenopathy seen. No gross aortic or pulmonary artery finding suspected. Assessment is limited in the absence of IV contrast. No pericardial effusion. Patient has a nondisplaced fracture of the lateral right tenth rib. Slight cortical irregularity coul d be incomplete fractures in the lateral right eighth and ninth ribs. No chest wall mass. No axillary lymphadenopathy. Final report was delayed due to supervisor delivery department system malfunction. Findings were telephoned to the ref erring clinician at the time of the study. IMPRESSION: Nondisplaced lateral right tenth rib fracture. Possible incomplete fractures of the lateral right eighth and ninth ribs.
== END 2019-12-18 12:06 | disposition home or self-care (01) ==
LOC: ER 10:22
DX: S22.41XA Multiple fractures of ribs, right side, initial encounter for closed fracture (principal); X58.XXXA Exposure to other specified factors, initial encounter; Y93.89 Activity, other specified; Y92.9 Unspecified place or not applicable; I10 Essential (primary) hypertension; Z88.5 Allergy status to narcotic agent; Z88.6 Allergy status to analgesic agent; Z88.8 Allergy status to other drugs, medicaments and biological substances
CPT/HCPCS: 71250; 99283

== ENCOUNTER 2020-08-06 11:01 | Emergency (ER) | payer OTHER ==
--- OUTSIDE RECORDS SUMMARY | 2020-08-06 11:04 | XMS REPORT | Continuity of Care Document ---
:1940 Author Organization [facility] t Address [address] [place] [place] [address] Care Team Providers Name Role Phone Keyon Matthew MD Primary Care Physician Winter Connolly MD Attending Clinician Chino CORDON Attending Clinician Unavailable Elizabeth CORDON Attending Clinician Unavailable CHAPINCITO Attending Clinician Unavailable RAHUL LUNA Attending Clinician Unavailable GAGAN Admitting Clinician Unavailable RAHUL LUNA Admitting Clinician Unavailable Payers Payer Name Policy Type Policy Effective Date Expiration Date Sour ce Number AETNA MEDICAREAETNA [id number] 2019 [facility] MEDICARE HMO/PPO 0 00:00:00 Methodis t [id number]/ 2020-PresentHMO Problems Condition Condition Condition Status Onset Resolution Last Treating Co mments Source Name Details Category Date Date Treatment Clinician Date PVD PVD Disease Active 2018-03 Overview: Naseem n (periphera (periphera 1-08 [facility]att[place] Method[facility] l vascular l vascular 00:00: g of this st disease) disease) 00 note might be different from the original. Added automatic ally from request for surgery [id number] PAD PAD Disease Active [place] (periphera (periphera 9-24 Me thodi l artery l artery 00:00: st disease) disease) 00 Establishi Establishi Disease Active [facility] 7-16 Methodi with new with new 00:00: st doctor, doctor, 00 encounter encounter for for Stroke Stroke Disease Active [place] 9-24 Methodi 00:00: st 00 Allergies, Adverse Reactions, Alerts Allergy Allergy Status Severity Reaction(s) Onset Inactive Treating Comm ents Source Name Type Date Date Clinician Acetamin Propensi Active Hallucinatio 2018-03 [place] ophen-Co ty to ns 0-16 Methodi deine adverse 00:00: st reaction 00 s to drug Codeine Propensi Active Anaphylaxis [place] to 7-16 Methodi adverse 00:00: st reaction 00 s to drug Social History Social Habit Start Date Stop Date Quantity Comments Source History of Current smoker [facility] thodist tobacco use Tobacco use and 2020-03-16 2020-03-16 Never used [facility] ethodist exposure 00:00:00 00:00:00 Alcohol intake 2020-03-16 2020-03-16 Current drinker [place] [facility] 00:00:00 00:00:00 of alcohol (finding) Alcohol Comment 2019-07-24 2019-07-24 every other day [place] [facility] 00:00:00 00:00:00 Beer Sex Ass[birth year] At [birth year] [facility] ethodist 00:00:00 00:00:00 Smoking Status Start Date Stop Date Source Former smoker 2020-03-16 00:00:00 2020-03-16 00:00:00 [place] [facility] Medications Ordered Filled Start Stop Current Ordering Indication Dosage Frequency Signature Comments Components Source Medication Medication Date Date Medication? Clinician (SIG) Name Name ascorbic 2019-03 Yes 500mg QD Take 500 [place] acid, 2-29 mg by Methodi vitamin C, 13:08: mouth st (VITAMIN C) 38 daily. 500 MG tablet omega 2019-03 Yes 1{tbl} QD Take 1 [facility] 3-dha-epa-f 2-29 tablet by Met hodi maria guadalupe oil 13:08: mouth st (FISH OIL) 38 daily. 1,000 mg (120 mg-180 mg) capsule cyanocobala 2019-03 Yes 100ug Q2D Take 100 [place] min 100 MCG 2-29 mcg by Method i tablet 13:08: mouth st 38 every other day. coenzyme 2019-03 Yes 10mg QD Take 10 mg Gerber ston Q10 (CO 2-29 by mouth Methodi Q-10) 100 13:08: daily. st mg capsule 38 multivitami 2019-03 Yes 1{tbl} QD Take 1 [place] n 2-29 tablet by Methodi (THERAGRAN) 13:08: mouth st tablet 38 daily. amLODIPine 2019-03 Yes 10mg QD Take 10 mg H oudhiraj (NORVASC) 2-29 by mouth Method i 10 mg 13:08: daily. st tablet 38 ticagrelor 2019-03 Yes 90mg Q.5D Take 1 [place] (Brilinta) 2-14 tablet (90 Met hodi 90 mg 00:00: mg total) st tablet 00 by mouth 2 (two) times a day. aspirin 2019-03 No 81mg QD Take 1 [facility] (ECOTRIN) 0-12 10-07 tablet (81 Met hodi 81 MG 00:00: 23:59 mg total) st enteric 00 :00 by mouth coated daily for tablet 360 days. lisinopriL 2019- No 5mg QD Take 1 [place] (PRINIVIL) 5-13 06-12 tablet (5 Met hodi 5 mg tablet 00:00: 23:59 mg total) st 00 :00 by mouth daily for 30 days. metoprolol 2019- No 75mg QD Take 3 [place] succinate 5-13 06-12 tablets Method i XL 00:00: 23:59 ([address] (TOPROL-XL) 00 :00 total) by 25 mg 24 hr mouth tablet daily for 30 days. gabapentin Yes 300mg [id number] Take 300 [facility] (NEURONTIN) 2-19 [id number] mg by M ethodi 300 mg 00:00: 3D mouth 3 st capsule 00 (three) times a day. aspirin 2018-03- No 81mg QD Take 1 [facility] (ECOTRIN) 1-22 10-12 tablet (81 Met hodi 81 MG 00:00: 00:00 mg total) st enteric 00 :00 by mouth coated daily for tablet 360 days. ticagrelor 2018-03- No 90mg Q.5D Take 1 [place] (BRILINTA) 1-21 11-15 tablet (90 Me thodi 90 mg 00:00: 23:59 mg total) st tablet 00 :00 by mouth 2 (two) times a day for 360 days. atorvastati Yes 20mg QD Take 20 mg [facility] n (LIPITOR) 6-25 by mouth Meth shanita 20 MG 00:00: daily. st tablet 00 pantoprazol 2018-0 Yes 40mg QD Take [address] [facility] 9- tablet ([facility] - (PROTONIX) 00:00: mg total) Me dical 40 MG 00 by mouth Center tablet daily. pantoprazol 2018-0 Yes 40mg QD Take 40 mg [facility] e 9-28 by mouth Methodi (PROTONIX) 00:00: daily. st 40 MG EC 00 tablet Vital Signs Vital Name Observation Time Observation Value Comments Source Systolic blood 2020-03-16 13:08:00 158 mm[Hg] [facility] pressure Diastolic blood 2020-03-16 13:08:00 76 mm[Hg] [place] [facility] pressure Heart rate 2020-03-16 13:08:00 70 /min Foster Castillo Body height 2020-03-16 13:08:00 172.7 cm Foster Castillo Body weight 2020-03-16 13:08:00 79.833 kg Foster Castillo BMI 2020-03-16 13:08:00 26.76 kg/m2 Foster Castillo Procedures This patient has no known procedures. Plan of Care Planned Activity Planned Date Details Comments Source Future Scheduled 2020-10-17 INFLUENZA VACCINE [facility] Test 00:00:00 [code = INFLUENZA VACCINE] Future Scheduled 2019-11-18 INFLUENZA VACCINE (#1) [facility] Test 00:00:00 [code = INFLUENZA Medical Ce nter VACCINE (#1)] Future Scheduled 2018-03-[address] [facility] - Test 00:00:00 WELLNESS (YEAR 2 or Medical Center FIRST YEAR if no IPPE) [code = MEDICARE ANNUAL WELLNESS (YEAR 2 or FIRST YEAR if no IPPE)] Future Scheduled 2003-08-05 PNEUMOCOCCAL 65+ [facility]RS [facility] - Test 00:00:00 (1 of 1 - Medical Center [id number] PCV13) [code = PNEUMOCOCCAL 65+ YRS (1 of 1 - [id number] PCV13)] Future Scheduled 1988 SHINGLES VACCINES (#1) [facility] Test 00:00:00 [code = SHINGLES VACCINES (#1)] Future Scheduled 1950 COVID-19 VACCINE (1) [facility] Test 00:00:00 [code = COVID-19 VACCINE (1)] Future Scheduled 1944 65+ PNEUMOCOCCAL [place] [facility] Test 00:00:00 VACCINE (1 of 2 - PPSV23) [code = 65+ PNEUMOCOCCAL VACCINE (1 of 2 - PPSV23)] Encounters Start End Encounter Admission Attending Care Care Encounter Source Date/Time Date/Time Type Type Clinicians Facility Department ID 2020-03-16 2020-03-16 Outpatient GAGAN [facility] [id number] [place] 00:00:00 00:00:00 WINTER [address] 2019-09-09 2019-09-09 [facility] [id number] [place] 00:00:00 00:00:00 WINTER [address] 2019-07-24 2019-07-29 Inpatient CHAPINCITO, [facility] [id number] [place] 00:00:00 00:00:00 NEERU [address] 2019-06-03 2019-06-03 Outpatient [facility] [id number] [place] 00:00:00 00:00:[address] 2019-05-20 2019-05-20 [facility] [id number] [place] 00:00:00 00:00:00 WINTER [address] 2019-02-05 2019-02-06 [facility] [id number] [place] 00:00:00 00:00:00 WINTER [address] 2019-01-02 2019-01-04 [facility] [id number] [place] 00:00:00 00:00:00 WINTER [address] 2018-12-31 2018-12-31 [facility] [id number] [place] 00:00:00 00:00:00 WINTER [address] 2018-12-31 2018-12-31 [facility] [id number] [place] 00:00:00 00:00:00 WINTER [address] 2018-12-31 2018-12-31 [facility] [id number] [place] 00:00:00 00:00:00 WINTER [address] Results Test Test Test Comments Results Result Source Description Time Comments MR, MRA, BRAIN, 2017-11- Reason for FINAL REPORT PATIENT WITHOUT 28 exam:->Ischemic ID: [id number] MRA CONTRAST 13:15:00 Stroke brain and neck without EvaluationReason for contrast 12/14/2017 1:14 exam:->discharge PM CLINICAL HISTORY: pending Ischemic Stroke Evaluationdischarge pendingstroke COMPARISON: None available TECHNIQUE: Two- and three-dimensional clbl-ws-jlpeff MRA images of the intra- and extracranial arterial vasculature was performed, from which maximal intensity projection 3-D reconstructions were created. FINDINGS: MRA neck: There is no vessel occlusion or flow-limiting stenosis. There is no NASCET-quantifiable cervical internal carotid artery stenosis. Flow is antegrade in both vertebral arteries. MRA [place]: There is no vessel occlusion, flow-limiting stenosis, or aneurysm. IMPRESSION: Unremarkable intra- and extracranial MRAs. Signed: Shayne Petty Verified Date/Time: 12/14/2017 13:15:40 Reading Location: [facility] Reading Room , MRA, NECK, 2017-11- Reason for FINAL REPORT PATIENT WITHOUT IV 28 exam:->Ischemic ID: [id number] MRA CONTRAST 13:15:00 Stroke brain and neck without EvaluationReason for contrast 12/14/2017 1:14 exam:->discharge PM CLINICAL HISTORY: pending Ischemic Stroke Evaluationdischarge pendingstroke COMPARISON: None available TECHNIQUE: Two- and three-dimensional [id number]-tb-[id number] MRA images of the intra- and extracranial arterial vasculature was performed, from which maximal intensity projection 3-D reconstructions were created. FINDINGS: MRA neck: There is no vessel occlusion or flow-limiting stenosis. There is no NASCET-quantifiable cervical internal carotid artery stenosis. Flow is antegrade in both vertebral arteries. MRA [place]: There is no vessel occlusion, flow-limiting stenosis, or aneurysm. IMPRESSION: Unremarkable intra- and extracranial MRAs. Signed: Shayne Petty Verified Date/Time: 12/14/2017 13:15:40 Reading Location: [facility] Reading Room , BRAIN, 2017-11- Discharge FINAL REPORT PATIENT WITHOUT 28 pendingReason for ID: [id number] MRI CONTRAST 13:13:00 exam:->Ischemic brain without contrast Stroke Evaluation 12/14/2017 1:11 PM CLINICAL INDICATION: Ischemic Stroke [...] Petty Verified Date/Time: 12/14/2017 13:13:48 Reading Location: [facility] Radiology Reading Room ESIUM 2017-12-12 07:42:00 Test Item Value Reference Range Interpretation Comme nts MAGNESIUM (BEAKER) (test code = 627) 2.2 mg/dL 1.6-2.6 Add-onCOMPREHENSIVE METABOLIC [id number] 04:37:00 Test Item Value Reference Range Interpretation [...] 347) EGFR (BEAKER) (test 95 mL/min/1.73 ESTIMA SHANAE GFR IS code = 1092) sq m [...] WBC 0-0 (BEAKER) (test code = 413) [id number] 06:03:00 Test Item Value Reference Range Interpretation Comments PHOSPHORUS (BEAKER) (test code = 3.9 mg/dL 2.3-4.7 604) [id number] 06:03:00 Test Item Value Reference Range Interpretation Comments MAGNESIUM (BEAKER) (test code = 2.1 mg/dL 1.6-2.6 627) FastingBASIC METABOLIC [id number] 06:03:00 Test Item Value Reference Range Interpretation [...] NOT APPLICABLE FOR DIALYSIS PATIEN TS. FastingLIPID [id number] 06:03:00 Test Item Value Reference Range Interpretation [...] >=190 FastingCT BRAIN WITHOUT IV CONTRAST - [id number] 05:38:00 Reason for exam:->post-tPAFINAL REPORT CT BRAIN [...] MDReport Verified Date/Time: 12/11/2017 05:38:21 Reading Location: [address] Reading Room VITAMIN [id number] 05:27:00 Test Item Value Reference Range Interpretation Comments VITAMIN B12 (BEAKER) (test code = 843 pg/mL 213-816 H 774) TSH/FREE T4 IF [id number] 05:27:00 Test Item Value Reference Range Interpretation Comments THYROID STIMULATING HORMONE 1.84 uIU/mL 0.35-4.94 (BEAKER) (test code = 772) CBC W/PLT COUNT & AUTO [id number] 04:48:00 Test Item Value Reference Range Interpretation [...] 0-1 PERCENT (BEAKER) (test code = 2801) [id number] 02:11:00 Test Item Value Reference Range Interpretation Comments RPR SCREEN (BEAKER) (test code = Nonreactive Nonreactive 420) HEPATIC FUNCTION [id number] 20:49:00 Test Item Value Reference Range Interpretation [...] = 22 U/L 6-55 347) BASIC METABOLIC [id number] 20:49:00 Test Item Value Reference Range Interpretation [...] 697) EGFR (BEAKER) (test 83 mL/min/1.73 ESTIMA SHANAE GFR IS code = 1092) sq m NOT ACCURATE CREATININE CLEARANCE IN PREDICTING GLOMERULAR FILTRATION RATE . ESTIMATED GFR I S NOT APPLICABLE FOR DIALYSIS PATIEN TS. CBC W/PLT COUNT & AUTO [id number] 20:48:00 Test Item Value Reference Range Interpretation [...] PERCENT (BEAKER) (test code = 2801) HEMOGLOBIN [id number] 20:31:00 Test Item Value Reference Range Interpretation Comments HEMOGLOBIN A1C (BEAKER) (test code = 6.2 % 4.3-6.1 H 368) PROTHROMBIN [id number] 20:23:00 Test Item Value Reference Range Interpretation [...]
--- NOTE | 2020-08-06 12:50 | EDPHYS ---
Physician Documentation [facility] Name: Regino Galindo Jr Age: 80 yrs Sex: Male : 1940 Arrival Date: 08/06/2020 Time: 11:05 Bed 19 Private MD: Keyon Matthew V ED Physician Mathieu Alvarez HPI: 08/06 12:43 This 80 yrs old Black Male presents to ER via Ambulatory with complaints of Headache, jr8 Neck shoulder pain. 12:43 Patient stated that he received second dosage of covid vaccination on may 24. About jr8 2 weeks after that had some soreness and pain in the left shoulder and neck with headaches. Most symptoms have completely resolved but still having pain in neck with movement. Has taken OTC medications at home with relief . Severity of symptoms: At their worst the symptoms were mild. The patient has not experienced similar symptoms in the past. The patient has not recently seen a physician. Historical: - Allergies: 11:26 Acetaminophen-Codeine; hb 11:26 Codeine; hb 11:26 Lisinopril; hb - PMHx: 11:26 CVA; Hyperlipidemia; Hypertension; hb - Immunization history:: Adult Immunizations up to date, Client reports receiving the 2nd dose of the Covid vaccine, Client reports receiving the 1st dose of the Covid vaccine, Pneumococcal vaccine is up to date, Flu vaccine is up to date. - Social history:: Smoking status: Patient/guardian denies using tobacco, the patient reports quitting approximately 30 years ago. ROS: 12:43 Eyes: Negative for injury, pain, redness, and discharge, ENT: Negative for injury, jr8 pain, and discharge, Cardiovascular: Negative for chest pain, palpitations, and edema, Respiratory: Negative for shortness of breath, cough, wheezing, and pleuritic chest pain, Abdomen/GI: Negative for abdominal pain, nausea, vomiting, diarrhea, and constipation, Back: Negative for injury and pain, MS/Extremity: Negative for injury and deformity, Skin: Negative for injury, rash, and discoloration. 12:43 Neck: Positive for pain with movement, pain at rest, stiffness. 12:43 Neuro: Positive for headache. Exam: 12:43 Head/Face: Normocephalic, atraumatic. Eyes: Pupils equal round and reactive to light, jr8 extra-ocular motions intact. Lids and lashes normal. Conjunctiva and sclera are non-icteric and not injected. Cornea within normal limits. Periorbital areas with no swelling, redness, or edema. ENT: Nares patent. No nasal discharge, no septal abnormalities noted. Tympanic membranes are normal and external auditory canals are clear. Oropharynx with no redness, swelling, or masses, exudates, or evidence of obstruction, uvula midline. Mucous membranes moist. Cardiovascular: Regular rate and rhythm with a normal S1 and S2. No gallops, murmurs, or rubs. Normal PMI, no JVD. No pulse deficits. Respiratory: Lungs have equal breath sounds bilaterally, clear to auscultation and percussion. No rales, rhonchi or wheezes noted. No increased work of breathing, no retractions or nasal flaring. Abdomen/GI: Soft, non-tender, with normal bowel sounds. No distension or tympany. No guarding or rebound. No evidence of tenderness throughout. Back: No spinal tenderness. No costovertebral tenderness. Full range of motion. Skin: Warm, dry with normal turgor. Normal color with no rashes, no lesions, and no evidence of cellulitis. MS/ Extremity: Pulses equal, no cyanosis. Neurovascular intact. Full, normal range of motion. Neuro: Awake and alert, GCS 15, oriented to person, place, time, and situation. Cranial nerves II-XII grossly intact. Motor strength 5/5 in all extremities. Sensory grossly intact. Cerebellar exam normal. Normal gait. 12:43 Neck: External neck: is normal, C-spine: appears grossly normal, no vertebral tenderness, no crepitus, Thyroid: appears normal, Trachea: is midline with no obvious abnormalities, ROM/movement: pain, that is mild, with any movement, limited range of motion, is not appreciated, Meningeal signs: are not present, nuchal rigidity, is not appreciated, Lymph nodes: no appreciated lymphadenopathy. Vital Signs: 11:23 BP 169 / 73; Pulse 78; Resp 16; Temp 98.7(O); Pulse Ox 100% on R/A; Pain 10/10; hb 12:15 BP 167 / 70; Pulse 80; Resp 16 S; Pulse Ox 100% on R/A; ca1 13:00 BP 155 / 87; Pulse 76; Resp 16 S; Pulse Ox 100% on R/A; ca1 MDM: 12:18 Patient medically screened. jr8 12:43 Data reviewed: vital signs, nurses notes, and as a result, I will discharge patient. jr8 Data interpreted: Pulse oximetry: on room air is 100 %. Interpretation: normal. Counseling: I had a detailed discussion with the patient and/or guardian regarding: the historical points, exam findings, and any diagnostic results supporting the discharge/admit diagnosis, the need for outpatient follow up, a family practitioner, to return to the emergency department if symptoms worsen or persist or if there are any questions or concerns that arise at home. ED course: Patient with no focal neurologic deficits. Patient without dizziness, visual deficits, CP, or shortness of breath. Hemodynamically stable. Mild pain with ROM of neck but no other palpated pain region to extremities, chest, or back. Explained to patient that this does not appear to be vascular, cardiac, or neurologic in origin. Most likely muscles. Will start him on some medicine to see how he does. If worse to come back. Needs to f/u with PCP. Patient good with plan . Administered Medications: No medications were administered Disposition: 15:08 Co-signature as Attending Physician, Mathieu Alvarez MD I agree with the assessment and kdr plan of care. Disposition: 08/06/20 12:49 Discharged to Home. Impression: Muscle spasm. - Condition is Stable. - Discharge Instructions: Muscle Cramps and Spasms. - Prescriptions for Robaxin 500 mg Oral Tablet - take 2 tablet by ORAL route every 6 hours As needed; 40 tablet. Medrol (Kevin) 4 mg Oral Tablets, Dose Pack - take 1 tablet by ORAL route as directed - follow package instructions; 1 packet. - Medication Reconciliation Form, Thank You Letter, Antibiotic Education, Prescription Opioid Use form. - Follow up: Keyon Matthew MD; When: 1 week; Reason: Recheck today's complaints, Continuance of care, Re-evaluation by your physician. - Problem is new. - Symptoms are unchanged. Signatures: Mathieu Alvarez MD MD [facility] Baljinder Mcleod PA PA jr8 Loren Wilkerson, JOON RN hb AcobLisseth RN RN ca1 Corrections: (The following items were deleted from the chart) 13:09 12:49 08/06/2020 12:49 Discharged to Home. Impression: Muscle spasm. Condition is ca1 Stable. Forms are Medication Reconciliation Form, Thank You Letter, Antibiotic Education, Prescription Opioid Use. Follow up: Keyon Matthew; When: 1 week; Reason: Recheck today's complaints, Continuance of care, Re-evaluation by your physician. Problem is new. Symptoms are unchanged. jr8
--- NOTE | 2020-08-06 12:50 | ER ---
Nurse's Notes [facility] Name: Regino Galindo Jr Age: 80 yrs Sex: Male : 1940 Arrival Date: 08/06/2020 Time: 11:05 Bed 19 Private MD: Keyon Matthew V Diagnosis: Muscle spasm Presentation: 08/06 11:23 Chief complaint: Neck pain that radiates to back and headache with cough x 2 days. hb Coronavirus screen: At this time, the client does not indicate any symptoms associated with coronavirus-19. Ebola Screen: No symptoms or risks identified at this time. Initial Sepsis Screen: Does the patient meet any 2 criteria? No. Patient's initial sepsis screen is negative. Does the patient have a suspected source of infection? No. Patient's initial sepsis screen is negative. Risk Assessment: Do you want to hurt yourself or someone else? Patient reports no desire to harm self or others. Onset of symptoms was August 04, 2020. 11:23 Method Of Arrival: Ambulatory hb 11:23 Acuity: DEANGELO 3 hb Historical: - Allergies: 11:26 Acetaminophen-Codeine; hb 11:26 Codeine; hb 11:26 Lisinopril; hb - PMHx: 11:26 CVA; Hyperlipidemia; Hypertension; hb - Immunization history:: Adult Immunizations up to date, Client reports receiving the 2nd dose of the Covid vaccine, Client reports receiving the 1st dose of the Covid vaccine, Pneumococcal vaccine is up to date, Flu vaccine is up to date. - Social history:: Smoking status: Patient/guardian denies using tobacco, the patient reports quitting approximately 30 years ago. Screenin:12 Abuse screen: Denies threats or abuse. Denies injuries from another. Nutritional ca1 screening: No deficits noted. Tuberculosis screening: No symptoms or risk factors identified. Fall Risk None identified. Assessment: 12:12 General: Appears in no apparent distress. comfortable, Behavior is calm, cooperative, ca1 appropriate for age. Pain: Complains of pain in back, right hand, right arm, left arm and neck Pain currently is 8 out of 10 on a pain scale. Pain began the hand is a week ago, neck, back and arms 2 - 3 days ago Is intermittent. Neuro: Level of Consciousness is awake, alert, obeys commands, Oriented to person, place, time, situation. Derm: Skin is intact, is healthy with good turgor, Skin is pink, warm \T\ dry. Musculoskeletal: Circulation, motion, and sensation intact. Capillary refill < 3 seconds, Range of motion: intact in all extremities. 13:00 Reassessment: Patient appears in no apparent distress at this time. Patient is alert, ca1 oriented x 3, equal unlabored respirations, skin warm/dry/pink. Vital Signs: 11:23 BP 169 / 73; Pulse 78; Resp 16; Temp 98.7(O); Pulse Ox 100% on R/A; Pain 10/10; hb 12:15 BP 167 / 70; Pulse 80; Resp 16 S; Pulse Ox 100% on R/A; ca1 13:00 BP 155 / 87; Pulse 76; Resp 16 S; Pulse Ox 100% on R/A; ca1 ED Course: 11:05 Patient arrived in ED. mr 11:05 Keyon Matthew MD is Private Physician. mr 11:23 Arm band placed on. hb 11:26 Triage completed. hb 12:07 Lisseth Charlton, JOON is Primary Nurse. ca1 12:12 Patient has correct armband on for positive identification. Bed in low position. Call ca1 light in reach. Side rails up X 1. Pulse ox on. NIBP on. Warm blanket given. 12:18 Baljinder Mcleod PA is PHCP. jr8 12:18 Mathieu Alvarez MD is Attending Physician. jr8 12:47 Keyon Matthew MD is Referral Physician. jr8 13:08 No provider procedures requiring assistance completed. Patient did not have IV access ca1 during this emergency room visit. Administered Medications: No medications were administered Outcome: 12:49 Discharge ordered by . jr8 13:08 Discharged to home ambulatory. ca1 13:08 Condition: stable 13:08 Discharge instructions given to patient, Instructed on discharge instructions, follow up and referral plans. no drinking with medication, no driving heavy equipment, medication usage, Demonstrated understanding of instructions, follow-up care, medications, Prescriptions given X 2. 13:09 Patient left the ED. ca1 Signatures: Ana Milton mr Baljinder Mcleod PA PA jr8 Loren Wilkerson RN RN Lisseth Charlton RN RN [facility]
[2020-08-06 13:14] VITALS: TEMP 98.7; O2SAT 100
[2020-08-06 13:17] VITALS: BP 155/87
== END 2020-08-06 13:09 | disposition home or self-care (01) ==
LOC: ER 11:01
DX: M62.838 Other muscle spasm (principal); I10 Essential (primary) hypertension; Z88.5 Allergy status to narcotic agent; Z88.8 Allergy status to other drugs, medicaments and biological substances
CPT/HCPCS: 99283

== ENCOUNTER 2020-09-15 11:14 | Observation (INO) | payer OTHER ==
--- OUTSIDE RECORDS SUMMARY | 2020-09-15 11:17 | XMS REPORT | Continuity of Care Document ---
:1940 Author Organization [facility] t Address [address] [place] [place] [address] Care Team Providers Name Role Phone Keyon Matthew MD Primary Care Physician Winter Connolly MD Attending Clinician Chino CORDON Attending Clinician Unavailable Elizabeth CORDON Attending Clinician Unavailable CHAPINCITO Attending Clinician Unavailable RAHUL LUNA Attending Clinician Unavailable GAGAN Admitting Clinician Unavailable RAHUL LUNA Admitting Clinician Unavailable Payers Payer Name Policy Type Policy Effective Date Expiration Date Sour ce Number AETNA MEDICAREAETNA 2019 [facility] MEDICARE HMO/PPO 0 00:00:00 Methodis t [id number]/ 2020-PresentHMO Problems Condition Condition Condition Status Onset Resolution Last Treating Co mments Source Name Details Category Date Date Treatment Clinician Date PVD PVD Disease Active 2018-03 Overview: Naseem n (periphera (periphera 1-08 Formattin Methodi l vascular l vascular 00:00: g of this st disease) disease) 00 note might be different from the original. Added automatic ally from request for surgery [id number] PAD PAD Disease Active [place] (periphera (periphera 9-24 Me thodi l artery l artery 00:00: st disease) disease) 00 Establishi Establishi Disease Active [facility] 7-16 Methodi with new with new 00:00: st doctor, doctor, 00 encounter encounter for for Stroke Stroke Disease Active [place] 9-24 Methodi 00:00: st 00 Allergies, Adverse Reactions, Alerts Allergy Allergy Status Severity Reaction(s) Onset Inactive Treating Comm ents Source Name Type Date Date Clinician Priscaamin Propi Active Hallucinatio 2018-03 [place] ophen-Co ty to ns 0-16 Methodi deine adverse 00:00: st reaction 00 s to drug Codeine Propensi Active Anaphylaxis [place] ty to 7-16 Methodi adverse 00:00: st reaction 00 s to drug Social History Social Habit Start Date Stop Date Quantity Comments Source History of Current smoker [facility] thodist tobacco use Exposure to Not sure [place] Metho dist SARS-CoV-2 (event) Tobacco use and 2020-09-14 2020-09-14 Never used [facility] ethodist exposure 00:00:00 00:00:00 Alcohol intake 2020-09-14 2020-09-14 Current drinker [place] [facility] 00:00:00 00:00:00 of alcohol (finding) Alcohol Comment 2019-07-24 2019-07-24 every other day [place] 00:00:00 00:00:00 Beer Sex Assigned At [birth year] [facility] ethodist 00:00:00 00:00:00 Smoking Status Start Date Stop Date Source Former smoker 2020-09-14 00:00:00 2020-09-14 00:00:00 [place] [facility] Medications Ordered Filled Start Stop Current Ordering Indication Dosage Frequency Signature Comments Components Source Medication Medication Date Date Medication? Clinician (SIG) Name Name ascorbic Yes 500mg QD Take 500 [place] acid, 6-29 mg by Methodi vitamin C, 12:50: mouth st (VITAMIN C) 13 daily. 500 MG tablet omega Yes 1{tbl} QD Take 1 [facility] 3-dha-epa-f 6-29 tablet by Met serrano maria guadalupe oil 12:50: mouth st (FISH OIL) 13 daily. 1,000 mg (120 mg-180 mg) capsule cyanocobala Yes 100ug Q2D Take 100 [place] min 100 MCG 6-29 mcg by Method i tablet 12:50: mouth st 13 every other day. coenzyme Yes 10mg QD Take 10 mg Gerber ston Q10 (CO 6-29 by mouth Methodi Q-10) 100 12:50: daily. st mg capsule 13 multivitami Yes 1{tbl} QD Take 1 [place] n 6-29 tablet by Methodi (THERAGRAN) 12:50: mouth st tablet 13 daily. amLODIPine Yes 10mg QD Take 10 mg [place] (NORVASC) 6-29 by mouth Method i 10 mg 12:50: daily. st tablet 13 ticagrelor 2019-03 Yes 90mg Q.5D Take 1 [place] (Brilinta) 2-14 tablet (90 Met hodi 90 mg 00:00: mg total) st tablet 00 by mouth 2 (two) times a day. aspirin 2019-03 No 81mg QD Take 1 [facility] (ECOTRIN) 0-12 10-07 tablet (81 Met hodi 81 MG 00:00: 23:59 mg total) st enteric 00 :00 by mouth coated daily for tablet 360 days. gabapentin Yes 300mg Q.[id number] Take 300 [place] (NEURONTIN) 2-19 [id number] mg by M ethodi 300 mg 00:00: 3D mouth 3 st capsule 00 (three) times a day. aspirin 2018-03 No 81mg QD Take 1 [place] (ECOTRIN) 1-22 10-12 tablet (81 Met hodi 81 MG 00:00: 00:00 mg total) st enteric 00 :00 by mouth coated daily for tablet 360 days. ticagrelor 2018-03 No 90mg Q.5D Take 1 [place] (BRILINTA) 1-21 11-15 tablet (90 Me thodi 90 mg 00:00: 23:59 mg total) st tablet 00 :00 by mouth 2 (two) times a day for 360 days. atorvastati Yes 20mg QD Take 20 mg [place] n (LIPITOR) 6-25 by mouth Meth shanita 20 MG 00:00: daily. st tablet 00 pantoprazol Yes 40mg QD Take [address] [facility] 9-28 tablet (40 [facility] - (PROTONIX) 00:00: mg total) Me dical 40 MG 00 by mouth Center tablet daily. pantoprazol Yes 40mg QD Take 40 mg [facility] e 9-28 by mouth Methodi (PROTONIX) 00:00: daily. st 40 MG EC 00 tablet Vital Signs Vital Name Observation Time Observation Value Comments Source Systolic blood 2020-09-14 12:49:00 154 mm[Hg] [place] [facility] pressure Diastolic blood 2020-09-14 12:49:00 70 mm[Hg] [place] [facility] pressure Heart rate 2020-09-14 12:49:00 70 /min Foster Castillo Body height 2020-09-14 12:49:00 172.7 cm Foster Castillo Body weight 2020-09-14 12:49:00 78.019 kg Foster Castillo BMI 2020-09-14 12:49:00 26.15 kg/m2 Foster Castillo Procedures Procedure Date / Time Performed Performing Clinician Sour e ECG 12-LEAD 2020-09-14 12:50:36 Winter Connolly odmaite Plan of Care Planned Activity Planned Date Details Comments Source Future Scheduled 2020-10-17 INFLUENZA VACCINE [facility] Test 00:00:00 [code = INFLUENZA VACCINE] Future [...] 00:00:00 (1 of 1 - [facility] [id number] PCV13) [code = PNEUMOCOCCAL 65+ YRS (1 of 1 - [id number] PCV13)] Future Scheduled 2003-08-05 65+ PNEUMOCOCCAL [place] [facility] Test 00:00:00 VACCINE (1 of 1 - PPSV23) [code = 65+ PNEUMOCOCCAL VACCINE (1 of 1 - PPSV23)] Future Scheduled 1988 SHINGLES VACCINES (#1) H arthur [facility] Test 00:00:00 [code = SHINGLES VACCINES (#1)] Future Scheduled 1950 COVID-19 VACCINE (1) Gerberpaola hearn [facility] Test 00:00:00 [code = COVID-19 VACCINE (1)] Encounters Start End Encounter Admission Attending Care Care Encounter Source Date/Time Date/Time Type Type Clinicians Facility Department ID 2020-09-14 2020-09-14 Outpatient [facility] [id number] [place] 00:00:00 00:00:00 WINTER [address] 2020-03-16 2020-03-16 Outpatient [facility] [id number] [place] 00:00:00 00:00:00 WINTER [address] 2019-09-09 2019-09-09 Outpatient [facility] [id number] [place] 00:00:00 00:00:00 WINTER [address] 2019-07-24 2019-07-29 Inpatient CHAPINCITO [facility] [id number] [place] 00:00:00 00:00:[address] NEERU [address] 2019-06-03 2019-06-03 Outpatient [facility] [id number] [place] 00:00:00 00:00:[address] 2019-05-20 2019-05-20 Outpatient [facility] [id number] [place] 00:00:00 00:00:00 WINTER [address] 2019-02-05 2019-02-06 Outpatient [facility] [id number] [place] 00:00:00 00:00:00 WINTER [address] 2019-01-02 2019-01-04 Outpatient [facility] [id number] [place] 00:00:00 00:00:00 WINTER [address] 2018-12-31 2018-12-31 Outpatient [facility] [id number] [place] 00:00:00 00:00:00 WINTER [address] 2018-12-31 2018-12-31 Outpatient [facility] [id number] [place] 00:00:00 00:00:00 WINTER [address] 2018-12-31 2018-12-31 Outpatient [facility] [id number] [place] 00:00:00 00:00:00 WINTER [address] Results Test Description Test Time Test Comments Results Result Comments Source ECG 12 lead 2020-09-14 14:56:51 Test Item Value Reference Range Interpretation Comme nts Ventricular rate (test code = 253) 66 Atrial rate (test code = 255) 66 MI interval (test code = 266) 156 QRSD interval (test code = 260) 88 QT interval (test code = 264) 404 QTC interval (test code = 265) 423 P axis 1 (test code = 267) 32 QRS axis 1 (test code = 268) 87 T wave axis (test code = 270) -9 EKG impression (test code = 273) Normal sinus rhythm-Nonspecific T wave abnormality-Abnormal ECG- Foster CastilloMR, MRA, BRAIN, WITHOUT [id number] 13:15:00Reason for exam:->Ischemic Stroke EvaluationReason for exam:->discharge pendingFINAL REPORT MRA brain and neck without contrast 12/14/2017 1:14 PM CLINICAL HISTORY: Ischemic Stroke Evaluationdischarge pendingstroke COMPARISON: None available TECHNIQUE: Two- and three-dimensional qgnq-vk-[id number] MRA images of the intra- and extracranial arterial vasculature was performed, from which maximal intensity projection 3-D reconstructions were created. FINDINGS: MRAneck: There is no vessel occlusion or flow-limiting stenosis. There is no NASCET-quantifiable cervical internal carotid artery stenosis. Flow is antegrade in both vertebral arteries. MRA [place]: There is no vessel occlusion, flow-limiting stenosis, or aneurysm. IMPRESSION: Unremarkable intra- and extracranial MRAs. Signed: Shayne Montano Verified Date/Time: 12/14/2017 13:15:40 Reading Location: [facility] Radiology Reading Room MR, MRA, NECK, WITHOUT IV [id number] 13:15:00Reason for exam:->Ischemic Stroke EvaluationReason for exam:->discharge pendingFINAL REPORT MRA brain and neck without contrast 12/14/2017 1:14 PM CLINICAL HISTORY: Ischemic Stroke Evaluationdischarge pendingstroke COMPARISON: None available TECHNIQUE: Two- and three-dimensional rvto-bb-pffylj MRA images of the intra- and extracranial arterial vasculature was performed, from which maximal intensity projection 3-D reconstructions were created. FINDINGS: MRAneck: There is no vessel occlusion or flow-limiting stenosis. There is no NASCET- quantifiable cervical internal carotid artery stenosis. Flow is antegrade in both vertebral arteries. MRA [place]: There is no vessel occlusion, flow-limiting stenosis, or aneurysm. IMPRESSION: Unremarkable intra- and extracranial MRAs. Signed: Shayne Montano Verified Date/Time: 12/14/2017 13:15:40 Reading Location: [facility] Radiology Reading Room MR, BRAIN, WITHOUT [id number] 13:13:00Discharge pendingReason for exam:- >Ischemic Stroke EvaluationFINAL [...] No acute intracranial abnormality. Sinusitis. Signed: Shayne Montano MDRalon Verified Date/Time: 12/14/2017 13:13:48 Reading Location: [facility] Radiology Reading Room [id number] 07:42:00 Test Item Value Reference Range Interpretation Comments MAGNESIUM (BEAKER) (test code = 2.2 mg/dL 1.6-2.6 627) Add-onCOMPREHENSIVE METABOLIC [id number] 04:37:00 Test Item Value Reference Range Interpretation [...] WBC 0-0 (BEAKER) (test code = 413) [id number] 06:03:00 Test Item Value Reference Range Interpretation Comments PHOSPHORUS (BEAKER) (test code = 3.9 mg/dL 2.3-4.7 604) [id number] 06:03:00 Test Item Value Reference Range Interpretation Comments MAGNESIUM (BEAKER) (test code = 2.1 mg/dL 1.6-2.6 627) FastingBASIC METABOLIC [id number] 06:03:00 Test Item Value Reference Range Interpretation [...] NOT APPLICABLE FOR DIALYSIS PATIEN TS. FastingLIPID [id number] 06:03:00 Test Item Value Reference Range Interpretation [...] >=190 FastingCT BRAIN WITHOUT IV CONTRAST - [id number] 05:38:00 Reason for exam:->post-tPAFINAL REPORT CT BRAIN [...] MDReport Verified Date/Time: 12/11/2017 05:38:21 Reading Location: [facility] [address] [place] [address] Reading Room VITAMIN [id number] 05:27:00 Test Item Value Reference Range Interpretation Comments VITAMIN B12 (BEAKER) (test code = 843 pg/mL 213-816 H 774) TSH/FREE T4 IF [id number] 05:27:00 Test Item Value Reference Range Interpretation Comments THYROID STIMULATING HORMONE 1.84 uIU/mL 0.35-4.94 (BEAKER) (test code = 772) CBC W/PLT COUNT & AUTO [id number] 04:48:00 Test Item Value Reference Range Interpretation [...] 0-1 PERCENT (BEAKER) (test code = 2801) [id number] 02:11:00 Test Item Value Reference Range Interpretation Comments RPR SCREEN (BEAKER) (test code = Nonreactive Nonreactive 420) HEPATIC FUNCTION [id number] 20:49:00 Test Item Value Reference Range Interpretation [...] = 22 U/L 6-55 347) BASIC METABOLIC [id number] 20:49:00 Test Item Value Reference Range Interpretation [...] PATIEN TS. CBC W/PLT COUNT & AUTO [id number] 20:48:00 Test Item Value Reference Range Interpretation [...] PERCENT (BEAKER) (test code = 2801) HEMOGLOBIN [id number] 20:31:00 Test Item Value Reference Range Interpretation Comments HEMOGLOBIN A1C (BEAKER) (test code = 6.2 % 4.3-6.1 H 368) PROTHROMBIN [id number] 20:23:00 Test Item Value Reference Range Interpretation [...]
[2020-09-15] MEDS ORDERED: ONDANSETRON 4 MG/2 ML VIAL IV PRN (12:00)
[2020-09-15] MEDS ORDERED: POLYETHYL GLY 3350 17 GM/DOSE PO PRN (12:00)
[2020-09-15] MEDS ORDERED: NACHLORIDE 0.45% 1,000 ML IV SCH (12:00)
[2020-09-15] MEDS ORDERED: LOPERAMIDE HCL 2 MG CAPSULE PO PRN (12:00)
[2020-09-15] MEDS ORDERED: ONDANSETRON 4 MG (ODT) TAB PO PRN (12:00)
[2020-09-15] MEDS ORDERED: DIPHENHYDRAMINE 25 MG TAB/CAP PO PRN (12:00)
[2020-09-15 12:13] LABS: Absolute Lymphocytes (CBC) 1.4 K/uL (0.7-4.9); Basophils % 0.6 % (0-1.3); Hematocrit 39.2 % (39.6-49.0); Lymphocytes % 19.1 % (15.3-44.8); MPV 7.2 fL (7.6-11.3); RBC Red Blood Cell Count 4.76 M/uL (4.33-5.43)
[2020-09-15 12:17] LABS: Protime INR 0.98
--- NOTE | 2020-09-15 12:22 | ER ---
Nurse's Notes [facility] Name: Regino Galindo Jr Age: 80 yrs Sex: Male : 1940 Arrival Date: 09/15/2020 Time: 11:16 Bed Direct Admit Private MD: Diagnosis: Cerebral infarction, unspecified Presentation: 09/15 12:03 Chief complaint: Patient states: "I was sent here by Dr Matthew. I have been having a vg1 headache, feeling nervous, and dizzy but it comes and goes. I also hear this roaring sound in my head that comes in and out.". Coronavirus screen: Client denies travel out of the [place] in the last 14 days. Ebola Screen: Patient negative for fever greater than or equal to 101.5 degrees Fahrenheit, and additional compatible Ebola Virus Disease symptoms. Initial Sepsis Screen: Does the patient meet any 2 criteria? No. Patient's initial sepsis screen is negative. Does the patient have a suspected source of infection? No. Patient's initial sepsis screen is negative. Risk Assessment: Do you want to hurt yourself or someone else? Patient reports no desire to harm self or others. Onset of symptoms was September 11, 2020. 12:03 Method Of Arrival: Ambulatory vg1 12:03 Acuity: DEANGELO 3 vg1 Triage Assessment: 12:06 General: Appears in no apparent distress. comfortable, Behavior is calm, cooperative. vg1 Pain: Denies pain. EENT: No signs and/or symptoms were reported regarding the EENT system. Neuro: Level of Consciousness is awake, alert, obeys commands, Oriented to person, place, time, situation. Cardiovascular: Patient's skin is warm and dry. Rhythm is sinus rhythm. Respiratory: Airway is patent Respiratory effort is even, unlabored. GI: No signs and/or symptoms were reported involving the gastrointestinal system. : No signs and/or symptoms were reported regarding the genitourinary system. Derm: Skin is intact, is healthy with good turgor. Musculoskeletal: Circulation, motion, and sensation intact. Historical: - Allergies: 12:06 Acetaminophen-Codeine; vg1 12:06 Codeine; vg1 12:06 Lisinopril; vg1 - Home Meds: 12:06 amlodipine 5 mg tab 1 tab once daily [Active]; aspirin 81 mg Oral chew 1 tab once daily vg1 [Active]; atorvastatin 20 mg Oral tab 1 tab once daily [Active]; clopidogrel 75 mg Oral tab 1 tab once daily [Active]; Fish Oil 1,000 mg Oral cap [Active]; gluconate, once daily [Active]; metoprolol tartrate 50 mg Oral tab 1 tab 2 times per day [Active]; pravastatin 40 mg Oral tab 1 tab once daily [Active]; ramipril 10 mg Oral cap 1 cap once daily [Active]; - PMHx: 12:06 CVA; Hyperlipidemia; Hypertension; Gout; vg1 - Immunization history:: Adult Immunizations up to date, Client reports receiving the 2nd dose of the Covid vaccine. - Social history:: Smoking status: Patient denies any tobacco usage or history of. Screenin:08 Abuse screen: Denies threats or abuse. Nutritional screening: No deficits noted. vg1 Tuberculosis screening: No symptoms or risk factors identified. Fall Risk No fall in past 12 months (0 pts). No secondary diagnosis (0 pts). IV access (20 points). Ambulatory Aid- None/Bed Rest/Nurse Assist (0 pts). Gait- Normal/Bed Rest/Wheelchair (0 pts) Mental Status- Oriented to own ability (0 pts). Total Paez Fall Scale indicates No Risk (0-24 pts). Assessment: 12:08 Reassessment: see triage. vg1 19:15 Reassessment: Call report to JOON Aldana at [facility]. vg1 Vital Signs: 12:03 BP 138 / 65; Pulse 70; Resp 16; Temp 98.7; Pulse Ox 95% on R/A; Weight 78.02 kg; Height vg1 5 ft. 8 in. (172.72 cm); Pain 0/10; 12:15 BP 128 / 73; Pulse 56; Resp 14; Pulse Ox 100% on R/A; vg1 12:03 Body Mass Index 26.15 (78.02 kg, 172.72 cm) vg1 ED Course: 11:16 Patient arrived in ED. as 11:49 Patient has correct armband on for positive identification. Placed in gown. Bed in low mh5 position. Call light in reach. Side rails up X 1. Warm blanket given. Pillow given. color television console monitor on. Pulse ox on. NIBP on. 11:50 EKG done, by ED staff, reviewed by Mathieu Alvarez MD. mh5 11:56 Bety Kenny, RN is Primary Nurse. vg1 12:03 Initial lab(s) drawn, by ri, sent to lab. Inserted saline lock: 20 gauge in left vg1 forearm, using aseptic technique. Blood collected. 12:06 Triage completed. vg1 12:06 Arm band placed on. vg1 12:20 Keyon Matthew MD is Hospitalizing Provider. ss 12:20 No provider procedures requiring assistance completed. Patient admitted, IV remains in ss place. 18:55 Shakila Rai MD is Attending Physician. nc2 Administered Medications: No medications were administered Outcome: 12:20 Admitted to ER Hold. Please see [facility] for further documentation. ss 12:20 Condition: stable 12:20 Instructed on the need for admit. 12:21 Decision to Hospitalize by Provider. ss 21:18 Patient left the ED. 1 Signatures: Evita Huynh Shelby, RN RN Marimar Huynh [facility] Shakila Rai MD MD nc2 Bety Kenny, RN RN 1
[2020-09-15 13:05] LABS: BUN Blood Urea Nitrogen 9 mg/dL (7-18); Bicarbonate 25 mmol/L (21-32); Glucose Level 110 mg/dL (74-106); Magnesium 2.3 mg/dL (1.8-2.4); Phosphorus 3.5 mg/dL (2.5-4.9); Potassium 3.7 mmol/L (3.5-5.1); Sodium Level 141 mmol/L (136-145)
[2020-09-15] MEDS ORDERED: NACHLORIDE 0.45% 1,000 ML IV ONE (13:07)
[2020-09-15 13:23] VITALS: BMI 26.1
[2020-09-15 13:35] LABS: Urine Blood Negative (Negative); Urine Glucose Negative (Negative); Urine Protein Negative (Negative); Urine pH 6.5 (5.0-7.0)
--- NOTE | 2020-09-15 13:49 | RAD REPORT ---
EXAM DESCRIPTION: RAD - Chest Pa And Lat (2 Views) - 09/15/2020 1:25 pm CLINICAL HISTORY: Stroke work up, shortness of breath COMPARISON: Portable February 2009 TECHNIQUE: Frontal and lateral views of the chest were obtained. FINDINGS: The lungs are clear of a peripheral mass or infiltrate. Mild prominence of the interstitia l pattern matches comparison. No new or enlarging mediastinal or hilar process. Heart size is sy l and central vasculature is within normal limits. No pleural effusion or pneumothorax seen. No acu te bony finding noted. No aortic abnormality. IMPRESSION: No acute cardiopulmonary process. No significant change from comparison study.
--- NOTE | 2020-09-15 15:08 | RAD REPORT ---
EXAM DESCRIPTION: MRI - MRA Head Wo Cont - 09/15/2020 2:22 pm CLINICAL HISTORY: CVA, loss of balance COMPARISON: None. TECHNIQUE: Axial and coronal 3D pexu-xz-yvwixn image acquisition was performed. 3D rotational images were generated with source and reconstruction images reviewed. Horizontal and vertical axis rotation al views generated using MIP protocol. FINDINGS: No aneurysm or vascular malformation is identified. Major venous sinuses are patent. Right transverse sinus is dominant. Patient has significant atherosclerotic change in the cavernous and supraclinoid portions of each int ernal carotid artery. Patient has a large posterior communicating artery on the left providing much of the supply to the le ft posterior cerebral artery. Left P1 TRANSPORT ASSISTANT segment is small. Mild right-sided and axso-bn-zekohopn lef t-sided atherosclerotic changes in the posterior cerebral arteries. Bilateral middle cerebral arteries show only mild atherosclerotic change. The left anterior cerebral artery A1 segment is absent or very small in size. Mannie to be normal variant rather than significant d isease. IMPRESSION: Significant cavernous and supraclinoid internal carotid artery atherosclerotic change ca using luminal narrowing. Mild middle cerebral artery and mild to moderate posterior cerebral artery atherosclerotic changes ar e present.
--- NOTE | 2020-09-15 15:11 | RAD REPORT ---
EXAM DESCRIPTION: MRI - MRA Neck W/Wo Cont - 09/15/2020 2:36 pm CLINICAL HISTORY: CVA, loss of balance COMPARISON: MRI brain same date, MRA head same date TECHNIQUE: MR angiography of the cervical vasculature performed. Coronal imaging plane acquisition u tilized. A 17 MultiHance contrast volume was utilized. Coronal reformatted images were generated and reviewed. Vertical axis 3D rotational projections obtained using maximum intensity projection protoco l. FINDINGS: MRA neck examination is nondiagnostic. Motion degradation is 2 pronounced allow any accura te assessment of the vasculature.
[2020-09-15 16:02] VITALS: BP 150/73; TEMP 97.9
--- NOTE | 2020-09-15 17:22 | RAD REPORT ---
EXAM DESCRIPTION: MRI - Brain W/Wo Cont - 09/15/2020 2:35 pm CLINICAL HISTORY: R/O CVA COMPARISON: MRA Head Wo Cont dated 09/15/2020 TECHNIQUE: Sagittal and axial T1-weighted images were obtained. Axial PD/heavily T2-weighted and T2- FLAIR images were obtained along with axial DWI/ADC mapping sequences. Coronal heavily T2 weighted s equence obtained. Axial and coronal post-contrast T1-weighted images were also obtained. A 17 ml Mul tihance contrast following utilized. FINDINGS: Diffusion-weighted imaging shows no acute infarction. No significant chronic ischemic mo ges are identifiable. Patient has very large bilateral subdural collections. Larger collection on the left causes 7 mm of mebj-gn-tgjqq midline shift. Thickness of the subdural collections reaches hiatu s 17 mm on the right and 20 mm on the left. On T1 imaging the collections are hypointense to cortex but hyperintense to CSF. Collections maintain homogeneous signal that is hypointense to cortex but hyperintense to CSF on the postcontrast imaging . Dural enhancement is seen. Circumferential enhancement is not seen. Subdural collections are hyperi ntense on proton density sequencing. Heavily T2 weighted sequence shows majority of the collections t o be isointense to cortex with hyperintense signal layering anteriorly. The anterior hyperintense por tion of the subdural collections are isointense to CSF. On T2 FLAIR imaging there is anterior hyperin tensity with the majority of the collection hypointense to cortex and hyperintense to CSF. On diffusi on-weighted imaging there is marked hypointensity in the majority of the subdural fluid collection wi th hyperintensities seen within the anterior layering component. Signal voids are seen as a normal finding in the major intracranial vessels. Mass-effect is present from the bilateral collection. Mastoid air cells and paranasal sinuses are clear. IMPRESSION: Large bilateral variable age subdural hematomas up to 17 mm in thickness on the right an d 20 mm of thickness on the left. Hematomas contain acute, subacute and chronic components. The larger left-sided subdural hematoma results in 7 mm of left to right midline shift. Postcontrast dural enhancement pattern is not suspicious for empyema. Diffusion imaging shows no acute infarction. No acute finding of the brain parenchyma.
[2020-09-15] MEDS ORDERED: dexAMETHasone 4 MG/ML VIAL ONE (19:48)
[2020-09-15 21:43] VITALS: O2SAT 100
[2020-09-16] MEDS ORDERED: ENOXAPARIN 40 MG/0.4 ML SQ SCH (09:00)
--- NOTE | 2020-09-17 06:24 | EKG ---
Test Date: 2020-09-15 Test Time: 11:41:07 Dry Heat Room Attendant: NEY MEASUREMENT RESULTS: Intervals: Rate: 69 W[place]: 176 QRSD: 82 QT: 392 QTc: 420 [place]: P: 0 W[place]: 176 QRS: 33 T: 29 INTERPRETIVE STATEMENTS: Normal sinus rhythm Septal infarct, age undetermined Abnormal ECG Compared to ECG 02/22/2019 10:29:24 No significant changes Electronically Signed On 09-17-20 06:18:23 CDT by Teo Crawley
== END 2020-09-15 21:16 | disposition short-term general hospital (02) ==
LOC: ER 11:14 → ERHOLD 11:20
PROVIDERS: ADMIT Internal Medicine; ATTEND Internal Medicine
DX: I63.9 Cerebral infarction, unspecified (principal); I10 Essential (primary) hypertension; E78.5 Hyperlipidemia, unspecified; M10.9 Gout, unspecified; Z79.82 Long term (current) use of aspirin; Z79.899 Other long term (current) drug therapy; Z88.6 Allergy status to analgesic agent; Z88.8 Allergy status to other drugs, medicaments and biological substances
CPT/HCPCS: 93005; 85025; 80048; 36415; 83735; 84100; 85610; 85730; 84443; 81003; 82607; 82306; 71046; 70553; 70544; 70549; A9577; J1100; G0378 ×2

== ENCOUNTER 2023-08-22 16:02 | Emergency (ER) | payer OTHER ==
--- NOTE | 2023-08-22 17:00 | RAD REPORT ---
EXAM DESCRIPTION: CT - CTHCSPWOC - 08/22/2023 4:47 pm CLINICAL HISTORY: Trauma, head and neck injury. fall COMPARISON: Brain W/Wo Cont dated 09/15/2020 TECHNIQUE: Axial 5 mm thick images of the head were obtained. Axial 2 mm thick images of the cervical spine were obtained with sagittal and coronal reconstruction images generated and reviewed. All CT scans are performed using dose optimization technique as appropriate and may include automated exposure control or mA/KV adjustment according to patient size. FINDINGS: CT HEAD WITHOUT CONTRAST: There is chronic left subdural hematoma measuring 5 mm.Moderate brain atrophy.No midline shift. The paranasal sinuses and mastoids are clear.Jessica holes are present. CT CERVICAL SPINE WITHOUT CONTRAST: No fracture or subluxation.Moderate lower cervical degenerative changes are present.No prevertebral s oft tissues swelling is identified. Mild bilateral carotid atherosclerosis. IMPRESSION: 5 mm chronic left subdural hematoma.No midline shift. Moderate lower cervical spondylosis.
--- NOTE | 2023-08-22 17:40 | ER ---
Nurse's Notes [facility] Name: Regino Galindo Jr Age: 83 yrs Sex: Male : 1940 Arrival Date: 08/22/2023 Time: 16:02 Bed IW1 Private MD: Diagnosis: Chronic Subdural Hematoma;Fall on same level from slipping, tripping and stumbling without subsequent striking against object Presentation: 08/21 16:15 Chief complaint: Patient states: he has a bump on the top of his head, and denies ap3 hitting his head recently. Coronavirus screen: At this time, the client does not indicate any symptoms associated with coronavirus-19. Ebola Screen: No symptoms or risks identified at this time. Initial Sepsis Screen: Does the patient meet any 2 criteria? No. Patient's initial sepsis screen is negative. Does the patient have a suspected source of infection? No. Patient's initial sepsis screen is negative. Risk Assessment: Do you want to hurt yourself or someone else? Patient reports no desire to harm self or others. Onset of symptoms is unknown. 16:15 Method Of Arrival: Ambulatory ap3 16:21 Acuity: DEANGELO 4 ap3 Triage Assessment: 16:19 General: Appears in no apparent distress. Behavior is calm, cooperative, appropriate ap3 for age. Pain: Complains of pain in left side of the back of head Aggravated by when touched. Neuro: Level of Consciousness is awake, alert, obeys commands, Oriented to person, place, time, situation, Appropriate for age Gait is steady, Speech is normal, Facial symmetry appears normal. Cardiovascular: Patient's skin is warm and dry. Respiratory: Airway is patent Respiratory effort is even, unlabored, Respiratory pattern is regular, symmetrical. Historical: - Allergies: 16:19 Acetaminophen-Codeine; ap3 16:19 Codeine; ap3 16:19 Lisinopril; ap3 - PMHx: 16:19 CVA; Gout; Hyperlipidemia; Hypertension; ap3 - Immunization history:: Client reports receiving the 2nd dose of the Covid vaccine. - Infectious Disease History:: Denies. - Social history:: Smoking status: Patient denies any tobacco usage or history of. Patient uses alcohol, on a daily basis. Screenin:20 Abuse screen: Denies threats or abuse. Nutritional screening: No deficits noted. ap3 Tuberculosis screening: No symptoms or risk factors identified. 18:51 [facility] ED Fall Risk Assessment (Adult) History of falling in the last 3 months, ap3 including since admission Yes- single mechanical fall (1 pt) Confusion or Disorientation No (0 pts) Intoxicated or Sedated No (0 pts) Impaired Gait No (0 pts) Mobility Assist Device Used No (0 pt) Altered Elimination No (0 pt) Score/Fall Risk Level 0 - 2 = Low Risk Oriented to surroundings, Maintained a safe environment, Educated pt \T\ family on fall prevention, incl call for assistance when getting out of bed, Assessed \T\ reinforced patient's understanding of fall precautions, Provided non-skid footwear, Hourly rounding (assess needs \T\ fall precautionary measures) done, Used ambulatory aids as needed (educated on \T\ assisted with), Used gait belt as appropriate. Vital Signs: 16:15 BP 164 / 92; Pulse 73; Resp 17; Temp 98.2; Pulse Ox 100% ; Weight 81.65 kg; Height 5 ap3 ft. 8 in. ; 16:15 Body Mass Index 27.37 (81.65 kg, 172.72 cm) ap3 ED Course: 16:05 Patient arrived in ED. mr 16:10 Ian Car DO is Attending Physician. ms3 16:20 Arm band placed on left wrist. ap3 16:21 Triage completed. ap3 16:21 Provided Education on: fall risk education. ap3 16:21 Patient has correct armband on for positive identification. ap3 16:21 No provider procedures requiring assistance completed. ap3 16:49 CT Head C Spine In Process Unspecified. EDMS 17:39 Keyon Matthew MD is Referral Physician. ms3 18:51 Patient did not have IV access during this emergency room visit. ap3 Administered Medications: No medications were administered Medication: 16:21 VIS not applicable for this client. ap3 Outcome: 17:40 Discharge ordered by . ms3 18:51 Discharged to home ambulatory, ap3 18:51 Condition: good 18:51 Discharge instructions given to patient, Instructed on discharge instructions, follow up and referral plans. Demonstrated understanding of instructions, follow-up care, 18:51 Patient left the ED. ap3 Signatures: Dispatcher [employer] EDAna Escobedo, Reg Reg mr Elyssa Courtney, RN RN ap3 Ian Car, DO ms3
--- NOTE | 2023-08-22 17:41 | EDPHYS ---
Physician Documentation [facility] Name: Regino Galindo Jr Age: 83 yrs Sex: Male : 1940 Arrival Date: 08/22/2023 Time: 16:02 Bed IW1 Private MD: ED Physician Ian Car HPI: 08/21 16:27 This 83 yrs old Black Male presents to ER via Ambulatory with complaints of Bump on ms3 head. 16:27 83-year-old male with past medical history of CVA, gout, hyperlipidemia, hypertension ms3 presents to the emergency department for knot on the left side of his head. Patient denies pain. Patient states the area hurts when he touches it. Patient notes he had a fall with loss of consciousness last Sunday night after drinking a couple of beers with his friend. Patient states the following day he did not remember falling, but his friend informed him of the night's events.. Historical: - Allergies: 16:19 Acetaminophen-Codeine; ap3 16:19 Codeine; ap3 16:19 Lisinopril; ap3 - PMHx: 16:19 CVA; Gout; Hyperlipidemia; Hypertension; ap3 - Immunization history:: Client reports receiving the 2nd dose of the Covid vaccine. - Infectious Disease History:: Denies. - Social history:: Smoking status: Patient denies any tobacco usage or history of. Patient uses alcohol, on a daily basis. ROS: 16:27 Constitutional: Negative for fever, and chills. Neck: Negative for injury, pain, and ms3 swelling, Cardiovascular: Negative for chest pain, and palpitations. Respiratory: Negative for shortness of breath, cough, wheezing, and pleuritic chest pain, Abdomen/GI: Negative for abdominal pain, nausea, vomiting, diarrhea, and constipation, MS/Extremity: Negative for injury and deformity, Skin: Negative for injury, rash, and discoloration, Exam: 16:27 Constitutional: This is a well developed, well nourished patient who is awake, alert, ms3 and in no acute distress. Head/Face: Normocephalic, atraumatic. Neck: Trachea midline, no cervical lymphadenopathy. Supple, full range of motion without nuchal rigidity, or vertebral point tenderness. No Meningismus. Chest/axilla: Normal chest wall appearance and motion. Nontender with no deformity. Cardiovascular: Regular rate and rhythm with a normal S1 and S2. No gallops, murmurs, or rubs. Normal PMI, no JVD. No pulse deficits. Respiratory: Lungs have equal breath sounds bilaterally, clear to auscultation and percussion. No rales, rhonchi or wheezes noted. No increased work of breathing, no retractions or nasal flaring. Abdomen/GI: Soft, non-tender, with normal bowel sounds. No distension or tympany. No guarding or rebound. No evidence of tenderness throughout. Skin: Warm, dry with normal turgor. Normal color with no rashes, no lesions, and no evidence of cellulitis. MS/ Extremity: Pulses equal, no cyanosis. Neurovascular intact. Full, normal range of motion. Vital Signs: 16:15 BP 164 / 92; Pulse 73; Resp 17; Temp 98.2; Pulse Ox 100% ; Weight 81.65 kg; Height 5 ap3 ft. 8 in. ; 16:15 Body Mass Index 27.37 (81.65 kg, 172.72 cm) ap3 MDM: 16:25 Patient medically screened. ms3 16:27 Differential Diagnosis Intracranial hemorrhage versus vertebral fracture versus ms3 folliculitis versus fall. 17:40 Data reviewed: vital signs, nurses notes, radiologic studies, CT scan, and as a result, ms3 I will discharge patient. Consideration of Admission/Observation Escalation of care including admission/observation considered. Discussed case with patient's primary care physician, Dr Matthew, and he states subdural is known and old.. Management of patient was discussed with the following: Primary Care Provider: Dr Matthew. Independent interpretation of the following test(s) in the Emergency Department CT Scan: My interpretation is CT head without contrast reviewed by me shows SDH L frontal. Care significantly affected by the following chronic conditions: Hypertension, HLD. Counseling: I had a detailed discussion with the patient and/or guardian regarding the historical points, exam findings, and any diagnostic results supporting the discharge/admit diagnosis, radiology results, the need for outpatient follow up, to return to the emergency department if symptoms worsen or persist or if there are any questions or concerns that arise at home. ED course: Discussed CT findings with patient. Patient to follow-up with Dr. Matthew in 2 to 3 days. All questions were answered. Return precautions discussed include worsening symptoms, numbness, weakness, or any other concerns. On reevaluation patient is alert and oriented x 4, in no apparent distress, nontoxic-appearing, ambulatory in the emergency department, 5/5 strength in all extremities, finger-nose intact, pupils equal, sensation intact.. 08/21 16:25 Order name: CT Head C Spine; Complete Time: 17:17 ms3 Administered Medications: No medications were administered Disposition Summary: 08/22/23 17:40 Discharge Ordered Notes: Location: Home ms3 Condition: Stable ms3 Diagnosis - Chronic Subdural Hematoma ms3 - Fall on same level from slipping, tripping and stumbling without subsequent ms3 striking against object Followup: ms3 - With: Keyon Matthew MD - When: 2 - 3 days - Reason: Recheck today's complaints Discharge Instructions: - Discharge Summary Sheet ms3 - Subdural Hematoma ms3 Forms: - Medication Reconciliation Form ms3 - Antibiotic Education ms3 - Prescription Opioid Use ms3 - Patient Portal Instructions ms3 - Leadership Thank You Letter ms3 Signatures: Dispatcher [employer] Elyssa Ocasio, RN RN ap3 Ian Car DO DO ms3
[2023-08-22 19:50] VITALS: BP 164/92; TEMP 98.2; O2SAT 100
== END 2023-08-22 18:51 | disposition home or self-care (01) ==
LOC: ER 16:02
DX: I62.03 Nontraumatic chronic subdural hemorrhage (principal); W01.0XXA Fall on same level from slipping, tripping and stumbling without subsequent striking against object, initial encounter; Z86.73 Personal history of transient ischemic attack (TIA), and cerebral infarction without residual deficits
CPT/HCPCS: 70450; 72125; 99282

== ENCOUNTER 2024-08-07 23:53 | Emergency (ER) | payer OTHER ==
[2024-08-08] MEDS ORDERED: LIDOCAINE 1% 20 ML MDV ONE (00:12)
--- NOTE | 2024-08-08 00:48 | EDPHYS ---
Physician Documentation [facility] Name: Regino Galindo Jr Age: 84 yrs Sex: Male : 1940 Arrival Date: 08/07/2024 Time: 23:53 Bed 6 Private MD: ED Physician Otilio High HPI: 08/08 04:49 This 84 yrs old Black Male presents to ER via Wheelchair with complaints of Laceration rt To Hand, Pt is on blood thinners. 04:49 Patient presents to the ED with a laceration to the thenar eminence of the left hand, rt states that it got caught in a folding table. He is on blood thinners, states that it did bleed. Patient states that the bleeding is mostly stopped. Denies other acute complaints at this time, symptoms are mild in severity, no other aggravating or alleviating factors.. Historical: - Allergies: 00:24 Acetaminophen-Codeine; al5 00:24 Codeine; al5 00:24 Lisinopril; al5 - Home Meds: 00:24 amlodipine 5 mg tab 1 tab once daily [Active]; aspirin 81 mg Oral chew 1 tab once daily al5 [Active]; atorvastatin 20 mg Oral tab 1 tab once daily [Active]; Fish Oil 1 Oral cap [Active]; gluconate [Active]; metoprolol tartrate 50 mg Oral tab 1 tab 2 times per day [Active]; Multiple Vitamins Oral tab [Active]; pentoxifylline 400 mg Oral TbER 1 tab 2 times per day [Active]; pravastatin 40 mg Oral tab 1 tab once daily [Active]; ramipril 10 mg Oral cap 1 cap once daily [Active]; - PMHx: 00:24 CVA; Gout; Hyperlipidemia; Hypertension; al5 - PSHx: 00:24 None; al5 - Immunization history:: Adult Immunizations up to date. - Infectious Disease History:: Denies. - Social history:: Smoking status: Patient denies any tobacco usage or history of. - Family history:: not pertinent. ROS: 04:49 Constitutional: Negative for fever, chills, and weight loss, Skin: Negative for injury, rt rash, and discoloration, Neuro: Negative for headache, weakness, numbness, tingling, and seizure, 04:49 MS/extremity: Positive for laceration, Negative for pain, Exam: 04:49 Constitutional: This is a well developed, well nourished patient who is awake, alert, rt and in no acute distress. Neuro: Awake and alert, GCS 15, oriented to person, place, time, and situation. Cranial nerves II-XII grossly intact. Motor strength 5/5 in all extremities. Sensory grossly intact. Cerebellar exam normal. Normal gait. Psych: Awake, alert, with orientation to person, place and time. Behavior, mood, and affect are within normal limits. 04:49 Musculoskeletal/extremity: Very superficial laceration to the thenar eminence, no active bleeding. Vital Signs: 00:24 BP 123 / 65; Pulse 62; Resp 18; Temp 97.9; Pulse Ox 97% on R/A; Pain 0/10; bl1 01:04 BP 142 / 73; Pulse 61; Resp 18; Temp 97.9; Pulse Ox 100% ; Pain 0/10; bm8 00:24 Pain Scale: Adult bl1 01:04 Pain Scale: Adult bm8 [place] Coma Score: 01:04 Eye Response: spontaneous(4). Motor Response: obeys commands(6). Verbal Response: bm8 oriented(5). Total: 15. MDM: 00:39 Medical Screening Exam initiated rt 04:49 Differential diagnosis: Abrasion, laceration. Data reviewed: vital signs, nurses notes. rt ED course: The wound does not require primary repair, will dress the wound. Stable vital signs, no signs of active bleeding, very low suspicion for blood loss anemia, labs are not indicated.. 08/08 00:47 Order name: Dressing - Wound; Complete Time: 01:04 rt Administered Medications: No medications were administered Disposition Summary: 08/08/24 00:48 Discharge Ordered Notes: Location: Home rt Problem: new rt Symptoms: have improved rt Condition: Stable rt Diagnosis - Abrasion to right hand rt Followup: rt - With: Private Physician - When: 2 - 3 days - Reason: Discharge Instructions: - Discharge Summary Sheet rt - Abrasion rt Forms: - Medication Reconciliation Form rt - Antibiotic Education rt - Prescription Opioid Use rt - Patient Portal Instructions rt - Leadership Thank You Letter rt Signatures: Otilio High MD MD rt Elyssa Birmingham RN RN al5 Corrections: (The following items were deleted from the chart) 00:25 00:24 Home Meds: clopidogrel 75 mg Oral tab 1 tab once daily; al5 al5
--- NOTE | 2024-08-08 00:48 | ER ---
Nurse's Notes [facility] Name: Regino Galindo Jr Age: 84 yrs Sex: Male : 1940 Arrival Date: 08/07/2024 Time: 23:53 Bed 6 Private MD: Diagnosis: Abrasion to right hand Presentation: 08/08 00:23 Chief complaint: Patient states: c/o laceration to the heel of L hand, states it al5 had bled for almost an hour and since he was on blood thinners that he needed to have it checked out. Coronavirus screen: At this time, the client does not indicate any symptoms associated with coronavirus-19. Ebola Screen: No symptoms or risks identified at this time. Complicating Factors: There are no complicating factors for this patient. Initial Sepsis Screen: Does the patient meet any 2 criteria? No. Patient's initial sepsis screen is negative. Does the patient have a suspected source of infection? No. Patient's initial sepsis screen is negative. Risk Assessment: Do you want to hurt yourself or someone else? Patient reports no desire to harm self or others. Onset of symptoms was August 08, 2024. 00:23 Method Of Arrival: Wheelchair al5 00:23 Acuity: DEANGELO 4 al5 Triage Assessment: 00:18 General: Appears in no apparent distress. comfortable, Behavior is calm, cooperative. al5 Pain: Denies pain. EENT: No signs and/or symptoms were reported regarding the EENT system. Neuro: Level of Consciousness is awake, alert, obeys commands, Oriented to person, place, time, situation. Cardiovascular: Capillary refill < 3 seconds Patient's skin is warm and dry. Respiratory: Airway is patent Respiratory effort is even, unlabored, Respiratory pattern is regular, symmetrical. GI: No signs and/or symptoms were reported involving the gastrointestinal system. : No signs and/or symptoms were reported regarding the genitourinary system. Derm: small skin removal of the L palm toward the thumb, size of a bead, superficial with minimal to no bleeding as of now. states it had bled for almost an hour. Musculoskeletal: No signs and/or symptoms reported regarding the musculoskeletal system. Injury Description: Laceration sustained to heel of left hand is clean, not bleeding. Historical: - Allergies: 00:24 Acetaminophen-Codeine; al5 00:24 Codeine; al5 00:24 Lisinopril; al5 - Home Meds: 00:24 amlodipine 5 mg tab 1 tab once daily [Active]; aspirin 81 mg Oral chew 1 tab once daily al5 [Active]; atorvastatin 20 mg Oral tab 1 tab once daily [Active]; Fish Oil 1 Oral cap [Active]; gluconate [Active]; metoprolol tartrate 50 mg Oral tab 1 tab 2 times per day [Active]; Multiple Vitamins Oral tab [Active]; pentoxifylline 400 mg Oral TbER 1 tab 2 times per day [Active]; pravastatin 40 mg Oral tab 1 tab once daily [Active]; ramipril 10 mg Oral cap 1 cap once daily [Active]; - PMHx: 00:24 CVA; Gout; Hyperlipidemia; Hypertension; al5 - PSHx: 00:24 None; al5 - Immunization history:: Adult Immunizations up to date. - Infectious Disease History:: Denies. - Social history:: Smoking status: Patient denies any tobacco usage or history of. - Family history:: not pertinent. Screenin:26 [facility] ED Fall Risk Assessment (Adult) History of falling in the last 3 months, al5 including since admission No falls in past 3 months (0 pts) Confusion or Disorientation No (0 pts) Intoxicated or Sedated No (0 pts) Impaired Gait No (0 pts) Mobility Assist Device Used No (0 pt) Altered Elimination No (0 pt) Score/Fall Risk Level 0 - 2 = Low Risk Oriented to surroundings, Maintained a safe environment, Hourly rounding (assess needs \T\ fall precautionary measures) done. Abuse screen: Denies threats or abuse. Denies injuries from another. Nutritional screening: No deficits noted. Tuberculosis screening: No symptoms or risk factors identified. Assessment: 00:25 Reassessment: see triage assessment. al5 01:04 Reassessment: Patient appears in no apparent distress at this time. Patient and/or bm8 family updated on plan of care and expected duration. Pain level reassessed. Patient is alert, oriented x 3, equal unlabored respirations, skin warm/dry/pink. Patient denies pain at this time. Patient states feeling better. Patient states symptoms have improved. Vital Signs: 00:24 BP 123 / 65; Pulse 62; Resp 18; Temp 97.9; Pulse Ox 97% on R/A; Pain 0/10; bl1 01:04 BP 142 / 73; Pulse 61; Resp 18; Temp 97.9; Pulse Ox 100% ; Pain 0/10; bm8 00:24 Pain Scale: Adult bl1 01:04 Pain Scale: Adult bm8 [place] Coma Score: 01:04 Eye Response: spontaneous(4). Motor Response: obeys commands(6). Verbal Response: bm8 oriented(5). Total: 15. ED Course: 08/07 23:55 Patient arrived in ED. [id number] 23:56 Otilio High MD is Attending Physician. rt 08/08 00:18 Elyssa Birmingham, RN is Primary Nurse. al5 00:23 Arm band placed on right wrist. Patient placed in the treatment room, in view of staff al5 members, on pulse oximetry. 00:24 Triage completed. al5 00:26 No provider procedures requiring assistance completed. Patient did not have IV access al5 during this emergency room visit. 00:27 Patient has correct armband on for positive identification. Bed in low position. Call al5 light in reach. Provided Education on: plan of care. 01:04 Client placed on continuous cardiac and pulse oximetry monitoring. NIBP monitoring bm8 applied. 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 Pulse ox on. NIBP on. 01:04 Dressings: non-adherent dressing x 1 heel of left hand. bm8 Administered Medications: No medications were administered Medication: 00:26 VIS not applicable for this client. al5 Outcome: 00:48 Discharge ordered by MD. rt 01:04 Discharged to home ambulatory, with family, bm8 01:04 Condition: stable 01:04 Discharge instructions given to patient, Instructed on discharge instructions, follow up and referral plans. no drinking with medication, no driving heavy equipment, medication usage, safety practices, Demonstrated understanding of instructions, follow-up care, medications, 01:07 Patient left the ED. bm8 Signatures: Kesha Neri [id number] Otilio High MD MD rt Justin Lopez, RN RN bm8 Elyssa Birmingham RN RN al5 Erna Chaves RN RN bl1 Corrections: (The following items were deleted from the chart) 00:25 00:24 Home Meds: clopidogrel 75 mg Oral tab 1 tab once daily; al5 al5
[2024-08-08 01:22] VITALS: TEMP 97.9
[2024-08-08 01:24] VITALS: BP 142/73; O2SAT 100
== END 2024-08-08 01:07 | disposition home or self-care (01) ==
LOC: ER 23:53
DX: S60.511A Abrasion of right hand, initial encounter (principal)
CPT/HCPCS: 99284; J2003